=== PATIENT | female | born 1945 | race Caucasian/White ===

== ENCOUNTER 2023-02-08 13:07 | Inpatient (IN) | payer OTHER, SELFPAY ==
--- NOTE | ~2023-02-08 | CT_ITS ---
EXAMINATION: CT HEAD WITHOUT CONTRAST CLINICAL INFORMATION: Lethargy. COMPARISON: CT head 02/08/2023. TECHNIQUE: Contiguous axial imaging was performed from the skull base to vertex without intravenous administration of contrast. This CT examination was performed using dose optimization techniques as appropriate, variously including the following: *Automated exposure control *Adjustment of mA and/or kV according to patient size (this includes techniques or standardized protocols for targeted exams where dose is matched to indication/reason for exam; i.e. extremities or head) *Use of iterative reconstruction technique DLP: 683 mGy-cm FINDINGS: Indeterminate small hypodensity in the mid to right shreya (2:16) not significantly changed compared to 02/08/2023. There is no evidence of acute intracranial hemorrhage or edematous territorial infarction. Scattered hypoattenuation in the periventricular and deep white matter are consistent with moderate microangiopathy. Díaz-white matter differentiation is preserved. Proportional prominence of the ventricles and sulcal spaces. No evidence for obstructive hydrocephalus. No abnormal mass effect or midline shift. No extra-axial fluid collections. Mineralization of the basal ganglia. No acute soft tissue or osseous abnormalities. The mastoid air cells and paranasal sinuses are clear. Bilateral lens extraction. CT/CT head/brain wo IV con IMPRESSION: 1. Unchanged small hypodensity in the mid to right shreya. Recommend further characterization with an MRI of the brain. 2. Moderate chronic microangiopathy and generalized cerebral volume loss.
--- NOTE | ~2023-02-08 | XR_ITS ---
EXAMINATION: XR CHEST CLINICAL INFORMATION: FTT COMPARISON: None available. TECHNIQUE: Frontal view of the chest was obtained. FINDINGS: No significant abnormality is noted involving the heart, lungs, mediastinum, bony thorax or soft tissues. XR/XR chest 1V IMPRESSION: Unremarkable chest examination.
--- NOTE | ~2023-02-08 | CT_ITS ---
EXAMINATION: CT HEAD WITHOUT CONTRAST CLINICAL INFORMATION: Altered metal status. COMPARISON: No relevant prior imaging. TECHNIQUE: Contiguous axial imaging was performed from the skull base to vertex without intravenous administration of contrast. This CT examination was performed using dose optimization techniques as appropriate, variously including the following: *Automated exposure control *Adjustment of mA and/or kV according to patient size (this includes techniques or standardized protocols for targeted exams where dose is matched to indication/reason for exam; i.e. extremities or head) *Use of iterative reconstruction technique DLP: 684 mGy-cm FINDINGS: There is no acute intracranial hemorrhage or abnormal extra-axial collection. No intracranial mass effect or midline shift. Lateral and third ventricles are normal. No hydrocephalus. Díaz-white matter differentiation is preserved and there is no evidence of acute territorial infarct. The calvarium and skull base are intact. Mastoid air cells and middle ear cavities are well aerated. No active paranasal sinus disease. Globes and orbits are grossly symmetric. CT/CT head/brain wo IV con IMPRESSION: Normal CT scan of the head.
--- NOTE | ~2023-02-08 | FL_ITS ---
FLUOROSCOPIC LUMBAR PUNCTURE Indication: Encephalopathy Risks and benefits and possible complications were discussed with the patient's spouse the consent form was signed. Patient was placed prone on the fluoroscopy table. The back was prepped and draped in routine sterile fashion. Betadine was used as a skin antiseptic. Utilizing fluoroscopic guidance, the L3-4 level was accessed with a 22 gauge quinkie spinal needle. Pandora-tinged CSF was initially encountered, however, cleared throughout the procedure. Opening pressure was unable to be obtained. 8 cc of fluid was sent for analysis. The needle was removed without immediate complications. Total fluoroscopy time: 3 minutes 4 seconds FL/FL guided lumbar puncture LP IMPRESSION: Successful Fluoroscopic lumbar puncture This procedure was performed by Parish Quintero PA-C and supervised by Dr. Brian.
--- NOTE | ~2023-02-08 | MR_ITS ---
EXAMINATION: MRI OF THE BRAIN WITHOUT CONTRAST CLINICAL INFORMATION: Abnormal CT scan. COMPARISON: CT scan of the head 02/16/2023. TECHNIQUE: MRI of the brain was obtained using routine sequences without contrast. Some images are degraded by patient motion artifact. FINDINGS: No diffusion abnormalities are identified to suggest an acute or subacute infarct. No mass effect or midline shift is seen. There is mild commensurate prominence of the ventricles and sulci consistent with diffuse volume loss. There are moderate scattered areas of hyperintense T2 and FLAIR signal in the periventricular and subcortical white matter and in the shreya, most consistent with chronic microvascular ischemic changes. There appear to be sequelae of a lacunar infarct in the right ventral shreya, corresponding to the findings on the CT scan. No extra-axial fluid collections are seen. The cerebellar appears normal. No pathologic magnetic susceptibility artifact is identified on the gradient refocused acquisition. The craniovertebral junction, marrow signal, and midline structures are normal. The major intracranial flow-voids at the level of the [place] are preserved. The dural venous sinus flow-voids are maintained. There have been bilateral lens extractions. The mastoid air cells and paranasal sinuses are well-aerated. MR/MR head/brain wo con IMPRESSION: 1. There are no acute bleeds or territorial infarcts. No masses are demonstrated. 2. There are chronic microvascular ischemic changes and there is diffuse volume loss. There appear to be sequelae of a lacunar infarct in the right ventral shreya, corresponding to findings on the CT scan.
[2023-02-08 13:25] VITALS: BP 158/96; PULSE 101; O2SAT 95
[2023-02-08 13:33] VITALS: BP 169/91; PULSE 95; RESP 16; TEMP 36.9; O2SAT 95; BMI 30.3
--- NOTE | 2023-02-08 13:38 | ECG_ITS ---
Test Reason : medical clearance Blood Pressure : / mmHG Vent. Rate : 091 BPM Atrial Rate : 091 BPM P-R Int : 112 ms QRS Dur : 068 ms QT Int : 156 ms P-R-T Axes : 050 013 153 degrees QTc Int : 191 ms Normal sinus rhythm Nonspecific T wave abnormality Abnormal ECG No previous ECGs available Referred By: Astrid Castellanos Electronically Signed By:SARKIS HENDRICKSON
--- NOTE | 2023-02-08 13:43 | ED_ITS ---
HPI - General Adult General Chief complaint: Altered Mental Status Stated complaint: CRISIS,MOOD SWINGS, HALLUCINATIONS,ANX,DEP,DEMENTI Time Seen by Provider: 02/08/23 13:40 Source: patient, EMS, RN notes reviewed and old records reviewed Mode of arrival: EMS History of Present Illness HPI narrative: 77-year-old female with no known past medical history presenting to ED on Section 12 from home for failure to thrive/unable to care for self. Per patient she lives home with . Patient reports suprapubic discomfort/dysuria, CP and SOB. Patient is poor historian. Related Data Home Medications Medication Instructions Recorded Confirmed amlodipine 10 mg tablet 10 mg PO DAILY 02/09/23 02/09/23 ascorbic acid (vitamin C) 500 mg 500 mg PO Q48H 02/09/23 02/09/23 tablet (Vitamin C) aspirin 81 mg tablet,delayed 81 mg PO DAILY 02/09/23 02/09/23 release carvedilol 6.25 mg tablet 6.25 mg PO BID 02/09/23 02/09/23 cholecalciferol (vitamin D3) 25 25 mcg PO DAILY 02/09/23 02/09/23 mcg (1,000 unit) tablet escitalopram oxalate 20 mg tablet 20 mg PO DAILY 02/09/23 02/09/23 ferrous sulfate 325 mg (65 mg 325 mg PO DAILY 02/09/23 02/09/23 iron) tablet,delayed release gabapentin 100 mg capsule 100 mg PO DAILY 02/09/23 02/09/23 insulin glargine 100 unit/mL (3 36 unit subcut Q12H 02/09/23 02/09/23 mL) subcutaneous pen (Lantus Solostar U-100 Insulin) lidocaine 5 % topical patch 1 patch topical DAILY 02/09/23 02/09/23 lisinopril 40 mg tablet 40 mg PO DAILY 02/09/23 02/09/23 melatonin 3 mg tablet 3 mg PO BEDTIME 02/09/23 02/09/23 metformin 1,000 mg tablet 1,000 mg PO BID 02/09/23 02/09/23 nitrofurantoin 1 cap PO BID 02/09/23 02/09/23 monohydrate/macrocrystals 100 mg capsule polyethylene glycol 3350 17 17 g PO DAILY PRN constipation 12/05/23 12/05/23 gram/dose oral powder (Gavilax) rosuvastatin 20 mg tablet 20 mg PO BEDTIME 02/09/23 02/09/23 semaglutide 14 mg tablet (Rybelsus) 14 mg PO DAILY 02/09/23 02/09/23 Allergies Allergy/AdvReac Type Severity Reaction Status Date / Time No Known Allergies Allergy Verified 02/08/23 13:36 Review of Systems 2 Review of Systems: History limited due to patient's acute mental status Yes all other systems are reviewed and are negative Constitutional: Constitutional: Reports as per [facility] Past Medical History Attestation statement: The following information was validated with the patient. Source: old records reviewed Social History Social History Smoked in Last 30 Days: No Use of substances other than those prescribed or required for medical reasons: No Advance Directives: Yes Advance Directives on File: Yes Advance Directives Date on File: 02/10/23 Healthcare Proxy: No Guardian: No Physical Exam ED Vital Signs: Vital Signs - 24 hr 02/11/23 22:30 02/12/23 06:21 02/12/23 11:29 Temperature 98.1 F 97.3 F Pulse Rate 97 95 88 Respiratory Rate 17 19 18 Blood Pressure 185/85 H 180/95 H 161/86 H Pulse Oximetry 96 96 95 Oxygen Delivery Method Room Air Room Air Room Air 02/12/23 13:52 02/12/23 15:54 Temperature 97 F 98.4 F Pulse Rate 82 85 Respiratory Rate 20 16 Blood Pressure 139/68 139/70 Pulse Oximetry 93 97 Oxygen Delivery Method Room Air Room Air BMI result Body Mass Index 30.3 Const General: no acute distress Orientation/consciousness: patient oriented x3 HENMT Head: Yes normal to inspection and Yes atraumatic Ears: hearing grossly normal bilaterally General nose exam: Normal external nose present Face and sinus: Yes normal facial exam Throat: Yes posterior oropharynx normal Eyes General: appearance normal, both eyes and all related structures Pupils: Equal, round and reactive pupils present EOM: EOMs intact bilaterally Neck Neck: Yes normal visual inspection and Yes no meningeal signs Resp Effort & Inspection: normal respiratory effort and no respiratory distress Auscultation: clear to auscultation bilaterally Cardio Rate: regular rate Heart sounds: S1 normal heart sound present and S2 normal heart sound present GI Inspection: Yes normal to inspection Palpation (GI): Soft to palpation, nontender, no guarding and not rigid Skin Rashes: no rashes Wounds: no wounds Neuro General: patient oriented x3, tone normal, moves all extremities and no meningeal signs Cranial nerves: Yes CN's II-XII intact bilaterally and Yes Equal, round and reactive pupils present Extrem General: Yes normal to inspection and Yes no pedal edema Course Course Course Narrative: -1458--labs reassuring. UA contaminated however appears infected and very cloudy at bedside. Will treat empirically with PO Ceftin -tox screen and COVID negative XR chest 1V IMPRESSION: Unremarkable chest examination. CT head/brain wo IV con IMPRESSION: Normal CT scan of the head. -physician observation initiated at 1558 as patient needs more time to be evaluated by CARE team -1430--ED care transferred to [facility] pending CARE team consult 20:00 spoke with care team, patient was evaluated by [facility] the community, with recommendations for [facility], they expressed concerns about her ability to continue caring for herself at home, she at times has been found to be wandering in the street wearing her undergarments. 02/09/23--1600--physician observation continued. CARE team evaluated patient, patient was made [facility] bed search by [facility] prior to medical clearance, patient does have noted UTI. CARE team recommended psychiatry consult. Pending recommendations. - 02/10/23--0730--physician observation continued. Pending psychiatry evaluation. Will continue to monitor for discharge needs >0916--patient evaluated by CARE team and no inpatient level or care deemed appropriate at this time - 02/12/2023 0757: Patient's sugar was found to be below 60 and the patient was more somnolent. Nurse gave IV D50. Reviewed case with Dr. Hopkins. Recommended stopping her semaglutide and halving her insulin and metformin doses. Nurse informed of changes and need to feed the patient. Physician observation continues. Patient awaiting placement. - 02/12/2023 1756: Patient given sign-out to me from my colleague, Astrid Castellanos PA-C, pending repeat labs. Patient has increased leukocytosis at 11.6, BUN 24 which is increased from her 1st visit on 02/08. Given patient's failure to thrive, urinary tract infection and hypoglycemic episode, patient needs to be admitted to the hospital for further evaluation and workup. Case discussed with hospitalist, Dr. Desai, transfer of care initiated. Reevaluation(s) Reevaluation #1: Pain in observation to allow more time to be evaluated by the psychiatric team. At time observation started vital signs stable, will continue to monitor Time: 06:48 Medications Administered Generic Name Dose Route Start Last Admin Trade Name Freq PRN Reason Stop Dose Admin Amlodipine Besylate 10 mg 02/09/23 16:15 02/12/23 10:15 Amlodipine Besylate 10 Mg Tablet PO 10 mg DAILY CECILIA Administration Protocol Ascorbic Acid 500 mg 02/09/23 16:00 02/11/23 14:55 Ascorbic Acid 500 Mg Tablet PO 500 mg Q48H CECILIA Administration Aspirin 81 mg 02/09/23 16:15 02/12/23 10:15 Aspirin Enteric Coated 81 Mg Tablet. PO 81 mg DAILY CECILIA Administration Atorvastatin Calcium 80 mg 02/09/23 21:00 02/11/23 21:31 Atorvastatin Calcium 80 Mg Tablet PO 80 mg BEDTIME CECILIA Administration Carvedilol 6.25 mg 02/09/23 21:00 02/12/23 11:18 Carvedilol 6.25 Mg Tablet PO 6.25 mg BID CECILIA Administration Protocol Cefuroxime Axetil 250 mg 02/12/23 09:00 02/12/23 10:15 Cefuroxime Axetil 250 Mg Tablet PO 02/15/23 08:59 250 mg BID CECILIA Administration Escitalopram Oxalate 20 mg 02/09/23 16:15 02/12/23 10:15 Escitalopram Oxalate 20 Mg Tablet PO 20 mg DAILY CECILIA Administration Ferrous Sulfate 324 mg 02/10/23 09:00 02/12/23 10:15 Ferrous Sulfate 324 Mg Tablet. PO 324 mg DAILY CECILIA Administration Gabapentin 100 mg 02/09/23 16:15 02/12/23 10:15 Gabapentin 100 Mg Capsule PO 100 mg DAILY CECILIA Administration Dextrose 1,000 mls @ 50 mls/hr 02/12/23 12:45 02/12/23 14:38 D10 IVCONT 50 mls/hr .Q20H CECILIA Administration Insulin Glargine 18 unit 02/12/23 08:00 02/12/23 09:16 Insulin Glargine,Hum.Rec.Anlog 100 Unit/Ml 10 Ml Vial SUBCUT Not Given BID CECILIA Lidocaine 1 patch 02/10/23 09:00 02/12/23 10:16 Lidocaine 4 % Patch Adh..Patch TRANSDERMA 1 patch DAILY CECILIA Administration Lisinopril 40 mg 02/09/23 17:00 02/12/23 10:15 Lisinopril 40 Mg Tablet PO 40 mg DAILY CECILIA Administration Protocol Melatonin 3 mg 02/09/23 21:00 02/11/23 21:32 Melatonin 3 Mg Tablet PO 3 mg BEDTIME CECILIA Administration Metformin HCl 500 mg 02/12/23 09:00 02/12/23 11:17 Metformin Hcl 500 Mg Tablet PO Not Given BID CECILIA Nitrofurantoin Macrocrystals 100 mg 02/09/23 21:00 02/12/23 10:15 Nitrofurantoin Monohyd/M-Cryst 100 Mg Capsule PO 100 mg BID CECILIA Administration Polyethylene Glycol 17 gm 02/09/23 16:00 02/11/23 21:35 Polyethylene Glycol 3350 17 Gm Powd.Pack PO 17 gm DAILY PRN Administration constipation Vitamin D 25 mcg 02/09/23 16:15 02/12/23 10:15 Cholecalciferol (Vitamin D3) 25 Mcg Tablet PO 25 mcg DAILY CECILIA Administration Discontinued Medications Generic Name Dose Route Start Last Admin Trade Name Freq PRN Reason Stop Dose Admin Cefuroxime Axetil 250 mg 02/08/23 15:00 02/12/23 04:37 Cefuroxime Axetil 250 Mg Tablet PO 02/15/23 14:59 Not Given Q12H CECILIA Dextrose 25 gm 02/12/23 07:53 02/12/23 07:45 Dextrose 50 % 25 Gm/50 Ml Syringe IVPUSH 02/12/23 07:54 25 gm ONCE ONE Administration Ceftriaxone Sodium 1 gm/ 50 mls @ 100 mls/hr 02/12/23 12:44 02/12/23 14:40 Sodium Chloride IV 02/12/23 13:13 Infused ONCE ONE Infusion Insulin Glargine 36 unit 02/09/23 21:00 02/11/23 21:34 Insulin Glargine,Hum.Rec.Anlog 100 Unit/Ml 10 Ml Vial SUBCUT 36 unit BID CECILIA Administration Metformin HCl 1,000 mg 02/09/23 21:00 02/11/23 21:30 Metformin Hcl 1,000 Mg Tablet PO 1,000 mg BID CECILIA Administration Ondansetron HCl 4 mg 02/11/23 11:16 02/11/23 11:21 Ondansetron Odt 4 Mg Tab.Rapdis TRANSLINGU 02/11/23 11:17 4 mg ONCE ONE Administration Medical Decision Making Medical Decision Making MDM Narrative: 77-year-old female with no known past medical history presenting to ED on Section 12 from home for failure to thrive/unable to care for self. On exam vital signs stable, NAD, A&O x3 however poor historian. Patient's baseline unknown. No contact information in chart, patient unable to tell us family members phone numbers. Rule out metabolic/infectious etiology vs ?Dementia Plan: EKG, labs, tox screen, viral testing, UA, Head CT, CARE team consult Please refer to course for remaining clinical decision making, interpretation of labs/imaging results, and discussions with consultants and/or family members. Differential Diagnosis Differential Diagnoses: The differential diagnosis associated with the presentation includes As above Admission/Observation Consideration of admission/observation: Escalation of care including admission/observation considered Consult Healthcare Provider Management of the patient was discussed with: Behavioral Health Provider Lab Data MDM Lab Attestation statement: I reviewed the patient's lab results. 02/12/23 16:03 02/12/23 16:03 Labs: Lab Results 02/08/23 02/08/23 02/09/23 Range/Units 14:22 14:23 08:45 WBC 9.6 (4.8-10.8) X10*3/uL RBC 4.66 (4.20-5.50) X10*6/uL Hgb 12.4 (12.0-16.0) g/dl Hct 37.5 (37.0-47.0) % MCV 80.5 (80.0-98.0) fL MCH 26.6 L (27.0-33.0) pg MCHC 33.1 (31.0-35.0) g/dl RDW 15.6 (11.0-16.0) % Plt Count 319 (160-400) X10*3/uL MPV 10.5 (9.4-12.3) fL Immature Gran % (Auto) 0.2 (0.0-0.4) % Neut % (Auto) 65.5 (45-73) % Lymph % (Auto) 26.3 (20-40) % [place] % (Auto) 7.1 (2-11) % Eos % (Auto) 0.6 (0-4) % Baso % (Auto) 0.3 (0-2) % Lymph # (Auto) 2.5 (1.2-4.9) X10*3/uL [place] # (Auto) 0.7 (0.1-1.2) X10*3/uL Eos # (Auto) 0.1 (0.0-0.4) X10*3/uL Baso # (Auto) 0.0 (0.0-0.2) X10*3/uL Abs Immat Gran (auto) 0.02 (0.00-0.03) X10*3/uL Absolute Neuts (auto) 6.3 (2.0-8.3) x10*3/uL Absolute Nucleated RBC 0.000 (0.0-0.012) X10*3/uL Nucleated RBC % (auto) 0.0 (0.0-0.2) /100WBC Sodium 138 (135-145) mmol/L Potassium 4.0 (3.3-5.1) mmol/L Chloride 106 (96-108) mmol/L Carbon Dioxide 25 (22-29) mmol/L Anion Gap 11 L (12-20) BUN 9 (9-16) mg/dL Creatinine 0.80 (0.5-1.4) mg/dL Estim Creat Clear Calc 53.1 Estimated GFR > 60 POC Glucose 287 H (60-115) mg/dL Random Glucose 206 H (60-115) mg/dL Calcium 9.9 (8.4-10.2) mg/dL Magnesium 2.1 (1.6-2.6) mg/dL Total Bilirubin 0.5 (0.0-1.0) mg/dL AST 21 (5-31) U/L ALT 19 (0-31) U/L Alkaline Phosphatase 92 (39-117) U/L Troponin I High Sens 3.3 (<3.5-17.0) ng/L Total Protein 7.6 (6.5-8.0) g/dL Albumin 4.2 (3.5-5.0) g/dL Urine Color Straw Urine Appearance Hazy Urine pH 6.0 (5.0-9.0) Ur Specific [place] 1.010 (1.005-1.025) Urine Protein Trace (Neg-Trace) mg/dL Urine Glucose (UA) >=1000 H (Negative) mg/dL Urine Ketones Negative (Negative) mg/dL Urine Blood Trace (Negative) Urine Nitrite Positive H (Negative) Ur Leukocyte Esterase Negative (Negative) Urine RBC 11-20 H (0-2) /HPF Urine WBC 6-10 H (0-5) /HPF Ur Squamous Epith Cells 11-20 (0-2) /HPF Urine Bacteria 4+ (None Seen) Hyaline Casts 0-2 (0-2) /LPF Salicylates < 5.0 L (15-30) mg/dL Urine Opiates Screen Not Detected (Not Detect) Urine Fentanyl Screen Not Detected (Not Detect) Acetaminophen < 3 (<30) mcg/mL Ur Barbiturates Screen Not Detected (Not Detect) Ur Phencyclidine Scrn Not Detected (Not Detect) Ur Amphetamines Screen Not Detected (Not Detect) U Benzodiazepines Scrn Not Detected (Not Detect) Urine Cocaine Screen Not Detected (Not Detect) U Marijuana (THC) Screen Not Detected (Not Detect) Ethyl Alcohol < 10 mg/dL COVID-19 (SIVAN) Negative (Negative) COVID-19 Clin Com See Note 02/09/23 02/09/23 02/09/23 Range/Units 13:12 17:06 20:37 WBC (4.8-10.8) X10*3/uL RBC (4.20-5.50) X10*6/uL Hgb (12.0-16.0) g/dl Hct (37.0-47.0) % MCV (80.0-98.0) fL MCH (27.0-33.0) pg MCHC (31.0-35.0) g/dl RDW (11.0-16.0) % Plt Count (160-400) X10*3/uL MPV (9.4-12.3) fL Immature Gran % (Auto) (0.0-0.4) % Neut % (Auto) (45-73) % Lymph % (Auto) (20-40) % [place] % (Auto) (2-11) % Eos % (Auto) (0-4) % Baso % (Auto) (0-2) % Lymph # (Auto) (1.2-4.9) X10*3/uL [place] # (Auto) (0.1-1.2) X10*3/uL Eos # (Auto) (0.0-0.4) X10*3/uL Baso # (Auto) (0.0-0.2) X10*3/uL Abs Immat Gran (auto) (0.00-0.03) X10*3/uL Absolute Neuts (auto) (2.0-8.3) x10*3/uL Absolute Nucleated RBC (0.0-0.012) X10*3/uL Nucleated RBC % (auto) (0.0-0.2) /100WBC Sodium (135-145) mmol/L Potassium (3.3-5.1) mmol/L Chloride (96-108) mmol/L Carbon Dioxide (22-29) mmol/L Anion Gap (12-20) BUN (9-16) mg/dL Creatinine (0.5-1.4) mg/dL Estim Creat Clear Calc Estimated GFR POC Glucose 201 H 230 H 241 H (60-115) mg/dL Random Glucose (60-115) mg/dL Calcium (8.4-10.2) mg/dL Magnesium (1.6-2.6) mg/dL Total Bilirubin (0.0-1.0) mg/dL AST (5-31) U/L ALT (0-31) U/L Alkaline Phosphatase (39-117) U/L Troponin I High Sens (<3.5-17.0) ng/L Total Protein (6.5-8.0) g/dL Albumin (3.5-5.0) g/dL Urine Color Urine Appearance Urine pH (5.0-9.0) Ur Specific [place] (1.005-1.025) Urine Protein (Neg-Trace) mg/dL Urine Glucose (UA) (Negative) mg/dL Urine Ketones (Negative) mg/dL Urine Blood (Negative) Urine Nitrite (Negative) Ur Leukocyte Esterase (Negative) Urine RBC (0-2) /HPF Urine WBC (0-5) /HPF Ur Squamous Epith Cells (0-2) /HPF Urine Bacteria (None Seen) Hyaline Casts (0-2) /LPF Salicylates (15-30) mg/dL Urine Opiates Screen (Not Detect) Urine Fentanyl Screen (Not Detect) Acetaminophen (<30) mcg/mL Ur Barbiturates Screen (Not Detect) Ur Phencyclidine Scrn (Not Detect) Ur Amphetamines Screen (Not Detect) U Benzodiazepines Scrn (Not Detect) Urine Cocaine Screen (Not Detect) U Marijuana (THC) Screen (Not Detect) Ethyl Alcohol mg/dL COVID-19 (SIVAN) (Negative) COVID-19 Clin Com 02/10/23 02/10/23 02/10/23 Range/Units 05:17 07:11 11:37 WBC (4.8-10.8) X10*3/uL RBC (4.20-5.50) X10*6/uL Hgb (12.0-16.0) g/dl Hct (37.0-47.0) % MCV (80.0-98.0) fL MCH (27.0-33.0) pg MCHC (31.0-35.0) g/dl RDW (11.0-16.0) % Plt Count (160-400) X10*3/uL MPV (9.4-12.3) fL Immature Gran % (Auto) (0.0-0.4) % Neut % (Auto) (45-73) % Lymph % (Auto) (20-40) % [place] % (Auto) (2-11) % Eos % (Auto) (0-4) % Baso % (Auto) (0-2) % Lymph # (Auto) (1.2-4.9) X10*3/uL [place] # (Auto) (0.1-1.2) X10*3/uL Eos # (Auto) (0.0-0.4) X10*3/uL Baso # (Auto) (0.0-0.2) X10*3/uL Abs Immat Gran (auto) (0.00-0.03) X10*3/uL Absolute Neuts (auto) (2.0-8.3) x10*3/uL Absolute Nucleated RBC (0.0-0.012) X10*3/uL Nucleated RBC % (auto) (0.0-0.2) /100WBC Sodium (135-145) mmol/L Potassium (3.3-5.1) mmol/L Chloride (96-108) mmol/L Carbon Dioxide (22-29) mmol/L Anion Gap (12-20) BUN (9-16) mg/dL Creatinine (0.5-1.4) mg/dL Estim Creat Clear Calc Estimated GFR POC Glucose 189 H 201 H 187 H (60-115) mg/dL Random Glucose (60-115) mg/dL Calcium (8.4-10.2) mg/dL Magnesium (1.6-2.6) mg/dL Total Bilirubin (0.0-1.0) mg/dL AST (5-31) U/L ALT (0-31) U/L Alkaline Phosphatase (39-117) U/L Troponin I High Sens (<3.5-17.0) ng/L Total Protein (6.5-8.0) g/dL Albumin (3.5-5.0) g/dL Urine Color Urine Appearance Urine pH (5.0-9.0) Ur Specific [place] (1.005-1.025) Urine Protein (Neg-Trace) mg/dL Urine Glucose (UA) (Negative) mg/dL Urine Ketones (Negative) mg/dL Urine Blood (Negative) Urine Nitrite (Negative) Ur Leukocyte Esterase (Negative) Urine RBC (0-2) /HPF Urine WBC (0-5) /HPF Ur Squamous Epith Cells (0-2) /HPF Urine Bacteria (None Seen) Hyaline Casts (0-2) /LPF Salicylates (15-30) mg/dL Urine Opiates Screen (Not Detect) Urine Fentanyl Screen (Not Detect) Acetaminophen (<30) mcg/mL Ur Barbiturates Screen (Not Detect) Ur Phencyclidine Scrn (Not Detect) Ur Amphetamines Screen (Not Detect) U Benzodiazepines Scrn (Not Detect) Urine Cocaine Screen (Not Detect) U Marijuana (THC) Screen (Not Detect) Ethyl Alcohol mg/dL COVID-19 (SIVAN) (Negative) COVID-19 Clin Com 02/10/23 02/10/23 02/11/23 Range/Units 13:29 21:07 07:27 WBC (4.8-10.8) X10*3/uL RBC (4.20-5.50) X10*6/uL Hgb (12.0-16.0) g/dl Hct (37.0-47.0) % MCV (80.0-98.0) fL MCH (27.0-33.0) pg MCHC (31.0-35.0) g/dl RDW (11.0-16.0) % Plt Count (160-400) X10*3/uL MPV (9.4-12.3) fL Immature Gran % (Auto) (0.0-0.4) % Neut % (Auto) (45-73) % Lymph % (Auto) (20-40) % [place] % (Auto) (2-11) % Eos % (Auto) (0-4) % Baso % (Auto) (0-2) % Lymph # (Auto) (1.2-4.9) X10*3/uL [place] # (Auto) (0.1-1.2) X10*3/uL Eos # (Auto) (0.0-0.4) X10*3/uL Baso # (Auto) (0.0-0.2) X10*3/uL Abs Immat Gran (auto) (0.00-0.03) X10*3/uL Absolute Neuts (auto) (2.0-8.3) x10*3/uL Absolute Nucleated RBC (0.0-0.012) X10*3/uL Nucleated RBC % (auto) (0.0-0.2) /100WBC Sodium (135-145) mmol/L Potassium (3.3-5.1) mmol/L Chloride (96-108) mmol/L Carbon Dioxide (22-29) mmol/L Anion Gap (12-20) BUN (9-16) mg/dL Creatinine (0.5-1.4) mg/dL Estim Creat Clear Calc Estimated GFR POC Glucose 208 H 241 H 136 H (60-115) mg/dL Random Glucose (60-115) mg/dL Calcium (8.4-10.2) mg/dL Magnesium (1.6-2.6) mg/dL Total Bilirubin (0.0-1.0) mg/dL AST (5-31) U/L ALT (0-31) U/L Alkaline Phosphatase (39-117) U/L Troponin I High Sens (<3.5-17.0) ng/L Total Protein (6.5-8.0) g/dL Albumin (3.5-5.0) g/dL Urine Color Urine Appearance Urine pH (5.0-9.0) Ur Specific [place] (1.005-1.025) Urine Protein (Neg-Trace) mg/dL Urine Glucose (UA) (Negative) mg/dL Urine Ketones (Negative) mg/dL Urine Blood (Negative) Urine Nitrite (Negative) Ur Leukocyte Esterase (Negative) Urine RBC (0-2) /HPF Urine WBC (0-5) /HPF Ur Squamous Epith Cells (0-2) /HPF Urine Bacteria (None Seen) Hyaline Casts (0-2) /LPF Salicylates (15-30) mg/dL Urine Opiates Screen (Not Detect) Urine Fentanyl Screen (Not Detect) Acetaminophen (<30) mcg/mL Ur Barbiturates Screen (Not Detect) Ur Phencyclidine Scrn (Not Detect) Ur Amphetamines Screen (Not Detect) U Benzodiazepines Scrn (Not Detect) Urine Cocaine Screen (Not Detect) U Marijuana (THC) Screen (Not Detect) Ethyl Alcohol mg/dL COVID-19 (SIVAN) (Negative) COVID-19 Clin Com 02/11/23 02/12/23 02/12/23 Range/Units 11:18 07:20 08:09 WBC (4.8-10.8) X10*3/uL RBC (4.20-5.50) X10*6/uL Hgb (12.0-16.0) g/dl Hct (37.0-47.0) % MCV (80.0-98.0) fL MCH (27.0-33.0) pg MCHC (31.0-35.0) g/dl RDW (11.0-16.0) % Plt Count (160-400) X10*3/uL MPV (9.4-12.3) fL Immature Gran % (Auto) (0.0-0.4) % Neut % (Auto) (45-73) % Lymph % (Auto) (20-40) % [place] % (Auto) (2-11) % Eos % (Auto) (0-4) % Baso % (Auto) (0-2) % Lymph # (Auto) (1.2-4.9) X10*3/uL [place] # (Auto) (0.1-1.2) X10*3/uL Eos # (Auto) (0.0-0.4) X10*3/uL Baso # (Auto) (0.0-0.2) X10*3/uL Abs Immat Gran (auto) (0.00-0.03) X10*3/uL Absolute Neuts (auto) (2.0-8.3) x10*3/uL Absolute Nucleated RBC (0.0-0.012) X10*3/uL Nucleated RBC % (auto) (0.0-0.2) /100WBC Sodium (135-145) mmol/L Potassium (3.3-5.1) mmol/L Chloride (96-108) mmol/L Carbon Dioxide (22-29) mmol/L Anion Gap (12-20) BUN (9-16) mg/dL Creatinine (0.5-1.4) mg/dL Estim Creat Clear Calc Estimated GFR POC Glucose 115 53 L* 201 H (60-115) mg/dL Random Glucose (60-115) mg/dL Calcium (8.4-10.2) mg/dL Magnesium (1.6-2.6) mg/dL Total Bilirubin (0.0-1.0) mg/dL AST (5-31) U/L ALT (0-31) U/L Alkaline Phosphatase (39-117) U/L Troponin I High Sens (<3.5-17.0) ng/L Total Protein (6.5-8.0) g/dL Albumin (3.5-5.0) g/dL Urine Color Urine Appearance Urine pH (5.0-9.0) Ur Specific [place] (1.005-1.025) Urine Protein (Neg-Trace) mg/dL Urine Glucose (UA) (Negative) mg/dL Urine Ketones (Negative) mg/dL Urine Blood (Negative) Urine Nitrite (Negative) Ur Leukocyte Esterase (Negative) Urine RBC (0-2) /HPF Urine WBC (0-5) /HPF Ur Squamous Epith Cells (0-2) /HPF Urine Bacteria (None Seen) Hyaline Casts (0-2) /LPF Salicylates (15-30) mg/dL Urine Opiates Screen (Not Detect) Urine Fentanyl Screen (Not Detect) Acetaminophen (<30) mcg/mL Ur Barbiturates Screen (Not Detect) Ur Phencyclidine Scrn (Not Detect) Ur Amphetamines Screen (Not Detect) U Benzodiazepines Scrn (Not Detect) Urine Cocaine Screen (Not Detect) U Marijuana (THC) Screen (Not Detect) Ethyl Alcohol mg/dL COVID-19 (SIVAN) (Negative) COVID-19 Clin Com 02/12/23 02/12/23 02/12/23 Range/Units 11:32 15:57 16:03 WBC 11.6 H (4.8-10.8) X10*3/uL RBC 5.00 (4.20-5.50) X10*6/uL Hgb 13.2 (12.0-16.0) g/dl Hct 40.5 (37.0-47.0) % MCV 81.0 (80.0-98.0) fL MCH 26.4 L (27.0-33.0) pg MCHC 32.6 (31.0-35.0) g/dl RDW 15.8 (11.0-16.0) % Plt Count 311 (160-400) X10*3/uL MPV 10.8 (9.4-12.3) fL Immature Gran % (Auto) 0.3 (0.0-0.4) % Neut % (Auto) 72.1 (45-73) % Lymph % (Auto) 21.4 (20-40) % [place] % (Auto) 5.9 (2-11) % Eos % (Auto) 0.2 (0-4) % Baso % (Auto) 0.1 (0-2) % Lymph # (Auto) 2.5 (1.2-4.9) X10*3/uL [place] # (Auto) 0.7 (0.1-1.2) X10*3/uL Eos # (Auto) 0.0 (0.0-0.4) X10*3/uL Baso # (Auto) 0.0 (0.0-0.2) X10*3/uL Abs Immat Gran (auto) 0.03 (0.00-0.03) X10*3/uL Absolute Neuts (auto) 8.4 H (2.0-8.3) x10*3/uL Absolute Nucleated RBC 0.000 (0.0-0.012) X10*3/uL Nucleated RBC % (auto) 0.0 (0.0-0.2) /100WBC Sodium 137 (135-145) mmol/L Potassium 5.1 D (3.3-5.1) mmol/L Chloride 105 (96-108) mmol/L Carbon Dioxide 22 (22-29) mmol/L Anion Gap 15 (12-20) BUN 24 H (9-16) mg/dL Creatinine 0.80 (0.5-1.4) mg/dL Estim Creat Clear Calc 53.1 Estimated GFR > 60 POC Glucose 82 100 (60-115) mg/dL Random Glucose 105 (60-115) mg/dL Calcium 9.3 D (8.4-10.2) mg/dL Magnesium (1.6-2.6) mg/dL Total Bilirubin 0.4 (0.0-1.0) mg/dL AST 31 (5-31) U/L ALT 22 (0-31) U/L Alkaline Phosphatase 85 (39-117) U/L Troponin I High Sens (<3.5-17.0) ng/L Total Protein 7.4 (6.5-8.0) g/dL Albumin 3.8 (3.5-5.0) g/dL Urine Color Urine Appearance Urine pH (5.0-9.0) Ur Specific [place] (1.005-1.025) Urine Protein (Neg-Trace) mg/dL Urine Glucose (UA) (Negative) mg/dL Urine Ketones (Negative) mg/dL Urine Blood (Negative) Urine Nitrite (Negative) Ur Leukocyte Esterase (Negative) Urine RBC (0-2) /HPF Urine WBC (0-5) /HPF Ur Squamous Epith Cells (0-2) /HPF Urine Bacteria (None Seen) Hyaline Casts (0-2) /LPF Salicylates (15-30) mg/dL Urine Opiates Screen (Not Detect) Urine Fentanyl Screen (Not Detect) Acetaminophen (<30) mcg/mL Ur Barbiturates Screen (Not Detect) Ur Phencyclidine Scrn (Not Detect) Ur Amphetamines Screen (Not Detect) U Benzodiazepines Scrn (Not Detect) Urine Cocaine Screen (Not Detect) U Marijuana (THC) Screen (Not Detect) Ethyl Alcohol mg/dL COVID-19 ([facility]) (Negative) COVID-19 Clin Com 02/12/23 Range/Units 17:32 WBC (4.8-10.8) X10*3/uL RBC (4.20-5.50) X10*6/uL Hgb (12.0-16.0) g/dl Hct (37.0-47.0) % MCV (80.0-98.0) fL MCH (27.0-33.0) pg MCHC (31.0-35.0) g/dl RDW (11.0-16.0) % Plt Count (160-400) X10*3/uL MPV (9.4-12.3) fL Immature Gran % (Auto) (0.0-0.4) % Neut % (Auto) (45-73) % Lymph % (Auto) (20-40) % [place] % (Auto) (2-11) % Eos % (Auto) (0-4) % Baso % (Auto) (0-2) % Lymph # (Auto) (1.2-4.9) X10*3/uL [place] # (Auto) (0.1-1.2) X10*3/uL Eos # (Auto) (0.0-0.4) X10*3/uL Baso # (Auto) (0.0-0.2) X10*3/uL Abs Immat Gran (auto) (0.00-0.03) X10*3/uL Absolute Neuts (auto) (2.0-8.3) x10*3/uL Absolute Nucleated RBC (0.0-0.012) X10*3/uL Nucleated RBC % (auto) (0.0-0.2) /100WBC Sodium (135-145) mmol/L Potassium (3.3-5.1) mmol/L Chloride (96-108) mmol/L Carbon Dioxide (22-29) mmol/L Anion Gap (12-20) BUN (9-16) mg/dL Creatinine (0.5-1.4) mg/dL Estim Creat Clear Calc Estimated GFR POC Glucose 157 H (60-115) mg/dL Random Glucose (60-115) mg/dL Calcium (8.4-10.2) mg/dL Magnesium (1.6-2.6) mg/dL Total Bilirubin (0.0-1.0) mg/dL AST (5-31) U/L ALT (0-31) U/L Alkaline Phosphatase (39-117) U/L Troponin I High Sens (<3.5-17.0) ng/L Total Protein (6.5-8.0) g/dL Albumin (3.5-5.0) g/dL Urine Color Urine Appearance Urine pH (5.0-9.0) Ur Specific [place] (1.005-1.025) Urine Protein (Neg-Trace) mg/dL Urine Glucose (UA) (Negative) mg/dL Urine Ketones (Negative) mg/dL Urine Blood (Negative) Urine Nitrite (Negative) Ur Leukocyte Esterase (Negative) Urine RBC (0-2) /HPF Urine WBC (0-5) /HPF Ur Squamous Epith Cells (0-2) /HPF Urine Bacteria (None Seen) Hyaline Casts (0-2) /LPF Salicylates (15-30) mg/dL Urine Opiates Screen (Not Detect) Urine Fentanyl Screen (Not Detect) Acetaminophen (<30) mcg/mL Ur Barbiturates Screen (Not Detect) Ur Phencyclidine Scrn (Not Detect) Ur Amphetamines Screen (Not Detect) U Benzodiazepines Scrn (Not Detect) Urine Cocaine Screen (Not Detect) U Marijuana (THC) Screen (Not Detect) Ethyl Alcohol mg/dL COVID-19 (SIVAN) (Negative) COVID-19 Clin Com Independent Interpretation I performed an independent interpretation of an: EKG and Plain X-Ray Radiology Impression Discussion of test interpretation with radiology: I have reviewed the radiologist's reading. Independent Historian Clinical information obtained from an independent historian. History obtained from or confirmed by: EMS External Record Review External record reviewed: Inpatient record, Office record, Outpatient record, Prior outpatient labs, Prior outpatient radiology, Primary care record and Outside ED record Tests considered The following testing was considered but not selected: As above Social Determinants Patient?s care significantly limited by Social Determinants of Health including: Problems related to primary support group Discharge Plan Discharge Clinical Impression: Acute UTI, Adult failure to thrive, Hypoglycemia Patient Disposition: Admitted As Inpatient Prescriptions: No Action carvedilol 6.25 mg tablet 6.25 mg PO BID aspirin 81 mg tablet,delayed release (DR/EC) 81 mg PO DAILY ascorbic acid (vitamin C) [Vitamin C] 500 mg tablet 500 mg PO Q48H amlodipine 10 mg tablet 10 mg PO DAILY metformin 1,000 mg tablet 1,000 mg PO BID gabapentin 100 mg capsule 100 mg PO DAILY ferrous sulfate 325 mg (65 mg iron) tablet,delayed release (DR/EC) 325 mg PO DAILY lisinopril 40 mg tablet 40 mg PO DAILY escitalopram oxalate 20 mg tablet 20 mg PO DAILY rosuvastatin 20 mg tablet 20 mg PO BEDTIME melatonin 3 mg tablet 3 mg PO BEDTIME lidocaine 5 % adhesive patch,medicated 1 patch topical DAILY Rx Instructions: REMOVE AFTER 12 HOURS polyethylene glycol 3350 [Gavilax] 17 gram/dose powder 17 g PO DAILY PRN (Reason: constipation) Rx Instructions: HOLD FOR LOOSE STOOLS nitrofurantoin monohyd/m-cryst 100 mg capsule 1 cap PO BID Rx Instructions: MAINTENANCE MEDICATION cholecalciferol (vitamin D3) 25 mcg (1,000 unit) tablet 25 mcg PO DAILY insulin glargine [Lantus Solostar U-100 Insulin] 100 unit/mL (3 mL) insulin pen 36 unit subcut Q12H Rybelsus 14 mg tablet 14 mg PO DAILY
[2023-02-08 14:00] VITALS: BP 168/70; PULSE 89; RESP 16; TEMP 36.6; O2SAT 98
[2023-02-08 14:27] LABS: MANUAL DIFF FLAG NO
[2023-02-08 14:30] LABS: Appearance Urine Hazy; Color Urine Straw; Glucose Urine UA >=1000 mg/dL (Negative); Leukocyte Esterase Urine Negative (Negative); Nitrite Urine Positive (Negative); UMIC TRIGGER UACC YES; Urine Blood Trace (Negative); Urine Ketones Negative (Negative); Urine Protein Trace mg/dL (Neg-Trace)
[2023-02-08 14:33] LABS: Basophils Percent Auto 0.3 % (0-2); Eosinophils Absolute Auto 0.1 X10*3/uL (0.0-0.4); Eosinophils Percent Auto 0.6 % (0-4); Hematocrit 37.5 % (37.0-47.0); Hemoglobin 12.4 g/dl (12.0-16.0); Imm Gran Abs Auto 0.02 X10*3/uL (0.00-0.03); Imm Gran Pct Auto 0.2 % (0.0-0.4); Lymphocytes Absolute Auto 2.5 X10*3/uL (1.2-4.9); Lymphocytes Percent Auto 26.3 % (20-40); Mean Corpuscular HGB Conc 33.1 g/dl (31.0-35.0); Mean Corpuscular Hemoglobin 26.6 pg (27.0-33.0); Mean Corpuscular Volume 80.5 fL (80.0-98.0); Mean Platelet Volume 10.5 fL (9.4-12.3); Monocytes Absolute Auto 0.7 X10*3/uL (0.1-1.2); Monocytes Percent Auto 7.1 % (2-11); Neutrophils Absolute Auto 6.3 x10*3/uL (2.0-8.3); Neutrophils Percent Auto 65.5 % (45-73); Platelet Count 319 X10*3/uL (160-400); Red Blood Count 4.66 X10*6/uL (4.20-5.50); Red Cell Distribution Width 15.6 % (11.0-16.0); White Blood Count 9.6 X10*3/uL (4.8-10.8)
[2023-02-08 14:35] LABS: Bacteria Urine 4+ (None Seen); Hyaline Casts Urine 0-2 /LPF (0-2); UACC Culture Trigger YES
[2023-02-08 14:37] LABS: Amphetamine Screen Urine Not Detected (Not Detect); Barbiturates, Urine Not Detected (Not Detect); Benzodiazepines Screen Urine Not Detected (Not Detect); Cannabinoid Screen Urine Not Detected (Not Detect); Cocaine Screen Urine Not Detected (Not Detect); Fentanyl, urine Not Detected (Not Detect); Opiate Screen Urine Not Detected (Not Detect); Phencyclidine Screen Urine Not Detected (Not Detect)
[2023-02-08 14:43] LABS: COVID-19 Test Negative (Negative); IDNOW Serial# 08D9AD1C
[2023-02-08 14:45] LABS: Acetaminophen LAB < 3 mcg/mL (<30); Salicylate < 5.0 mg/dL (15-30)
[2023-02-08 14:46] LABS: Alanine Aminotransferase 19 U/L (0-31); Albumin Level 4.2 g/dL (3.5-5.0); Alkaline Phosphatase 92 U/L (39-117); Anion Gap 11 (12-20); Aspartate Amino Transferase 21 U/L (5-31); Bilirubin Total 0.5 mg/dL (0.0-1.0); Blood Urea Nitrogen 9 mg/dL (9-16); Calcium 9.9 mg/dL (8.4-10.2); Carbon Dioxide 25 mmol/L (22-29); Chloride 106 mmol/L (96-108); Creatinine Clr Calc Pharmacy 53.1; Estimated Glomerular Filt Rate > 60; Ethanol < 10 mg/dL; Glucose Random 206 mg/dL (60-115); Magnesium 2.1 mg/dL (1.6-2.6); Sodium 138 mmol/L (135-145); Total Protein 7.6 g/dL (6.5-8.0)
[2023-02-08 14:49] LABS: Troponin-I High Sensitivity 3.3 ng/L (<3.5-17.0)
[2023-02-08] MEDS: cefuroxime axetiL 250 MG TABLET PO (15:42)
--- NOTE | 2023-02-08 16:54 | MHC.EDTECH ---
late entry------ pt was cleaned after being incontinent of urine at 1500. warm blankets given, clean linen given, rn aware
--- NOTE | 2023-02-08 18:56 | MHC.CARE ---
Pt was seen in the community by [facility]. Copy of crisis assessment is available in the chart. Pt was made an [facility] bed[facility] by [facility] prior to medical clearance. Pt has a UTI. Given that significant change from baseline has occurred in the past week, it is possible that symptoms correlate with the UTI. Pt is able to return home, however, this is a question of how safe this would be for her, given that she is wondering and unable to care for herself. Consult to psychiatry recommended in order to weigh in on dispo given the UTI. If pt is not going to [facility], she should be seen by CM to ensure safe discharge plan.
[2023-02-08 19:48] VITALS: BP 173/84; PULSE 101; RESP 18; TEMP 36.9; O2SAT 98
--- NOTE | 2023-02-08 20:31 | MHC.EDTECH ---
Pt incontinent of urine. Bedding changed and ana care done. Pt moved back up in bed. RN aware
--- NOTE | 2023-02-08 22:11 | PC.NURSE ---
Pts , Ean, and friend, Hollie, called for an update. Update provided.
[2023-02-09] VITALS (8 sets, daily range): BP systolic 147–193; BP diastolic 67–94; PULSE 91–112; RESP 16–19; TEMP 36.3–37.4; O2SAT 93–97
--- NOTE | 2023-02-09 01:17 | MHC.EDTECH ---
Pt incontinent of large amount of urine. Bedding changed and pt cleaned. RN aware
[2023-02-09] MEDS: cefuroxime axetiL 250 MG TABLET PO ×2 (03:36→15:24)
--- NOTE | 2023-02-09 08:50 | PC.NURSE ---
pt ate approx 50% of breakfast, 1 assist necessary to assist with feeding.
[2023-02-09 08:51] LABS: Glucose, Whole Blood 287 mg/dL (60-115)
--- NOTE | 2023-02-09 09:12 | PHA.MEDREC ---
Pharmacy Consult ? Medication Reconciliation Pharmacy has completed the medication reconciliation.DUE TO PT MENTAL STATUS, MED REC COMPLETE USING CLAIM HISTORY. CONTACTED [facility] @[phone] TO CONFIRM INSULIN DOSING. LANTUS IS DOSED AT 36 UNITS Q12H.
[2023-02-09 13:24] LABS: Glucose, Whole Blood 201 mg/dL (60-115)
--- NOTE | 2023-02-09 14:03 | MHC.EDTECH ---
Late entry--- 1315: Pt found to be incontinent of urine. T/w and hydro technician Reina cleaned Pt and did complete bedding change. Pt repositioned and sat up to eat lunch. electrical helper fed Pt, ate about 50% of lunch.
[2023-02-09 17:09] LABS: Glucose, Whole Blood 230 mg/dL (60-115)
--- NOTE | 2023-02-09 17:50 | MHC.EDTECH ---
pt was incontinent of urine. ana care was done, clean linen and warm blanket given. pt now comfortable.
--- NOTE | 2023-02-09 18:47 | MHC.EDTECH ---
pt was assisted with feeding. pt consumed 25% of dinner. rn aware
[2023-02-09] MEDS: Cholecalciferol (Vitamin D3) 25 MCG TABLET PO (19:18)
[2023-02-09] MEDS: lisinopriL 40 MG TABLET PO (19:18)
[2023-02-09] MEDS: Aspirin Enteric Coated 81 MG TABLET.DR PO (19:18)
[2023-02-09] MEDS: Ascorbic Acid 500 MG TABLET PO (19:18)
[2023-02-09] MEDS: Gabapentin 100 MG CAPSULE PO (19:18)
[2023-02-09] MEDS: Escitalopram Oxalate 20 MG TABLET PO (19:19)
[2023-02-09] MEDS: amLODIPine Besylate 10 MG TABLET PO (19:19)
[2023-02-09] MEDS: Insulin Glargine,Hum.rec.anlog 100 UNIT/ML 10 ML VIAL 36 UNIT SUBCUT (20:38)
[2023-02-09] MEDS: Melatonin 3 MG TABLET PO (20:38)
[2023-02-09] MEDS: Nitrofurantoin Monohyd/M-Cryst 100 MG CAPSULE PO (20:38)
[2023-02-09] MEDS: metFORMIN HCl 1,000 MG TABLET 1000 MG PO (20:38)
[2023-02-09] MEDS: carvediloL 6.25 MG TABLET PO (20:38)
[2023-02-09] MEDS: Atorvastatin Calcium 80 MG TABLET PO (20:38)
[2023-02-09 20:56] LABS: Glucose, Whole Blood 241 mg/dL (60-115)
[2023-02-10 05:23] VITALS: BP 172/67; PULSE 104; RESP 20; O2SAT 97
--- NOTE | 2023-02-10 05:23 | PC.NURSE ---
Pt yelling out agua!, agua! when attempting to give antibiotic with water pt will not drink or take pill.
[2023-02-10 06:00] VITALS: BP 159/76; PULSE 100; RESP 12; TEMP 36.9; O2SAT 96
[2023-02-10 07:05] VITALS: BP 157/80; PULSE 101; RESP 16; TEMP 37; O2SAT 95
[2023-02-10 07:23] LABS: Glucose, Whole Blood 201 mg/dL (60-115)
[2023-02-10 07:23] LABS: Glucose, Whole Blood 189 mg/dL (60-115)
[2023-02-10 10:21] VITALS: BP 157/80; PULSE 101; O2SAT 95
--- NOTE | 2023-02-10 11:30 | PC.NURSE ---
pt daughter, Hollie, called and asked for update on pt. pt to be discharged soon. daughter would like to be called when pt discharged. [phone]
[2023-02-10] MEDS: Nitrofurantoin Monohyd/M-Cryst 100 MG CAPSULE PO ×2 (11:39→21:17)
[2023-02-10] MEDS: carvediloL 6.25 MG TABLET PO ×2 (11:39→21:20)
[2023-02-10] MEDS: Cholecalciferol (Vitamin D3) 25 MCG TABLET PO (11:39)
[2023-02-10] MEDS: Gabapentin 100 MG CAPSULE PO (11:39)
[2023-02-10] MEDS: metFORMIN HCl 1,000 MG TABLET 1000 MG PO ×2 (11:39→21:17)
[2023-02-10] MEDS: amLODIPine Besylate 10 MG TABLET PO (11:39)
[2023-02-10] MEDS: Insulin Glargine,Hum.rec.anlog 100 UNIT/ML 10 ML VIAL 36 UNIT SUBCUT ×2 (11:39→21:17)
[2023-02-10 11:40] LABS: Glucose, Whole Blood 187 mg/dL (60-115)
[2023-02-10] MEDS: Lidocaine 4 % Patch ADH..PATCH 1 PATCH TRANSDERMA (11:40)
[2023-02-10] MEDS: Ferrous Sulfate 324 MG TABLET.DR PO (11:40)
[2023-02-10] MEDS: lisinopriL 40 MG TABLET PO (11:40)
[2023-02-10] MEDS: Aspirin Enteric Coated 81 MG TABLET.DR PO (11:40)
[2023-02-10] MEDS: Escitalopram Oxalate 20 MG TABLET PO (11:40)
[2023-02-10 13:34] LABS: Glucose, Whole Blood 208 mg/dL (60-115)
--- NOTE | 2023-02-10 13:47 | PC.NURSE ---
this RN medicated patients. Medications had to be crushed in applesauce for patient tolerate with sips of juice in between. Overall, patient tolerated well with no issues.
--- NOTE | 2023-02-10 13:56 | MHC.EDTECH ---
Pt ate about 25% of lunch. at bedside.
[2023-02-10] MEDS: cefuroxime axetiL 250 MG TABLET PO (15:31)
[2023-02-10 15:37] VITALS: PULSE 87; RESP 16; O2SAT 97
--- NOTE | 2023-02-10 15:37 | PC.NURSE ---
patient continues to rest on stretcher in hallway, respirations even and unlabored, skin pwd, alert and oriented x1, no apparent distress. patient states she is in pain but is unable to localize the pain.
--- NOTE | 2023-02-10 16:33 | MHC.CM.ED ---
Received case management consult from Jenna FRENCH. Patient came to the ER due to crisis. Cleared by Care Team. Physical therapy tried to see patient. Patient would not participate in evaluation. Met with patient, sig other Ean and vacuum tank tender. Patient lives with Ean, ambulates with a walker and is active with a [facility] for custodial and physical therapy. Ean does not remember VNA agency name. PCP verified as Radha Matias. Copy of HCP obtained from [facility]. Patient and Ean do not feel patient is strong enough to return home at this time and are interested in STR. Both aware referral will be broadcasted in [facility]. Referral broadcasted. Continue to monitor for d/c needs.
--- NOTE | 2023-02-10 19:14 | PC.NURSE ---
Attempted to ambulate pt, pt only walked a few steps then stated she felt unstable. Pt was brought back to bed and positioned for comfort.
--- NOTE | 2023-02-10 19:20 | PC.NURSE ---
Report given to CHRISTOPHER CROWLEY in overflow. Pt will be moved when a space opens
--- NOTE | 2023-02-10 19:30 | MHC.EDTECH ---
PATIENT CAME TO OVERFLOW FROM THE MAIN EMERGENCY ROOM ,PT WAS FED ATE 100 % ,DRANK 240 ML FLUIDS .
--- NOTE | 2023-02-10 20:14 | PC.NURSE ---
This communications writer assumed care of this Pt at 1930. Pt bought over by stretcher from main ED. Pt calm and cooperative. 2 assist to stand and pivot to hospital bed. Pt A&Ox2, primarily [place] spanking, reports bilateral leg pain. Skin is dry, warm and intact. Purewick placed.
[2023-02-10 21:11] VITALS: BP 174/81; PULSE 96; RESP 16; TEMP 36.4; O2SAT 97
[2023-02-10 21:11] LABS: Glucose, Whole Blood 241 mg/dL (60-115)
[2023-02-10] MEDS: Atorvastatin Calcium 80 MG TABLET PO (21:17)
[2023-02-10] MEDS: Melatonin 3 MG TABLET PO (21:17)
--- NOTE | 2023-02-11 03:10 | PC.NURSE ---
Pt appears to be sleeping, equal, non labored respirations, no apparent distress.
[2023-02-11] MEDS: cefuroxime axetiL 250 MG TABLET PO ×2 (05:26→14:55)
[2023-02-11 05:30] VITALS: BP 172/82; PULSE 98; RESP 18; O2SAT 97
--- NOTE | 2023-02-11 06:19 | MHC.EDTECH ---
PATIENT WAS REPOSITION AND BOOSTED UP IN BED ,PT DRY ,PUREWICK IS WORKING FINE ,BED ALARM ON BED AND TELLE SITTER ON .
[2023-02-11 07:29] LABS: Glucose, Whole Blood 136 mg/dL (60-115)
[2023-02-11 08:28] VITALS: BP 153/71; PULSE 90; RESP 16; O2SAT 96
[2023-02-11] MEDS: Lidocaine 4 % Patch ADH..PATCH 1 PATCH TRANSDERMA (08:33)
--- NOTE | 2023-02-11 08:35 | PC.NURSE ---
this rn at bedside to administer patient morning meds. patient put juice in her mouth then spit out all over her self. patient conversing with vascular ultrasound technologist but not with rn, not taking her PO meds.
[2023-02-11] MEDS: Insulin Glargine,Hum.rec.anlog 100 UNIT/ML 10 ML VIAL 36 UNIT SUBCUT ×2 (08:38→21:34)
--- NOTE | 2023-02-11 10:29 | MHC.CM.ED ---
Addendum entered by Beti Jolly 02/11/23 11:26: Physical therapy eval was completed 02/10. LTC is recommended. Original Note: Patient remains in ER overflow. Per meeting with patient and sig other, Ean, patient is too weak to go home. Both are interested in short term rehab so that patient can get stronger and safely return home. Physical therapy eval is pending but anticiapte short term rehab will be needed. Will need [facility] PASRR Level 2 due to long standing history of mental health issues. Referral broadcasted in [facility] for local bed availability. Continue to monitor for d/c needs.
[2023-02-11] MEDS: Ondansetron ODT 4 MG TAB.RAPDIS TRANSLINGU (11:21)
[2023-02-11 11:26] LABS: Glucose, Whole Blood 115 mg/dL (60-115)
--- NOTE | 2023-02-11 13:18 | MHC.EDTECH ---
patient was washed up with a complete bed change.
[2023-02-11 14:00] VITALS: BP 172/82; PULSE 86; RESP 20; TEMP 36.1; O2SAT 97
[2023-02-11] MEDS: Ascorbic Acid 500 MG TABLET PO (14:55)
[2023-02-11 16:14] VITALS: BP 156/78; PULSE 93; RESP 16; TEMP 36.2; O2SAT 97
--- NOTE | 2023-02-11 16:15 | MHC.EDTECH ---
This pct assumed care of pt at 1500 ,vitals taken ,pt was reposition and boosted up in bed .
--- NOTE | 2023-02-11 17:58 | MHC.EDTECH ---
Patient very upset ,refused to eat ,Crying out ,provider came over to see pt ,We reposition Patient and she is now resting . ..
--- NOTE | 2023-02-11 18:27 | PC.NURSE ---
patient daughter called RN. concerned because her father things patient is declining. notified provider Nancy COLLADO who came to assess patient. patient did not wake up and interact much today when was visiting. when left he tried to crawl out of bed and was yelling. repositioned by staff and then started resting comfortably. no further orders at this time for patient.
--- NOTE | 2023-02-11 19:27 | PC.NURSE ---
Assumed care of pt at 1900. PT appears to be sleeping at this time. Respirations even and unlabored. Bed locked in lowest positions, bed alarm on. video monitoring on, call copeland within reach. plan of care ongoing.
[2023-02-11] MEDS: carvediloL 6.25 MG TABLET PO (21:28)
[2023-02-11] MEDS: metFORMIN HCl 1,000 MG TABLET 1000 MG PO (21:30)
[2023-02-11] MEDS: Atorvastatin Calcium 80 MG TABLET PO (21:31)
[2023-02-11] MEDS: Nitrofurantoin Monohyd/M-Cryst 100 MG CAPSULE PO (21:31)
[2023-02-11] MEDS: Melatonin 3 MG TABLET PO (21:32)
[2023-02-11] MEDS: polyethylene glycoL 3350 17 GM POWD.PACK PO (21:35)
[2023-02-11 22:30] VITALS: BP 185/85; PULSE 97; RESP 17; TEMP 36.7; O2SAT 96
--- NOTE | 2023-02-11 22:39 | PC.NURSE ---
PT medicated as per MAY. allowable medications crushed and put in pudding. PT took medications without issue. PT reporting Left abdominal pain Miralax prn given.
--- NOTE | 2023-02-12 03:28 | PC.NURSE ---
Spoke with pharmacy on the above date and time to discuss timing of medication administration for ceftin. PT currently sleeping and been reportedly refusing medications during the day. This RN did not want pt to miss abx dose due to refusal so requested time adjustment
[2023-02-12 06:21] VITALS: BP 180/95; PULSE 95; RESP 19; TEMP 36.3; O2SAT 96
--- NOTE | 2023-02-12 06:23 | PC.NURSE ---
Pericare provided. Purewick and brief changed. pt repositioned for comfort. bed locked in lowest position, call copeland within reach, video monitoring on. Plan of care ongoing
[2023-02-12 07:27] LABS: Glucose, Whole Blood 53 mg/dL (60-115)
[2023-02-12] MEDS: Dextrose 50 % 25 GM/50 ML SYRINGE IVPUSH (07:45)
[2023-02-12 08:12] LABS: Glucose, Whole Blood 201 mg/dL (60-115)
[2023-02-12] MEDS: Escitalopram Oxalate 20 MG TABLET PO (10:15)
[2023-02-12] MEDS: amLODIPine Besylate 10 MG TABLET PO (10:15)
[2023-02-12] MEDS: Ferrous Sulfate 324 MG TABLET.DR PO (10:15)
[2023-02-12] MEDS: cefuroxime axetiL 250 MG TABLET PO ×2 (10:15→20:11)
[2023-02-12] MEDS: Nitrofurantoin Monohyd/M-Cryst 100 MG CAPSULE PO ×2 (10:15→20:12)
[2023-02-12] MEDS: Aspirin Enteric Coated 81 MG TABLET.DR PO (10:15)
[2023-02-12] MEDS: lisinopriL 40 MG TABLET PO (10:15)
[2023-02-12] MEDS: Gabapentin 100 MG CAPSULE PO (10:15)
[2023-02-12] MEDS: Cholecalciferol (Vitamin D3) 25 MCG TABLET PO (10:15)
[2023-02-12] MEDS: Lidocaine 4 % Patch ADH..PATCH 1 PATCH TRANSDERMA (10:16)
[2023-02-12] MEDS: carvediloL 6.25 MG TABLET PO ×2 (11:18→20:11)
[2023-02-12 11:29] VITALS: BP 161/86; PULSE 88; RESP 18; O2SAT 95
[2023-02-12 11:38] LABS: Glucose, Whole Blood 82 mg/dL (60-115)
--- NOTE | 2023-02-12 12:20 | PC.NURSE ---
AM blood glucose 53. Pt unable to take po or glucose gel. 22g IV access inserted to right hand. Amp D50 given per protocol. Blood glucose improved to 201. Provider notified. at bedside, spoke to provider. BP 180/95 this AM. Provider notified. All AM meds given crushed in appliesauce. Patient with poor PO intake for both breakfast and lunch. 11:30pm poc 82. Provider notified. BP now 161/86. Incontinent to purevaldezck lg amt urine. Repositioned q2h.
--- NOTE | 2023-02-12 13:24 | MHC.EDTECH ---
patient was washed up with a complete bed change
[2023-02-12] MEDS: cefTRIAXone sodium 1 GM in 0.9 % Sodium Chloride 50 ML IV (13:25)
[2023-02-12 13:52] VITALS: BP 139/68; PULSE 82; RESP 20; TEMP 36.1; O2SAT 93
[2023-02-12] MEDS: Dextrose 10 % 1,000 ML 50 ML IVCONT ×2 (14:38→21:34)
[2023-02-12 15:54] VITALS: BP 139/70; PULSE 85; RESP 16; TEMP 36.9; O2SAT 97
--- NOTE | 2023-02-12 16:07 | PC.NURSE ---
Patient sleeping comfortably,family at bedside report patient is complaining of leg cramping,MANOLO Broderick notified.Labs drawn by SHANNAN Nunez,plan is to admit this patient ,family notified and satisfied with this plan.Patient is resting not answering any questions,BS 100 checked by SHANNAN Nunez .
[2023-02-12 16:09] LABS: MANUAL DIFF FLAG NO
[2023-02-12 16:14] LABS: Basophils Percent Auto 0.1 % (0-2); Eosinophils Percent Auto 0.2 % (0-4); Hematocrit 40.5 % (37.0-47.0); Hemoglobin 13.2 g/dl (12.0-16.0); Imm Gran Abs Auto 0.03 X10*3/uL (0.00-0.03); Imm Gran Pct Auto 0.3 % (0.0-0.4); Lymphocytes Absolute Auto 2.5 X10*3/uL (1.2-4.9); Lymphocytes Percent Auto 21.4 % (20-40); Mean Corpuscular HGB Conc 32.6 g/dl (31.0-35.0); Mean Corpuscular Hemoglobin 26.4 pg (27.0-33.0); Mean Platelet Volume 10.8 fL (9.4-12.3); Monocytes Absolute Auto 0.7 X10*3/uL (0.1-1.2); Monocytes Percent Auto 5.9 % (2-11); Neutrophils Absolute Auto 8.4 x10*3/uL (2.0-8.3); Neutrophils Percent Auto 72.1 % (45-73); Platelet Count 311 X10*3/uL (160-400); Red Cell Distribution Width 15.8 % (11.0-16.0); White Blood Count 11.6 X10*3/uL (4.8-10.8)
--- NOTE | 2023-02-12 16:16 | MHC.EDTECH ---
This pct assumed care of pt at 1500 ,blood sugar check ,vitals taken and blood drawn and sent to lab .
[2023-02-12 16:29] LABS: Alanine Aminotransferase 22 U/L (0-31); Albumin Level 3.8 g/dL (3.5-5.0); Alkaline Phosphatase 85 U/L (39-117); Anion Gap 15 (12-20); Aspartate Amino Transferase 31 U/L (5-31); Bilirubin Total 0.4 mg/dL (0.0-1.0); Blood Urea Nitrogen 24 mg/dL (9-16); Calcium 9.3 mg/dL (8.4-10.2); Carbon Dioxide 22 mmol/L (22-29); Chloride 105 mmol/L (96-108); Creatinine Clr Calc Pharmacy 53.1; Estimated Glomerular Filt Rate > 60; Glucose Random 105 mg/dL (60-115); Potassium 5.1 mmol/L (3.3-5.1); Sodium 137 mmol/L (135-145); Total Protein 7.4 g/dL (6.5-8.0)
[2023-02-12 17:35] LABS: Glucose, Whole Blood 157 mg/dL (60-115)
[2023-02-12 17:35] LABS: Glucose, Whole Blood 100 mg/dL (60-115)
--- NOTE | 2023-02-12 17:38 | MHC.EDTECH ---
fed was awake ate a fed bites of food ,drank 120 ml fluids .
--- NOTE | 2023-02-12 18:14 | PM.IMHP ---
History of Present Illness Date of Service: 02/12/23 Attending physician on admission: Pascual Desai Chief Complaint: Hypoglycemia, UTI, FTT Pt is a 77-year-old female with a PMH significant for?HTN, HLD, and insulin-dependent type 2 diabetes who originally presented to the ED 4 days prior on 02/08/2023 after being found wandering the streets in her undergarments. She was brought in on a Section 12 for failure to thrive/unable to care for herself. Pt apparently lives with her at home. Workup in the ED found pt to have a UTI for which she was started on ceftin. Care team was consulted, who noted patient was evaluated by [facility] in the community with recommendations for [facility] bed search d/t concerns about her ability to continue caring for herself at home. She was placed in physician observation until earlier today when her blood sugar was found to be below 60 and the pt was more somnolent. Was given IV D50, insulin was halved, and her semaglutide was held. Due to increasing requirements of care for UTI, hypoglycemia, and failure to thrive pt will be admitted to the hospital. Labs today notable for mild leukocytosis of 11.6, POC 53 at 07:20, and BUN 24, otherwise unremarkable. Review of Systems Review of Systems: Unable to obtain due to pt's mentation [facility] Social History Smoked in Last 30 Days: No Use of substances other than those prescribed or required for medical reasons: No Advance Directives: Yes Advance Directives on File: Yes Advance Directives Date on File: 02/10/23 Healthcare Proxy: No Guardian: No Meds Allergies Allergy/AdvReac Type Severity Reaction Status Date / Time No Known Allergies Allergy Verified 02/08/23 13:36 Active Medications: Current Medications Amlodipine Besylate (Amlodipine Besylate 10 Mg Tablet) 10 mg PO DAILY [facility]; Protocol Last Admin: 02/12/23 10:15 Dose: 10 mg Ascorbic Acid (Ascorbic Acid 500 Mg Tablet) 500 mg PO Q48H [facility] Last Admin: 02/11/23 14:55 Dose: 500 mg Aspirin (Aspirin Enteric Coated 81 Mg Tablet.Dr) 81 mg PO DAILY [facility] Last Admin: 02/12/23 10:15 Dose: 81 mg Atorvastatin Calcium (Atorvastatin Calcium 80 Mg Tablet) 80 mg PO BEDTIME [facility] Last Admin: 02/11/23 21:31 Dose: 80 mg Carvedilol (Carvedilol 6.25 Mg Tablet) 6.25 mg PO BID [facility]; Protocol Last Admin: 02/12/23 11:18 Dose: 6.25 mg Cefuroxime Axetil (Cefuroxime Axetil 250 Mg Tablet) 250 mg PO BID [facility] Stop: 02/15/23 08:59 Last Admin: 02/12/23 10:15 Dose: 250 mg Escitalopram Oxalate (Escitalopram Oxalate 20 Mg Tablet) 20 mg PO DAILY [facility] Last Admin: 02/12/23 10:15 Dose: 20 mg Ferrous Sulfate (Ferrous Sulfate 324 Mg Tablet.Dr) 324 mg PO DAILY [facility] Last Admin: 02/12/23 10:15 Dose: 324 mg Gabapentin (Gabapentin 100 Mg Capsule) 100 mg PO DAILY [facility] Last Admin: 02/12/23 10:15 Dose: 100 mg Dextrose (D10) 1,000 mls @ 50 mls/hr IVCONT .Q20H [facility] Last Admin: 02/12/23 14:38 Dose: 50 mls/hr Insulin Glargine (Insulin Glargine,Hum.Rec.Anlog 100 Unit/Ml 10 Ml Vial) 18 unit SUBCUT BID [facility] Last Admin: 02/12/23 09:16 Dose: Not Given Lidocaine (Lidocaine 4 % Patch Adh..Patch) 1 patch TRANSDERMA DAILY [facility] Last Admin: 02/12/23 10:16 Dose: 1 patch Lisinopril (Lisinopril 40 Mg Tablet) 40 mg PO DAILY [facility]; Protocol Last Admin: 02/12/23 10:15 Dose: 40 mg Melatonin (Melatonin 3 Mg Tablet) 3 mg PO BEDTIME [facility] Last Admin: 02/11/23 21:32 Dose: 3 mg Metformin HCl (Metformin Hcl 500 Mg Tablet) 500 mg PO BID [facility] Last Admin: 02/12/23 11:17 Dose: Not Given Nitrofurantoin Macrocrystals (Nitrofurantoin Monohyd/M-Cryst 100 Mg Capsule) 100 mg PO BID [facility] Last Admin: 02/12/23 10:15 Dose: 100 mg Polyethylene Glycol (Polyethylene Glycol 3350 17 Gm Powd.Pack) 17 gm PO DAILY PRN PRN Reason: constipation Last Admin: 02/11/23 21:35 Dose: 17 gm Vitamin D (Cholecalciferol (Vitamin D3) 25 Mcg Tablet) 25 mcg PO DAILY [facility] Last Admin: 02/12/23 10:15 Dose: 25 mcg Home Medications Medication Instructions Recorded Confirmed Last Taken Type amlodipine 10 mg tablet 10 mg PO DAILY 02/09/23 02/09/23 Unknown History ascorbic acid (vitamin C) 500 mg 500 mg PO Q48H 02/09/23 02/09/23 Unknown History tablet (Vitamin C) aspirin 81 mg tablet,delayed 81 mg PO DAILY 02/09/23 02/09/23 Unknown History release carvedilol 6.25 mg tablet 6.25 mg PO BID 02/09/23 02/09/23 Unknown History cholecalciferol (vitamin D3) 25 25 mcg PO DAILY 02/09/23 02/09/23 Unknown History mcg (1,000 unit) tablet escitalopram oxalate 20 mg tablet 20 mg PO DAILY 02/09/23 02/09/23 Unknown History ferrous sulfate 325 mg (65 mg 325 mg PO DAILY 02/09/23 02/09/23 Unknown History iron) tablet,delayed release gabapentin 100 mg capsule 100 mg PO DAILY 02/09/23 02/09/23 Unknown History insulin glargine 100 unit/mL (3 36 unit subcut Q12H 02/09/23 02/09/23 Unknown History mL) subcutaneous pen (Lantus Solostar U-100 Insulin) lidocaine 5 % topical patch 1 patch topical DAILY 02/09/23 02/09/23 Unknown History lisinopril 40 mg tablet 40 mg PO DAILY 02/09/23 02/09/23 Unknown History melatonin 3 mg tablet 3 mg PO BEDTIME 02/09/23 02/09/23 Unknown History metformin 1,000 mg tablet 1,000 mg PO BID 02/09/23 02/09/23 Unknown History nitrofurantoin 1 cap PO BID 02/09/23 02/09/23 Unknown History monohydrate/macrocrystals 100 mg capsule polyethylene glycol 3350 17 17 g PO DAILY PRN constipation 02/09/23 02/09/23 Unknown History gram/dose oral powder (Gavilax) rosuvastatin 20 mg tablet 20 mg PO BEDTIME 02/09/23 02/09/23 Unknown History semaglutide 14 mg tablet (Rybelsus) 14 mg PO DAILY 02/09/23 02/09/23 Unknown History Physical Exam Vital Signs and Narrative: Vital Signs: Last Vital Signs Temp 98.4 F 02/12/23 15:54 Pulse 85 02/12/23 15:54 Resp 16 02/12/23 15:54 BP 139/70 02/12/23 15:54 Pulse Ox 97 02/12/23 15:54 O2 Del Method Room Air 02/12/23 15:54 BMI result Body Mass Index 30.3 General: AOx1, somnolent but arousable, not following commands, minimally verbal, not participating in evaluation, no acute distress Resp: CTA bilaterally CVS: S1, S2, RRR GI: +BS, NT, no distention Skin: Warm, dry Neuro: Cranial nerves II-XII grossly intact bilaterally. Motor grossly intact bilaterally. Global weakness noted Extremities: No pitting edema Results Labs 02/12/23 16:03 02/12/23 16:03 Labs: Laboratory Results - last 24 hr 02/12/23 02/12/23 02/12/23 07:20 08:09 11:32 MCV MCH MCHC RDW Plt Count MPV Immature Gran % (Auto) Neut % (Auto) Lymph % (Auto) [place] % (Auto) Eos % (Auto) Baso % (Auto) Lymph # (Auto) [place] # (Auto) Eos # (Auto) Baso # (Auto) Abs Immat Gran (auto) Absolute Neuts (auto) Absolute Nucleated RBC Nucleated RBC % (auto) Anion Gap Estim Creat Clear Calc Estimated GFR POC Glucose 53 L* 201 H 82 Random Glucose Calcium Total Bilirubin AST ALT Alkaline Phosphatase Total Protein Albumin 02/12/23 02/12/23 02/12/23 15:57 16:03 17:32 MCV 81.0 MCH 26.4 L MCHC 32.6 RDW 15.8 Plt Count 311 MPV 10.8 Immature Gran % (Auto) 0.3 Neut % (Auto) 72.1 Lymph % (Auto) 21.4 [place] % (Auto) 5.9 Eos % (Auto) 0.2 Baso % (Auto) 0.1 Lymph # (Auto) 2.5 [place] # (Auto) 0.7 Eos # (Auto) 0.0 Baso # (Auto) 0.0 Abs Immat Gran (auto) 0.03 Absolute Neuts (auto) 8.4 H Absolute Nucleated RBC 0.000 Nucleated RBC % (auto) 0.0 Anion Gap 15 Estim Creat Clear Calc 53.1 Estimated GFR > 60 POC Glucose 100 157 H Random Glucose 105 Calcium 9.3 D Total Bilirubin 0.4 AST 31 ALT 22 Alkaline Phosphatase 85 Total Protein 7.4 Albumin 3.8 Assessment and Plan (1) Hypoglycemia: Status: Acute (2) Adult failure to thrive: Status: Acute (3) Acute UTI: Status: Acute Plan Pt is a 77-year-old female with a PMH significant for?HTN, HLD, and insulin-dependent type 2 diabetes who presents to the ED after being found wandering the streets in her undergarments. She was brought in on a Section 12 for failure to thrive/unable to care for herself. Patient was originally placed under physician observation in overflow and a search was underway for a [facility] placement. However, patient was noted to be hypoglycemic today with increased once. Due to increasing requirements of care for UTI, hypoglycemia, and failure to thrive pt will be admitted to the hospital. 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 intake since being here Will hold metformin, semaglutide Will place on sliding scale insulin Will halve Lantus Diabetic diet Diet Pureed diet for now Speech bedside swallow evaluation pending HTN Continue home meds HLD Continue statin Insomnia Continue melatonin Full Code, though could not verify with family and pt is unable to make an informed decision Attending:?Dr. Clay DVT Prophylaxis: Lovenox Pt will require a hospitalization of at least two nights for treatment of?UTI, hypoglycemia, and failuer to thrive. Quality Stroke Does the patient have a stroke diagnosis?: No VTE Prior VTE?: No VTE Risk Level:: Medical - moderate - high VTE Device Contraindication: Treatment Not Indicated VTE Drug Contraindication: N/A - Med Ordered
[2023-02-12 19:57] VITALS: BP 149/73; PULSE 89; RESP 15; TEMP 37.3; O2SAT 96
[2023-02-12 19:58] LABS: Glucose, Whole Blood 136 mg/dL (60-115)
--- NOTE | 2023-02-12 19:58 | MHC.EDTECH ---
PATIENT WAS CLEAN UP AND REPOSITION ,VITALS TAKEN .
[2023-02-12] MEDS: Enoxaparin Sodium 40 MG/0.4 ML SYRINGE SUBCUT (20:08)
[2023-02-12] MEDS: Atorvastatin Calcium 80 MG TABLET PO (20:11)
[2023-02-12] MEDS: Melatonin 3 MG TABLET PO (20:11)
--- NOTE | 2023-02-12 20:50 | PC.NURSE ---
Will hold Fredis box per Dr. Foss
[2023-02-12 21:14] LABS: Glucose, Whole Blood 164 mg/dL (60-115)
--- NOTE | 2023-02-12 21:30 | PC.NURSE ---
attempted to call report to med-surg but RN unable to take report at this time
[2023-02-12 22:55] VITALS: BMI 29.9
[2023-02-13 00:16] LABS: Glucose, Whole Blood 153 mg/dL (60-115)
[2023-02-13 03:12] VITALS: BP 147/77; PULSE 91; RESP 16; TEMP 36.1; O2SAT 98
[2023-02-13 06:04] LABS: Hematocrit 39.6 % (37.0-47.0); Hemoglobin 12.8 g/dl (12.0-16.0); Mean Corpuscular HGB Conc 32.3 g/dl (31.0-35.0); Mean Corpuscular Hemoglobin 26.4 pg (27.0-33.0); Mean Corpuscular Volume 81.8 fL (80.0-98.0); Mean Platelet Volume 10.7 fL (9.4-12.3); Platelet Count 295 X10*3/uL (160-400); Red Blood Count 4.84 X10*6/uL (4.20-5.50); Red Cell Distribution Width 15.5 % (11.0-16.0); White Blood Count 9.8 X10*3/uL (4.8-10.8)
[2023-02-13 06:21] LABS: Anion Gap 12 (12-20); Blood Urea Nitrogen 28 mg/dL (9-16); Calcium 9.1 mg/dL (8.4-10.2); Carbon Dioxide 24 mmol/L (22-29); Chloride 102 mmol/L (96-108); Creatinine Clr Calc Pharmacy 49.6; Estimated Glomerular Filt Rate > 60; Glucose Random 173 mg/dL (60-115); Sodium 134 mmol/L (135-145)
[2023-02-13 07:16] VITALS: BP 130/60; PULSE 87; RESP 18; TEMP 36.1; O2SAT 95
[2023-02-13 07:20] LABS: Glucose, Whole Blood 158 mg/dL (60-115)
[2023-02-13] MEDS: cefuroxime axetiL 250 MG TABLET PO (07:32)
[2023-02-13] MEDS: Nitrofurantoin Monohyd/M-Cryst 100 MG CAPSULE PO (07:32)
[2023-02-13] MEDS: amLODIPine Besylate 10 MG TABLET PO (07:37)
[2023-02-13] MEDS: carvediloL 6.25 MG TABLET PO ×2 (07:37→20:32)
[2023-02-13] MEDS: Gabapentin 100 MG CAPSULE PO (07:37)
[2023-02-13] MEDS: Cholecalciferol (Vitamin D3) 25 MCG TABLET PO (07:37)
[2023-02-13] MEDS: Escitalopram Oxalate 20 MG TABLET PO (07:37)
[2023-02-13] MEDS: lisinopriL 40 MG TABLET PO (07:37)
[2023-02-13] MEDS: Insulin Lispro 100 UNIT/ML 3 ML VIAL SUBCUT (07:38)
[2023-02-13] MEDS: Insulin Glargine,Hum.rec.anlog 100 UNIT/ML 10 ML VIAL 18 UNIT SUBCUT ×2 (07:39→20:42)
[2023-02-13] MEDS: cefTRIAXone sodium 1 GM in 0.9 % Sodium Chloride 50 ML IV (08:02)
--- NOTE | 2023-02-13 10:04 | HO.PM.IMPN ---
Subjective Subjective Date of Service: 02/13/23 Review of Systems Follow up encephaopathy still confused with not much talking Physical Exam Vital Signs: Vital Signs: Last Vital Signs Temp 96.9 F 02/13/23 07:16 Pulse 87 02/13/23 07:16 Resp 18 02/13/23 07:16 BP 130/60 02/13/23 07:16 Pulse Ox 95 02/13/23 07:16 O2 Del Method Room Air 02/13/23 07:16 BMI result Body Mass Index 29.9 Appearing in no acute distress lung sounds are clear to auscultation heart regular rate rhythm, clear S1, S2 positive bowel sounds, abdomen is soft, nontender neuro patient is alert x3, no focal deficits Objective Data Active Medications Acetaminophen (Acetaminophen 325 Mg Tablet) 650 mg PO Q6H PRN PRN Reason: Pain, Mild (Pain Scale 1-3) Amlodipine Besylate (Amlodipine Besylate 10 Mg Tablet) 10 mg PO DAILY [facility]; Protocol Last Admin: 02/13/23 07:37 Dose: 10 mg Documented By: SEMAJ Ascorbic Acid (Ascorbic Acid 500 Mg Tablet) 500 mg PO Q48H [facility] Last Admin: 02/11/23 14:55 Dose: 500 mg Documented By: COOPEB Aspirin (Aspirin Enteric Coated 81 Mg Tablet.Dr) 81 mg PO DAILY [facility] Last Admin: 02/13/23 07:45 Dose: Not Given Documented By: SEMAJ Non-Admin Reason: unable to crush Atorvastatin Calcium (Atorvastatin Calcium 80 Mg Tablet) 80 mg PO BEDTIME [facility] Last Admin: 02/12/23 20:11 Dose: 80 mg Documented By: CEDRIC Benzonatate (Benzonatate 100 Mg Capsule) 100 mg PO TID PRN PRN Reason: Cough Carvedilol (Carvedilol 6.25 Mg Tablet) 6.25 mg PO BID [facility]; Protocol Last Admin: 02/13/23 07:37 Dose: 6.25 mg Documented By: SEMAJ Dextrose (Dextrose 50 % 25 Gm/50 Ml Syringe) 25 gm IVPUSH Q15M PRN; Protocol PRN Reason: per Hypoglycemia Standing Ord. Docusate Sodium (Docusate Sodium 100 Mg Capsule) 100 mg PO DAILY PRN PRN Reason: Constipation Enoxaparin Sodium (Enoxaparin Sodium 40 Mg/0.4 Ml Syringe) 40 mg SUBCUT Q24H [facility] Last Admin: 02/12/23 20:08 Dose: 40 mg Documented By: CEDRIC Escitalopram Oxalate (Escitalopram Oxalate 20 Mg Tablet) 20 mg PO DAILY [facility] Last Admin: 02/13/23 07:37 Dose: 20 mg Documented By: SEMAJ Ferrous Sulfate (Ferrous Sulfate 324 Mg Tablet.) 324 mg PO DAILY [facility] Last Admin: 02/13/23 07:38 Dose: Not Given Documented By: SEMAJ Non-Admin Reason: can not crush Gabapentin (Gabapentin 100 Mg Capsule) 100 mg PO DAILY [facility] Last Admin: 02/13/23 07:37 Dose: 100 mg Documented By: SEMAJ Glucose (Glucose Gel 15 Gm Gel..Gram.) 15 gm PO Q15M PRN; Protocol PRN Reason: per Hypoglycemia Standing Ord. Ceftriaxone Sodium 1 gm/ (Sodium Chloride) 50 mls @ 100 mls/hr IV Q24H [facility] Last Infusion: 02/13/23 08:42 Dose: Infused Documented By: SEMAJ Insulin Glargine (Insulin Glargine,Hum.Rec.Anlog 100 Unit/Ml 10 Ml Vial) 18 unit SUBCUT BID [facility] Last Admin: 02/13/23 07:39 Dose: 18 unit Documented By: SEMAJ Insulin Human Lispro (Insulin Lispro 100 Unit/Ml 3 Ml Vial) 0 unit SUBCUT QIDACHS [facility]; Protocol Last Admin: 02/13/23 07:38 Dose: 2 unit Documented By: SEMAJ Lidocaine (Lidocaine 4 % Patch Adh..Patch) 1 patch TRANSDERMA DAILY [facility] Last Admin: 02/13/23 07:42 Dose: Not Given Documented By: SEMAJ Non-Admin Reason: unable to communicate pain, will hold patch. Lisinopril (Lisinopril 40 Mg Tablet) 40 mg PO DAILY [facility]; Protocol Last Admin: 02/13/23 07:37 Dose: 40 mg Documented By: SEMAJ Melatonin (Melatonin 3 Mg Tablet) 3 mg PO BEDTIME [facility] Last Admin: 02/12/23 20:11 Dose: 3 mg Documented By: CEDRIC Metformin HCl (Metformin Hcl 500 Mg Tablet) 500 mg PO BID [facility] Last Admin: 02/12/23 11:17 Dose: Not Given Documented By: DARA Non-Admin Reason: hypoglycemic. provider instructed to hold. Polyethylene Glycol (Polyethylene Glycol 3350 17 Gm Powd.Pack) 17 gm PO DAILY PRN PRN Reason: constipation Last Admin: 02/11/23 21:35 Dose: 17 gm Documented By: ROJELIO Sodium Chloride (0.9 % Sodium Chloride Flush 3 Ml Syringe) 3 ml IVFLUSH QSHIFT [facility] Last Admin: 02/13/23 07:27 Dose: Not Given Documented By: SEMAJ Non-Admin Reason: IV Running Vitamin D (Cholecalciferol (Vitamin D3) 25 Mcg Tablet) 25 mcg PO DAILY [facility] Last Admin: 02/13/23 07:37 Dose: 25 mcg Documented By: SEMAJ Labs 02/13/23 05:42 02/13/23 05:42 Labs: Laboratory Results - last 24 hr 02/12/23 02/12/23 02/12/23 11:32 15:57 16:03 MCV 81.0 MCH 26.4 L MCHC 32.6 RDW 15.8 Plt Count 311 MPV 10.8 Immature Gran % (Auto) 0.3 Neut % (Auto) 72.1 Lymph % (Auto) 21.4 [place] % (Auto) 5.9 Eos % (Auto) 0.2 Baso % (Auto) 0.1 Lymph # (Auto) 2.5 [place] # (Auto) 0.7 Eos # (Auto) 0.0 Baso # (Auto) 0.0 Abs Immat Gran (auto) 0.03 Absolute Neuts (auto) 8.4 H Absolute Nucleated RBC 0.000 Nucleated RBC % (auto) 0.0 Anion Gap 15 Estim Creat Clear Calc 53.1 Estimated GFR > 60 POC Glucose 82 100 Random Glucose 105 Calcium 9.3 D Total Bilirubin 0.4 AST 31 ALT 22 Alkaline Phosphatase 85 Total Protein 7.4 Albumin 3.8 02/12/23 02/12/23 02/12/23 17:32 19:54 21:08 MCV MCH MCHC RDW Plt Count MPV Immature Gran % (Auto) Neut % (Auto) Lymph % (Auto) [place] % (Auto) Eos % (Auto) Baso % (Auto) Lymph # (Auto) [place] # (Auto) Eos # (Auto) Baso # (Auto) Abs Immat Gran (auto) Absolute Neuts (auto) Absolute Nucleated RBC Nucleated RBC % (auto) Anion Gap Estim Creat Clear Calc Estimated GFR POC Glucose 157 H 136 H 164 H Random Glucose Calcium Total Bilirubin AST ALT Alkaline Phosphatase Total Protein Albumin 02/13/23 02/13/23 02/13/23 00:11 05:42 07:16 MCV 81.8 MCH 26.4 L MCHC 32.3 RDW 15.5 Plt Count 295 MPV 10.7 Immature Gran % (Auto) Neut % (Auto) Lymph % (Auto) [place] % (Auto) Eos % (Auto) Baso % (Auto) Lymph # (Auto) [place] # (Auto) Eos # (Auto) Baso # (Auto) Abs Immat Gran (auto) Absolute Neuts (auto) Absolute Nucleated RBC 0.000 Nucleated RBC % (auto) 0.0 Anion Gap 12 Estim Creat Clear Calc 49.6 Estimated GFR > 60 POC Glucose 153 H 158 H Random Glucose 173 H Calcium 9.1 Total Bilirubin AST ALT Alkaline Phosphatase Total Protein Albumin Assessment and Plan (1) Hypoglycemia: Status: Acute Plan Pt is a 77-year-old female with a PMH significant for?HTN, HLD, and insulin-dependent type 2 diabetes who presents to the ED after being found wandering the streets in her undergarments. She was brought in on a Section 12 for failure to thrive/unable to care for herself. [facility] and a [facility] was underway for [facility]. However, patient was noted to be hypoglycemic today with increased once. Due to increasing requirements of care for UTI, hypoglycemia, and failure to thrive pt will be admitted to the hospital. Adult failure to thrive Question of patient's inability to care for herself, not currently reservationist team has been consulted, search underway for [facility] placement Patient requires assistance with ADLs and eating Ecoli and strep viridans UTI Continue Rocephin Hypoglycemia/Insulin-dependent diabetes type 2. Resolved patient with reduced p.o. intake since being here Will hold metformin, semaglutide sliding scale insulin Will halve Lantus Diabetic diet stop D10 Diet Pureed diet for now Speech bedside swallow evaluation pending HTN Continue home meds HLD Continue statin Insomnia Continue melatonin Full Code, though could not verify with family and pt is unable to make an informed decision Attending:?Dr. Rosenberg DVT Prophylaxis: Lovenox Pt will require continued hospitalization of at least two nights for treatment of?UTI, hypoglycemia, and failure to thrive. In summary, the hospital provides a controlled environment with access to a wide range of specialized services and expertise necessary to manage the patient's complex medical, functional, and mental health needs effectively. The combination of physical, mental, and medical challenges necessitates a multidisciplinary approach involving psychiatric, medical, and therapeutic teams to ensure the patient's well-being and appropriate management of their various health concerns. It's a complex situation that requires careful attention and collaboration among the care team members. Quality Stroke Does the patient have a stroke diagnosis?: No VTE Prior VTE?: No VTE Risk Level:: Medical - moderate - high VTE Device Contraindication: Treatment Not Indicated VTE Drug Contraindication: N/A - Med Ordered
[2023-02-13 11:13] LABS: Glucose, Whole Blood 112 mg/dL (60-115)
--- NOTE | 2023-02-13 12:00 | PC.NURSE ---
Pt spitting out meds, Provider notified, will continue to monitor, seen by ST this late AM.
--- NOTE | 2023-02-13 12:32 | MHC.SL.SWA ---
Speech Pathologist Impression: Risk of Aspiration Due to: Neurological Condition Poor PO Intake Reduced Cognition Dysphasia Diet Status: Liquid Consistency and Strategies for Safe Swallow: Liquid Intake Recommendation: Interior Thick Liquid Intake Strategies: Liquids by Teaspoon Only Solid Food Consistency: Dietary Recommendations: Pureed (NDD1) Additional Modifications to Solid Foods: Patient will need careful, 1-1 feeding. Do not attempt if patient is lethargic, not engaged in meal, or exhibits excessive pocketing. Discontinue with signs of aspiration, e.g. coughing, change in vocal quality, upper airway noise. Liquids by tsp only. Check for swallow before presenting more food or liquid. Oral Medication Intake: Crushed with Puree Please contact the pharmacy regarding appropriate crushable or liquid drug formulations that are available whenever modified delivery is recommended. Compensatory Strategies and Precautions to be Taken for Safe Swallow: Sitting Upright (90 deg) Liquids from Spoon Small Bites and Sips Alternate Liquids/Solids Rate of Ingestion Change Oral Check Supervision While Eating and Drinking for Safe Swallow: Total Assistance (1:1) Foods to Avoid: Sticky or congealed purees. Add gravy and blend well. Swallowing Recommended Treatments: Compens. Strategy Educat. Recommendation for Speech: Inpatient Speech Therapy Comment: On limited assessment today, patient presents with moderate oral pharyngeal dysphagia, with holding/pocketing behaviors noted and reported. Patient currently very lethargic, with limited engagement during this assessment, although reports ample difficulty feeding patient recently. Recommend DOWNGRADE liquids to Interior thick, continue with Pureed (NDD2), pills crushed in puree. Patient will require careful one to one feeding: do note attempt if patient is lethargic, disengaged, or pocketing food excessively. Aspiration precautions apply. MD RN notified of recommendations by secure chandler RN in person. [employer] ASSOCIATE will continue to follow Frequency/Duration: Date Range for Service Req: Timeline to reassess: Care Information Associate Clinican/Clinical Fellow: No Supervisory Statement: I have reviewed and agree with the student/clinical fellow's documentation: N/A Speech Language Pathologist: Nicole Grajeda M.A., [facility]-[employer]OKER ASSOCIATE
[2023-02-13 15:50] VITALS: BP 131/60; PULSE 86; RESP 18; TEMP 36.3; O2SAT 94
[2023-02-13 16:09] LABS: Glucose, Whole Blood 123 mg/dL (60-115)
--- NOTE | 2023-02-13 16:14 | MHC.CM.PN ---
PT NOW ADMITTED AFTER WAITING IN THE ED FOR SNF PLACEMENT PT NOT RESPONDING TO CM QUESTIONS AND CONTACT UNREACHABLE AT THIS TIME PER EMR: PT LIVES WITH HER S/O AND AT BASELINE IS MOSTLY INDEPENDENT WITH CARE SHE HAS A [facility] UTILITY, THEY DID NOT HAVE THE NAME SHE USUALLY USES A WALKER PCP: SHIRA QUIÑONES HCP O FILE IMM LEFT BEDSIDE FOR REVIEW ALONG WITH CM CONTACT CARD DCP TBD: PTS S/O HAS STATED HIS PREFERENCE SNF PLACEMENT REFERRALS ARE OUT PT NOT PARTICIPATING WITH PT, SHE WOULD HAVE TO BE PLACED ON HER GROUP HOME BENEFIT
[2023-02-13 19:14] VITALS: BP 112/54; PULSE 82; RESP 16; TEMP 37; O2SAT 94
[2023-02-13] MEDS: Melatonin 3 MG TABLET PO (20:32)
[2023-02-13] MEDS: Atorvastatin Calcium 80 MG TABLET PO (20:32)
[2023-02-13] MEDS: Enoxaparin Sodium 40 MG/0.4 ML SYRINGE SUBCUT (20:33)
[2023-02-13] MEDS: 0.9 % Sodium Chloride Flush 3 ML SYRINGE IVFLUSH (20:39)
[2023-02-13 20:47] LABS: Glucose, Whole Blood 128 mg/dL (60-115)
[2023-02-14 00:44] VITALS: BP 158/70; PULSE 88; RESP 16; TEMP 36.6; O2SAT 96
[2023-02-14] MEDS: cefTRIAXone sodium 1 GM in 0.9 % Sodium Chloride 50 ML IV (07:04)
[2023-02-14] MEDS: 0.9 % Sodium Chloride Flush 3 ML SYRINGE IVFLUSH ×3 (07:05→20:07)
[2023-02-14 07:30] VITALS: BP 130/78; PULSE 92; RESP 18; TEMP 36.3; O2SAT 96
[2023-02-14 07:57] LABS: Glucose, Whole Blood 96 mg/dL (60-115)
[2023-02-14] MEDS: Escitalopram Oxalate 20 MG TABLET PO (08:31)
[2023-02-14] MEDS: carvediloL 6.25 MG TABLET PO ×2 (08:31→20:06)
[2023-02-14] MEDS: Gabapentin 100 MG CAPSULE PO (08:31)
[2023-02-14] MEDS: Insulin Glargine,Hum.rec.anlog 100 UNIT/ML 10 ML VIAL 18 UNIT SUBCUT ×2 (08:31→20:04)
[2023-02-14] MEDS: amLODIPine Besylate 10 MG TABLET PO (08:31)
[2023-02-14] MEDS: Aspirin Enteric Coated 81 MG TABLET.DR PO (08:32)
[2023-02-14] MEDS: Cholecalciferol (Vitamin D3) 25 MCG TABLET PO (08:32)
[2023-02-14] MEDS: lisinopriL 40 MG TABLET PO (08:32)
[2023-02-14] MEDS: Ferrous Sulfate 324 MG TABLET.DR PO (08:32)
[2023-02-14 11:16] LABS: Glucose, Whole Blood 102 mg/dL (60-115)
--- NOTE | 2023-02-14 13:56 | HO.PM.IMPN ---
Subjective Subjective Date of Service: 02/14/23 Review of Systems Follow up encephaopathy still confused with not much talking Physical Exam Vital Signs: Vital Signs: Last Vital Signs Temp 97.4 F 02/14/23 07:30 Pulse 92 02/14/23 07:30 Resp 18 02/14/23 07:30 BP 130/78 02/14/23 07:30 Pulse Ox 96 02/14/23 07:30 O2 Del Method Room Air 02/14/23 07:30 BMI result Body Mass Index 29.9 Appearing in no acute distress lung sounds are clear to auscultation heart regular rate rhythm, clear S1, S2 positive bowel sounds, abdomen is soft, nontender neuro patient is alert, confused Objective Data Active Medications Acetaminophen (Acetaminophen 325 Mg Tablet) 650 mg PO Q6H PRN PRN Reason: Pain, Mild (Pain Scale 1-3) Amlodipine Besylate (Amlodipine Besylate 10 Mg Tablet) 10 mg PO DAILY [facility]; Protocol Last Admin: 02/14/23 08:31 Dose: 10 mg Documented By: SEMAJ Ascorbic Acid (Ascorbic Acid 500 Mg Tablet) 500 mg PO Q48H [facility] Last Admin: 02/13/23 12:00 Dose: Not Given Documented By: SEMAJ Non-Admin Reason: pt spitting out meds Aspirin (Aspirin Enteric Coated 81 Mg Tablet.) 81 mg PO DAILY [facility] Last Admin: 02/14/23 08:32 Dose: 81 mg Documented By: SEMAJ Atorvastatin Calcium (Atorvastatin Calcium 80 Mg Tablet) 80 mg PO BEDTIME [facility] Last Admin: 02/13/23 20:32 Dose: 80 mg Documented By: ODRISM Benzonatate (Benzonatate 100 Mg Capsule) 100 mg PO TID PRN PRN Reason: Cough Carvedilol (Carvedilol 6.25 Mg Tablet) 6.25 mg PO BID [facility]; Protocol Last Admin: 02/14/23 08:31 Dose: 6.25 mg Documented By: SEMAJ Dextrose (Dextrose 50 % 25 Gm/50 Ml Syringe) 25 gm IVPUSH Q15M PRN; Protocol PRN Reason: per Hypoglycemia Standing Ord. Docusate Sodium (Docusate Sodium 100 Mg Capsule) 100 mg PO DAILY PRN PRN Reason: Constipation Enoxaparin Sodium (Enoxaparin Sodium 40 Mg/0.4 Ml Syringe) 40 mg SUBCUT Q24H [facility] Last Admin: 02/13/23 20:33 Dose: 40 mg Documented By: JIM Escitalopram Oxalate (Escitalopram Oxalate 20 Mg Tablet) 20 mg PO DAILY [facility] Last Admin: 02/14/23 08:31 Dose: 20 mg Documented By: SEMAJ Ferrous Sulfate (Ferrous Sulfate 324 Mg Tablet.) 324 mg PO DAILY [facility] Last Admin: 02/14/23 08:32 Dose: 324 mg Documented By: SEMAJ Gabapentin (Gabapentin 100 Mg Capsule) 100 mg PO DAILY [facility] Last Admin: 02/14/23 08:31 Dose: 100 mg Documented By: SEMAJ Glucose (Glucose Gel 15 Gm Gel..Gram.) 15 gm PO Q15M PRN; Protocol PRN Reason: per Hypoglycemia Standing Ord. Ceftriaxone Sodium 1 gm/ (Sodium Chloride) 50 mls @ 100 mls/hr IV Q24H [facility] Last Infusion: 02/14/23 07:36 Dose: Infused Documented By: SEMAJ Insulin Glargine (Insulin Glargine,Hum.Rec.Anlog 100 Unit/Ml 10 Ml Vial) 18 unit SUBCUT BID [facility] Last Admin: 02/14/23 08:31 Dose: 18 unit Documented By: SEMAJ Insulin Human Lispro (Insulin Lispro 100 Unit/Ml 3 Ml Vial) 0 unit SUBCUT QIDACHS [facility]; Protocol Last Admin: 02/14/23 11:26 Dose: Not Given Documented By: SEMAJ Non-Admin Reason: No Insulin Coverage Lidocaine (Lidocaine 4 % Patch Adh..Patch) 1 patch TRANSDERMA DAILY [facility] Last Admin: 02/14/23 08:32 Dose: Not Given Documented By: SEMAJ Non-Admin Reason: no pain Lisinopril (Lisinopril 40 Mg Tablet) 40 mg PO DAILY [facility]; Protocol Last Admin: 02/14/23 08:32 Dose: 40 mg Documented By: SEMAJ Melatonin (Melatonin 3 Mg Tablet) 3 mg PO BEDTIME [facility] Last Admin: 02/13/23 20:32 Dose: 3 mg Documented By: JIM Metformin HCl (Metformin Hcl 500 Mg Tablet) 500 mg PO BID [facility] Last Admin: 02/12/23 11:17 Dose: Not Given Documented By: DARA Non-Admin Reason: hypoglycemic. provider instructed to hold. Polyethylene Glycol (Polyethylene Glycol 3350 17 Gm Powd.Pack) 17 gm PO DAILY PRN PRN Reason: constipation Last Admin: 02/11/23 21:35 Dose: 17 gm Documented By: ROJELIO Sodium Chloride (0.9 % Sodium Chloride Flush 3 Ml Syringe) 3 ml IVFLUSH QSHIFT [facility] Last Admin: 02/14/23 07:05 Dose: 3 ml Documented By: SEMAJ Vitamin D (Cholecalciferol (Vitamin D3) 25 Mcg Tablet) 25 mcg PO DAILY [facility] Last Admin: 02/14/23 08:32 Dose: 25 mcg Documented By: SEMAJ Labs 02/13/23 05:42 02/13/23 05:42 Labs: Laboratory Results - last 24 hr 02/13/23 02/13/23 02/14/23 16:03 20:12 07:52 POC Glucose 123 H 128 H 96 02/14/23 11:07 POC Glucose 102 Assessment and Plan (1) Hypoglycemia: Status: Acute Plan Pt is a 77-year-old female with a PMH significant for?HTN, HLD, and insulin-dependent type 2 diabetes who presents to the ED after being found wandering the streets in her undergarments. She was brought in on a Section 12 for failure to thrive/unable to care for herself. Patient was originally placed under physician observation in overflow and a search was underway for a [facility] psych placement. However, patient was noted to be hypoglycemic today with increased once. Due to increasing requirements of care for UTI, hypoglycemia, and failure to thrive pt will be admitted to the hospital. Adult failure to thrive possible encephalopathy secondary to UTI Question of patient's inability to care for herself, not currently ambulatory Patient requires assistance with ADLs and eating mental status improving Ecoli and strep viridans UTI Continue Rocephin Hypoglycemia/Insulin-dependent diabetes type 2. Resolved patient with reduced p.o. intake since being here Will hold metformin, semaglutide sliding scale insulin Will halve Lantus Diabetic diet stop D10 Diet Pureed diet for now Speech bedside swallow evaluation pending HTN Continue home meds HLD Continue statin Insomnia Continue melatonin Full Code, though could not verify with family and pt is unable to make an informed decision Attending:?Dr. Rosenberg DVT Prophylaxis: Lovenox Pt will require continued hospitalization of at least two nights for treatment of?UTI, hypoglycemia, and failure to thrive. In summary, the hospital provides a controlled environment with access to a wide range of specialized services and expertise necessary to manage the patient's complex medical, functional, and mental health needs effectively. The combination of physical, mental, and medical challenges necessitates a multidisciplinary approach involving psychiatric, medical, and therapeutic teams to ensure the patient's well-being and appropriate management of their various health concerns. It's a complex situation that requires careful attention and collaboration among the care team members. Quality Stroke Does the patient have a stroke diagnosis?: No VTE Prior VTE?: No VTE Risk Level:: Medical - moderate - high VTE Device Contraindication: Treatment Not Indicated VTE Drug Contraindication: N/A - Med Ordered
[2023-02-14 15:22] VITALS: BP 160/64; PULSE 98; RESP 24; TEMP 36.6; O2SAT 97
[2023-02-14 16:33] LABS: Glucose, Whole Blood 113 mg/dL (60-115)
[2023-02-14 18:17] VITALS: BP 144/76
[2023-02-14 19:24] VITALS: BP 158/82; PULSE 97; RESP 18; TEMP 36.3; O2SAT 98
[2023-02-14] MEDS: Enoxaparin Sodium 40 MG/0.4 ML SYRINGE SUBCUT (20:05)
[2023-02-14] MEDS: Atorvastatin Calcium 80 MG TABLET PO (20:06)
[2023-02-14] MEDS: Melatonin 3 MG TABLET PO (20:06)
[2023-02-14 20:57] LABS: Glucose, Whole Blood 116 mg/dL (60-115)
--- NOTE | 2023-02-14 22:55 | PC.RT ---
Unable to place pt on CPAP NOC due to pt lack of response or ability to remove CPAP mask. Pt able to oxygenate appropriately on RA, in no notable distress. RN aware
[2023-02-15 03:31] VITALS: BP 147/58; PULSE 71; RESP 18; TEMP 36.8; O2SAT 94
--- NOTE | 2023-02-15 03:51 | PC.NURSE ---
Patient mostly drowsy, nonverbal with short periods of open eyes and increase activity. Was able to take small sips of fluid, meds crushed with apple sauce, patient was spitting some.
[2023-02-15 07:42] VITALS: BP 149/97; PULSE 86; RESP 20; TEMP 36; O2SAT 96
[2023-02-15 07:55] LABS: Glucose, Whole Blood 84 mg/dL (60-115)
--- NOTE | 2023-02-15 08:58 | HO.PM.IMPN ---
Subjective Subjective Date of Service: 02/15/23 Review of Systems Follow up encephaopathy still confused with not much talking Physical Exam Vital Signs: Vital Signs: Last Vital Signs Temp 96.8 F 02/15/23 07:42 Pulse 86 02/15/23 07:42 Resp 20 02/15/23 07:42 BP 149/97 H 02/15/23 07:42 Pulse Ox 96 02/15/23 07:42 O2 Del Method Room Air 02/15/23 07:42 BMI result Body Mass Index 29.9 Appearing in no acute distress lung sounds are clear to auscultation heart regular rate rhythm, clear S1, S2 positive bowel sounds, abdomen is soft, nontender neuro patient is alert, more conversive today Objective Data Active Medications Acetaminophen (Acetaminophen 325 Mg Tablet) 650 mg PO Q6H PRN PRN Reason: Pain, Mild (Pain Scale 1-3) Amlodipine Besylate (Amlodipine Besylate 10 Mg Tablet) 10 mg PO DAILY [facility]; Protocol Last Admin: 02/14/23 08:31 Dose: 10 mg Documented By: SEMAJ Ascorbic Acid (Ascorbic Acid 500 Mg Tablet) 500 mg PO Q48H [facility] Last Admin: 02/13/23 12:00 Dose: Not Given Documented By: SEMAJ Non-Admin Reason: pt spitting out meds Aspirin (Aspirin Enteric Coated 81 Mg Tablet.Dr) 81 mg PO DAILY [facility] Last Admin: 02/14/23 08:32 Dose: 81 mg Documented By: SEMAJ Atorvastatin Calcium (Atorvastatin Calcium 80 Mg Tablet) 80 mg PO BEDTIME [facility] Last Admin: 02/14/23 20:06 Dose: 80 mg Documented By: BON Benzonatate (Benzonatate 100 Mg Capsule) 100 mg PO TID PRN PRN Reason: Cough Carvedilol (Carvedilol 6.25 Mg Tablet) 6.25 mg PO BID [facility]; Protocol Last Admin: 02/14/23 20:06 Dose: 6.25 mg Documented By: BON Dextrose (Dextrose 50 % 25 Gm/50 Ml Syringe) 25 gm IVPUSH Q15M PRN; Protocol PRN Reason: per Hypoglycemia Standing Ord. Docusate Sodium (Docusate Sodium 100 Mg Capsule) 100 mg PO DAILY PRN PRN Reason: Constipation Enoxaparin Sodium (Enoxaparin Sodium 40 Mg/0.4 Ml Syringe) 40 mg SUBCUT Q24H [facility] Last Admin: 02/14/23 20:05 Dose: 40 mg Documented By: BON Escitalopram Oxalate (Escitalopram Oxalate 20 Mg Tablet) 20 mg PO DAILY [facility] Last Admin: 02/14/23 08:31 Dose: 20 mg Documented By: SEMAJ Ferrous Sulfate (Ferrous Sulfate 324 Mg Tablet.Dr) 324 mg PO DAILY [facility] Last Admin: 02/14/23 08:32 Dose: 324 mg Documented By: SEMAJ Gabapentin (Gabapentin 100 Mg Capsule) 100 mg PO DAILY [facility] Last Admin: 02/14/23 08:31 Dose: 100 mg Documented By: SEMAJ Glucose (Glucose Gel 15 Gm Gel..Gram.) 15 gm PO Q15M PRN; Protocol PRN Reason: per Hypoglycemia Standing Ord. Ceftriaxone Sodium 1 gm/ (Sodium Chloride) 50 mls @ 100 mls/hr IV Q24H [facility] Last Infusion: 02/14/23 07:36 Dose: Infused Documented By: SEMAJ Insulin Glargine (Insulin Glargine,Hum.Rec.Anlog 100 Unit/Ml 10 Ml Vial) 18 unit SUBCUT BID [facility] Last Admin: 02/14/23 20:04 Dose: 18 unit Documented By: BON Insulin Human Lispro (Insulin Lispro 100 Unit/Ml 3 Ml Vial) 0 unit SUBCUT QIDACHS [facility]; Protocol Last Admin: 02/15/23 08:04 Dose: Not Given Documented By: МАРИЯ Non-Admin Reason: No Insulin Coverage Lidocaine (Lidocaine 4 % Patch Adh..Patch) 1 patch TRANSDERMA DAILY [facility] Last Admin: 02/14/23 08:32 Dose: Not Given Documented By: SEMAJ Non-Admin Reason: no pain Lisinopril (Lisinopril 40 Mg Tablet) 40 mg PO DAILY [facility]; Protocol Last Admin: 02/14/23 08:32 Dose: 40 mg Documented By: SEMAJ Melatonin (Melatonin 3 Mg Tablet) 3 mg PO BEDTIME [facility] Last Admin: 02/14/23 20:06 Dose: 3 mg Documented By: BON Metformin HCl (Metformin Hcl 500 Mg Tablet) 500 mg PO BID [facility] Last Admin: 02/12/23 11:17 Dose: Not Given Documented By: DARA Non-Admin Reason: hypoglycemic. provider instructed to hold. Polyethylene Glycol (Polyethylene Glycol 3350 17 Gm Powd.Pack) 17 gm PO DAILY PRN PRN Reason: constipation Last Admin: 02/11/23 21:35 Dose: 17 gm Documented By: MONTEELIJAH Sodium Chloride (0.9 % Sodium Chloride Flush 3 Ml Syringe) 3 ml IVFLUSH QSHIFT [facility] Last Admin: 02/14/23 20:07 Dose: 3 ml Documented By: BON Vitamin D (Cholecalciferol (Vitamin D3) 25 Mcg Tablet) 25 mcg PO DAILY [facility] Last Admin: 02/14/23 08:32 Dose: 25 mcg Documented By: SEMAJ Labs 02/13/23 05:42 02/13/23 05:42 Labs: Laboratory Results - last 24 hr 02/14/23 02/14/23 02/14/23 11:07 16:23 19:47 POC Glucose 102 113 116 H 02/15/23 07:31 POC Glucose 84 Assessment and Plan (1) Hypoglycemia: Status: Acute Plan Pt is a 77-year-old female with a PMH significant for?HTN, HLD, and insulin-dependent type 2 diabetes who presents to the ED after being found wandering the streets in her undergarments. She was brought in on a Section 12 for failure to thrive/unable to care for herself. Patient was originally placed under physician observation in overflow and a search was underway for a [facility] psych placement. However, patient was noted to be hypoglycemic today with increased once. Due to increasing requirements of care for UTI, hypoglycemia, and failure to thrive pt will be admitted to the hospital. Adult failure to thrive possible encephalopathy secondary to UTI Question of patient's inability to care for herself, not currently ambulatory Patient requires assistance with ADLs and eating Pureed diet as per speech therapy mental status improving psych consult for possible [facility] psych admission Ecoli and strep viridans UTI Continue Rocephin Hypoglycemia/Insulin-dependent diabetes type 2. Resolved patient with reduced p.o. intake since being here Will hold metformin, semaglutide sliding scale insulin Lantus at half her home dose Diabetic diet s/p D10 HTN Continue home meds HLD Continue statin Insomnia Continue melatonin Full Code Attending:?Dr. Crenshaw DVT Prophylaxis: Lovenox Pt will require continued hospitalization of at least two nights for treatment of?UTI, hypoglycemia, and failure to thrive. In summary, the hospital provides a controlled environment with access to a wide range of specialized services and expertise necessary to manage the patient's complex medical, functional, and mental health needs effectively. The combination of physical, mental, and medical challenges necessitates a multidisciplinary approach involving psychiatric, medical, and therapeutic teams to ensure the patient's well-being and appropriate management of their various health concerns. It's a complex situation that requires careful attention and collaboration among the care team members. Quality Stroke Does the patient have a stroke diagnosis?: No VTE Prior VTE?: No VTE Risk Level:: Medical - moderate - high VTE Device Contraindication: Treatment Not Indicated VTE Drug Contraindication: N/A - Med Ordered
[2023-02-15] MEDS: Lidocaine 4 % Patch ADH..PATCH 1 PATCH TRANSDERMA (09:00)
[2023-02-15] MEDS: amLODIPine Besylate 10 MG TABLET PO (09:01)
[2023-02-15] MEDS: Aspirin Enteric Coated 81 MG TABLET.DR PO (09:01)
[2023-02-15] MEDS: carvediloL 6.25 MG TABLET PO ×2 (09:02→21:18)
[2023-02-15] MEDS: Gabapentin 100 MG CAPSULE PO (09:02)
[2023-02-15] MEDS: Cholecalciferol (Vitamin D3) 25 MCG TABLET PO (09:02)
[2023-02-15] MEDS: lisinopriL 40 MG TABLET PO (09:02)
[2023-02-15] MEDS: Escitalopram Oxalate 20 MG TABLET PO (09:02)
[2023-02-15] MEDS: Ferrous Sulfate 324 MG TABLET.DR PO (09:02)
[2023-02-15] MEDS: cefTRIAXone sodium 1 GM in 0.9 % Sodium Chloride 50 ML IV (09:20)
[2023-02-15] MEDS: 0.9 % Sodium Chloride Flush 3 ML SYRINGE IVFLUSH ×2 (09:21→15:47)
[2023-02-15] MEDS: Insulin Glargine,Hum.rec.anlog 100 UNIT/ML 10 ML VIAL 18 UNIT SUBCUT ×2 (09:32→21:19)
[2023-02-15 11:07] LABS: Glucose, Whole Blood 166 mg/dL (60-115)
[2023-02-15] MEDS: Insulin Lispro 100 UNIT/ML 3 ML VIAL SUBCUT ×2 (12:06→17:10)
--- NOTE | 2023-02-15 14:01 | PM.PSYCN ---
History of Present Illness Date of Service: 02/15/2023 Chief Complaint: Hypoglecemia, UTI, FTT Reason for Consult: delirium Requesting physician: Kamla Guardado Discussed with referring provider: Yes Sources of Information: patient interviewed, chart reviewed and crisis/core team assessment reviewed HPI Narrative: Mrs. Sawant is a 77 year-old woman w/ hx of dementia brought to ED due to increase confusion, erratic behaviors. Pt found to have UTI. treated with ceftin. Pt presents as confused. Pt seen with by her side. Pt is lying in bed in no acute distress. She does not know they year, month (says it is December), not oriented to situation (not sure why she is here, does know this is a hospital but does not know the city). reports pt less agitated and confused. However, pt although not delirious at this time, she appears to have severe cognitive impairments. reports that after she had stoke back in March of this year, her cognitive and memory have significantly worsened. Diagnostics Vital Signs (24Hr): Vital Signs - 24 hr 02/14/23 15:22 02/14/23 18:17 02/14/23 19:24 Temperature 97.8 F 97.4 F Pulse Rate 98 97 Respiratory Rate 24 H 18 Blood Pressure 160/64 H 144/76 H 158/82 H Pulse Oximetry 97 98 Oxygen Delivery Method Room Air Room Air 02/15/23 03:31 02/15/23 07:42 Temperature 98.2 F 96.8 F Pulse Rate 71 86 Respiratory Rate 18 20 Blood Pressure 147/58 H 149/97 H Pulse Oximetry 94 96 Oxygen Delivery Method Room Air Room Air BMI result Body Mass Index 29.9 Labs 02/13/23 05:42 02/13/23 05:42 Labs: Laboratory Results - last 48 hr 02/13/23 02/13/23 02/14/23 16:03 20:12 07:52 POC Glucose 123 H 128 H 96 02/14/23 02/14/23 02/14/23 11:07 16:23 19:47 POC Glucose 102 113 116 H 02/15/23 02/15/23 07:31 11:03 POC Glucose 84 166 H Imaging Radiology Impressions: ITS Impressions Head CT 02/08/23 14:33 IMPRESSION: Normal CT scan of the head. Chest X-Ray 02/08/23 14:35 IMPRESSION: Unremarkable chest examination. Mental Status Exam Mental Status Exam Narrative: Appearance: wearing hospital gown, in NAD Behavior: cooperative Psychomotor: no agitation or retardation noted Speech: clear, normal rate/rhythm/volume, spontaneous TP: tangential at times, no overt loose associations TC: feeling better, not sure if she wants to go home or not Mood: good Affect: congruent SI: none HI: none Delusions: none VH/AH: none Insight/judgment: impaired x2. memory/cog: alert, not oriented to situation, month or year. Medications Medications Current Medications Acetaminophen (Acetaminophen 325 Mg Tablet) 650 mg PO Q6H PRN PRN Reason: Pain, Mild (Pain Scale 1-3) Amlodipine Besylate (Amlodipine Besylate 10 Mg Tablet) 10 mg PO DAILY [facility]; Protocol Last Admin: 02/15/23 09:01 Dose: 10 mg Ascorbic Acid (Ascorbic Acid 500 Mg Tablet) 500 mg PO Q48H [facility] Last Admin: 02/13/23 12:00 Dose: Not Given Aspirin (Aspirin Enteric Coated 81 Mg Tablet.) 81 mg PO DAILY [facility] Last Admin: 02/15/23 09:01 Dose: 81 mg Atorvastatin Calcium (Atorvastatin Calcium 80 Mg Tablet) 80 mg PO BEDTIME [facility] Last Admin: 02/14/23 20:06 Dose: 80 mg Benzonatate (Benzonatate 100 Mg Capsule) 100 mg PO TID PRN PRN Reason: Cough Carvedilol (Carvedilol 6.25 Mg Tablet) 6.25 mg PO BID [facility]; Protocol Last Admin: 02/15/23 09:02 Dose: 6.25 mg Dextrose (Dextrose 50 % 25 Gm/50 Ml Syringe) 25 gm IVPUSH Q15M PRN; Protocol PRN Reason: per Hypoglycemia Standing Ord. Docusate Sodium (Docusate Sodium 100 Mg Capsule) 100 mg PO DAILY PRN PRN Reason: Constipation Enoxaparin Sodium (Enoxaparin Sodium 40 Mg/0.4 Ml Syringe) 40 mg SUBCUT Q24H [facility] Last Admin: 02/14/23 20:05 Dose: 40 mg Escitalopram Oxalate (Escitalopram Oxalate 20 Mg Tablet) 20 mg PO DAILY [facility] Last Admin: 02/15/23 09:02 Dose: 20 mg Ferrous Sulfate (Ferrous Sulfate 324 Mg Tablet.) 324 mg PO DAILY [facility] Last Admin: 02/15/23 09:02 Dose: 324 mg Gabapentin (Gabapentin 100 Mg Capsule) 100 mg PO DAILY [facility] Last Admin: 02/15/23 09:02 Dose: 100 mg Glucose (Glucose Gel 15 Gm Gel..Gram.) 15 gm PO Q15M PRN; Protocol PRN Reason: per Hypoglycemia Standing Ord. Ceftriaxone Sodium 1 gm/ (Sodium Chloride) 50 mls @ 100 mls/hr IV Q24H [facility] Last Infusion: 02/15/23 10:24 Dose: Infused Insulin Glargine (Insulin Glargine,Hum.Rec.Anlog 100 Unit/Ml 10 Ml Vial) 18 unit SUBCUT BID [facility] Last Admin: 02/15/23 09:32 Dose: 18 unit Insulin Human Lispro (Insulin Lispro 100 Unit/Ml 3 Ml Vial) 0 unit SUBCUT QIDACHS [facility]; Protocol Last Admin: 02/15/23 12:06 Dose: 2 unit Lidocaine (Lidocaine 4 % Patch Adh..Patch) 1 patch TRANSDERMA DAILY [facility] Last Admin: 02/15/23 09:00 Dose: 1 patch Lisinopril (Lisinopril 40 Mg Tablet) 40 mg PO DAILY [facility]; Protocol Last Admin: 02/15/23 09:02 Dose: 40 mg Melatonin (Melatonin 3 Mg Tablet) 3 mg PO BEDTIME [facility] Last Admin: 02/14/23 20:06 Dose: 3 mg Metformin HCl (Metformin Hcl 500 Mg Tablet) 500 mg PO BID [facility] Last Admin: 02/12/23 11:17 Dose: Not Given Polyethylene Glycol (Polyethylene Glycol 3350 17 Gm Powd.Pack) 17 gm PO DAILY PRN PRN Reason: constipation Last Admin: 02/11/23 21:35 Dose: 17 gm Sodium Chloride (0.9 % Sodium Chloride Flush 3 Ml Syringe) 3 ml IVFLUSH QSHIFT [facility] Last Admin: 02/15/23 09:21 Dose: 3 ml Vitamin D (Cholecalciferol (Vitamin D3) 25 Mcg Tablet) 25 mcg PO DAILY [facility] Last Admin: 02/15/23 09:02 Dose: 25 mcg Allergies Allergies Allergy/AdvReac Type Severity Reaction Status Date / Time No Known Allergies Allergy Verified 02/08/23 13:36 Assessment & Plan Assessment & Plan (1) Major neurocognitive disorder due to another medical condition: Status: Acute Code(s): F02.80 - Dementia in other diseases classified elsewhere, unspecified severity, without behavioral disturbance, psychotic disturbance, mood disturbance, and anxiety Plan Mrs. Sawant is a 77 year-old woman with hx of dementia, brought in due to acute change in mentation. She was found to have UTI, treated, delirium seems to have cleared but she has severe cognitive impairments at baseline. PLAN 1. Pt does not have capacity to make medical decisions- even after delirium has resolved, pt is very impaired. Recommend HCP to be invoke by MD. 2. At this point, family report- , that plan is for pt to return home with him unless PT recommeds short term rehab. 3. Offer additional supports in the home such as VNA Total time managing care of this patient today ____ minutes.
[2023-02-15 15:16] VITALS: BP 146/75; PULSE 81; RESP 18; TEMP 36.1; O2SAT 95
--- NOTE | 2023-02-15 15:21 | MHC.CM.PN ---
Patient received a psych consult today. She has a PMH of Dementia. She is now being treated for a UTI. Additional referrals have been sent. A clinical update has been sent to all referrals. Patient will transport via BLS once a bed is located.
[2023-02-15] MEDS: Ascorbic Acid 500 MG TABLET PO (15:47)
--- NOTE | 2023-02-15 16:02 | MHC.SL.SWA ---
Speech Pathologist Impression:Risk of aspiration, oropharyngeal dysphagia Risk of Aspiration Due to: Neurological Condition Poor PO Intake Reduced Cognition Dysphasia Diet Status: No changes at this time Liquid Consistency and Strategies for Safe Swallow: Liquid Intake Recommendation: Novelty Thick Liquid Intake Strategies: Small Sips No Straws Solid Food Consistency: Dietary Recommendations: Pureed (NDD1) Oral Medication Intake: Crushed with Puree Please contact the pharmacy regarding appropriate crushable or liquid drug formulations that are available whenever modified delivery is recommended. Compensatory Strategies and Precautions to be Taken for Safe Swallow: Sitting Upright (90 deg) No Straw Small Bites and Sips Rate of Ingestion Change Supervision While Eating and Drinking for Safe Swallow: Total Supervision (1:1) Foods to Avoid: Sticky or congealed purees. Add gravy and blend well. Swallowing Recommended Treatments: Compens. Strategy Educat. Recommendation for Speech: Inpatient Speech Therapy Comment: DOCUMENTATION CLERK to re-evaluate for potential upgrade if appropriate. Client Portfolio Manager Clinican/Clinical Fellow: No Supervisory Statement: I have reviewed and agree with the student/clinical fellow's documentation: N/A Speech Language Pathologist: Hillary Alvarez M.A., CCC-DOCUMENTATION CLERK
[2023-02-15 16:24] LABS: Glucose, Whole Blood 214 mg/dL (60-115)
[2023-02-15] MEDS: polyethylene glycoL 3350 17 GM POWD.PACK PO (17:10)
[2023-02-15] MEDS: Acetaminophen 325 MG TABLET 650 MG PO (17:10)
[2023-02-15 20:00] VITALS: BP 143/75; PULSE 84; RESP 18; TEMP 36.7; O2SAT 97
[2023-02-15 20:52] LABS: Glucose, Whole Blood 92 mg/dL (60-115)
[2023-02-15] MEDS: Atorvastatin Calcium 80 MG TABLET PO (21:18)
[2023-02-15] MEDS: Melatonin 3 MG TABLET PO (21:18)
[2023-02-15] MEDS: Enoxaparin Sodium 40 MG/0.4 ML SYRINGE SUBCUT (21:21)
[2023-02-16] MEDS: 0.9 % Sodium Chloride Flush 3 ML SYRINGE IVFLUSH ×3 (00:34→23:56)
[2023-02-16 04:00] VITALS: BP 142/88; PULSE 95; RESP 18; TEMP 36.2; O2SAT 98
[2023-02-16 05:19] LABS: Glucose, Whole Blood 123 mg/dL (60-115)
--- NOTE | 2023-02-16 07:11 | PC.NURSE ---
blood sugar check as pt not eating well and hs value was 92, recheck at [id number] [id number]. pt repositioned, offered sips of nectar thick juice which she took approx., 20ml. no s/sx resp distress or pain. will continue to monitor.
[2023-02-16 07:13] VITALS: BP 168/81; PULSE 93; RESP 17; TEMP 37.3; O2SAT 96
[2023-02-16 07:42] LABS: Glucose, Whole Blood 144 mg/dL (60-115)
[2023-02-16] MEDS: cefTRIAXone sodium 1 GM in 0.9 % Sodium Chloride 50 ML IV (09:32)
[2023-02-16 11:31] LABS: Glucose, Whole Blood 148 mg/dL (60-115)
--- NOTE | 2023-02-16 12:30 | MHC.SPEECHCO ---
Per BARK SPUDDER, Pt resting all morning, unable to feed breakfast. No appropriate for upgrade at this time, HOSPICE EDUCATOR will continue to follow daily.
[2023-02-16 13:00] VITALS: BP 185/85; PULSE 87; RESP 16; TEMP 37.4; O2SAT 96
--- NOTE | 2023-02-16 13:06 | P.CNNE_ITS ---
History of Present Illness Data of Consult Service Date: 02/16/23 Primary Care Provider: Radha Matias MD [facility] Reason for consult: altered mental status This is a 77-year-old female with a h/o ?HTN, HLD, and insulin-dependent type 2 diabetes who originally presented to the ED on 02/08/2023 after being found wandering the streets in her undergarments. She was brought in on a Section 12 for failure to thrive/unable to care for herself. Pt apparently lives with her at home. Workup in the ED found pt to have a UTI for which she was started on ceftin. Care team was consulted, who noted patient was evaluated by [facility] in the community with recommendations for [facility] bed search d/t concerns about her ability to continue caring for herself at home. I am asked to see her for periods of unresponsiveness where she hunt snot talk or open her eyes. CT head normal. Labs are unremarkable. She fluctuates and at times she is normal at a few hours later she just hunt snot respond. Review of Systems 2 Review of Systems: Follow up encephaopathy still confused with not much talking Yes all other systems are reviewed and are negative Constitutional: Constitutional: Reports as per [facility] Social History Social History Household Members: Unknown / Unable to assess Housing: Unknown / Unable to assess Do you presently have visiting nurse or other home services: No Unable to assess alcohol history related to: Unable to respond Patient Tobacco Use Status: Tobacco use Unknown Smoked in Last 30 Days: No Use of substances other than those prescribed or required for medical reasons: Unknown Currently Displaying Signs/Symptoms of Drug Intoxication Withdrawal: No Have you been hit, kicked, punched, or otherwise hurt by someone within the past year? If so, by whom?: No Advance Directives: Yes Advance Directives on File: Yes Advance Directives Date on File: 02/10/23 Healthcare Proxy: No Guardian: No Patient : No Poor oral hygiene: No service: No Meds Allergies Allergy/AdvReac Type Severity Reaction Status Date / Time No Known Allergies Allergy Verified 02/08/23 13:36 Active Medications: Current Medications Acetaminophen (Acetaminophen 325 Mg Tablet) 650 mg PO Q6H PRN PRN Reason: Pain, Mild (Pain Scale 1-3) Last Admin: 02/15/23 17:10 Dose: 650 mg Amlodipine Besylate (Amlodipine Besylate 10 Mg Tablet) 10 mg PO DAILY [facility]; Protocol Last Admin: 02/15/23 09:01 Dose: 10 mg Ascorbic Acid (Ascorbic Acid 500 Mg Tablet) 500 mg PO Q48H [facility] Last Admin: 02/15/23 15:47 Dose: 500 mg Aspirin (Aspirin Enteric Coated 81 Mg Tablet.) 81 mg PO DAILY [facility] Last Admin: 02/15/23 09:01 Dose: 81 mg Atorvastatin Calcium (Atorvastatin Calcium 80 Mg Tablet) 80 mg PO BEDTIME [facility] Last Admin: 02/15/23 21:18 Dose: 80 mg Benzonatate (Benzonatate 100 Mg Capsule) 100 mg PO TID PRN PRN Reason: Cough Carvedilol (Carvedilol 6.25 Mg Tablet) 6.25 mg PO BID [facility]; Protocol Last Admin: 02/15/23 21:18 Dose: 6.25 mg Dextrose (Dextrose 50 % 25 Gm/50 Ml Syringe) 25 gm IVPUSH Q15M PRN; Protocol PRN Reason: per Hypoglycemia Standing Ord. Docusate Sodium (Docusate Sodium 100 Mg Capsule) 100 mg PO DAILY PRN PRN Reason: Constipation Enoxaparin Sodium (Enoxaparin Sodium 40 Mg/0.4 Ml Syringe) 40 mg SUBCUT Q24H [facility] Last Admin: 02/15/23 21:21 Dose: 40 mg Escitalopram Oxalate (Escitalopram Oxalate 20 Mg Tablet) 20 mg PO DAILY [facility] Last Admin: 02/15/23 09:02 Dose: 20 mg Ferrous Sulfate (Ferrous Sulfate 324 Mg Tablet.) 324 mg PO DAILY [facility] Last Admin: 02/15/23 09:02 Dose: 324 mg Gabapentin (Gabapentin 100 Mg Capsule) 100 mg PO DAILY [facility] Last Admin: 02/15/23 09:02 Dose: 100 mg Glucose (Glucose Gel 15 Gm Gel..Gram.) 15 gm PO Q15M PRN; Protocol PRN Reason: per Hypoglycemia Standing Ord. Ceftriaxone Sodium 1 gm/ (Sodium Chloride) 50 mls @ 100 mls/hr IV Q24H [facility] Last Infusion: 02/16/23 12:13 Dose: Infused Insulin Glargine (Insulin Glargine,Hum.Rec.Anlog 100 Unit/Ml 10 Ml Vial) 18 unit SUBCUT BID [facility] Last Admin: 02/16/23 12:12 Dose: Not Given Insulin Human Lispro (Insulin Lispro 100 Unit/Ml 3 Ml Vial) 0 unit SUBCUT QIDACHS [facility]; Protocol Last Admin: 02/16/23 08:40 Dose: Not Given Lidocaine (Lidocaine 4 % Patch Adh..Patch) 1 patch TRANSDERMA DAILY [facility] Last Admin: 02/16/23 12:13 Dose: Not Given Lisinopril (Lisinopril 40 Mg Tablet) 40 mg PO DAILY [facility]; Protocol Last Admin: 02/15/23 09:02 Dose: 40 mg Melatonin (Melatonin 3 Mg Tablet) 3 mg PO BEDTIME [facility] Last Admin: 02/15/23 21:18 Dose: 3 mg Metformin HCl (Metformin Hcl 500 Mg Tablet) 500 mg PO BID [facility] Last Admin: 02/12/23 11:17 Dose: Not Given Polyethylene Glycol (Polyethylene Glycol 3350 17 Gm Powd.Pack) 17 gm PO DAILY PRN PRN Reason: constipation Last Admin: 02/15/23 17:10 Dose: 17 gm Sodium Chloride (0.9 % Sodium Chloride Flush 3 Ml Syringe) 3 ml IVFLUSH QSHIFT [facility] Last Admin: 02/16/23 10:01 Dose: Not Given Vitamin D (Cholecalciferol (Vitamin D3) 25 Mcg Tablet) 25 mcg PO DAILY [facility] Last Admin: 02/15/23 09:02 Dose: 25 mcg Home Medications Medication Instructions Recorded Confirmed Last Taken Type amlodipine 10 mg tablet 10 mg PO DAILY 02/09/23 02/09/23 Unknown History ascorbic acid (vitamin C) 500 mg 500 mg PO Q48H 02/09/23 02/09/23 Unknown History tablet (Vitamin C) aspirin 81 mg tablet,delayed 81 mg PO DAILY 02/09/23 02/09/23 Unknown History release carvedilol 6.25 mg tablet 6.25 mg PO BID 02/09/23 02/09/23 Unknown History cholecalciferol (vitamin D3) 25 25 mcg PO DAILY 02/09/23 02/09/23 Unknown History mcg (1,000 unit) tablet escitalopram oxalate 20 mg tablet 20 mg PO DAILY 02/09/23 02/09/23 Unknown History ferrous sulfate 325 mg (65 mg 325 mg PO DAILY 02/09/23 02/09/23 Unknown History iron) tablet,delayed release gabapentin 100 mg capsule 100 mg PO DAILY 02/09/23 02/09/23 Unknown History insulin glargine 100 unit/mL (3 36 unit subcut Q12H 02/09/23 02/09/23 Unknown History mL) subcutaneous pen (Lantus Solostar U-100 Insulin) lidocaine 5 % topical patch 1 patch topical DAILY 02/09/23 02/09/23 Unknown History lisinopril 40 mg tablet 40 mg PO DAILY 02/09/23 02/09/23 Unknown History melatonin 3 mg tablet 3 mg PO BEDTIME 02/09/23 02/09/23 Unknown History metformin 1,000 mg tablet 1,000 mg PO BID 02/09/23 02/09/23 Unknown History nitrofurantoin 1 cap PO BID 02/09/23 02/09/23 Unknown History monohydrate/macrocrystals 100 mg capsule polyethylene glycol 3350 17 17 g PO DAILY PRN constipation 02/09/23 02/09/23 Unknown History gram/dose oral powder (Gavilax) rosuvastatin 20 mg tablet 20 mg PO BEDTIME 02/09/23 02/09/23 Unknown History semaglutide 14 mg tablet (Rybelsus) 14 mg PO DAILY 02/09/23 02/09/23 Unknown History Physical Exam 2 Vital Signs: Vital Signs: Last Vital Signs Temp 99.2 F 02/16/23 07:13 Pulse 93 02/16/23 07:13 Resp 17 02/16/23 07:13 BP 168/81 H 02/16/23 07:13 Pulse Ox 96 02/16/23 07:13 O2 Del Method Room Air 02/16/23 07:13 BMI result Body Mass Index 29.9 Const: General: cooperative, healthy appearing and no acute distress L imitations: no limitations HEENT: Head: Yes normal to inspection and Yes atraumatic Ears: hearing grossly normal bilaterally General nose exam: Normal external nose present Face and sinus: Yes normal facial exam Throat: Yes posterior oropharynx normal Eyes: General: appearance normal, both eyes and all related structures P upils: Equal, round and reactive pupils present EOM: EOMs intact bilaterally Neck: Neck: Yes normal visual inspection and Yes no meningeal signs Resp: Effort & Inspection: normal respiratory effort and no respiratory distress Auscultation: clear to auscultation bilaterally Cardio: Rate: regular rate Heart sounds: S1 normal heart sound present and S2 normal heart sound present GI: Inspection: Yes normal to inspection Palpation (GI): Soft to palpation, nontender, no guarding and not rigid Skin: Rashes: no rashes Wounds: no wounds Neuro: Other: She does not open her eyes or mouth, will not talk. Resists eye opening and mouth opening. Will follow with eyes . Can move all 4 extremiites. At times the tone is normal and at other time sshe will rigidly resist passive limb movements. DTRs are 2 plus and plantars are flexor. Neck is supple. General: moves all extremities and no meningeal signs Cranial nerves: Y es CN's II-XII intact bilaterally and Yes Equal, round and reactive pupils present Gait exam (Neuro): Normal gait present Extrem: General: Yes normal to inspection and Yes no pedal edema Results Labs 02/13/23 05:42 02/13/23 05:42 Microbiology Microbiology Results: Microbiology 02/08/23 Unknown Urine clean catch - Urine burk top Urine Culture - Final Escherichia coli Streptococcus viridans group Assessment and Plan (1) Major neurocognitive disorder due to another medical condition: Status: Acute There appears to be a major psychiatric component to her condition. She has inconsistent exam findings and fluctuating status. Non focal. Ct negative. The altered mental status is about 2 wks only and not that of a progressive dementia. No evidence to suggest acute encephalopathy or encephalitis. Recom. EEG. Recheck for metabolic and infectious etiologies. EEG. Psych reevaluation. Plan Mrs. Sawant is a 77 year-old woman with hx of dementia, brought in due to acute change in mentation. She was found to have UTI, treated, delirium seems to have cleared but she has severe cognitive impairments at baseline. PLAN 1. Pt does not have capacity to make medical decisions- even after delirium has resolved, pt is very impaired. Recommend HCP to be invoke by MD. 2. At this point, family report- , that plan is for pt to return home with him unless PT recommeds short term rehab. 3. Offer additional supports in the home such as VNA Procedures Date of Service Date of Service: 02/16/23
--- NOTE | 2023-02-16 13:49 | MHC.CM.PN ---
Met with patients spouse and waredresser in the patients room. The spouse wants to take his home with services. [facility] has approved PT with [facility]. The transitions coordinator was contacted. He states that PT is new. SN will resume services at discharge. A referral and clinical information has been sent.
--- NOTE | 2023-02-16 13:55 | P.PNIM_ITS ---
Subjective Subjective Date of Service: 02/16/23 Review of Systems Follow up encephalopathy still confused more lethargic today Physical Exam 2 Vital Signs: Vital Signs: Last Vital Signs Temp 99.2 F 02/16/23 07:13 Pulse 93 02/16/23 07:13 Resp 17 02/16/23 07:13 BP 168/81 H 02/16/23 07:13 Pulse Ox 96 02/16/23 07:13 O2 Del Method Room Air 02/16/23 07:13 BMI result Body Mass Index 29.9 Appearing in no acute distress lung sounds are clear to auscultation heart regular rate rhythm, clear S1, S2 positive bowel sounds, abdomen is soft, nontender neuro patient is lethargic, not wanting to open eyes Objective Data Active Medications Acetaminophen (Acetaminophen 325 Mg Tablet) 650 mg PO Q6H PRN PRN Reason: Pain, Mild (Pain Scale 1-3) Last Admin: 02/15/23 17:10 Dose: 650 mg Documented By: МАРИЯ Amlodipine Besylate (Amlodipine Besylate 10 Mg Tablet) 10 mg PO DAILY [facility]; Protocol Last Admin: 02/15/23 09:01 Dose: 10 mg Documented By: МАРИЯ Ascorbic Acid (Ascorbic Acid 500 Mg Tablet) 500 mg PO Q48H [facility] Last Admin: 02/15/23 15:47 Dose: 500 mg Documented By: МАРИЯ Aspirin (Aspirin Enteric Coated 81 Mg Tablet.) 81 mg PO DAILY [facility] Last Admin: 02/15/23 09:01 Dose: 81 mg Documented By: МАРИЯ Atorvastatin Calcium (Atorvastatin Calcium 80 Mg Tablet) 80 mg PO BEDTIME [facility] Last Admin: 02/15/23 21:18 Dose: 80 mg Documented By: CEDRIC Benzonatate (Benzonatate 100 Mg Capsule) 100 mg PO TID PRN PRN Reason: Cough Carvedilol (Carvedilol 6.25 Mg Tablet) 6.25 mg PO BID [facility]; Protocol Last Admin: 02/15/23 21:18 Dose: 6.25 mg Documented By: CEDRIC Dextrose (Dextrose 50 % 25 Gm/50 Ml Syringe) 25 gm IVPUSH Q15M PRN; Protocol PRN Reason: per Hypoglycemia Standing Ord. Docusate Sodium (Docusate Sodium 100 Mg Capsule) 100 mg PO DAILY PRN PRN Reason: Constipation Enoxaparin Sodium (Enoxaparin Sodium 40 Mg/0.4 Ml Syringe) 40 mg SUBCUT Q24H [facility] Last Admin: 02/15/23 21:21 Dose: 40 mg Documented By: CEDRIC Escitalopram Oxalate (Escitalopram Oxalate 20 Mg Tablet) 20 mg PO DAILY [facility] Last Admin: 02/15/23 09:02 Dose: 20 mg Documented By: МАРИЯ Ferrous Sulfate (Ferrous Sulfate 324 Mg Tablet.) 324 mg PO DAILY [facility] Last Admin: 02/15/23 09:02 Dose: 324 mg Documented By: МАРИЯ Gabapentin (Gabapentin 100 Mg Capsule) 100 mg PO DAILY [facility] Last Admin: 02/15/23 09:02 Dose: 100 mg Documented By: МАРИЯ Glucose (Glucose Gel 15 Gm Gel..Gram.) 15 gm PO Q15M PRN; Protocol PRN Reason: per Hypoglycemia Standing Ord. Ceftriaxone Sodium 1 gm/ (Sodium Chloride) 50 mls @ 100 mls/hr IV Q24H [facility] Last Infusion: 02/16/23 12:13 Dose: Infused Documented By: DARA Insulin Glargine (Insulin Glargine,Hum.Rec.Anlog 100 Unit/Ml 10 Ml Vial) 18 unit SUBCUT BID [facility] Last Admin: 02/16/23 12:12 Dose: Not Given Documented By: DARA Non-Admin Reason: too lethargic Insulin Human Lispro (Insulin Lispro 100 Unit/Ml 3 Ml Vial) 0 unit SUBCUT QIDACHS [facility]; Protocol Last Admin: 02/16/23 08:40 Dose: Not Given Documented By: DARA Non-Admin Reason: No Insulin Coverage Lidocaine (Lidocaine 4 % Patch Adh..Patch) 1 patch TRANSDERMA DAILY [facility] Last Admin: 02/16/23 12:13 Dose: Not Given Documented By: DARA Non-Admin Reason: Patient Refused Lisinopril (Lisinopril 40 Mg Tablet) 40 mg PO DAILY [facility]; Protocol Last Admin: 02/15/23 09:02 Dose: 40 mg Documented By: МАРИЯ Melatonin (Melatonin 3 Mg Tablet) 3 mg PO BEDTIME [facility] Last Admin: 02/15/23 21:18 Dose: 3 mg Documented By: CEDRIC Metformin HCl (Metformin Hcl 500 Mg Tablet) 500 mg PO BID [facility] Last Admin: 02/12/23 11:17 Dose: Not Given Documented By: DARA Non-Admin Reason: hypoglycemic. provider instructed to hold. Polyethylene Glycol (Polyethylene Glycol 3350 17 Gm Powd.Pack) 17 gm PO DAILY PRN PRN Reason: constipation Last Admin: 02/15/23 17:10 Dose: 17 gm Documented By: МАРИЯ Sodium Chloride (0.9 % Sodium Chloride Flush 3 Ml Syringe) 3 ml IVFLUSH QSHIFT [facility] Last Admin: 02/16/23 10:01 Dose: Not Given Documented By: DARA Non-Admin Reason: iv leaking Vitamin D (Cholecalciferol (Vitamin D3) 25 Mcg Tablet) 25 mcg PO DAILY [facility] Last Admin: 02/15/23 09:02 Dose: 25 mcg Documented By: МАРИЯ Labs 02/13/23 05:42 02/13/23 05:42 Labs: Laboratory Results - last 24 hr 02/15/23 02/15/23 02/16/23 16:16 20:43 03:06 POC Glucose 214 H 92 123 H 02/16/23 02/16/23 07:16 11:23 POC Glucose 144 H 148 H Assessment and Plan (1) Hypoglycemia: Status: Acute Plan Pt is a 77-year-old female with a PMH significant for?HTN, HLD, and insulin- dependent type 2 diabetes who presents to the ED after being found wandering the streets in her undergarments. She was brought in on a Section 12 for failure to thrive/unable to care for herself. [facility] was underway for [facility]. However, patient was noted to be hypoglycemic today with increased once. Due to increasing requirements of care for UTI, hypoglycemia, and failure to thrive pt will be admitted to the hospital. Adult failure to thrive possible encephalopathy secondary to UTI Question of patient's inability to care for herself, not currently ambulatory Patient requires assistance with ADLs and eating Pureed diet as per speech therapy mental status worse today, more lethargic Seen by neurology> inconsistent exam findings trauma seems like psychiatric component, not suggestive of progressive dementia, can check EEG and psychiatric re-evaluation psych reconsult recheck labs including ammonia and LFT pending Ecoli and strep viridans UTI Continue Rocephin started 12/9/23 Hypoglycemia/Insulin-dependent diabetes type 2. Resolved patient with reduced p.o. intake since being here continue to hold metformin, semaglutide sliding scale insulin Lantus at half her home dose Diabetic diet s/p D10 HTN Continue home meds HLD Continue statin Insomnia Continue melatonin Full Code Attending:?Dr. Crenshaw DVT Prophylaxis: Lovenox Pt will require continued hospitalization of at least two nights for treatment of?UTI, hypoglycemia, and failure to thrive. In summary, the hospital provides a controlled environment with access to a wide range of specialized services and expertise necessary to manage the patient's complex medical, functional, and mental health needs effectively. The combination of physical, mental, and medical challenges necessitates a multidisciplinary approach involving psychiatric, medical, and therapeutic teams to ensure the patient's well-being and appropriate management of their various health concerns. It's a complex situation that requires careful attention and collaboration among the care team members. Quality Stroke Does the patient have a stroke diagnosis?: No VTE Prior VTE?: No VTE Risk Level:: Medical - moderate - high VTE Device Contraindication: Treatment Not Indicated VTE Drug Contraindication: N/A - Med Ordered
[2023-02-16 14:29] LABS: Hematocrit 39.1 % (37.0-47.0); Hemoglobin 12.8 g/dl (12.0-16.0); Mean Corpuscular HGB Conc 32.7 g/dl (31.0-35.0); Mean Corpuscular Hemoglobin 26.6 pg (27.0-33.0); Mean Corpuscular Volume 81.1 fL (80.0-98.0); Platelet Count 336 X10*3/uL (160-400); Red Blood Count 4.82 X10*6/uL (4.20-5.50); Red Cell Distribution Width 15.4 % (11.0-16.0)
[2023-02-16 14:39] LABS: Ammonia 36 umol/L (13-55)
[2023-02-16 14:43] LABS: Alanine Aminotransferase 52 U/L (0-31); Albumin Level 3.8 g/dL (3.5-5.0); Alkaline Phosphatase 117 U/L (39-117); Anion Gap 16 (12-20); Aspartate Amino Transferase 66 U/L (5-31); Bilirubin Direct 0.2 mg/dL (0.0-0.5); Bilirubin Total 0.3 mg/dL (0.0-1.0); Blood Urea Nitrogen 21 mg/dL (9-16); Calcium 9.6 mg/dL (8.4-10.2); Carbon Dioxide 23 mmol/L (22-29); Chloride 106 mmol/L (96-108); Estimated Glomerular Filt Rate > 60; Glucose Random 141 mg/dL (60-115); Potassium 4.6 mmol/L (3.3-5.1); Sodium 140 mmol/L (135-145); Total Protein 7.3 g/dL (6.5-8.0)
--- NOTE | 2023-02-16 15:24 | PC.NURSE ---
Patient sleeping,lethargic,unable to wake patient up,family at bedside saying patient is sleeping like this all day,MANOLO Guardado notified
--- NOTE | 2023-02-16 15:32 | PC.NURSE ---
Patient lethargic. Not safe to take anything PO. All PO meds held this AM. Provider notified. Labs ordered and waiting on results. Incontinent urine x 1. BP 168/81 and 185/85. Provider aware.
[2023-02-16 15:38] VITALS: BP 161/87; PULSE 89; RESP 18; TEMP 36.3; O2SAT 97
--- NOTE | 2023-02-16 15:56 | PM.PSYCN ---
History of Present Illness Date of Service: 02/16/2023 Chief Complaint: Hypoglecemia, UTI, FTT Requesting physician: Kamla Guardado Discussed with referring provider: Yes Sources of Information: patient interviewed, chart reviewed and crisis/core team assessment reviewed HPI Narrative: Interim Hx: Pt seen in room today. She is lying in no acute distress. However, she has not opened her eyes, nor she has been verbal. MInimal eye movement when I call her name, or to touch of mcbride. When trying to move right arm, there is active resistant to let extend it. On the left side (which is consistent with sequelae of previous stroke), movement by this keno writer/runner is without resistance. Her VS are stable. This is a marked change in presentation from yesterday. And to clarify she has not had this presentation during this admission prior to this morning. Diagnostics Vital Signs (24Hr): Vital Signs - 24 hr 02/15/23 20:00 02/16/23 04:00 02/16/23 07:13 Temperature 98.1 F 97.2 F 99.2 F Pulse Rate 84 95 93 Respiratory Rate 18 18 17 Blood Pressure 143/75 H 142/88 H 168/81 H Pulse Oximetry 97 98 96 Oxygen Delivery Method Room Air Room Air Room Air 02/16/23 13:00 02/16/23 15:38 Temperature 99.4 F 97.4 F Pulse Rate 87 89 Respiratory Rate 16 18 Blood Pressure 185/85 H 161/87 H Pulse Oximetry 96 97 Oxygen Delivery Method Room Air Room Air BMI result Body Mass Index 29.9 Labs 02/16/23 14:20 02/18/23 08:02 Labs: Laboratory Results - last 48 hr 02/14/23 02/14/23 02/15/23 16:23 19:47 07:31 WBC RBC Hgb Hct MCV MCH MCHC RDW Plt Count MPV Absolute Nucleated RBC Nucleated RBC % (auto) Sodium Potassium Chloride Carbon Dioxide Anion Gap BUN Creatinine Estim Creat Clear Calc Estimated GFR POC Glucose 113 116 H 84 Random Glucose Calcium Total Bilirubin Direct Bilirubin AST ALT Alkaline Phosphatase Ammonia Total Protein Albumin 02/15/23 02/15/23 02/15/23 11:03 16:16 20:43 WBC RBC Hgb Hct MCV MCH MCHC RDW Plt Count MPV Absolute Nucleated RBC Nucleated RBC % (auto) Sodium Potassium Chloride Carbon Dioxide Anion Gap BUN Creatinine Estim Creat Clear Calc Estimated GFR POC Glucose 166 H 214 H 92 Random Glucose Calcium Total Bilirubin Direct Bilirubin AST ALT Alkaline Phosphatase Ammonia Total Protein Albumin 02/16/23 02/16/23 02/16/23 03:06 07:16 11:23 WBC RBC Hgb Hct MCV MCH MCHC RDW Plt Count MPV Absolute Nucleated RBC Nucleated RBC % (auto) Sodium Potassium Chloride Carbon Dioxide Anion Gap BUN Creatinine Estim Creat Clear Calc Estimated GFR POC Glucose 123 H 144 H 148 H Random Glucose Calcium Total Bilirubin Direct Bilirubin AST ALT Alkaline Phosphatase Ammonia Total Protein Albumin 02/16/23 02/16/23 14:19 14:20 WBC 10.0 RBC 4.82 Hgb 12.8 Hct 39.1 MCV 81.1 MCH 26.6 L MCHC 32.7 RDW 15.4 Plt Count 336 MPV 11.0 Absolute Nucleated RBC 0.000 Nucleated RBC % (auto) 0.0 Sodium 140 Potassium 4.6 Chloride 106 Carbon Dioxide 23 Anion Gap 16 BUN 21 H Creatinine 0.74 Estim Creat Clear Calc 57.0 Estimated GFR > 60 POC Glucose Random Glucose 141 H Calcium 9.6 Total Bilirubin 0.3 Direct Bilirubin 0.2 AST 66 H ALT 52 H Alkaline Phosphatase 117 Ammonia 36 Total Protein 7.3 Albumin 3.8 Imaging Radiology Impressions: ITS Impressions Head CT 02/08/23 14:33 IMPRESSION: Normal CT scan of the head. Chest X-Ray 02/08/23 14:35 IMPRESSION: Unremarkable chest examination. Mental Status Exam Mental Status Exam Narrative: Pt lying in bed, in no acute distress, eyes are open will not open when asked to do so but some slight movement of eye lids in response to verbal command. She is not verbal. unable to asses other aspect of mentation. Medications Medications Current Medications Acetaminophen (Acetaminophen 325 Mg Tablet) 650 mg PO Q6H PRN PRN Reason: Pain, Mild (Pain Scale 1-3) Last Admin: 02/15/23 17:10 Dose: 650 mg Amlodipine Besylate (Amlodipine Besylate 10 Mg Tablet) 10 mg PO DAILY [facility]; Protocol Last Admin: 02/16/23 14:35 Dose: Not Given Ascorbic Acid (Ascorbic Acid 500 Mg Tablet) 500 mg PO Q48H [facility] Last Admin: 02/15/23 15:47 Dose: 500 mg Aspirin (Aspirin Enteric Coated 81 Mg Tablet.) 81 mg PO DAILY [facility] Last Admin: 02/16/23 14:35 Dose: Not Given Atorvastatin Calcium (Atorvastatin Calcium 80 Mg Tablet) 80 mg PO BEDTIME [facility] Last Admin: 02/15/23 21:18 Dose: 80 mg Benzonatate (Benzonatate 100 Mg Capsule) 100 mg PO TID PRN PRN Reason: Cough Carvedilol (Carvedilol 6.25 Mg Tablet) 6.25 mg PO BID [facility]; Protocol Last Admin: 02/16/23 14:35 Dose: Not Given Dextrose (Dextrose 50 % 25 Gm/50 Ml Syringe) 25 gm IVPUSH Q15M PRN; Protocol PRN Reason: per Hypoglycemia Standing Ord. Docusate Sodium (Docusate Sodium 100 Mg Capsule) 100 mg PO DAILY PRN PRN Reason: Constipation Enoxaparin Sodium (Enoxaparin Sodium 40 Mg/0.4 Ml Syringe) 40 mg SUBCUT Q24H [facility] Last Admin: 02/15/23 21:21 Dose: 40 mg Escitalopram Oxalate (Escitalopram Oxalate 20 Mg Tablet) 20 mg PO DAILY [facility] Last Admin: 02/16/23 14:35 Dose: Not Given Ferrous Sulfate (Ferrous Sulfate 324 Mg Tablet.Dr) 324 mg PO DAILY [facility] Last Admin: 02/16/23 14:35 Dose: Not Given Gabapentin (Gabapentin 100 Mg Capsule) 100 mg PO DAILY [facility] Last Admin: 02/16/23 14:36 Dose: Not Given Glucose (Glucose Gel 15 Gm Gel..Gram.) 15 gm PO Q15M PRN; Protocol PRN Reason: per Hypoglycemia Standing Ord. Ceftriaxone Sodium 1 gm/ (Sodium Chloride) 50 mls @ 100 mls/hr IV Q24H [facility] Last Infusion: 02/16/23 12:13 Dose: Infused Insulin Glargine (Insulin Glargine,Hum.Rec.Anlog 100 Unit/Ml 10 Ml Vial) 18 unit SUBCUT BID [facility] Last Admin: 02/16/23 12:12 Dose: Not Given Insulin Human Lispro (Insulin Lispro 100 Unit/Ml 3 Ml Vial) 0 unit SUBCUT QIDACHS [facility]; Protocol Last Admin: 02/16/23 14:36 Dose: Not Given Lidocaine (Lidocaine 4 % Patch Adh..Patch) 1 patch TRANSDERMA DAILY [facility] Last Admin: 02/16/23 12:13 Dose: Not Given Lisinopril (Lisinopril 40 Mg Tablet) 40 mg PO DAILY [facility]; Protocol Last Admin: 02/16/23 14:36 Dose: Not Given Melatonin (Melatonin 3 Mg Tablet) 3 mg PO BEDTIME [facility] Last Admin: 02/15/23 21:18 Dose: 3 mg Metformin HCl (Metformin Hcl 500 Mg Tablet) 500 mg PO BID [facility] Last Admin: 02/12/23 11:17 Dose: Not Given Polyethylene Glycol (Polyethylene Glycol 3350 17 Gm Powd.Pack) 17 gm PO DAILY PRN PRN Reason: constipation Last Admin: 02/15/23 17:10 Dose: 17 gm Sodium Chloride (0.9 % Sodium Chloride Flush 3 Ml Syringe) 3 ml IVFLUSH QSHIFT [facility] Last Admin: 02/16/23 15:17 Dose: 3 ml Vitamin D (Cholecalciferol (Vitamin D3) 25 Mcg Tablet) 25 mcg PO DAILY [facility] Last Admin: 02/16/23 14:35 Dose: Not Given Allergies Allergies Allergy/AdvReac Type Severity Reaction Status Date / Time No Known Allergies Allergy Verified 02/08/23 13:36 Assessment & Plan Assessment & Plan (1) Delirium due to another medical condition: Status: Acute Code(s): F05 - Delirium due to known physiological condition Plan This is a marked difference from yesterday's presentation. She is non verbal, eyes open but interestingly there is significant resistance when tried to move right arm. Her left arm (side) has been weaker since she had stroke in March of this year so same resistance is not encountered. I do not suspect this is a functional, purposeful behavior, but also not due to sedation or somnolence given active resistance on right side. I reviewed medications she has been administered in past few days, no sedative nor high potency antipsychotics to suspect NMS or catatonia related to antipsychotic. I agree with neurology in that this is not typical symptom or presentation of progressing dementia. However, do question if new CVA. This is certainly also not typical presentation of a primarily psychiatric disorder. plan- will hold on until imaging and other medical work up completed. Total time managing care of this patient today ____ minutes.
[2023-02-16 16:28] LABS: Glucose, Whole Blood 127 mg/dL (60-115)
[2023-02-16] MEDS: 0.9 % Sodium Chloride 1,000 ML 75 ML IVCONT (17:30)
[2023-02-16 17:31] LABS: Venous Blood Gas Refer to POC result
[2023-02-16 17:32] LABS: VBG Base Excess 4.3 mmol/L; VBG HCO3 26 mmol/L (22-26); VBG pCO2 33 mmHg; VBG pH 7.51 (7.32-7.43); VBG pO2 79 mmHg
[2023-02-16 19:50] VITALS: BP 164/69; PULSE 90; RESP 18; TEMP 36.5; O2SAT 97
[2023-02-16 20:29] LABS: Glucose, Whole Blood 133 mg/dL (60-115)
[2023-02-16] MEDS: Enoxaparin Sodium 40 MG/0.4 ML SYRINGE SUBCUT (21:32)
--- NOTE | 2023-02-16 22:20 | PC.RT ---
Unable to place pt on CPAP NOC due to pt lack of response and the ability to remove the CPAP mask. Pt able to oxygenate appropriately on RA, in no notable distress. RN aware
--- NOTE | 2023-02-17 | EEG_ITS ---
This is a 16-channel EEG with an EKG lead. The patient is reported confused and sleeping during the tracing. Background EEG rhythm during later part of the tracing is about 10 hertz 5 to 20 microvolt posteriorly and lower amplitude fast anteriorly. During initial part of the tracing, most rhythm is slower in theta range with no obvious asymmetry or paroxysmal tendency. Photic stimulation and hyperventilation were not performed. Cardiac lead did not reveal any significant abnormality. IMPRESSION: No significant abnormality noted on this EEG or any tendency for seizures. MD PIETRO Krause/[place] / [phone]
[2023-02-17 04:00] VITALS: BP 164/81; PULSE 108; RESP 18; TEMP 36.8; O2SAT 95
[2023-02-17] MEDS: 0.9 % Sodium Chloride 1,000 ML 75 ML IVCONT ×2 (05:49→23:12)
[2023-02-17 07:25] VITALS: BP 179/81; PULSE 99; RESP 18; TEMP 36.9; O2SAT 100
[2023-02-17 07:34] LABS: Glucose, Whole Blood 107 mg/dL (60-115)
[2023-02-17] MEDS: cefTRIAXone sodium 1 GM in 0.9 % Sodium Chloride 50 ML IV (09:04)
[2023-02-17] MEDS: 0.9 % Sodium Chloride Flush 3 ML SYRINGE IVFLUSH (09:05)
--- NOTE | 2023-02-17 11:39 | MHC.SLORD ---
Speech Language Pathology Order Status: Pt was off floor, unavailable when PRESALES ENGINEER visited this morning. Per RN, pt has been lethargic, likely is not appropriate for dysphagia tx today. Pt is currently on a pureed diet with nectar thickened liquids. PRESALES ENGINEER will continue to follow.
--- NOTE | 2023-02-17 11:47 | P.PNIM_ITS ---
Subjective Subjective Date of Service: 02/17/23 Interval History: Nonverbal. Resting quietly in bed Review of Systems Unable to obtain Physical Exam 2 Vital Signs: Vital Signs: Last Vital Signs Temp 98.5 F 02/17/23 07:25 Pulse 99 02/17/23 07:25 Resp 18 02/17/23 07:25 BP 179/81 H 02/17/23 07:25 Pulse Ox 100 02/17/23 07:25 O2 Del Method Room Air 02/17/23 07:25 BMI result Body Mass Index 29.9 Const: Other: Somnolent. Will not respond to verbal stimuli Resp: Other: Clear to auscultation bilaterally no rales rhonchi or wheezes Cardio: Other: No S4; positive S1-S2; S3 murmurs rubs or gallops GI: Other: Soft nontender nondistended normoactive bowel sounds Extrem: Other: No edema bilat Objective Data Active Medications Acetaminophen (Acetaminophen 325 Mg Tablet) 650 mg PO Q6H PRN PRN Reason: Pain, Mild (Pain Scale 1-3) Last Admin: 02/15/23 17:10 Dose: 650 mg Documented By: МАРИЯ Amlodipine Besylate (Amlodipine Besylate 10 Mg Tablet) 10 mg PO DAILY [facility]; Protocol Last Admin: 02/16/23 14:35 Dose: Not Given Documented By: DARA Non-Admin Reason: lethargic Ascorbic Acid (Ascorbic Acid 500 Mg Tablet) 500 mg PO Q48H [facility] Last Admin: 02/15/23 15:47 Dose: 500 mg Documented By: МАРИЯ Aspirin (Aspirin Enteric Coated 81 Mg Tablet.) 81 mg PO DAILY [facility] Last Admin: 02/16/23 14:35 Dose: Not Given Documented By: DARA Non-Admin Reason: lethargic Atorvastatin Calcium (Atorvastatin Calcium 80 Mg Tablet) 80 mg PO BEDTIME [facility] Last Admin: 02/16/23 21:28 Dose: Not Given Documented By: CEDRIC Non-Admin Reason: unable to take Benzonatate (Benzonatate 100 Mg Capsule) 100 mg PO TID PRN PRN Reason: Cough Carvedilol (Carvedilol 6.25 Mg Tablet) 6.25 mg PO BID [facility]; Protocol Last Admin: 02/16/23 21:28 Dose: Not Given Documented By: CEDRIC Non-Admin Reason: unable to take,lethargic Dextrose (Dextrose 50 % 25 Gm/50 Ml Syringe) 25 gm IVPUSH Q15M PRN; Protocol PRN Reason: per Hypoglycemia Standing Ord. Docusate Sodium (Docusate Sodium 100 Mg Capsule) 100 mg PO DAILY PRN PRN Reason: Constipation Enoxaparin Sodium (Enoxaparin Sodium 40 Mg/0.4 Ml Syringe) 40 mg SUBCUT Q24H [facility] Last Admin: 02/16/23 21:32 Dose: 40 mg Documented By: CEDRIC Escitalopram Oxalate (Escitalopram Oxalate 20 Mg Tablet) 20 mg PO DAILY [facility] Last Admin: 02/16/23 14:35 Dose: Not Given Documented By: DARA Non-Admin Reason: lethargic Ferrous Sulfate (Ferrous Sulfate 324 Mg Tablet.Dr) 324 mg PO DAILY [facility] Last Admin: 02/16/23 14:35 Dose: Not Given Documented By: DARA Non-Johan Reason: lethatgic Gabapentin (Gabapentin 100 Mg Capsule) 100 mg PO DAILY [facility] Last Admin: 02/16/23 14:36 Dose: Not Given Documented By: DARA Non-Johan Reason: lethargic Glucose (Glucose Gel 15 Gm Gel..Gram.) 15 gm PO Q15M PRN; Protocol PRN Reason: per Hypoglycemia Standing Ord. Ceftriaxone Sodium 1 gm/ (Sodium Chloride) 50 mls @ 100 mls/hr IV Q24H [facility] Stop: 02/19/23 23:59 Last Infusion: 02/17/23 11:29 Dose: Infused Documented By: DARA Sodium Chloride (Ns) 1,000 mls @ 75 mls/hr IVCONT .[id number] [facility] Last Admin: 02/17/23 05:49 Dose: 75 mls/hr Documented By: GABBIE Insulin Glargine (Insulin Glargine,Hum.Rec.Anlog 100 Unit/Ml 10 Ml Vial) 18 unit SUBCUT BID [facility] Last Admin: 02/16/23 21:29 Dose: Not Given Documented By: CEDRIC Non-Admin Reason: patient not eating or drinking Insulin Human Lispro (Insulin Lispro 100 Unit/Ml 3 Ml Vial) 0 unit SUBCUT QIDACHS [facility]; Protocol Last Admin: 02/17/23 09:05 Dose: Not Given Documented By: ANNELISE Non-Admin Reason: No Insulin Coverage Lidocaine (Lidocaine 4 % Patch Adh..Patch) 1 patch TRANSDERMA DAILY [facility] Last Admin: 02/16/23 12:13 Dose: Not Given Documented By: DARA Non-Admin Reason: Patient Refused Lisinopril (Lisinopril 40 Mg Tablet) 40 mg PO DAILY [facility]; Protocol Last Admin: 02/16/23 14:36 Dose: Not Given Documented By: DARA Non-Admin Reason: lethatgic Melatonin (Melatonin 3 Mg Tablet) 3 mg PO BEDTIME [facility] Last Admin: 02/15/23 21:18 Dose: 3 mg Documented By: CEDRIC Metformin HCl (Metformin Hcl 500 Mg Tablet) 500 mg PO BID [facility] Last Admin: 02/12/23 11:17 Dose: Not Given Documented By: DARA Non-Johan Reason: hypoglycemic. provider instructed to hold. Polyethylene Glycol (Polyethylene Glycol 3350 17 Gm Powd.Pack) 17 gm PO DAILY PRN PRN Reason: constipation Last Admin: 02/15/23 17:10 Dose: 17 gm Documented By: МАРИЯ Sodium Chloride (0.9 % Sodium Chloride Flush 3 Ml Syringe) 3 ml IVFLUSH QSHIFT [facility] Last Admin: 02/17/23 09:05 Dose: 3 ml Documented By: ANNELISE Vitamin D (Cholecalciferol (Vitamin D3) 25 Mcg Tablet) 25 mcg PO DAILY [facility] Last Admin: 02/16/23 14:35 Dose: Not Given Documented By: DARA Non-Admin Reason: lethargic Labs 02/16/23 14:20 02/16/23 14:20 Labs: Laboratory Results - last 24 hr 02/16/23 02/16/23 02/16/23 14:19 14:20 16:21 MCV 81.1 MCH 26.6 L MCHC 32.7 RDW 15.4 Plt Count 336 MPV 11.0 Absolute Nucleated RBC 0.000 Nucleated RBC % (auto) 0.0 VBG pH VBG pCO2 VBG pO2 VBG HCO3 VBG O2 Saturation VBG Base Excess Anion Gap 16 Estim Creat Clear Calc 57.0 Estimated GFR > 60 POC Glucose 127 H Random Glucose 141 H Calcium 9.6 Total Bilirubin 0.3 Direct Bilirubin 0.2 AST 66 H ALT 52 H Alkaline Phosphatase 117 Ammonia 36 Total Creatine Kinase 247 H Total Protein 7.3 Albumin 3.8 02/16/23 02/16/23 02/17/23 17:25 20:24 07:30 MCV MCH MCHC RDW Plt Count MPV Absolute Nucleated RBC Nucleated RBC % (auto) VBG pH 7.51 H VBG pCO2 33 VBG pO2 79 VBG HCO3 26 VBG O2 Saturation 98.0 VBG Base Excess 4.3 Anion Gap Estim Creat Clear Calc Estimated GFR POC Glucose 133 H 107 Random Glucose Calcium Total Bilirubin Direct Bilirubin AST ALT Alkaline Phosphatase Ammonia Total Creatine Kinase Total Protein Albumin Assessment and Plan (1) Major neurocognitive disorder due to another medical condition: Status: Acute (2) Acute UTI: Status: Acute Plan Pt is a 77-year-old female with a PMH significant for?HTN, HLD, and insulin- dependent type 2 diabetes who presents to the ED after being found wandering the streets in her undergarments. She was brought in on a Section 12 for failure to thrive/unable to care for herself. [facility] and a search was underway for a [facility] placement. However, patient was noted to be hypoglycemic today with increased once. Due to increasing requirements of care for UTI, hypoglycemia, and failure to thrive pt will be admitted to the hospital. 1.Adult failure to thrive; neurocognitive disorder -appreciate Neuro input -CT scan reviewed; recommend MRI brain . . . Ordered -further plans based on forthcoming data 2.Ecoli/viridans UTI -Rocephin (5) -follow renals/divalents 3.Insulin-dependent diabetes type 2 -acceptable control on current therapies -continue to hold p.o. therapies until patient more alert and interactive -lispro correctional scale 4.HTN -acceptable control on current therapies -adjust as indicated Full Code Lovenox Pt will require continued hospitalization of at least two nights for treatment of?UTI, hypoglycemia, and failure to thrive. In summary, the hospital provides a controlled environment with access to a wide range of specialized services and expertise necessary to manage the patient's complex medical, functional, and mental health needs effectively. The combination of physical, mental, and medical challenges necessitates a multidisciplinary approach involving psychiatric, medical, and therapeutic teams to ensure the patient's well-being and appropriate management of their various health concerns. It's a complex situation that requires careful attention and collaboration among the care team members. Quality Stroke Does the patient have a stroke diagnosis?: No VTE Prior VTE?: No VTE Risk Level:: Medical - moderate - high VTE Device Contraindication: Treatment Not Indicated VTE Drug Contraindication: N/A - Med Ordered
[2023-02-17 13:20] LABS: Glucose, Whole Blood 123 mg/dL (60-115)
--- NOTE | 2023-02-17 14:41 | MHC.CM.PN ---
Patient is not medically cleared for discharge. DP home with [facility]. Referrals are out for SNF [facility] care. The spouse wants to take her home when she is discharged. He will transport home.
[2023-02-17 15:57] VITALS: BP 150/78; PULSE 95; RESP 18; TEMP 36.6; O2SAT 94
[2023-02-17 16:18] LABS: Glucose, Whole Blood 116 mg/dL (60-115)
[2023-02-17 19:39] VITALS: BP 150/70; PULSE 100; RESP 17; TEMP 36.1; O2SAT 96
[2023-02-17 20:35] LABS: Glucose, Whole Blood 125 mg/dL (60-115)
[2023-02-17] MEDS: Enoxaparin Sodium 40 MG/0.4 ML SYRINGE SUBCUT (20:47)
--- NOTE | 2023-02-17 23:34 | PC.NURSE ---
Addendum entered by Nicole Kelley 02/18/23 06:07: Approximately around 05:00, pt had no episode of urinary incontinence since the last straight cath at beginning of shift. Pt was bladder scan again for 310ml at 05:20. MD Foss was notified of the situation. No new orders were given. Will continue to monitor pt's urine output. Original Note: During shift change, this RN received report from AM RN that the pt had little to void and was bladder scan at 18:30 for 424ml. This RN notified hospitalist MD Foss of the situation. Straight catheter was ordered and got 400ml straw color urine. Bladder scan afterwards for 0ml. No other orders were given. Will continue to monitor pt's urine output.
--- NOTE | 2023-02-18 | ECG_ITS ---
Test Reason : stat Blood Pressure : / mmHG Vent. Rate : 100 BPM Atrial Rate : 100 BPM P-R Int : 118 ms QRS Dur : 070 ms QT Int : 314 ms P-R-T Axes : 064 001 150 degrees QTc Int : 405 ms Normal sinus rhythm Nonspecific T wave abnormality Abnormal ECG When compared with ECG of 08-FEB-2023 15:36, Nonspecific T wave abnormality, improved in Inferior leads Nonspecific T wave abnormality no longer evident in Anterior leads QT has lengthened Referred By: Telly Foss Electronically Signed By:Rajinder Hernandez
[2023-02-18] MEDS: Morphine Sulfate 2 MG/ML CARTRIDGE IVPUSH (01:24)
[2023-02-18 02:21] LABS: Glucose, Whole Blood 119 mg/dL (60-115)
[2023-02-18] MEDS: Metoprolol Tartrate 5 MG/5 ML VIAL IVPUSH (02:30)
[2023-02-18 03:20] VITALS: BP 177/81; PULSE 86; RESP 17; TEMP 36.2; O2SAT 95
--- NOTE | 2023-02-18 04:17 | PC.NURSE ---
Approximately after 01:00, pt's HR on front desk monitor jumped to the 140s. MD Foss was notified of the situation. Pt lethargic, moaning, unable to follow commands, arousable to name with minimal eye opening. EKG, one time dose of morphine 2mg IV push and metoprolol 5mg IV push was ordered per MAY. HR went down to mid 80s after the one time dose of metoprolol was given per MAY. No other orders were given. Will continue to monitor pts' HR on the front desk monitor.
[2023-02-18 07:21] VITALS: BP 143/63; PULSE 89; RESP 18; TEMP 36.8; O2SAT 96
[2023-02-18 07:44] LABS: Glucose, Whole Blood 115 mg/dL (60-115)
[2023-02-18 08:42] LABS: Anion Gap 17 (12-20); Blood Urea Nitrogen 21 mg/dL (9-16); Calcium 9.2 mg/dL (8.4-10.2); Carbon Dioxide 19 mmol/L (22-29); Chloride 109 mmol/L (96-108); Creatinine Clr Calc Pharmacy 64.9; Estimated Glomerular Filt Rate > 60; Glucose Random 126 mg/dL (60-115); Sodium 141 mmol/L (135-145)
[2023-02-18] MEDS: cefTRIAXone sodium 1 GM in 0.9 % Sodium Chloride 50 ML IV (08:45)
[2023-02-18 11:29] LABS: Glucose, Whole Blood 265 mg/dL (60-115)
[2023-02-18] MEDS: Insulin Lispro 100 UNIT/ML 3 ML VIAL SUBCUT ×2 (12:58→20:10)
--- NOTE | 2023-02-18 14:26 | PM.PSYCN ---
History of Present Illness Date of Service: 02/18/2023 Chief Complaint: Hypoglecemia, UTI, FTT Reason for Consult: f/u Discussed with referring provider: Yes Sources of Information: patient interviewed, chart reviewed and crisis/core team assessment reviewed HPI Narrative: Interim Hx: pt today with eyes open, slightly more verbal, somewhat somnolent. She reports severe headache. She able to tell this is the hospital, but does not know month or year but this is her baseline. Still with difficulty moving and talking. Diagnostics Vital Signs (24Hr): Vital Signs - 24 hr 02/17/23 15:57 02/17/23 19:39 02/18/23 03:20 Temperature 98 F 97.0 F 97.1 F Pulse Rate 95 100 86 Respiratory Rate 18 17 17 Blood Pressure 150/78 H 150/70 H 177/81 H Pulse Oximetry 94 96 95 Oxygen Delivery Method Room Air Room Air Room Air 02/18/23 07:21 Temperature 98.3 F Pulse Rate 89 Respiratory Rate 18 Blood Pressure 143/63 H Pulse Oximetry 96 Oxygen Delivery Method Room Air BMI result Body Mass Index 29.9 Labs 02/24/23 08:15 02/25/23 13:33 Labs: Laboratory Results - last 48 hr 02/16/23 02/16/23 02/16/23 14:19 14:20 16:21 WBC 10.0 RBC 4.82 Hgb 12.8 Hct 39.1 MCV 81.1 MCH 26.6 L MCHC 32.7 RDW 15.4 Plt Count 336 MPV 11.0 Absolute Nucleated RBC 0.000 Nucleated RBC % (auto) 0.0 VBG pH VBG pCO2 VBG pO2 VBG HCO3 VBG O2 Saturation VBG Base Excess Sodium 140 Potassium 4.6 Chloride 106 Carbon Dioxide 23 Anion Gap 16 BUN 21 H Creatinine 0.74 Estim Creat Clear Calc 57.0 Estimated GFR > 60 POC Glucose 127 H Random Glucose 141 H Calcium 9.6 Total Bilirubin 0.3 Direct Bilirubin 0.2 AST 66 H ALT 52 H Alkaline Phosphatase 117 Ammonia 36 Total Creatine Kinase 247 H Total Protein 7.3 Albumin 3.8 02/16/23 02/16/23 02/17/23 17:25 20:24 07:30 WBC RBC Hgb Hct MCV MCH MCHC RDW Plt Count MPV Absolute Nucleated RBC Nucleated RBC % (auto) VBG pH 7.51 H VBG pCO2 33 VBG pO2 79 VBG HCO3 26 VBG O2 Saturation 98.0 VBG Base Excess 4.3 Sodium Potassium Chloride Carbon Dioxide Anion Gap BUN Creatinine Estim Creat Clear Calc Estimated GFR POC Glucose 133 H 107 Random Glucose Calcium Total Bilirubin Direct Bilirubin AST ALT Alkaline Phosphatase Ammonia Total Creatine Kinase Total Protein Albumin 02/17/23 02/17/23 02/17/23 12:20 16:10 20:30 WBC RBC Hgb Hct MCV MCH MCHC RDW Plt Count MPV Absolute Nucleated RBC Nucleated RBC % (auto) VBG pH VBG pCO2 VBG pO2 VBG HCO3 VBG O2 Saturation VBG Base Excess Sodium Potassium Chloride Carbon Dioxide Anion Gap BUN Creatinine Estim Creat Clear Calc Estimated GFR POC Glucose 123 H 116 H 125 H Random Glucose Calcium Total Bilirubin Direct Bilirubin AST ALT Alkaline Phosphatase Ammonia Total Creatine Kinase Total Protein Albumin 02/18/23 02/18/23 02/18/23 02:16 07:28 08:02 WBC RBC Hgb Hct MCV MCH MCHC RDW Plt Count MPV Absolute Nucleated RBC Nucleated RBC % (auto) VBG pH VBG pCO2 VBG pO2 VBG HCO3 VBG O2 Saturation VBG Base Excess Sodium 141 Potassium 4.0 Chloride 109 H Carbon Dioxide 19 L Anion Gap 17 BUN 21 H Creatinine 0.65 Estim Creat Clear Calc 64.9 Estimated GFR > 60 POC Glucose 119 H 115 Random Glucose 126 H Calcium 9.2 Total Bilirubin Direct Bilirubin AST ALT Alkaline Phosphatase Ammonia Total Creatine Kinase Total Protein Albumin 02/18/23 11:20 WBC RBC Hgb Hct MCV MCH MCHC RDW Plt Count MPV Absolute Nucleated RBC Nucleated RBC % (auto) VBG pH VBG pCO2 VBG pO2 VBG HCO3 VBG O2 Saturation VBG Base Excess Sodium Potassium Chloride Carbon Dioxide Anion Gap BUN Creatinine Estim Creat Clear Calc Estimated GFR POC Glucose 265 H Random Glucose Calcium Total Bilirubin Direct Bilirubin AST ALT Alkaline Phosphatase Ammonia Total Creatine Kinase Total Protein Albumin Imaging Radiology Impressions: ITS Impressions Head CT 02/08/23 14:33 IMPRESSION: Normal CT scan of the head. Chest X-Ray 02/08/23 14:35 IMPRESSION: Unremarkable chest examination. Head CT 02/16/23 16:57 IMPRESSION: 1. Unchanged small hypodensity in the mid to right shreya. Recommend further characterization with an MRI of the brain. 2. Moderate chronic microangiopathy and generalized cerebral volume loss. Brain MRI 02/17/23 15:17 IMPRESSION: 1. There are no acute bleeds or territorial infarcts. No masses are demonstrated. 2. There are chronic microvascular ischemic changes and there is diffuse volume loss. There appear to be sequelae of a lacunar infarct in the right ventral shreya, corresponding to findings on the CT scan. Mental Status Exam Mental Status Exam Narrative: Appearance: wearing hospital gown, in NAD Behavior: trying to engage with this selling underwriter Psychomotor: some retardation noted Speech: single words, some mumbling, minimally spontaneous but verbal TP: single words TC: reports headache Mood: headache Affect: grimacing pain SI: none HI: none Delusions: none VH/AH: none Insight/judgment: impaired x2. memory/cog: alert, not oriented to situation, month or year. Medications Medications Current Medications Acetaminophen (Acetaminophen 325 Mg Tablet) 650 mg PO Q6H PRN PRN Reason: Pain, Mild (Pain Scale 1-3) Last Admin: 02/15/23 17:10 Dose: 650 mg Amlodipine Besylate (Amlodipine Besylate 10 Mg Tablet) 10 mg PO DAILY [facility]; Protocol Last Admin: 02/18/23 11:44 Dose: Not Given Ascorbic Acid (Ascorbic Acid 500 Mg Tablet) 500 mg PO Q48H [facility] Last Admin: 02/17/23 16:16 Dose: Not Given Aspirin (Aspirin Enteric Coated 81 Mg Tablet.Dr) 81 mg PO DAILY [facility] Last Admin: 02/18/23 11:44 Dose: Not Given Atorvastatin Calcium (Atorvastatin Calcium 80 Mg Tablet) 80 mg PO BEDTIME [facility] Last Admin: 02/17/23 20:51 Dose: Not Given Benzonatate (Benzonatate 100 Mg Capsule) 100 mg PO TID PRN PRN Reason: Cough Carvedilol (Carvedilol 6.25 Mg Tablet) 6.25 mg PO BID [facility]; Protocol Last Admin: 02/18/23 11:44 Dose: Not Given Dextrose (Dextrose 50 % 25 Gm/50 Ml Syringe) 25 gm IVPUSH Q15M PRN; Protocol PRN Reason: per Hypoglycemia Standing Ord. Docusate Sodium (Docusate Sodium 100 Mg Capsule) 100 mg PO DAILY PRN PRN Reason: Constipation Enoxaparin Sodium (Enoxaparin Sodium 40 Mg/0.4 Ml Syringe) 40 mg SUBCUT Q24H [facility] Last Admin: 02/17/23 20:47 Dose: 40 mg Escitalopram Oxalate (Escitalopram Oxalate 20 Mg Tablet) 20 mg PO DAILY [facility] Last Admin: 02/18/23 11:45 Dose: Not Given Ferrous Sulfate (Ferrous Sulfate 324 Mg Tablet.Dr) 324 mg PO DAILY [facility] Last Admin: 02/18/23 11:45 Dose: Not Given Gabapentin (Gabapentin 100 Mg Capsule) 100 mg PO DAILY [facility] Last Admin: 02/18/23 11:45 Dose: Not Given Glucose (Glucose Gel 15 Gm Gel..Gram.) 15 gm PO Q15M PRN; Protocol PRN Reason: per Hypoglycemia Standing Ord. Ceftriaxone Sodium 1 gm/ (Sodium Chloride) 50 mls @ 100 mls/hr IV Q24H [facility] Stop: 02/19/23 23:59 Last Infusion: 02/18/23 09:40 Dose: Infused Sodium Chloride (Ns) 1,000 mls @ 75 mls/hr IVCONT .[id number] [facility] Last Admin: 02/17/23 23:12 Dose: 75 mls/hr Insulin Glargine (Insulin Glargine,Hum.Rec.Anlog 100 Unit/Ml 10 Ml Vial) 18 unit SUBCUT BID [facility] Last Admin: 02/18/23 11:45 Dose: Not Given Insulin Human Lispro (Insulin Lispro 100 Unit/Ml 3 Ml Vial) 0 unit SUBCUT QIDACHS [facility]; Protocol Last Admin: 02/18/23 12:58 Dose: 6 unit Lidocaine (Lidocaine 4 % Patch Adh..Patch) 1 patch TRANSDERMA DAILY [facility] Last Admin: 02/18/23 11:45 Dose: Not Given Lisinopril (Lisinopril 40 Mg Tablet) 40 mg PO DAILY [facility]; Protocol Last Admin: 02/18/23 11:46 Dose: Not Given Melatonin (Melatonin 3 Mg Tablet) 3 mg PO BEDTIME [facility] Last Admin: 02/15/23 21:18 Dose: 3 mg Metformin HCl (Metformin Hcl 500 Mg Tablet) 500 mg PO BID [facility] Last Admin: 02/12/23 11:17 Dose: Not Given Polyethylene Glycol (Polyethylene Glycol 3350 17 Gm Powd.Pack) 17 gm PO DAILY PRN PRN Reason: constipation Last Admin: 02/15/23 17:10 Dose: 17 gm Sodium Chloride (0.9 % Sodium Chloride Flush 3 Ml Syringe) 3 ml IVFLUSH QSHIFT [facility] Last Admin: 02/18/23 08:47 Dose: Not Given Vitamin D (Cholecalciferol (Vitamin D3) 25 Mcg Tablet) 25 mcg PO DAILY [facility] Last Admin: 02/18/23 11:44 Dose: Not Given Allergies Allergies Allergy/AdvReac Type Severity Reaction Status Date / Time No Known Allergies Allergy Verified 02/08/23 13:36 Assessment & Plan Assessment & Plan (1) Major neurocognitive disorder due to another medical condition: Status: Acute Code(s): F02.80 - Dementia in other diseases classified elsewhere, unspecified severity, without behavioral disturbance, psychotic disturbance, mood disturbance, and anxiety (2) Delirium due to another medical condition: Status: Acute Code(s): F05 - Delirium due to known physiological condition Plan 77yo F with HTN, HLD, DM2 who was found wandering the streets in her undergarments, brought in on Section 12 for failure to thrive/inability fo care for self. Pt initially presented with classic symptoms of delirium including poor attention, increase confusion and psychosis. These symptoms resolved after tx for UTI. Pt was initially seen on 02/15 when she appeared to present at baseline- which does show cognitive impairments. On 02/16 pt presented with eyes close, mute, slowly opening her eyes and finally today more spotaneous speech. MRI showed old infart of right side of the shreya. Initial concern for new CVA in shreya--> pontine warning syndrome when individuals may present with stereotypical episodes of dysarthria, opthalmoplegia, motor or sensory disturbances Total time managing care of this patient today ____ minutes.
[2023-02-18 15:22] VITALS: BP 168/52; PULSE 88; RESP 18; TEMP 37.2; O2SAT 98
--- NOTE | 2023-02-18 15:22 | MHC.SL.SWA ---
Speech Pathologist Impression: Risk of Aspiration Due to: Neurological Condition Poor PO Intake Reduced Cognition Dysphasia Diet Status: Recommend UPGRADE diet to Ground/Mechanical Altered (NDD2) with THIN liquids by cup sip or tsp (NO STRAWS), continue pills crushed in puree. Patient continues to require full 1-1 assistance with meals. Liquid Consistency and Strategies for Safe Swallow: Liquid Intake Recommendation: Thin Liquid Intake Strategies: Small Sips No Straws Solid Food Consistency: Dietary Recommendations: Grnd/Mech Altered (NDD2) Additional Modifications to Solid Foods: Avoid mixed consistencies. Alternate liquids and solids. Liquids by controlled cup sip or tsp. Patient requires one to one feeding. Do not attempt if patient is excessively lethargic or not engaged in meal. Patient may benefit from smaller more frequent meals to encourage intake. Discontinue if patient evidences signs of aspiration. Oral Medication Intake: Crushed with Puree Please contact the pharmacy regarding appropriate crushable or liquid drug formulations that are available whenever modified delivery is recommended. Compensatory Strategies and Precautions to be Taken for Safe Swallow: Sitting Upright (90 deg) No Straw Small Bites and Sips Alternate Liquids/Solids Rate of Ingestion Change Supervision While Eating and Drinking for Safe Swallow: Total Supervision (1:1) Foods to Avoid: Mixed consistencies and tough, hard, difficult to chew solids. Add gravy and blend well. Swallowing Recommended Treatments: Compens. Strategy Educat. Recommendation for Speech: Inpatient Speech Therapy Comment: Patient was awake and alert this p.m. at time of visit, with several family members and friends present in room. Patient struggled to identify some of the people present, but when prompted with some context cues demonstrated recognition. Patient still highly confused, making some out of context/unexpected comments. Family reported that diet at home can vary, but usually she is on regular foods and liquids. Patient has been on Puree diet with [place] thick liquids since 02/14 initial assessment, and has continued highly lethargic over the past days, not warranting a diet advancement. CAGE SUPERVISOR gave trial of water by spoon, increasing to full tsp, with patient producing both a timely oral phase, timely swallow, with no clinical signs of aspiration. CAGE SUPERVISOR then trialed controlled cup sip, with patient taking small sip, producing timely oral phase and swallow with no clinical signs of aspiration. Patient was given a softened cracker in puree, with patient demonstrating reduced mouth opening on presentation of spoon, but adequately closing on spoon and stripping bite of cracker and puree, then producing a mildly prolonged, slow rotary chew of cracker and puree, followed by timely swallow, with mild oral residual noted after swallow, cleared by additional sip of puree. Patient took several bites of cracker in puree with similar response. Pt's reported that he had fed her some bites of a soft fruit (Cornfields with no skin), with patient tolerating well. Recommend UPGRADE diet to Ground/Mechanical Altered (NDD2) with THIN liquids by cup sip or tsp (NO STRAWS), continue pills crushed in puree. Patient continues to require full 1-1 assistance with meals. CAGE SUPERVISOR will continue to follow for toleration of diet and possible advancement on re-assessment. Frequency/Duration: Date Range for Service Req: Timeline to reassess: Accounting Practice Manager Clinican/Clinical Fellow: No Supervisory Statement: I have reviewed and agree with the student/clinical fellow's documentation: N/A Speech Language Pathologist: Nicole Grajeda M.A., CCC-CAGE SUPERVISOR
[2023-02-18] MEDS: 0.9 % Sodium Chloride 1,000 ML 75 ML IVCONT (15:37)
[2023-02-18 16:18] LABS: Glucose, Whole Blood 126 mg/dL (60-115)
--- NOTE | 2023-02-18 17:03 | HO.PM.IMPN ---
Subjective Subjective Date of Service: 02/18/23 Interval History: seen and examined this morning follow up for ?encephalopathy patient opened eyes and answered basic questions with encouragement. difficult to obtain full ROS appears to be improved from yesterday no overnight events Constitutional Constitutional: Reports chills and Reports fever(s) Physical Exam Vital Signs: Vital Signs: Last Vital Signs Temp 99.0 F 02/18/23 15:22 Pulse 88 02/18/23 15:22 Resp 18 02/18/23 15:22 BP 168/52 H 02/18/23 15:22 Pulse Ox 98 02/18/23 15:22 O2 Del Method Room Air 02/18/23 15:22 BMI result Body Mass Index 29.9 Const: Other: resting in bed comfortably; eventually did open eyes and answered some basic questions Resp: Effort & Inspection: normal respiratory effort, no respiratory distress and no use of accessory muscles GI: Inspection: No distended Palpation (GI): Soft to palpation and nontender Neuro: Other: difficult to assess, does open eyes, resists movement with both upper extremities; does not follow all commands Extrem: General: Yes no pedal edema Objective Data Active Medications Acetaminophen (Acetaminophen 325 Mg Tablet) 650 mg PO Q6H PRN PRN Reason: Pain, Mild (Pain Scale 1-3) Last Admin: 02/15/23 17:10 Dose: 650 mg Documented By: МАРИЯ Amlodipine Besylate (Amlodipine Besylate 10 Mg Tablet) 10 mg PO DAILY [facility]; Protocol Last Admin: 02/18/23 11:44 Dose: Not Given Documented By: EVELIO Non-Admin Reason: Patient Condition Contraindication Ascorbic Acid (Ascorbic Acid 500 Mg Tablet) 500 mg PO Q48H [facility] Last Admin: 02/17/23 16:16 Dose: Not Given Documented By: TYLER Non-Admin Reason: Patient Condition Contraindication Aspirin (Aspirin Enteric Coated 81 Mg Tablet.Dr) 81 mg PO DAILY [facility] Last Admin: 02/18/23 11:44 Dose: Not Given Documented By: EVELIO Non-Admin Reason: Patient Condition Contraindication Atorvastatin Calcium (Atorvastatin Calcium 80 Mg Tablet) 80 mg PO BEDTIME [facility] Last Admin: 02/17/23 20:51 Dose: Not Given Documented By: SOLITARIO Non-Admin Reason: Patient Condition Contraindication Benzonatate (Benzonatate 100 Mg Capsule) 100 mg PO TID PRN PRN Reason: Cough Carvedilol (Carvedilol 6.25 Mg Tablet) 6.25 mg PO BID [facility]; Protocol Last Admin: 02/18/23 11:44 Dose: Not Given Documented By: EVELIO Non-Admin Reason: Patient Condition Contraindication Dextrose (Dextrose 50 % 25 Gm/50 Ml Syringe) 25 gm IVPUSH Q15M PRN; Protocol PRN Reason: per Hypoglycemia Standing Ord. Docusate Sodium (Docusate Sodium 100 Mg Capsule) 100 mg PO DAILY PRN PRN Reason: Constipation Enoxaparin Sodium (Enoxaparin Sodium 40 Mg/0.4 Ml Syringe) 40 mg SUBCUT Q24H [facility] Last Admin: 02/17/23 20:47 Dose: 40 mg Documented By: SOLITARIO Escitalopram Oxalate (Escitalopram Oxalate 20 Mg Tablet) 20 mg PO DAILY [facility] Last Admin: 02/18/23 11:45 Dose: Not Given Documented By: EVELIO Non-Admin Reason: Patient Condition Contraindication Ferrous Sulfate (Ferrous Sulfate 324 Mg Tablet.Dr) 324 mg PO DAILY [facility] Last Admin: 02/18/23 11:45 Dose: Not Given Documented By: EVELIO Non-Admin Reason: Patient Condition Contraindication Gabapentin (Gabapentin 100 Mg Capsule) 100 mg PO DAILY [facility] Last Admin: 02/18/23 11:45 Dose: Not Given Documented By: EVELIO Non-Admin Reason: Patient Condition Contraindication Glucose (Glucose Gel 15 Gm Gel..Gram.) 15 gm PO Q15M PRN; Protocol PRN Reason: per Hypoglycemia Standing Ord. Ceftriaxone Sodium 1 gm/ (Sodium Chloride) 50 mls @ 100 mls/hr IV Q24H [facility] Stop: 02/19/23 23:59 Last Infusion: 02/18/23 09:40 Dose: Infused Documented By: EVELIO Insulin Glargine (Insulin Glargine,Hum.Rec.Anlog 100 Unit/Ml 10 Ml Vial) 18 unit SUBCUT BID [facility] Last Admin: 02/18/23 11:45 Dose: Not Given Documented By: EVELIO Non-Admin Reason: Patient Condition Contraindication Insulin Human Lispro (Insulin Lispro 100 Unit/Ml 3 Ml Vial) 0 unit SUBCUT QIDACHS [facility]; Protocol Last Admin: 02/18/23 16:31 Dose: Not Given Documented By: EVELIO Non-Admin Reason: No Insulin Coverage Lidocaine (Lidocaine 4 % Patch Adh..Patch) 1 patch TRANSDERMA DAILY [facility] Last Admin: 02/18/23 11:45 Dose: Not Given Documented By: EVELIO Non-Admin Reason: Patient Condition Contraindication Lisinopril (Lisinopril 40 Mg Tablet) 40 mg PO DAILY [facility]; Protocol Last Admin: 02/18/23 11:46 Dose: Not Given Documented By: EVELIO Non-Admin Reason: Patient Condition Contraindication Melatonin (Melatonin 3 Mg Tablet) 3 mg PO BEDTIME [facility] Last Admin: 02/15/23 21:18 Dose: 3 mg Documented By: CEDRIC Metformin HCl (Metformin Hcl 500 Mg Tablet) 500 mg PO BID [facility] Last Admin: 02/12/23 11:17 Dose: Not Given Documented By: DARA Non-Admin Reason: hypoglycemic. provider instructed to hold. Polyethylene Glycol (Polyethylene Glycol 3350 17 Gm Powd.Pack) 17 gm PO DAILY PRN PRN Reason: constipation Last Admin: 02/15/23 17:10 Dose: 17 gm Documented By: МАРИЯ Sodium Chloride (0.9 % Sodium Chloride Flush 3 Ml Syringe) 3 ml IVFLUSH QSHIFT [facility] Last Admin: 02/18/23 08:47 Dose: Not Given Documented By: EVELIO Non-Admin Reason: IV Running Vitamin D (Cholecalciferol (Vitamin D3) 25 Mcg Tablet) 25 mcg PO DAILY [facility] Last Admin: 02/18/23 11:44 Dose: Not Given Documented By: EVELIO Non-Admin Reason: Patient Condition Contraindication Labs 02/16/23 14:20 02/18/23 08:02 Labs: Laboratory Results - last 24 hr 02/17/23 02/18/23 02/18/23 20:30 02:16 07:28 Anion Gap Estim Creat Clear Calc Estimated GFR POC Glucose 125 H 119 H 115 Random Glucose Calcium 02/18/23 02/18/23 02/18/23 08:02 11:20 16:14 Anion Gap 17 Estim Creat Clear Calc 64.9 Estimated GFR > 60 POC Glucose 265 H 126 H Random Glucose 126 H Calcium 9.2 Assessment and Plan (1) Major neurocognitive disorder due to another medical condition: Status: Acute Plan Pt is a 77-year-old female with a PMH significant for?HTN, HLD, and insulin-dependent type 2 diabetes who presents to the ED after being found wandering the streets in her undergarments. She was brought in on a Section 12 for failure to thrive/unable to care for herself. Patient was originally placed under physician observation in overflow and a search was underway for a [facility] psych placement. However, patient was noted to be hypoglycemic today with increased once. Due to increasing requirements of care for UTI, hypoglycemia, and failure to thrive pt will be admitted to the hospital. Adult failure to thrive possible encephalopathy secondary to UTI with underlying multifactorial dementia - seems to be improving, more awake and interactive today Patient requires assistance with ADLs and eating at baseline diet upgraded per speech EEG negative seen by neuro and psych - no primary psych component, no need for inpatient psych brain MRI with generalized atrophy and chronic sequelae of lacunar infarct in right shreya no renal failure, ammonia normal Ecoli and strep viridans UTI Continue Rocephin started 02/13/23 Hypoglycemia/Insulin-dependent diabetes type 2. Resolved patient with reduced p.o. intake since being here continue to hold metformin, semaglutide sliding scale insulin Lantus on hold Diabetic diet s/p D10 HTN Continue home meds HLD Continue statin Insomnia Continue melatonin Full Code Attending:?Dr. Crenshaw DVT Prophylaxis: Lovenox dispo - PT re-eval now that patient more awake Pt will require continued hospitalization of at least two nights for treatment of?UTI, hypoglycemia, and failure to thrive. In summary, the hospital provides a controlled environment with access to a wide range of specialized services and expertise necessary to manage the patient's complex medical, functional, and mental health needs effectively. The combination of physical, mental, and medical challenges necessitates a multidisciplinary approach involving psychiatric, medical, and therapeutic teams to ensure the patient's well-being and appropriate management of their various health concerns. It's a complex situation that requires careful attention and collaboration among the care team members. Quality Stroke Does the patient have a stroke diagnosis?: No VTE Prior VTE?: No VTE Risk Level:: Medical - moderate - high VTE Device Contraindication: Treatment Not Indicated VTE Drug Contraindication: N/A - Med Ordered
[2023-02-18 19:41] VITALS: BP 156/67; PULSE 86; RESP 18; TEMP 36.8; O2SAT 95
[2023-02-18 19:59] LABS: Glucose, Whole Blood 181 mg/dL (60-115)
[2023-02-18] MEDS: Enoxaparin Sodium 40 MG/0.4 ML SYRINGE SUBCUT (20:10)
[2023-02-18] MEDS: Atorvastatin Calcium 80 MG TABLET PO (20:10)
[2023-02-18] MEDS: carvediloL 6.25 MG TABLET PO (20:10)
[2023-02-19 04:00] VITALS: PULSE 75; RESP 16; TEMP 36.8; O2SAT 98
[2023-02-19 05:24] VITALS: BP 168/70
[2023-02-19 07:18] VITALS: BP 144/68; PULSE 83; RESP 17; TEMP 36.6; O2SAT 97
[2023-02-19 07:28] LABS: Glucose, Whole Blood 178 mg/dL (60-115)
[2023-02-19] MEDS: cefTRIAXone sodium 1 GM in 0.9 % Sodium Chloride 50 ML IV (08:16)
[2023-02-19] MEDS: Insulin Lispro 100 UNIT/ML 3 ML VIAL SUBCUT ×3 (08:18→21:45)
[2023-02-19] MEDS: 0.9 % Sodium Chloride Flush 3 ML SYRINGE IVFLUSH ×3 (08:22→21:45)
[2023-02-19 08:59] LABS: Anion Gap 14 (12-20); Blood Urea Nitrogen 16 mg/dL (9-16); Calcium 8.9 mg/dL (8.4-10.2); Carbon Dioxide 23 mmol/L (22-29); Chloride 109 mmol/L (96-108); Creatinine Clr Calc Pharmacy 72.8; Estimated Glomerular Filt Rate > 60; Glucose Random 170 mg/dL (60-115); Potassium 3.6 mmol/L (3.3-5.1); Sodium 142 mmol/L (135-145)
--- NOTE | 2023-02-19 10:05 | MHC.SL.SWA ---
Speech Pathologist Impression: Risk of aspiration, oropharyngeal dysphagia Risk of Aspiration Due to: Neurological Condition Poor PO Intake Reduced Cognition Dysphasia Diet Status: Continue diet of Ground/Mechanical Altered (NDD2) with THIN liquids by cup sip or tsp (NO STRAWS), continue pills crushed in puree. Patient continues to require full 1-1 assistance with meals. Liquid Consistency and Strategies for Safe Swallow: Liquid Intake Recommendation: Thin Liquid Intake Strategies: Small Sips No Straws Solid Food Consistency: Dietary Recommendations: Grnd/Mech Altered (NDD2) Additional Modifications to Solid Foods: Avoid mixed consistencies. Alternate liquids and solids. Liquids by controlled cup sip or tsp. Patient requires one to one feeding. Do not attempt if patient is excessively lethargic or not engaged in meal. Patient may benefit from smaller more frequent meals to encourage intake. Discontinue if patient evidences signs of aspiration. Oral Medication Intake: Crushed with Puree Please contact the pharmacy regarding appropriate crushable or liquid drug formulations that are available whenever modified delivery is recommended. Compensatory Strategies and Precautions to be Taken for Safe Swallow: Sitting Upright (90 deg) No Straw Small Bites and Sips Alternate Liquids/Solids Rate of Ingestion Change Supervision While Eating and Drinking for Safe Swallow: Total Supervision (1:1) Foods to Avoid: Mixed consistencies and tough, hard, difficult to chew solids. Add gravy and blend well. Swallowing Recommended Treatments: Compens. Strategy Educat. Recommendation for Speech: Inpatient Speech Therapy Barometers Calibrator Clinican/Clinical Fellow: No Supervisory Statement: I have reviewed and agree with the student/clinical fellow's documentation: N/A Speech Language Pathologist: Hillary Alvarez M.A., CCC-LOCKSTITCH SLEEVE SETTER
[2023-02-19 11:22] LABS: Glucose, Whole Blood 173 mg/dL (60-115)
[2023-02-19 12:55] VITALS: BP 144/68; PULSE 83; O2SAT 97
--- NOTE | 2023-02-19 14:42 | HO.PM.IMPN ---
Subjective Subjective Date of Service: 02/19/23 Interval History: seen and examined this morning follow up for encephalopathy history obtained with assistance of staff interpreter patient awake, alert and sitting up in bed a bit more conversive today, no specific complaints but still low to respond and not talking much; eating more gets better throughout the day Physical Exam Vital Signs: Vital Signs: Last Vital Signs Temp 97.9 F 02/19/23 07:18 Pulse 83 02/19/23 12:55 Resp 17 02/19/23 07:18 BP 144/68 H 02/19/23 12:55 Pulse Ox 97 02/19/23 12:55 O2 Del Method Room Air 02/19/23 07:18 BMI result Body Mass Index 29.9 Const: Other: resting in bed comfortably; eyes open, does answer some basic questions Resp: Effort & Inspection: normal respiratory effort, no respiratory distress and no use of accessory muscles GI: Inspection: No distended Palpation (GI): Soft to palpation and nontender Neuro: Other: difficult to assess, eyes open, resists movement with both upper extremities, follows basic commands Extrem: General: Yes no pedal edema Objective Data Active Medications Acetaminophen (Acetaminophen 325 Mg Tablet) 650 mg PO Q6H PRN PRN Reason: Pain, Mild (Pain Scale 1-3) Last Admin: 02/15/23 17:10 Dose: 650 mg Documented By: МАРИЯ Amlodipine Besylate (Amlodipine Besylate 10 Mg Tablet) 10 mg PO DAILY [facility]; Protocol Last Admin: 02/19/23 13:12 Dose: Not Given Documented By: EVELIO Non-Admin Reason: Patient Refused Ascorbic Acid (Ascorbic Acid 500 Mg Tablet) 500 mg PO Q48H [facility] Last Admin: 02/17/23 16:16 Dose: Not Given Documented By: TYLER Non-Admin Reason: Patient Condition Contraindication Aspirin (Aspirin Enteric Coated 81 Mg Tablet.) 81 mg PO DAILY [facility] Last Admin: 02/19/23 13:12 Dose: Not Given Documented By: EVELIO Non-Admin Reason: Patient Refused Atorvastatin Calcium (Atorvastatin Calcium 80 Mg Tablet) 80 mg PO BEDTIME [facility] Last Admin: 02/18/23 20:10 Dose: 80 mg Documented By: KADEN Benzonatate (Benzonatate 100 Mg Capsule) 100 mg PO TID PRN PRN Reason: Cough Carvedilol (Carvedilol 6.25 Mg Tablet) 6.25 mg PO BID [facility]; Protocol Last Admin: 02/19/23 13:13 Dose: Not Given Documented By: EVELIO Non-Admin Reason: Patient Refused Dextrose (Dextrose 50 % 25 Gm/50 Ml Syringe) 25 gm IVPUSH Q15M PRN; Protocol PRN Reason: per Hypoglycemia Standing Ord. Docusate Sodium (Docusate Sodium 100 Mg Capsule) 100 mg PO DAILY PRN PRN Reason: Constipation Enoxaparin Sodium (Enoxaparin Sodium 40 Mg/0.4 Ml Syringe) 40 mg SUBCUT Q24H [facility] Last Admin: 02/18/23 20:10 Dose: 40 mg Documented By: KADEN Escitalopram Oxalate (Escitalopram Oxalate 20 Mg Tablet) 20 mg PO DAILY [facility] Last Admin: 02/19/23 13:13 Dose: Not Given Documented By: EVELIO Non-Admin Reason: Patient Refused Ferrous Sulfate (Ferrous Sulfate 324 Mg Tablet.Dr) 324 mg PO DAILY [facility] Last Admin: 02/19/23 13:13 Dose: Not Given Documented By: EVELIO Non-Admin Reason: Patient Refused Gabapentin (Gabapentin 100 Mg Capsule) 100 mg PO DAILY [facility] Last Admin: 02/19/23 13:13 Dose: Not Given Documented By: EVELIO Non-Admin Reason: Patient Refused Glucose (Glucose Gel 15 Gm Gel..Gram.) 15 gm PO Q15M PRN; Protocol PRN Reason: per Hypoglycemia Standing Ord. Ceftriaxone Sodium 1 gm/ (Sodium Chloride) 50 mls @ 100 mls/hr IV Q24H [facility] Stop: 02/19/23 23:59 Last Infusion: 02/19/23 10:23 Dose: Infused Documented By: EVELIO Insulin Glargine (Insulin Glargine,Hum.Rec.Anlog 100 Unit/Ml 10 Ml Vial) 18 unit SUBCUT BID [facility] Last Admin: 02/18/23 11:45 Dose: Not Given Documented By: EVELIO Non-Admin Reason: Patient Condition Contraindication Insulin Human Lispro (Insulin Lispro 100 Unit/Ml 3 Ml Vial) 0 unit SUBCUT QIDACHS [facility]; Protocol Last Admin: 02/19/23 12:20 Dose: 2 unit Documented By: SEMAJ Lidocaine (Lidocaine 4 % Patch Adh..Patch) 1 patch TRANSDERMA DAILY [facility] Last Admin: 02/19/23 13:13 Dose: Not Given Documented By: EVELIO Non-Admin Reason: Patient Refused Lisinopril (Lisinopril 40 Mg Tablet) 40 mg PO DAILY [facility]; Protocol Last Admin: 02/19/23 13:13 Dose: Not Given Documented By: EVELIO Non-Admin Reason: Patient Refused Polyethylene Glycol (Polyethylene Glycol 3350 17 Gm Powd.Pack) 17 gm PO DAILY PRN PRN Reason: constipation Last Admin: 02/15/23 17:10 Dose: 17 gm Documented By: МАРИЯ Sodium Chloride (0.9 % Sodium Chloride Flush 3 Ml Syringe) 3 ml IVFLUSH QSHIFT [facility] Last Admin: 02/19/23 08:22 Dose: 3 ml Documented By: EVELIO Vitamin D (Cholecalciferol (Vitamin D3) 25 Mcg Tablet) 25 mcg PO DAILY [facility] Last Admin: 02/19/23 13:13 Dose: Not Given Documented By: EVELIO Non-Admin Reason: Patient Refused Labs 02/16/23 14:20 02/19/23 07:16 Labs: Laboratory Results - last 24 hr 02/18/23 02/18/23 02/19/23 16:14 19:45 07:16 Hold Purple Top SEE NOTE Anion Gap 14 Estim Creat Clear Calc 72.8 Estimated GFR > 60 POC Glucose 126 H 181 H Random Glucose 170 H Calcium 8.9 02/19/23 02/19/23 07:24 11:17 Hold Purple Top Anion Gap Estim Creat Clear Calc Estimated GFR POC Glucose 178 H 173 H Random Glucose Calcium Assessment and Plan (1) Delirium due to another medical condition: Status: Acute (2) Major neurocognitive disorder due to another medical condition: Status: Acute Plan Pt is a 77-year-old female with a PMH significant for?HTN, HLD, and insulin-dependent type 2 diabetes who presents to the ED after being found wandering the streets in her undergarments. She was brought in on a Section 12 for failure to thrive/unable to care for herself. Patient was originally placed under physician observation in overflow and a search was underway for a [facility] psych placement. However, patient was noted to be hypoglycemic today with increased once. Due to increasing requirements of care for UTI, hypoglycemia, and failure to thrive pt will be admitted to the hospital. 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 Resolved patient with reduced p.o. intake since being here, but starting to improve continue to hold metformin, semaglutide Lantus on hold due to decreased po intake Diabetic diet, SSI, follow POCs s/p D10 HTN Continue home meds HLD Continue statin Insomnia Continue melatonin Full Code Attending:?Dr. Crenshaw DVT Prophylaxis: Lovenox dispo - PT rec STR Pt will require continued hospitalization of at least two nights for treatment of?UTI, hypoglycemia, and failure to thrive. In summary, the hospital provides a controlled environment with access to a wide range of specialized services and expertise necessary to manage the patient's complex medical, functional, and mental health needs effectively. The combination of physical, mental, and medical challenges necessitates a multidisciplinary approach involving psychiatric, medical, and therapeutic teams to ensure the patient's well-being and appropriate management of their various health concerns. It's a complex situation that requires careful attention and collaboration among the care team members. Quality Stroke Does the patient have a stroke diagnosis?: No VTE Prior VTE?: No VTE Risk Level:: Medical - moderate - high VTE Device Contraindication: Treatment Not Indicated VTE Drug Contraindication: N/A - Med Ordered
[2023-02-19 15:40] VITALS: BP 138/70; PULSE 72; RESP 18; TEMP 36.4; O2SAT 97
[2023-02-19 16:28] LABS: Glucose, Whole Blood 147 mg/dL (60-115)
[2023-02-19] MEDS: Ascorbic Acid 500 MG TABLET PO (17:27)
[2023-02-19 19:41] VITALS: BP 139/54; PULSE 84; RESP 17; TEMP 36.4; O2SAT 97
[2023-02-19 20:10] LABS: Glucose, Whole Blood 199 mg/dL (60-115)
[2023-02-19] MEDS: Enoxaparin Sodium 40 MG/0.4 ML SYRINGE SUBCUT (21:45)
--- NOTE | 2023-02-19 22:15 | PC.RT ---
pt currently not on cpap due to inability to remove mask and pt condition
[2023-02-20] VITALS (11 sets, daily range): BP systolic 154–232; BP diastolic 70–117; PULSE 79–113; RESP 14–18; TEMP 35.5–36.8; O2SAT 95–99
[2023-02-20 07:23] LABS: Glucose, Whole Blood 144 mg/dL (60-115)
[2023-02-20] MEDS: carvediloL 6.25 MG TABLET PO ×2 (08:08→19:43)
[2023-02-20] MEDS: Ferrous Sulfate 324 MG TABLET.DR PO (08:08)
[2023-02-20] MEDS: Cholecalciferol (Vitamin D3) 25 MCG TABLET PO (08:08)
[2023-02-20] MEDS: lisinopriL 40 MG TABLET PO (08:08)
[2023-02-20] MEDS: Escitalopram Oxalate 20 MG TABLET PO (08:08)
[2023-02-20] MEDS: amLODIPine Besylate 10 MG TABLET PO (08:08)
[2023-02-20] MEDS: Aspirin Enteric Coated 81 MG TABLET.DR PO (08:08)
[2023-02-20] MEDS: Gabapentin 100 MG CAPSULE PO (08:08)
[2023-02-20] MEDS: Lidocaine 4 % Patch ADH..PATCH 1 PATCH TRANSDERMA (08:09)
[2023-02-20] MEDS: 0.9 % Sodium Chloride Flush 3 ML SYRINGE IVFLUSH ×3 (08:09→23:49)
[2023-02-20 09:30] LABS: TSH reflex Free T4 1.26 uIU/mL (0.32-4.0)
[2023-02-20 09:45] LABS: Folate 9.1 ng/mL (> or = 4.0); Vitamin B12 1056 pg/mL (200-900)
--- NOTE | 2023-02-20 10:32 | HO.PM.IMPN ---
Subjective Subjective Date of Service: 02/20/23 Interval History: seen and examined this morning history obtained with assistance of expressive music therapist awake alert and answering questions appropriately this morning moving all extremities and following commands Review of Systems Review of Systems: Yes all other systems are reviewed and are negative Constitutional Constitutional: Denies chills and Denies fever(s) Cardiovascular Cardiovascular: Denies chest pain, Denies palpitations and Denies dyspnea Respiratory Respiratory: Denies cough and Denies dyspnea Endocrine Endocrine: Denies palpitations Physical Exam Vital Signs: Vital Signs: Last Vital Signs Temp 96 F L 02/20/23 07:10 Pulse 79 02/20/23 07:10 Resp 17 02/20/23 07:10 BP 154/78 H 02/20/23 07:16 Pulse Ox 96 02/20/23 07:10 O2 Del Method Room Air 02/20/23 07:10 BMI result Body Mass Index 29.9 Const: General: cooperative, comfortable, no acute distress, alert and awake Nutritional Appearance: overweight Orientation/consciousness: patient oriented x3 Resp: Effort & Inspection: normal respiratory effort, able to speak in complete sentences, no respiratory distress and no use of accessory muscles Cardio: Rate: regular rate GI: Inspection: No distended Palpation (GI): Soft to palpation and nontender Neuro: Other: much improved, talking, reaching for her drink, moving legs, following commands General: patient oriented x3 Extrem: General: Yes no pedal edema Objective Data Active Medications Acetaminophen (Acetaminophen 325 Mg Tablet) 650 mg PO Q6H PRN PRN Reason: Pain, Mild (Pain Scale 1-3) Last Admin: 02/15/23 17:10 Dose: 650 mg Documented By: МАРИЯ Amlodipine Besylate (Amlodipine Besylate 10 Mg Tablet) 10 mg PO DAILY [facility]; Protocol Last Admin: 02/20/23 08:08 Dose: 10 mg Documented By: DARA Ascorbic Acid (Ascorbic Acid 500 Mg Tablet) 500 mg PO Q48H [facility] Last Admin: 02/19/23 17:27 Dose: 500 mg Documented By: KINGS Aspirin (Aspirin Enteric Coated 81 Mg Tablet.) 81 mg PO DAILY [facility] Last Admin: 02/20/23 08:08 Dose: 81 mg Documented By: DARA Atorvastatin Calcium (Atorvastatin Calcium 80 Mg Tablet) 80 mg PO BEDTIME [facility] Last Admin: 02/19/23 21:50 Dose: Not Given Documented By: KADEN Non-Admin Reason: Patient Refused Benzonatate (Benzonatate 100 Mg Capsule) 100 mg PO TID PRN PRN Reason: Cough Carvedilol (Carvedilol 6.25 Mg Tablet) 6.25 mg PO BID [facility]; Protocol Last Admin: 02/20/23 08:08 Dose: 6.25 mg Documented By: DARA Dextrose (Dextrose 50 % 25 Gm/50 Ml Syringe) 25 gm IVPUSH Q15M PRN; Protocol PRN Reason: per Hypoglycemia Standing Ord. Docusate Sodium (Docusate Sodium 100 Mg Capsule) 100 mg PO DAILY PRN PRN Reason: Constipation Enoxaparin Sodium (Enoxaparin Sodium 40 Mg/0.4 Ml Syringe) 40 mg SUBCUT Q24H [facility] Last Admin: 02/19/23 21:45 Dose: 40 mg Documented By: KADEN Escitalopram Oxalate (Escitalopram Oxalate 20 Mg Tablet) 20 mg PO DAILY [facility] Last Admin: 02/20/23 08:08 Dose: 20 mg Documented By: DARA Ferrous Sulfate (Ferrous Sulfate 324 Mg Tablet.Dr) 324 mg PO DAILY [facility] Last Admin: 02/20/23 08:08 Dose: 324 mg Documented By: DARA Gabapentin (Gabapentin 100 Mg Capsule) 100 mg PO DAILY [facility] Last Admin: 02/20/23 08:08 Dose: 100 mg Documented By: DARA Glucose (Glucose Gel 15 Gm Gel..Gram.) 15 gm PO Q15M PRN; Protocol PRN Reason: per Hypoglycemia Standing Ord. Insulin Glargine (Insulin Glargine,Hum.Rec.Anlog 100 Unit/Ml 10 Ml Vial) 18 unit SUBCUT BID [facility] Last Admin: 02/18/23 11:45 Dose: Not Given Documented By: EVELIO Non-Admin Reason: Patient Condition Contraindication Insulin Human Lispro (Insulin Lispro 100 Unit/Ml 3 Ml Vial) 0 unit SUBCUT QIDACHS [facility]; Protocol Last Admin: 02/20/23 07:53 Dose: Not Given Documented By: DARA Non-Admin Reason: No Insulin Coverage Lidocaine (Lidocaine 4 % Patch Adh..Patch) 1 patch TRANSDERMA DAILY [facility] Last Admin: 02/20/23 08:09 Dose: 1 patch Documented By: DARA Lisinopril (Lisinopril 40 Mg Tablet) 40 mg PO DAILY [facility]; Protocol Last Admin: 02/20/23 08:08 Dose: 40 mg Documented By: DARA Polyethylene Glycol (Polyethylene Glycol 3350 17 Gm Powd.Pack) 17 gm PO DAILY PRN PRN Reason: constipation Last Admin: 02/15/23 17:10 Dose: 17 gm Documented By: МАРИЯ Sodium Chloride (0.9 % Sodium Chloride Flush 3 Ml Syringe) 3 ml IVFLUSH QSHIFT [facility] Last Admin: 02/20/23 08:09 Dose: 3 ml Documented By: DARA Vitamin D (Cholecalciferol (Vitamin D3) 25 Mcg Tablet) 25 mcg PO DAILY [facility] Last Admin: 02/20/23 08:08 Dose: 25 mcg Documented By: DARA Labs 02/16/23 14:20 02/19/23 07:16 Labs: Laboratory Results - last 24 hr 02/19/23 02/19/23 02/19/23 11:17 16:19 20:02 POC Glucose 173 H 147 H 199 H Vitamin B12 Folate TSH 02/20/23 02/20/23 07:09 08:09 POC Glucose 144 H Vitamin B12 1056 H Folate 9.1 TSH 1.26 Assessment and Plan (1) Major neurocognitive disorder due to another medical condition: Status: Acute (2) Acute UTI: Status: Acute Plan Pt is a 77-year-old female with a PMH significant for?HTN, HLD, and insulin-dependent type 2 diabetes who presents to the ED after being found wandering the streets in her undergarments. She was brought in on a Section 12 for failure to thrive/unable to care for herself. Patient was originally placed under physician observation in overflow and a search was underway for a [facility] psych placement. However, patient was noted to be hypoglycemic today with increased once. Due to increasing requirements of care for UTI, hypoglycemia, and failure to thrive pt will be admitted to the hospital. Adult failure to thrive likely metabolic encephalopathy secondary to UTI with underlying multifactorial dementia - significantly improved today. 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 Resolved patient with reduced p.o. intake since being here, but starting to improve hold metformin, semaglutide Lantus on hold due to decreased po intake - patient more awake today, may need to resume lower dose of Lantus as po intake improves Diabetic diet, SSI, follow POCs s/p D10 HTN some high readings as patient wasn't getting meds regularly due to mental status repeat improved Continue home meds HLD Continue statin Insomnia Continue melatonin Full Code Attending:?Dr. Urrutia DVT Prophylaxis: Lovenox dispo - PT rec STR requires ongoing inpatient stay for safe disposition Quality Stroke Does the patient have a stroke diagnosis?: No VTE Prior VTE?: No VTE Risk Level:: Medical - moderate - high VTE Device Contraindication: Treatment Not Indicated VTE Drug Contraindication: N/A - Med Ordered
--- NOTE | 2023-02-20 10:56 | MHC.CM.PN ---
PATIENT'S MENTATION HAS IMPROVED AND SHE IS MORE APPROPRIATE FOR PARTICIPATING IN REHAB. FAMILY FIRST CHOICE IS [facility], WHO IS NOW UPDATED.
[2023-02-20 11:07] LABS: Glucose, Whole Blood 216 mg/dL (60-115)
[2023-02-20] MEDS: Insulin Lispro 100 UNIT/ML 3 ML VIAL SUBCUT ×2 (11:54→20:25)
[2023-02-20 16:05] LABS: Glucose, Whole Blood 144 mg/dL (60-115)
[2023-02-20] MEDS: Enoxaparin Sodium 40 MG/0.4 ML SYRINGE SUBCUT (19:42)
[2023-02-20] MEDS: Atorvastatin Calcium 80 MG TABLET PO (19:43)
[2023-02-20] MEDS: Acetaminophen 325 MG TABLET 650 MG PO (19:43)
[2023-02-20 20:12] LABS: Glucose, Whole Blood 249 mg/dL (60-115)
--- NOTE | 2023-02-20 22:31 | PC.NURSE ---
BP elevated 190/93 pulse 97 ,patient resting,has no complaints,Dr. Foss notified
[2023-02-20] MEDS: hydrALAZINE HCl 20 MG/ML VIAL 10 MG IVPUSH (23:41)
[2023-02-21] VITALS (11 sets, daily range): BP systolic 126–190; BP diastolic 57–98; PULSE 77–100; RESP 16–18; TEMP 36.1–37.5; O2SAT 94–100
[2023-02-21 07:21] LABS: Glucose, Whole Blood 179 mg/dL (60-115)
[2023-02-21] MEDS: 0.9 % Sodium Chloride Flush 3 ML SYRINGE IVFLUSH ×2 (08:45→15:33)
--- NOTE | 2023-02-21 11:32 | P.PNIM_ITS ---
Subjective Subjective Date of Service: 02/21/23 Interval History: Family at bedside Pt sleepy but arousable, unable to get meaningful history or ROS from her. She was reportedly much more awake/talkative yesterday but also tends to wax/wane. BP high. Afebrile. Review of Systems Review of Systems: Yes Unobtainable due to mental status Physical Exam 2 Vital Signs: Vital Signs: Last Vital Signs Temp 99.5 F 02/21/23 07:02 Pulse 91 02/21/23 07:02 Resp 16 02/21/23 07:02 BP 180/98 H 02/21/23 07:02 Pulse Ox 99 02/21/23 07:02 O2 Del Method Room Air 02/21/23 07:02 BMI result Body Mass Index 29.9 Gen: in no acute distress HEENT: sclera anicteric, moist mucus membranes Neck: supple Lungs: clear to auscultation bilaterally Heart: regular rate and rhythm, no murmurs Abd: soft, non-tender, non-distended Ext: no edema Skin: warm/well-perfused Neuro: somnolent but arousable, unable to assess orientation Psych: impaired insight Objective Data Active Medications Acetaminophen (Acetaminophen 325 Mg Tablet) 650 mg PO Q6H PRN PRN Reason: Pain, Mild (Pain Scale 1-3) Last Admin: 02/20/23 19:43 Dose: 650 mg Documented By: CEDRIC Amlodipine Besylate (Amlodipine Besylate 10 Mg Tablet) 10 mg PO DAILY [facility]; Protocol Last Admin: 02/20/23 08:08 Dose: 10 mg Documented By: DARA Ascorbic Acid (Ascorbic Acid 500 Mg Tablet) 500 mg PO Q48H [facility] Last Admin: 02/19/23 17:27 Dose: 500 mg Documented By: KINGS Aspirin (Aspirin Enteric Coated 81 Mg Tablet.) 81 mg PO DAILY [facility] Last Admin: 02/20/23 08:08 Dose: 81 mg Documented By: DARA Atorvastatin Calcium (Atorvastatin Calcium 80 Mg Tablet) 80 mg PO BEDTIME [facility] Last Admin: 02/20/23 19:43 Dose: 80 mg Documented By: CEDRIC Benzonatate (Benzonatate 100 Mg Capsule) 100 mg PO TID PRN PRN Reason: Cough Carvedilol (Carvedilol 12.5 Mg Tablet) 12.5 mg PO BID [facility]; Protocol Dextrose (Dextrose 50 % 25 Gm/50 Ml Syringe) 25 gm IVPUSH Q15M PRN; Protocol PRN Reason: per Hypoglycemia Standing Ord. Docusate Sodium (Docusate Sodium 100 Mg Capsule) 100 mg PO DAILY PRN PRN Reason: Constipation Enoxaparin Sodium (Enoxaparin Sodium 40 Mg/0.4 Ml Syringe) 40 mg SUBCUT Q24H [facility] Last Admin: 02/20/23 19:42 Dose: 40 mg Documented By: CEDRIC Escitalopram Oxalate (Escitalopram Oxalate 20 Mg Tablet) 20 mg PO DAILY [facility] Last Admin: 02/20/23 08:08 Dose: 20 mg Documented By: DARA Ferrous Sulfate (Ferrous Sulfate 324 Mg Tablet.Dr) 324 mg PO DAILY [facility] Last Admin: 02/20/23 08:08 Dose: 324 mg Documented By: DARA Gabapentin (Gabapentin 100 Mg Capsule) 100 mg PO DAILY [facility] Last Admin: 02/20/23 08:08 Dose: 100 mg Documented By: DARA Glucose (Glucose Gel 15 Gm Gel..Gram.) 15 gm PO Q15M PRN; Protocol PRN Reason: per Hypoglycemia Standing Ord. Insulin Glargine (Insulin Glargine,Hum.Rec.Anlog 100 Unit/Ml 10 Ml Vial) 18 unit SUBCUT BID [facility] Last Admin: 02/18/23 11:45 Dose: Not Given Documented By: EVELIO Non-Admin Reason: Patient Condition Contraindication Insulin Human Lispro (Insulin Lispro 100 Unit/Ml 3 Ml Vial) 0 unit SUBCUT QIDACHS [facility]; Protocol Last Admin: 02/21/23 08:48 Dose: Not Given Documented By: DARA Non-Admin Reason: not eating breakfast Lidocaine (Lidocaine 4 % Patch Adh..Patch) 1 patch TRANSDERMA DAILY [facility] Last Admin: 02/20/23 08:09 Dose: 1 patch Documented By: DARA Lisinopril (Lisinopril 40 Mg Tablet) 40 mg PO DAILY [facility]; Protocol Last Admin: 02/20/23 08:08 Dose: 40 mg Documented By: DARA Polyethylene Glycol (Polyethylene Glycol 3350 17 Gm Powd.Pack) 17 gm PO DAILY PRN PRN Reason: constipation Last Admin: 02/15/23 17:10 Dose: 17 gm Documented By: МАРИЯ Sodium Chloride (0.9 % Sodium Chloride Flush 3 Ml Syringe) 3 ml IVFLUSH QSHIFT [facility] Last Admin: 02/21/23 08:45 Dose: 3 ml Documented By: DARA Vitamin D (Cholecalciferol (Vitamin D3) 25 Mcg Tablet) 25 mcg PO DAILY [facility] Last Admin: 02/21/23 08:46 Dose: 25 mcg Documented By: DARA Labs 02/16/23 14:20 02/19/23 07:16 Labs: Laboratory Results - last 24 hr 02/20/23 02/20/23 02/21/23 15:57 20:00 07:10 POC Glucose 144 H 249 H 179 H Assessment and Plan (1) Major neurocognitive disorder due to another medical condition: Status: Acute (2) Acute UTI: Status: Acute Plan d10 77yo F with HTN, HLD, DM2 who was found wandering the streets in her undergarments, brought in on [address] for failure to thrive/inability fo care for self. 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 Quality Stroke Does the patient have a stroke diagnosis?: No VTE Prior VTE?: No VTE Risk Level:: Medical - moderate - high VTE Device Contraindication: Treatment Not Indicated VTE Drug Contraindication: N/A - Med Ordered
[2023-02-21 11:38] LABS: Glucose, Whole Blood 175 mg/dL (60-115)
--- NOTE | 2023-02-21 15:40 | PC.NURSE ---
Patient sleeping all day,not eating or drinking,Dr. Ratliff notified,questioned need for IV fluids
[2023-02-21 16:08] LABS: Glucose, Whole Blood 169 mg/dL (60-115)
[2023-02-21 19:59] LABS: Glucose, Whole Blood 151 mg/dL (60-115)
[2023-02-21] MEDS: Enoxaparin Sodium 40 MG/0.4 ML SYRINGE SUBCUT (20:28)
[2023-02-22] VITALS: BP 164/88; PULSE 97; RESP 18; TEMP 36.6; O2SAT 98
[2023-02-22] MEDS: 0.9 % Sodium Chloride Flush 3 ML SYRINGE IVFLUSH ×3 (00:13→17:31)
--- NOTE | 2023-02-22 01:24 | PC.NURSE ---
late entry: on 02/21/23 at 0349, I notified of HTN 190/88 as well as her prior response to IV hydralazine administered at 2341 on 02/20/23. No new orders, replied BP has pretty much been uncontrolled. I will pass on to the day team.
[2023-02-22 03:47] VITALS: BP 172/98; PULSE 94; RESP 18; TEMP 36.5; O2SAT 97
[2023-02-22 07:08] LABS: Glucose, Whole Blood 182 mg/dL (60-115)
[2023-02-22 07:31] VITALS: BP 130/62; PULSE 100; RESP 16; TEMP 36; O2SAT 94
[2023-02-22] MEDS: Insulin Lispro 100 UNIT/ML 3 ML VIAL SUBCUT ×3 (08:09→20:52)
--- NOTE | 2023-02-22 08:24 | PC.NURSE ---
Upon assessment patient did not open her eyes or answer any questions, unable to administer morning medication, patient was able to squeeze hands - no other responses or complaints
--- NOTE | 2023-02-22 10:18 | MHC.SLORD ---
Speech Language Pathology Order Status: INTEGRITY ENGINEER attempted to see pt for PO trials. Pt sleepy and obtunded, not able to participate this morning. Pt is currently on a ground diet (NDD2) with thin liquids. Pt must be awake and alert for meal time, attending to meal. Otherwise, tray to be held. INTEGRITY ENGINEER will continue to follow.
[2023-02-22 11:55] LABS: Glucose, Whole Blood 182 mg/dL (60-115)
[2023-02-22 12:00] VITALS: BP 156/68; PULSE 96; RESP 12; TEMP 36.3; O2SAT 96
--- NOTE | 2023-02-22 14:29 | MHC.CM.PN ---
Addendum entered by Tiffany Hanks 02/22/23 15:52: [facility] HAS OFFERED A BED ON THE [facility] PENDING AUTH WITH [employer]. CM WILL AWAIT DETERMINATION BY INSURANCE. PA MADE AWARE. Original Note: EMR REVIEWED AND PER MD ROUNDS, PT IS NOT MEDICALLY CLEARED FOR DC (ELEVATED BP, PT DECLINING MEDS/PO INTAKE) CM SPOKE WITH LIAISON ELAINE SHABAZZ FOR [facility]. SHE WILL INQUIRE REGARDING AVAILABILITY POSSIBLY ON SECURE UNIT. CM WILL CONTINUE TO FOLLOW FOR DC PLAN. PLAN DISCUSSED WITH HCP/FAMILY AT BEDSIDE. THEY ARE IN AGREEMENT THAT PT WILL REQUIRE PLACEMENT.
[2023-02-22 14:40] VITALS: BMI 29.9
--- NOTE | 2023-02-22 14:48 | MHC.CLN ---
NUTRITION INTAKE VARIABLE BUT USUALLY POOR GREATER THAN 5 DAYS. DIET=DIABETIC, GROUND CONSISTENCY. ADDING ENSURE BID TO INCREASE CALORIC INTAKE. PROVIDES 700 KCALS, 40 G PROTEIN. LIBERALIZE DIET TO REGULAR GROUND TO PROMOTE INTAKE. ENCOURAGE INTAKE ABLE. SEE CLINICAL NUTRITION ASSESSMENT 02/22/23.
--- NOTE | 2023-02-22 15:03 | P.PNIM_ITS ---
Subjective Subjective Date of Service: 02/22/23 Interval History: Pt sleepy but arousable, unable to get meaningful history or ROS from her. She was reportedly much more awake/talkative yesterday but also tends to wax/wane. Review of Systems Review of Systems: Yes Unobtainable due to mental status Physical Exam 2 Vital Signs: Vital Signs: Last Vital Signs Temp 97.4 F 02/22/23 12:00 Pulse 96 02/22/23 12:00 Resp 12 02/22/23 12:00 BP 156/68 H 02/22/23 12:00 Pulse Ox 96 02/22/23 12:00 O2 Del Method Room Air 02/22/23 12:00 BMI result Body Mass Index 29.9 Appearing in no acute distress lung sounds are clear to auscultation heart regular rate rhythm, clear S1, S2 positive bowel sounds, abdomen is soft, nontender neuro patient is alert, confused Objective Data Active Medications Acetaminophen (Acetaminophen 325 Mg Tablet) 650 mg PO Q6H PRN PRN Reason: Pain, Mild (Pain Scale 1-3) Last Admin: 02/20/23 19:43 Dose: 650 mg Documented By: CEDRIC Amlodipine Besylate (Amlodipine Besylate 10 Mg Tablet) 10 mg PO DAILY [facility]; Protocol Last Admin: 02/22/23 08:23 Dose: Not Given Documented By: TYLER Non-Admin Reason: Patient Condition Contraindication Ascorbic Acid (Ascorbic Acid 500 Mg Tablet) 500 mg PO Q48H [facility] Last Admin: 02/21/23 17:12 Dose: Not Given Documented By: CEDRIC Non-Admin Reason: pt lethargic ,unable Aspirin (Aspirin Enteric Coated 81 Mg Tablet.) 81 mg PO DAILY [facility] Last Admin: 02/22/23 08:23 Dose: Not Given Documented By: TYLER Non-Admin Reason: Patient Condition Contraindication Atorvastatin Calcium (Atorvastatin Calcium 80 Mg Tablet) 80 mg PO BEDTIME [facility] Last Admin: 02/21/23 20:29 Dose: Not Given Documented By: CEDRIC Non-Admin Reason: lethargic unable to adm Benzonatate (Benzonatate 100 Mg Capsule) 100 mg PO TID PRN PRN Reason: Cough Carvedilol (Carvedilol 12.5 Mg Tablet) 12.5 mg PO BID [facility]; Protocol Last Admin: 02/22/23 08:23 Dose: Not Given Documented By: TYLER Non-Admin Reason: Patient Condition Contraindication Dextrose (Dextrose 50 % 25 Gm/50 Ml Syringe) 25 gm IVPUSH Q15M PRN; Protocol PRN Reason: per Hypoglycemia Standing Ord. Docusate Sodium (Docusate Sodium 100 Mg Capsule) 100 mg PO DAILY PRN PRN Reason: Constipation Enoxaparin Sodium (Enoxaparin Sodium 40 Mg/0.4 Ml Syringe) 40 mg SUBCUT Q24H [facility] Last Admin: 02/21/23 20:28 Dose: 40 mg Documented By: CEDRIC Escitalopram Oxalate (Escitalopram Oxalate 20 Mg Tablet) 20 mg PO DAILY [facility] Last Admin: 02/22/23 08:24 Dose: Not Given Documented By: TYLER Non-Admin Reason: Patient Condition Contraindication Ferrous Sulfate (Ferrous Sulfate 324 Mg Tablet.Dr) 324 mg PO DAILY [facility] Last Admin: 02/22/23 08:24 Dose: Not Given Documented By: TYLER Non-Admin Reason: Patient Condition Contraindication Glucose (Glucose Gel 15 Gm Gel..Gram.) 15 gm PO Q15M PRN; Protocol PRN Reason: per Hypoglycemia Standing Ord. Insulin Glargine (Insulin Glargine,Hum.Rec.Anlog 100 Unit/Ml 10 Ml Vial) 18 unit SUBCUT BID [facility] Last Admin: 02/18/23 11:45 Dose: Not Given Documented By: EVELIO Non-Admin Reason: Patient Condition Contraindication Insulin Human Lispro (Insulin Lispro 100 Unit/Ml 3 Ml Vial) 0 unit SUBCUT QIDACHS [facility]; Protocol Last Admin: 02/22/23 12:35 Dose: 2 unit Documented By: TYLER Lidocaine (Lidocaine 4 % Patch Adh..Patch) 1 patch TRANSDERMA DAILY [facility] Last Admin: 02/22/23 08:24 Dose: Not Given Documented By: TYLER Non-Admin Reason: Patient Condition Contraindication Lisinopril (Lisinopril 40 Mg Tablet) 40 mg PO DAILY [facility]; Protocol Last Admin: 02/22/23 08:24 Dose: Not Given Documented By: TYLER Non-Admin Reason: Patient Condition Contraindication Polyethylene Glycol (Polyethylene Glycol 3350 17 Gm Powd.Pack) 17 gm PO DAILY PRN PRN Reason: constipation Last Admin: 12/11/23 17:10 Dose: 17 gm Documented By: МАРИЯ Sodium Chloride (0.9 % Sodium Chloride Flush 3 Ml Syringe) 3 ml IVFLUSH QSHIFT [facility] Last Admin: 02/22/23 08:09 Dose: 3 ml Documented By: BROAvelina Vitamin D (Cholecalciferol (Vitamin D3) 25 Mcg Tablet) 25 mcg PO DAILY [facility] Last Admin: 02/22/23 08:24 Dose: Not Given Documented By: TYLER Non-Admin Reason: Patient Condition Contraindication Labs 02/16/23 14:20 02/19/23 07:16 Labs: Laboratory Results - last 24 hr 02/21/23 02/21/23 02/22/23 16:01 19:51 06:58 POC Glucose 169 H 151 H 182 H 02/22/23 11:46 POC Glucose 182 H Assessment and Plan (1) Major neurocognitive disorder due to another medical condition: Status: Acute (2) Acute UTI: Status: Acute Plan 77yo F with HTN, HLD, DM2 who was found wandering the streets in her undergarments, brought in on [address] for failure to thrive/inability fo care for self. 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 Crenshaw dispo STR when bed available In my clinical judgment, the patient requires continued inpatient hospitalization for the following reasons: BP control, placement Total time managing care of this patient today: 35 minutes. Quality Stroke Does the patient have a stroke diagnosis?: No VTE Prior VTE?: No VTE Risk Level:: Medical - moderate - high VTE Device Contraindication: Treatment Not Indicated VTE Drug Contraindication: N/A - Med Ordered
[2023-02-22 15:39] VITALS: BP 177/77; PULSE 105; RESP 18; TEMP 36.1; O2SAT 95
[2023-02-22 16:40] LABS: Glucose, Whole Blood 158 mg/dL (60-115)
[2023-02-22 19:10] VITALS: BP 178/88; PULSE 107; RESP 17; TEMP 36.2; O2SAT 96
[2023-02-22 20:25] LABS: Glucose, Whole Blood 182 mg/dL (60-115)
[2023-02-22] MEDS: carvediloL 12.5 MG TABLET PO (20:40)
[2023-02-22] MEDS: hydrALAZINE HCl 10 MG TABLET PO (20:44)
[2023-02-22] MEDS: Enoxaparin Sodium 40 MG/0.4 ML SYRINGE SUBCUT (20:51)
[2023-02-22] MEDS: Atorvastatin Calcium 80 MG TABLET PO (20:51)
[2023-02-23] VITALS (10 sets, daily range): BP systolic 137–195; BP diastolic 64–88; PULSE 80–96; RESP 12–19; TEMP 36.1–36.7; O2SAT 93–96
[2023-02-23] MEDS: 0.9 % Sodium Chloride Flush 3 ML SYRINGE IVFLUSH ×4 (00:17→21:28)
[2023-02-23 07:24] LABS: Glucose, Whole Blood 177 mg/dL (60-115)
[2023-02-23] MEDS: Insulin Lispro 100 UNIT/ML 3 ML VIAL SUBCUT ×3 (07:57→16:35)
[2023-02-23] MEDS: Lidocaine 4 % Patch ADH..PATCH 1 PATCH TRANSDERMA (07:58)
[2023-02-23] MEDS: Cholecalciferol (Vitamin D3) 25 MCG TABLET PO (07:59)
[2023-02-23] MEDS: Ferrous Sulfate 324 MG TABLET.DR PO (07:59)
[2023-02-23] MEDS: carvediloL 12.5 MG TABLET PO ×2 (07:59→21:28)
[2023-02-23] MEDS: Aspirin Enteric Coated 81 MG TABLET.DR PO (07:59)
[2023-02-23] MEDS: Escitalopram Oxalate 20 MG TABLET PO (07:59)
[2023-02-23] MEDS: lisinopriL 40 MG TABLET PO (08:00)
[2023-02-23] MEDS: amLODIPine Besylate 10 MG TABLET PO (08:00)
[2023-02-23] MEDS: hydrALAZINE HCl 10 MG TABLET PO ×3 (08:00→21:28)
[2023-02-23 10:06] LABS: Creatinine Clr Calc Pharmacy 57.8; Estimated Glomerular Filt Rate > 60
[2023-02-23 11:24] LABS: Glucose, Whole Blood 182 mg/dL (60-115)
--- NOTE | 2023-02-23 11:24 | MHC.CM.PN ---
Addendum entered by Tiffany Hanks 02/23/23 12:22: PT'S DC HAS BEEN CANCELLED FOR TODAY. [facility] NOTIFIED, TRANSPORT CANCELLED. HCP AT BEDSIDE AND AWARE. RN NOTIFIED Original Note: DP: PT HAS BEEN MEDICALLY CLEARED FOR DC TO STR AT [facility]. CENTER HAS OBTAINED INSURANCE AUTH VIA [facility]. RN AWARE HCP/SPOUSE AT BEDSIDE AND AWARE OF TRANSFER/AGREEABLE TO THE PLAN. IMM ADDRESSED WITH SPOUSE. BLS TRANSPORT BOOKED VIA [facility] FOR 1 PM.
--- NOTE | 2023-02-23 11:45 | MHC.SL.DTX ---
Dysphagia Diet modifications: Last documented Solid diet consistencies: Grnd/Mech Altered (NDD2) Last documented Liquid consistency: Thin Last documented Medication Administration: Changes made to current diet?: No: No changes at this time Liquid Consistency and Strategies: Liquid Intake Recommendation: Thin Compensatory Strategies for Safe Swallow: Small Sips No Straws Compensatory Strategies for Safe Swallow(b): Sitting Upright (90 deg) No Straw Small Bites and Sips Alternate Liquids/Solids Rate of Ingestion Change Solid Food Consistency: Dietary Recommendations: Grnd/Mech Altered (NDD2) Additional Modifications to Solids: Avoid mixed consistencies. Alternate liquids and solids. Liquids by controlled cup sip or tsp. Patient requires one to one feeding. Do not attempt if patient is excessively lethargic or not engaged in meal. Patient may benefit from smaller more frequent meals to encourage intake. Discontinue if patient evidences signs of aspiration. Oral Medication Intake: Crushed with Puree Strategies and Precautions to be Taken for Safe Swallow: Sitting Upright (90 deg) No Straw Small Bites and Sips Alternate Liquids/Solids Rate of Ingestion Change Supervision While Eating and/Drinking: Total Supervision (1:1) Foods to Avoid: Mixed consistencies and tough, hard, difficult to chew solids. Add gravy and blend well. Swallowing Recommended Treatments: Compens. Strategy Educat. Level of Impact on: Daily activities: Interpersonal interactions: Education: Employment: Community: Prognosis for Improvement: Recommendation for Speech: Inpatient Speech Therapy Additional Comments: Treatment: Pt seen with medical transcriptionist for [place]. Per Pt he is concerned that she is being discharged to SNF without a clear nutrition plan in place. Pt is lethargic, not responding to questions. She is unable to use a straw when presented to her. She accepts an Ice Chip which she keeps in her mouth but eventually spills out of her mouth. Laryngeal palpation is unreliable given head position and undiscernible laryngeal cartilage on palpation. She does not open her mouth to accept Puree Solid. Per , this is not uncommon, and she has had minimal intake for multiple days. When asked, he shares that he feels her condition is worsening. RN notified. Assessment: Steak Sauce Maker Clinican/Clinical Fellow: No Supervisory Statement: I have reviewed and agree with the student/clinical fellow's documentation: N/A Speech Language Pathologist: Mario Sparks M.A., CCC-FAST FOOD RESTAURANT MANAGER
--- NOTE | 2023-02-23 12:28 | P.PNIM_ITS ---
Subjective Subjective Date of Service: 02/23/23 Interval History: Pt sleepy but arousable, unable to get meaningful history or ROS from her. She was reportedly much more awake/talkative yesterday but also tends to wax/wane. Review of Systems Review of Systems: Yes Unobtainable due to mental status Physical Exam 2 Vital Signs: Vital Signs: Last Vital Signs Temp 97.4 F 02/23/23 12:00 Pulse 81 02/23/23 12:00 Resp 18 02/23/23 12:00 BP 149/66 H 02/23/23 12:00 Pulse Ox 95 02/23/23 12:00 O2 Del Method Room Air 02/23/23 12:00 BMI result Body Mass Index 29.9 Appearing in no acute distress lung sounds are clear to auscultation heart regular rate rhythm, clear S1, S2 positive bowel sounds, abdomen is soft, nontender neuro patient is alert x3, no focal deficits Objective Data Active Medications Acetaminophen (Acetaminophen 325 Mg Tablet) 650 mg PO Q6H PRN PRN Reason: Pain, Mild (Pain Scale 1-3) Last Admin: 02/20/23 19:43 Dose: 650 mg Documented By: CEDRIC Amlodipine Besylate (Amlodipine Besylate 10 Mg Tablet) 10 mg PO DAILY [facility]; Protocol Last Admin: 02/23/23 08:00 Dose: 10 mg Documented By: SHAYLEE Ascorbic Acid (Ascorbic Acid 500 Mg Tablet) 500 mg PO Q48H [facility] Last Admin: 02/21/23 17:12 Dose: Not Given Documented By: CEDRIC Non-Admin Reason: pt lethargic ,unable Aspirin (Aspirin Enteric Coated 81 Mg Tablet.) 81 mg PO DAILY [facility] Last Admin: 02/23/23 07:59 Dose: 81 mg Documented By: SHAYLEE Atorvastatin Calcium (Atorvastatin Calcium 80 Mg Tablet) 80 mg PO BEDTIME [facility] Last Admin: 02/22/23 20:51 Dose: 80 mg Documented By: LYSZ Benzonatate (Benzonatate 100 Mg Capsule) 100 mg PO TID PRN PRN Reason: Cough Carvedilol (Carvedilol 12.5 Mg Tablet) 12.5 mg PO BID [facility]; Protocol Last Admin: 02/23/23 07:59 Dose: 12.5 mg Documented By: SHAYLEE Dextrose (Dextrose 50 % 25 Gm/50 Ml Syringe) 25 gm IVPUSH Q15M PRN; Protocol PRN Reason: per Hypoglycemia Standing Ord. Docusate Sodium (Docusate Sodium 100 Mg Capsule) 100 mg PO DAILY PRN PRN Reason: Constipation Enoxaparin Sodium (Enoxaparin Sodium 40 Mg/0.4 Ml Syringe) 40 mg SUBCUT Q24H [facility] Last Admin: 02/22/23 20:51 Dose: 40 mg Documented By: BON Escitalopram Oxalate (Escitalopram Oxalate 20 Mg Tablet) 20 mg PO DAILY [facility] Last Admin: 02/23/23 07:59 Dose: 20 mg Documented By: SHAYLEE Ferrous Sulfate (Ferrous Sulfate 324 Mg Tablet.Dr) 324 mg PO DAILY [facility] Last Admin: 02/23/23 07:59 Dose: 324 mg Documented By: SHAYLEE Glucose (Glucose Gel 15 Gm Gel..Gram.) 15 gm PO Q15M PRN; Protocol PRN Reason: per Hypoglycemia Standing Ord. Hydralazine HCl (Hydralazine Hcl 10 Mg Tablet) 10 mg PO TID [facility]; Protocol Last Admin: 02/23/23 08:00 Dose: 10 mg Documented By: SHAYLEE Insulin Glargine (Insulin Glargine,Hum.Rec.Anlog 100 Unit/Ml 10 Ml Vial) 18 unit SUBCUT BID [facility] Last Admin: 02/18/23 11:45 Dose: Not Given Documented By: EVELIO Non-Admin Reason: Patient Condition Contraindication Insulin Human Lispro (Insulin Lispro 100 Unit/Ml 3 Ml Vial) 0 unit SUBCUT QIDACHS [facility]; Protocol Last Admin: 02/23/23 11:40 Dose: 2 unit Documented By: SHAYLEE Lidocaine (Lidocaine 4 % Patch Adh..Patch) 1 patch TRANSDERMA DAILY [facility] Last Admin: 02/23/23 07:58 Dose: 1 patch Documented By: SHAYLEE Lisinopril (Lisinopril 40 Mg Tablet) 40 mg PO DAILY [facility]; Protocol Last Admin: 02/23/23 08:00 Dose: 40 mg Documented By: SHAYLEE Polyethylene Glycol (Polyethylene Glycol 3350 17 Gm Powd.Pack) 17 gm PO DAILY PRN PRN Reason: constipation Last Admin: 02/15/23 17:10 Dose: 17 gm Documented By: МАРИЯ Sodium Chloride (0.9 % Sodium Chloride Flush 3 Ml Syringe) 3 ml IVFLUSH QSHIFT [facility] Last Admin: 02/23/23 08:00 Dose: 3 ml Documented By: SHAYLEE Vitamin D (Cholecalciferol (Vitamin D3) 25 Mcg Tablet) 25 mcg PO DAILY [facility] Last Admin: 02/23/23 07:59 Dose: 25 mcg Documented By: SHAYLEE Labs 02/16/23 14:20 02/23/23 09:32 Labs: Laboratory Results - last 24 hr 02/22/23 02/22/23 02/23/23 16:13 19:57 07:00 Hold Purple Top Estim Creat Clear Calc Estimated GFR POC Glucose 158 H 182 H 177 H 02/23/23 02/23/23 09:32 11:10 Hold Purple Top SEE NOTE Estim Creat Clear Calc 57.8 Estimated GFR > 60 POC Glucose 182 H Assessment and Plan (1) Major neurocognitive disorder due to another medical condition: Status: Acute (2) Acute UTI: Status: Acute Plan 77yo F with HTN, HLD, DM2 who was found wandering the streets in her undergarments, brought in on [address] for failure to thrive/inability fo care for self. 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 Crenshaw dispo STR when bed available In my clinical judgment, the patient requires continued inpatient hospitalization for the following reasons: BP control, placement Total time managing care of this patient today: 35 minutes. Quality Stroke Does the patient have a stroke diagnosis?: No VTE Prior VTE?: No VTE Risk Level:: Medical - moderate - high VTE Device Contraindication: Treatment Not Indicated VTE Drug Contraindication: N/A - Med Ordered
[2023-02-23 14:32] LABS: Hematocrit 40.3 % (37.0-47.0); Hemoglobin 12.9 g/dl (12.0-16.0); Mean Corpuscular Hemoglobin 26.5 pg (27.0-33.0); Mean Corpuscular Volume 82.8 fL (80.0-98.0); Mean Platelet Volume 11.1 fL (9.4-12.3); Platelet Count 352 X10*3/uL (160-400); Red Blood Count 4.87 X10*6/uL (4.20-5.50); Red Cell Distribution Width 15.8 % (11.0-16.0); White Blood Count 9.9 X10*3/uL (4.8-10.8)
[2023-02-23 15:01] LABS: Anion Gap 14 (12-20); Blood Urea Nitrogen 28 mg/dL (9-16); Calcium 9.5 mg/dL (8.4-10.2); Carbon Dioxide 25 mmol/L (22-29); Chloride 109 mmol/L (96-108); Creatinine Clr Calc Pharmacy 50.8; Estimated Glomerular Filt Rate > 60; Glucose Random 236 mg/dL (60-115); Potassium 4.4 mmol/L (3.3-5.1); Sodium 144 mmol/L (135-145)
[2023-02-23] MEDS: Ascorbic Acid 500 MG TABLET PO (15:26)
[2023-02-23 16:20] LABS: Glucose, Whole Blood 221 mg/dL (60-115)
--- NOTE | 2023-02-23 17:42 | P.PNNE_ITS ---
Subjective Subjective Date of Service: 02/23/23 Interval History: Pt awake but does not talk. Occasionally follows one step commands. Critical Care Time (minutes): 0 Physical Exam 2 Vital Signs: Vital Signs: Last Vital Signs Temp 97.5 F 02/23/23 15:20 Pulse 82 02/23/23 15:20 Resp 19 02/23/23 15:20 BP 139/67 02/23/23 15:20 Pulse Ox 96 02/23/23 15:20 O2 Del Method Room Air 02/23/23 15:20 BMI result Body Mass Index 29.9 Const: Other: resting in bed comfortably; eyes open, does answer some basic questions General: cooperative, healthy appearing, comfortable, no acute distress, alert and awake Nutritional Appearance: overweight Limitations: no limitations HEENT: Head: Yes normal to inspection and Yes atraumatic Ears: hearing grossly normal bilaterally General nose exam: Normal external nose present Face and sinus: Yes normal facial exam Throat: Yes posterior oropharynx normal Eyes: General: appearance normal, both eyes and all related structures P upils: Equal, round and reactive pupils present EOM: EOMs intact bilaterally Neck: Neck: Yes normal visual inspection and Yes no meningeal signs Resp: Other: Clear to auscultation bilaterally no rales rhonchi or wheezes Effort & Inspection: normal respiratory effort, able to speak in complete sentences, no respiratory distress and no use of accessory muscles A uscultation: clear to auscultation bilaterally Cardio: Other: No S4; positive S1-S2; S3 murmurs rubs or gallops Rate: regular rate Heart sounds: S1 normal heart sound present and S2 normal heart sound present GI: Other: Soft nontender nondistended normoactive bowel sounds Inspection: Yes normal to inspection and No distended Palpation (GI): S oft to palpation, nontender, no guarding and not rigid Skin: Rashes: no rashes Wounds: no wounds Neuro: Other: Awake and occasionally making eye contact. Does not verbalize a single word. Will follow with eyes. Generally hunt snot follow commands. Plantars flexor. Neck supple. General: tone normal, moves all extremities and no meningeal signs C ranial nerves: Yes CN's II-XII intact bilaterally and Yes Equal, round and reactive pupils present Extrem: Other: No edema bilat General: Yes normal to inspection and Yes no pedal edema Objective Data Labs 02/23/23 14:03 02/23/23 14:03 Labs: Laboratory Results - last 24 hr 02/22/23 02/23/23 02/23/23 19:57 07:00 09:32 WBC RBC Hgb Hct MCV MCH MCHC RDW Plt Count MPV Absolute Nucleated RBC Nucleated RBC % (auto) Hold Purple Top SEE NOTE Sodium Potassium Chloride Carbon Dioxide Anion Gap BUN Creatinine 0.73 Estim Creat Clear Calc 57.8 Estimated GFR > 60 POC Glucose 182 H 177 H Random Glucose Calcium 02/23/23 02/23/23 02/23/23 11:10 14:03 16:12 WBC 9.9 RBC 4.87 Hgb 12.9 Hct 40.3 MCV 82.8 MCH 26.5 L MCHC 32.0 RDW 15.8 Plt Count 352 MPV 11.1 Absolute Nucleated RBC 0.000 Nucleated RBC % (auto) 0.0 Hold Purple Top Sodium 144 Potassium 4.4 D Chloride 109 H Carbon Dioxide 25 Anion Gap 14 BUN 28 H Creatinine 0.83 Estim Creat Clear Calc 50.8 Estimated GFR > 60 POC Glucose 182 H 221 H Random Glucose 236 H Calcium 9.5 D Microbiology Microbiology Results: Microbiology 02/08/23 Unknown Urine clean catch - Urine burk top Urine Culture - Final Escherichia coli Streptococcus viridans group Progress Note: A&P Assessment and plan (1) Major neurocognitive disorder due to another medical condition: Status: Acute (2) Acute UTI: Status: Acute Plan EEG negative, MRI and CT brain with generalized atrophy and chronic microvacsular changes and sequelae of lacunar infarct in right shreya Impression. We do not find an organic basis for her current status. Recom. Sertraline 50mg qd and gradually increasing to 100mg qd. Lumbar puncture to r/o the minute possibility of any occult infectious process. Check TSH. B12, Folate, Homocysteine levels. Time Spent With Patient Time: Total time managing care of this patient today ____ minutes. Procedures Date of Service Date of Service: 02/23/23 Quality Stroke Does the patient have a stroke diagnosis?: No VTE Prior VTE?: No VTE Risk Level:: Medical - moderate - high VTE Device Contraindication: Treatment Not Indicated VTE Drug Contraindication: N/A - Med Ordered
[2023-02-23 20:12] LABS: Glucose, Whole Blood 135 mg/dL (60-115)
[2023-02-23] MEDS: Atorvastatin Calcium 80 MG TABLET PO (21:28)
[2023-02-23] MEDS: Enoxaparin Sodium 40 MG/0.4 ML SYRINGE SUBCUT (21:28)
[2023-02-24 03:09] VITALS: BP 161/77; PULSE 96; RESP 14; TEMP 36.3; O2SAT 95
[2023-02-24 07:07] VITALS: BP 170/78; PULSE 86; RESP 18; TEMP 36.2; O2SAT 95
--- NOTE | 2023-02-24 07:27 | P.PNIM_ITS ---
Subjective Subjective Date of Service: 02/24/23 Interval History: Pt sleepy but arousable, unable to get meaningful history or ROS from her. Review of Systems Review of Systems: Yes Unobtainable due to mental status Physical Exam 2 Vital Signs: Vital Signs: Last Vital Signs Temp 97.1 F 02/24/23 07:07 Pulse 86 02/24/23 07:07 Resp 18 02/24/23 07:07 BP 170/78 H 02/24/23 07:07 Pulse Ox 95 02/24/23 07:07 O2 Del Method Room Air 02/24/23 07:07 BMI result Body Mass Index 29.9 Appearing in no acute distress LSCTA heart regular rate rhythm, clear S1, S2 positive bowel sounds, abdomen is soft, nontender neuro patient opens eyes but not much verbalization Objective Data Active Medications Acetaminophen (Acetaminophen 325 Mg Tablet) 650 mg PO Q6H PRN PRN Reason: Pain, Mild (Pain Scale 1-3) Last Admin: 02/20/23 19:43 Dose: 650 mg Documented By: CEDRIC Amlodipine Besylate (Amlodipine Besylate 10 Mg Tablet) 10 mg PO DAILY [facility]; Protocol Last Admin: 02/23/23 08:00 Dose: 10 mg Documented By: SHAYLEE Ascorbic Acid (Ascorbic Acid 500 Mg Tablet) 500 mg PO Q48H [facility] Last Admin: 02/23/23 15:26 Dose: 500 mg Documented By: SHAYLEE Aspirin (Aspirin Enteric Coated 81 Mg Tablet.) 81 mg PO DAILY [facility] Last Admin: 02/23/23 07:59 Dose: 81 mg Documented By: SHAYLEE Atorvastatin Calcium (Atorvastatin Calcium 80 Mg Tablet) 80 mg PO BEDTIME [facility] Last Admin: 02/23/23 21:28 Dose: 80 mg Documented By: JUAN Benzonatate (Benzonatate 100 Mg Capsule) 100 mg PO TID PRN PRN Reason: Cough Carvedilol (Carvedilol 12.5 Mg Tablet) 12.5 mg PO BID [facility]; Protocol Last Admin: 02/23/23 21:28 Dose: 12.5 mg Documented By: JUAN Dextrose (Dextrose 50 % 25 Gm/50 Ml Syringe) 25 gm IVPUSH Q15M PRN; Protocol PRN Reason: per Hypoglycemia Standing Ord. Docusate Sodium (Docusate Sodium 100 Mg Capsule) 100 mg PO DAILY PRN PRN Reason: Constipation Enoxaparin Sodium (Enoxaparin Sodium 40 Mg/0.4 Ml Syringe) 40 mg SUBCUT Q24H [facility] Last Admin: 02/23/23 21:28 Dose: 40 mg Documented By: JUAN Escitalopram Oxalate (Escitalopram Oxalate 20 Mg Tablet) 20 mg PO DAILY [facility] Last Admin: 02/23/23 07:59 Dose: 20 mg Documented By: SHAYLEE Ferrous Sulfate (Ferrous Sulfate 324 Mg Tablet.Dr) 324 mg PO DAILY [facility] Last Admin: 02/23/23 07:59 Dose: 324 mg Documented By: SHAYLEE Glucose (Glucose Gel 15 Gm Gel..Gram.) 15 gm PO Q15M PRN; Protocol PRN Reason: per Hypoglycemia Standing Ord. Hydralazine HCl (Hydralazine Hcl 10 Mg Tablet) 10 mg PO TID [facility]; Protocol Last Admin: 02/23/23 21:28 Dose: 10 mg Documented By: JUAN Insulin Glargine (Insulin Glargine,Hum.Rec.Anlog 100 Unit/Ml 10 Ml Vial) 18 unit SUBCUT BID [facility] Last Admin: 02/18/23 11:45 Dose: Not Given Documented By: EVELIO Non-Admin Reason: Patient Condition Contraindication Insulin Human Lispro (Insulin Lispro 100 Unit/Ml 3 Ml Vial) 0 unit SUBCUT QIDACHS [facility]; Protocol Last Admin: 02/23/23 21:24 Dose: Not Given Documented By: JUAN Non-Admin Reason: No Insulin Coverage Lidocaine (Lidocaine 4 % Patch Adh..Patch) 1 patch TRANSDERMA DAILY [facility] Last Admin: 02/23/23 07:58 Dose: 1 patch Documented By: SHAYLEE Lisinopril (Lisinopril 40 Mg Tablet) 40 mg PO DAILY [facility]; Protocol Last Admin: 02/23/23 08:00 Dose: 40 mg Documented By: SHAYLEE Polyethylene Glycol (Polyethylene Glycol 3350 17 Gm Powd.Pack) 17 gm PO DAILY PRN PRN Reason: constipation Last Admin: 02/15/23 17:10 Dose: 17 gm Documented By: МАРИЯ Sertraline HCl (Sertraline Hcl 50 Mg Tablet) 50 mg PO DAILY [facility] Sodium Chloride (0.9 % Sodium Chloride Flush 3 Ml Syringe) 3 ml IVFLUSH QSHIFT [facility] Last Admin: 02/23/23 21:28 Dose: 3 ml Documented By: JUAN Vitamin D (Cholecalciferol (Vitamin D3) 25 Mcg Tablet) 25 mcg PO DAILY [facility] Last Admin: 02/23/23 07:59 Dose: 25 mcg Documented By: SHAYLEE Labs 02/24/23 08:15 02/24/23 08:15 Labs: Laboratory Results - last 24 hr 02/23/23 02/23/23 02/23/23 09:32 11:10 14:03 MCV 82.8 MCH 26.5 L MCHC 32.0 RDW 15.8 Plt Count 352 MPV 11.1 Absolute Nucleated RBC 0.000 Nucleated RBC % (auto) 0.0 Hold Purple Top SEE NOTE Anion Gap 14 Estim Creat Clear Calc 57.8 50.8 Estimated GFR > 60 > 60 POC Glucose 182 H Random Glucose 236 H Calcium 9.5 D 02/23/23 02/23/23 16:12 19:19 MCV MCH MCHC RDW Plt Count MPV Absolute Nucleated RBC Nucleated RBC % (auto) Hold Purple Top Anion Gap Estim Creat Clear Calc Estimated GFR POC Glucose 221 H 135 H Random Glucose Calcium Assessment and Plan (1) Major neurocognitive disorder due to another medical condition: Status: Acute (2) Acute UTI: Status: Acute Plan 77yo F with HTN, HLD, DM2 who was found wandering the streets in her undergarments, brought in on [address] for failure to thrive/inability fo care for self. 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 Start Seroquel 50 mg daily then gradually increase to 100mg daily UTI [E coli/Strep veridians] completed 7d of ceftriaxone DM2 with hypoglycemia sliding scale HTN, uncontrolled increase carvedilol, continue lisinopril + amlodipine hydralazine added HLD statin mood disorder escitalopram insomnia melatonin VTE ppx LMWH Attending Dr. Den azul STR when medically clear In my clinical judgment, the patient requires continued inpatient hospitalization for the following reasons: BP control, placement Total time managing care of this patient today: 35 minutes. Quality Stroke Does the patient have a stroke diagnosis?: No VTE Prior VTE?: No VTE Risk Level:: Medical - moderate - high VTE Device Contraindication: Treatment Not Indicated VTE Drug Contraindication: N/A - Med Ordered
[2023-02-24] MEDS: 0.9 % Sodium Chloride Flush 3 ML SYRINGE IVFLUSH ×2 (07:38→16:51)
[2023-02-24 07:46] LABS: Glucose, Whole Blood 166 mg/dL (60-115)
[2023-02-24 08:23] LABS: Hemoglobin 12.5 g/dl (12.0-16.0); Mean Corpuscular HGB Conc 32.1 g/dl (31.0-35.0); Mean Corpuscular Hemoglobin 26.5 pg (27.0-33.0); Mean Corpuscular Volume 82.8 fL (80.0-98.0); Mean Platelet Volume 10.9 fL (9.4-12.3); Platelet Count 338 X10*3/uL (160-400); Red Blood Count 4.71 X10*6/uL (4.20-5.50); Red Cell Distribution Width 15.9 % (11.0-16.0); White Blood Count 11.2 X10*3/uL (4.8-10.8)
[2023-02-24 08:34] LABS: Prothrombin Time 11.7 SEC (11.1-13.3)
[2023-02-24 08:46] LABS: Anion Gap 12 (12-20); Blood Urea Nitrogen 29 mg/dL (9-16); Carbon Dioxide 25 mmol/L (22-29); Chloride 112 mmol/L (96-108); Creatinine Clr Calc Pharmacy 54.8; Estimated Glomerular Filt Rate > 60; Glucose Random 174 mg/dL (60-115); Potassium 4.1 mmol/L (3.3-5.1); Sodium 145 mmol/L (135-145)
[2023-02-24 09:02] LABS: Thyroid Stimulating Hormone 0.93 uIU/mL (0.32-4.0)
[2023-02-24 09:15] LABS: Folate 10.4 ng/mL (> or = 4.0); Vitamin B12 1036 pg/mL (200-900)
[2023-02-24] MEDS: Escitalopram Oxalate 20 MG TABLET PO (09:19)
[2023-02-24] MEDS: Sertraline HCL 50 MG TABLET PO (09:19)
[2023-02-24] MEDS: Lidocaine 4 % Patch ADH..PATCH 1 PATCH TRANSDERMA (09:19)
[2023-02-24] MEDS: lisinopriL 40 MG TABLET PO (09:19)
--- NOTE | 2023-02-24 10:59 | MHC.CM.PN ---
IMM 02/23/23 Per MD rounds no discharge today. Patient is scheduled for a Lumbar Puncture 02/25/23. [facility] has been notified of the delay in dc date. A clinical update has been sent. DP DBV via BLS.
[2023-02-24 11:18] LABS: Glucose, Whole Blood 215 mg/dL (60-115)
--- NOTE | 2023-02-24 11:40 | MHC.CLN ---
F/U CONTINUES WITH POOR INTAKE. DIET=REGULAR, GROUND CONSISTENCY. SUPPLEMENT ENSURE BID PROVIDES ADDITIONAL 700 KCALS, 40 G PROTEIN. ENCOURAGE INTAKE ABLE. FOLLOW FOR PLAN OF CARE.
[2023-02-24] MEDS: Insulin Lispro 100 UNIT/ML 3 ML VIAL SUBCUT (11:42)
[2023-02-24 12:00] VITALS: BP 161/74; PULSE 83; RESP 16; TEMP 36.2; O2SAT 95
[2023-02-24 12:22] LABS: Appearance Urine Clear; Color Urine Yellow; Glucose Urine UA Negative (Negative); Leukocyte Esterase Urine Trace (Negative); Nitrite Urine Negative (Negative); PH 5.5 (5.0-9.0); Specific Gravity - Urine 1.025 (1.005-1.025); UMIC TRIGGER UACC YES; Urine Blood Negative (Negative); Urine Ketones Trace mg/dL (Negative); Urine Protein Trace mg/dL (Neg-Trace)
[2023-02-24 12:34] LABS: Bacteria Urine None Seen (None Seen); Hyaline Casts Urine 0-2 /LPF (0-2); RBC Urine 0-2 /HPF (0-2); Squamous Epithelial Cell Urine 0-2 /HPF (0-2); WBC Urine 0-5 /HPF (0-5)
--- NOTE | 2023-02-24 15:12 | MHC.SLORD ---
Speech Language Pathology Order Status: CREDIT REPRESENTATIVE attempted to give patient PO trials, patient lethargic not awaking. Per RN, patient has been refusing food on this date. CREDIT REPRESENTATIVE to continue to follow.
[2023-02-24 15:28] VITALS: BP 135/65; PULSE 82; RESP 18; TEMP 36.3; O2SAT 95
[2023-02-24 16:20] LABS: Glucose, Whole Blood 147 mg/dL (60-115)
[2023-02-24] MEDS: 0.9 % Sodium Chloride 1,000 ML 75 ML IVCONT (18:38)
[2023-02-24] MEDS: Enoxaparin Sodium 40 MG/0.4 ML SYRINGE SUBCUT (18:39)
[2023-02-24 19:16] VITALS: BP 151/67; PULSE 78; RESP 18; TEMP 36; O2SAT 95
[2023-02-24 20:00] LABS: Glucose, Whole Blood 163 mg/dL (60-115)
[2023-02-24 23:20] VITALS: BP 153/70; PULSE 88; RESP 18; TEMP 35.8; O2SAT 96
[2023-02-24] MEDS: Acetaminophen 325 MG TABLET 650 MG PO (23:36)
[2023-02-25 04:00] VITALS: BP 146/72; PULSE 74; RESP 18; TEMP 35.9; O2SAT 95
[2023-02-25] MEDS: 0.9 % Sodium Chloride 1,000 ML 75 ML IVCONT (06:26)
[2023-02-25 07:35] LABS: Glucose, Whole Blood 172 mg/dL (60-115)
[2023-02-25 07:41] VITALS: BP 172/77; PULSE 93; RESP 18; TEMP 36.1; O2SAT 92
[2023-02-25] MEDS: Insulin Lispro 100 UNIT/ML 3 ML VIAL SUBCUT ×2 (08:28→16:55)
--- NOTE | 2023-02-25 08:45 | PC.NURSE ---
Addendum entered by Ramone Nickerson RN 02/25/23 16:24: pt hasnt voided throughout the shift. informed of bladder scan being 229 Original Note: Pt is drowsy and not following commands or communicating. Attempted to feed pt crushed PO meds in apple sauce but pt would open mouth and not close or follow commands or swallow food. pt would pocket food in mouth. foreign language interpreter was at bedside and stated pt dropped out ice chips from mouth while speech eval was assessing pt. informed.
--- NOTE | 2023-02-25 09:19 | PC.RT ---
Due to patients mental status and lethargy, Cpap will be discontinued to to safety concerns over the unability to pull off.
[2023-02-25 11:26] LABS: Glucose, Whole Blood 154 mg/dL (60-115)
[2023-02-25 12:06] VITALS: BMI 29.9
--- NOTE | 2023-02-25 12:10 | MHC.CLN ---
PT WITH POOR PO X7 DAYS, REFUSING MEALS, LETHARGIC DIET RX: GROUND WITH ENSURE SUPPLEMENT IN PLACE-PT NOT ACCEPTING DISCUSSED WITH MD-TO START PPN DISCUSSED WITH PHARMACY RECOMMEND PPN AT 40ML/HR TO PROVIDE 490KCALS, 96G DEXTROSE, 41G PROTEIN REPLETE LYTES NEEDED SEE ALSO FULL CINICAL NUTRITION ASSESSMENT
--- NOTE | 2023-02-25 12:35 | P.PNIM_ITS ---
Subjective Subjective Date of Service: 02/25/23 Interval History: seen and examined this morning follow up for failure to thrive waxing/waning mental status plan for LP today eyes open when walking in room, answers some simple questions but does not follow commands unable to obtain ROS Physical Exam 2 Vital Signs: Vital Signs: Last Vital Signs Temp 96.9 F 02/25/23 07:41 Pulse 93 02/25/23 07:41 Resp 18 02/25/23 07:41 BP 172/77 H 02/25/23 07:41 Pulse Ox 92 02/25/23 07:41 O2 Del Method Room Air 02/25/23 07:41 BMI result Body Mass Index 29.9 Const: Other: awake, alert, eyes open, resting in bed comfortably unable to assess orientation Resp: Effort & Inspection: normal respiratory effort, able to speak in complete sentences, no respiratory distress and no use of accessory muscles Cardio: Rate: regular rate GI: Other: appears non-tender Inspection: No distended Palpation (GI): Soft to palpation Neuro: Other: awake, but unable to assess orientation and mostly not following commands Extrem: General: Yes no pedal edema Objective Data Active Medications Acetaminophen (Acetaminophen 325 Mg Tablet) 650 mg PO Q6H PRN PRN Reason: Pain, Mild (Pain Scale 1-3) Last Admin: 02/24/23 23:36 Dose: 650 mg Documented By: BEATRIZ Amlodipine Besylate (Amlodipine Besylate 10 Mg Tablet) 10 mg PO DAILY [facility]; Protocol Last Admin: 02/25/23 08:44 Dose: Not Given Documented By: RACHANA Non-Admin Reason: See Note Ascorbic Acid (Ascorbic Acid 500 Mg Tablet) 500 mg PO Q48H [facility] Last Admin: 02/23/23 15:26 Dose: 500 mg Documented By: SHAYLEE Aspirin (Aspirin Enteric Coated 81 Mg Tablet.) 81 mg PO DAILY [facility] Last Admin: 02/25/23 08:44 Dose: Not Given Documented By: RACHANA Non-Admin Reason: See Note Atorvastatin Calcium (Atorvastatin Calcium 80 Mg Tablet) 80 mg PO BEDTIME [facility] Last Admin: 02/24/23 18:40 Dose: Not Given Documented By: BEE Non-Admin Reason: unable to take po Benzonatate (Benzonatate 100 Mg Capsule) 100 mg PO TID PRN PRN Reason: Cough Carvedilol (Carvedilol 12.5 Mg Tablet) 12.5 mg PO BID [facility]; Protocol Last Admin: 02/25/23 08:44 Dose: Not Given Documented By: RACHANA Non-Admin Reason: See Note Dextrose (Dextrose 50 % 25 Gm/50 Ml Syringe) 25 gm IVPUSH Q15M PRN; Protocol PRN Reason: per Hypoglycemia Standing Ord. Docusate Sodium (Docusate Sodium 100 Mg Capsule) 100 mg PO DAILY PRN PRN Reason: Constipation Enoxaparin Sodium (Enoxaparin Sodium 40 Mg/0.4 Ml Syringe) 40 mg SUBCUT Q24H [facility] Last Admin: 02/24/23 18:39 Dose: 40 mg Documented By: BEE Escitalopram Oxalate (Escitalopram Oxalate 20 Mg Tablet) 20 mg PO DAILY [facility] Last Admin: 02/25/23 08:45 Dose: Not Given Documented By: RACHANA Non-Admin Reason: See Note Ferrous Sulfate (Ferrous Sulfate 324 Mg Tablet.) 324 mg PO DAILY [facility] Last Admin: 02/25/23 08:45 Dose: Not Given Documented By: RACHANA Non-Admin Reason: See Note Glucose (Glucose Gel 15 Gm Gel..Gram.) 15 gm PO Q15M PRN; Protocol PRN Reason: per Hypoglycemia Standing Ord. Hydralazine HCl (Hydralazine Hcl 10 Mg Tablet) 10 mg PO TID [facility]; Protocol Last Admin: 02/25/23 08:45 Dose: Not Given Documented By: RACHANA Non-Admin Reason: See Note Sodium Chloride (Ns) 1,000 mls @ 75 mls/hr IVCONT .[id number] [facility] Last Admin: 02/25/23 06:26 Dose: 75 mls/hr Documented By: BEATRIZ Insulin Glargine (Insulin Glargine,Hum.Rec.Anlog 100 Unit/Ml 10 Ml Vial) 18 unit SUBCUT BID [facility] Last Admin: 02/18/23 11:45 Dose: Not Given Documented By: EVELIO Non-Admin Reason: Patient Condition Contraindication Insulin Human Lispro (Insulin Lispro 100 Unit/Ml 3 Ml Vial) 0 unit SUBCUT QIDACHS [facility]; Protocol Last Admin: 02/25/23 11:33 Dose: Not Given Documented By: RACHANA Non-Admin Reason: See Note Comments: pt not on unit - getting LP done at this time. Pt also not eating or drinking at this time - MD informed Lidocaine (Lidocaine 4 % Patch Adh..Patch) 1 patch TRANSDERMA DAILY [facility] Last Admin: 02/25/23 08:45 Dose: Not Given Documented By: RACHANA Non-Admin Reason: See Note Lisinopril (Lisinopril 40 Mg Tablet) 40 mg PO DAILY [facility]; Protocol Last Admin: 02/25/23 08:45 Dose: Not Given Documented By: RACHANA Non-Admin Reason: See Note Pharmacy Consult (Consult Rx Parenteral Nutrition Ordering) 1 each MISCELLANE DAILY PRN PRN Reason: Consult order Polyethylene Glycol (Polyethylene Glycol 3350 17 Gm Powd.Pack) 17 gm PO DAILY PRN PRN Reason: constipation Last Admin: 02/15/23 17:10 Dose: 17 gm Documented By: МАРИЯ Sertraline HCl (Sertraline Hcl 50 Mg Tablet) 50 mg PO DAILY [facility] Last Admin: 02/25/23 08:45 Dose: Not Given Documented By: RACHANA Non-Admin Reason: See Note Sodium Chloride (0.9 % Sodium Chloride Flush 3 Ml Syringe) 3 ml IVFLUSH QSHIFT [facility] Last Admin: 02/25/23 07:42 Dose: Not Given Documented By: RACHANA Non-Admin Reason: See Note Vitamin D (Cholecalciferol (Vitamin D3) 25 Mcg Tablet) 25 mcg PO DAILY [facility] Last Admin: 02/25/23 08:45 Dose: Not Given Documented By: RACHANA Non-Admin Reason: See Note Labs 02/24/23 08:15 02/24/23 08:15 Labs: Laboratory Results - last 24 hr 02/24/23 02/24/23 02/24/23 11:50 16:05 19:46 POC Glucose 147 H 163 H Urine RBC 0-2 Urine WBC 0-5 Ur Squamous Epith Cells 0-2 Urine Bacteria None Seen Hyaline Casts 0-2 Urine Yeast Present 02/25/23 02/25/23 07:15 11:08 POC Glucose 172 H 154 H Urine RBC Urine WBC Ur Squamous Epith Cells Urine Bacteria Hyaline Casts Urine Yeast Assessment and Plan (1) Major neurocognitive disorder due to another medical condition: Status: Acute Plan 77yo F with HTN, HLD, DM2 who was found wandering the streets in her undergarments, brought in on [address] for failure to thrive/inability fo care for self. 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, check LP to r/o occult infectious process, although deemed to be less likely Start Seroquel 50 mg daily then gradually increase to 100mg daily TSH, B12, folate wnl, homocysteine level pending plan for LP today plan to start PPN as not eating regularly UTI [E coli/Strep veridians] completed 7d of ceftriaxone DM2 with hypoglycemia sliding scale Long acting insulin stopped as patient not eating regularly plan for PPN HTN, uncontrolled intermittently awake enough to take meds increase carvedilol, continue lisinopril + amlodipine hydralazine added HLD statin mood disorder escitalopram insomnia melatonin VTE ppx LMWH Attending Dr. Den azul STR when medically clear, bed at [facility] unit pending In my clinical judgment, the patient requires continued inpatient hospitalization for the following reasons: BP control, placement, lumbar puncture Quality Stroke Does the patient have a stroke diagnosis?: No VTE Prior VTE?: No VTE Risk Level:: Medical - moderate - high VTE Device Contraindication: Treatment Not Indicated VTE Drug Contraindication: N/A - Med Ordered
--- NOTE | 2023-02-25 13:08 | MHC.SLORD ---
Speech Language Pathology Order Status: Attempted to see patient at midday, patient away from room for LP procedure. Noted medical plan to provide TPN due to poor PO intake. CHIP CRUSHER OPERATOR will continue to follow.
[2023-02-25 13:54] LABS: Alanine Aminotransferase 52 U/L (0-31); Albumin Level 3.4 g/dL (3.5-5.0); Alkaline Phosphatase 125 U/L (39-117); Anion Gap 11 (12-20); Aspartate Amino Transferase 37 U/L (5-31); Bilirubin Total 0.4 mg/dL (0.0-1.0); Blood Urea Nitrogen 25 mg/dL (9-16); Calcium 9.3 mg/dL (8.4-10.2); Carbon Dioxide 27 mmol/L (22-29); Chloride 112 mmol/L (96-108); Creatinine Clr Calc Pharmacy 61.2; Estimated Glomerular Filt Rate > 60; Glucose Random 158 mg/dL (60-115); Magnesium 2.2 mg/dL (1.6-2.6); Phosphorus 2.9 mg/dL (2.7-4.5); Sodium 146 mmol/L (135-145); Total Protein 6.5 g/dL (6.5-8.0)
[2023-02-25 14:21] LABS: CSF Appearance Bloody; CSF Tube # 2
[2023-02-25 14:31] LABS: Glucose CSF 112 mg/dL; Total Protein CSF 78.1 mg/dL (15-45)
[2023-02-25 14:57] VITALS: BP 141/80; PULSE 78; RESP 18; TEMP 36.1; O2SAT 96
--- NOTE | 2023-02-25 14:57 | HO.RADPN ---
RADIOLOGY Narrative Narrative: Procedure Note Lumbar puncture Indications: AMS L3-4, 8 cc csf removed and sent for analysis. Parish FRENCH Interventional Radiology
--- NOTE | 2023-02-25 15:57 | PM.PSYCN ---
History of Present Illness Date of Service: 02/25/2023 Chief Complaint: Hypoglecemia, UTI, FTT Reason for Consult: f/u Requesting physician: Malaika Shaikh Discussed with referring provider: Yes Sources of Information: patient interviewed, chart reviewed and crisis/core team assessment reviewed HPI Narrative: Interim Hx: Pt continues to present with episodes of mutism, at times with eyes open but not communicating. Pt's oral intake has significantly decrease and now has parenteral nutrition. Pt has been followed up by neurology, pt had LP today awaiting results. On exam, pt does open eyes, minimally verbal, some resistance when trying to move right arm, some waxy flexibility noted on exam. We could do ativan challenge to r/o CATATONIA. Review of Systems Review of Systems Unable to obtain Yes all other systems are reviewed and are negative and Unobtainable due to mental status Constitutional: Reports as per HPI, Denies chills and Denies fever(s) Cardiovascular: Denies chest pain, Denies palpitations and Denies dyspnea Respiratory: Denies cough and Denies dyspnea Endocrine: Denies palpitations Diagnostics Vital Signs (24Hr): Vital Signs - 24 hr 02/24/23 19:16 02/24/23 23:20 02/25/23 04:00 Temperature 96.8 F 96.5 F L 96.6 F L Pulse Rate 78 88 74 Respiratory Rate 18 18 18 Blood Pressure 151/67 H 153/70 H 146/72 H Pulse Oximetry 95 96 95 Oxygen Delivery Method Room Air Room Air Room Air 02/25/23 07:41 02/25/23 14:57 Temperature 96.9 F 96.9 F Pulse Rate 93 78 Respiratory Rate 18 18 Blood Pressure 172/77 H 141/80 H Pulse Oximetry 92 96 Oxygen Delivery Method Room Air Room Air BMI result Body Mass Index 29.9 Labs 02/24/23 08:15 02/25/23 13:33 Labs: Laboratory Results - last 48 hr 02/23/23 02/23/23 02/24/23 16:12 19: 07:14 WBC RBC Hgb Hct MCV MCH MCHC RDW Plt Count MPV Absolute Nucleated RBC Nucleated RBC % (auto) PT INR Sodium Potassium Chloride Carbon Dioxide Anion Gap BUN Creatinine Estim Creat Clear Calc Estimated GFR POC Glucose 221 H 135 H 166 H Random Glucose Calcium Phosphorus Magnesium Total Bilirubin AST ALT Alkaline Phosphatase Total Protein Albumin Vitamin B12 Folate TSH Urine Color Urine Appearance Urine pH Ur Specific [place] Urine Protein Urine Glucose (UA) Urine Ketones Urine Blood Urine Nitrite Ur Leukocyte Esterase Urine RBC Urine WBC Ur Squamous Epith Cells Urine Bacteria Hyaline Casts Urine Yeast CSF Tube Number CSF Appearance (b) CSF Glucose CSF Total Protein 02/24/23 02/24/23 02/24/23 08:15 11:10 11:50 WBC 11.2 H RBC 4.71 Hgb 12.5 Hct 39.0 MCV 82.8 MCH 26.5 L MCHC 32.1 RDW 15.9 Plt Count 338 MPV 10.9 Absolute Nucleated RBC 0.000 Nucleated RBC % (auto) 0.0 PT 11.7 INR 1.0 Sodium 145 Potassium 4.1 Chloride 112 H Carbon Dioxide 25 Anion Gap 12 BUN 29 H Creatinine 0.77 Estim Creat Clear Calc 54.8 Estimated GFR > 60 POC Glucose 215 H Random Glucose 174 H Calcium 10.0 Phosphorus Magnesium Total Bilirubin AST ALT Alkaline Phosphatase Total Protein Albumin Vitamin B12 1036 H Folate 10.4 TSH 0.93 Urine Color Yellow Urine Appearance Clear Urine pH 5.5 Ur Specific [place] 1.025 Urine Protein Trace Urine Glucose (UA) Negative Urine Ketones Trace Urine Blood Negative Urine Nitrite Negative Ur Leukocyte Esterase Trace H Urine RBC 0-2 Urine WBC 0-5 Ur Squamous Epith Cells 0-2 Urine Bacteria None Seen Hyaline Casts 0-2 Urine Yeast Present CSF Tube Number CSF Appearance (b) CSF Glucose CSF Total Protein 02/24/23 02/24/23 02/25/23 16:05 19:46 07:15 WBC RBC Hgb Hct MCV MCH MCHC RDW Plt Count MPV Absolute Nucleated RBC Nucleated RBC % (auto) PT INR Sodium Potassium Chloride Carbon Dioxide Anion Gap BUN Creatinine Estim Creat Clear Calc Estimated GFR POC Glucose 147 H 163 H 172 H Random Glucose Calcium Phosphorus Magnesium Total Bilirubin AST ALT Alkaline Phosphatase Total Protein Albumin Vitamin B12 Folate TSH Urine Color Urine Appearance Urine pH Ur Specific [place] Urine Protein Urine Glucose (UA) Urine Ketones Urine Blood Urine Nitrite Ur Leukocyte Esterase Urine RBC Urine WBC Ur Squamous Epith Cells Urine Bacteria Hyaline Casts Urine Yeast CSF Tube Number CSF Appearance (b) CSF Glucose CSF Total Protein 02/25/23 02/25/23 02/25/23 11:08 13:10 13:33 WBC RBC Hgb Hct MCV MCH MCHC RDW Plt Count MPV Absolute Nucleated RBC Nucleated RBC % (auto) PT INR Sodium 146 H Potassium 4.0 Chloride 112 H Carbon Dioxide 27 Anion Gap 11 L BUN 25 H Creatinine 0.69 Estim Creat Clear Calc 61.2 Estimated GFR > 60 POC Glucose 154 H Random Glucose 158 H Calcium 9.3 D Phosphorus 2.9 Magnesium 2.2 Total Bilirubin 0.4 AST 37 H ALT 52 H Alkaline Phosphatase 125 H Total Protein 6.5 Albumin 3.4 L Vitamin B12 Folate TSH Urine Color Urine Appearance Urine pH Ur Specific [place] Urine Protein Urine Glucose (UA) Urine Ketones Urine Blood Urine Nitrite Ur Leukocyte Esterase Urine RBC Urine WBC Ur Squamous Epith Cells Urine Bacteria Hyaline Casts Urine Yeast CSF Tube Number 2 CSF Appearance (b) Bloody CSF Glucose 112 CSF Total Protein 78.1 H Imaging Radiology Impressions: ITS Impressions Head CT 02/08/23 14:33 IMPRESSION: Normal CT scan of the head. Chest X-Ray 02/08/23 14:35 IMPRESSION: Unremarkable chest examination. Head CT 02/16/23 16:57 IMPRESSION: 1. Unchanged small hypodensity in the mid to right shreya. Recommend further characterization with an MRI of the brain. 2. Moderate chronic microangiopathy and generalized cerebral volume loss. Brain MRI 02/17/23 15:17 IMPRESSION: 1. There are no acute bleeds or territorial infarcts. No masses are demonstrated. 2. There are chronic microvascular ischemic changes and there is diffuse volume loss. There appear to be sequelae of a lacunar infarct in the right ventral shreya, corresponding to findings on the CT scan. Mental Status Exam Mental Status Exam Narrative: In bed, opens eyes briefly when asked to do so. Mostly mute. Medications Medications Current Medications Acetaminophen (Acetaminophen 325 Mg Tablet) 650 mg PO Q6H PRN PRN Reason: Pain, Mild (Pain Scale 1-3) Last Admin: 02/24/23 23:36 Dose: 650 mg Amlodipine Besylate (Amlodipine Besylate 10 Mg Tablet) 10 mg PO DAILY [facility]; Protocol Last Admin: 02/25/23 08:44 Dose: Not Given Ascorbic Acid (Ascorbic Acid 500 Mg Tablet) 500 mg PO Q48H [facility] Last Admin: 02/25/23 14:52 Dose: Not Given Aspirin (Aspirin Enteric Coated 81 Mg Tablet.) 81 mg PO DAILY [facility] Last Admin: 02/25/23 08:44 Dose: Not Given Atorvastatin Calcium (Atorvastatin Calcium 80 Mg Tablet) 80 mg PO BEDTIME [facility] Last Admin: 02/24/23 18:40 Dose: Not Given Benzonatate (Benzonatate 100 Mg Capsule) 100 mg PO TID PRN PRN Reason: Cough Carvedilol (Carvedilol 12.5 Mg Tablet) 12.5 mg PO BID [facility]; Protocol Last Admin: 02/25/23 08:44 Dose: Not Given Dextrose (Dextrose 50 % 25 Gm/50 Ml Syringe) 25 gm IVPUSH Q15M PRN; Protocol PRN Reason: per Hypoglycemia Standing Ord. Docusate Sodium (Docusate Sodium 100 Mg Capsule) 100 mg PO DAILY PRN PRN Reason: Constipation Enoxaparin Sodium (Enoxaparin Sodium 40 Mg/0.4 Ml Syringe) 40 mg SUBCUT Q24H [facility] Last Admin: 02/24/23 18:39 Dose: 40 mg Escitalopram Oxalate (Escitalopram Oxalate 20 Mg Tablet) 20 mg PO DAILY [facility] Last Admin: 02/25/23 08:45 Dose: Not Given Ferrous Sulfate (Ferrous Sulfate 324 Mg Tablet.Dr) 324 mg PO DAILY [facility] Last Admin: 02/25/23 08:45 Dose: Not Given Glucose (Glucose Gel 15 Gm Gel..Gram.) 15 gm PO Q15M PRN; Protocol PRN Reason: per Hypoglycemia Standing Ord. Hydralazine HCl (Hydralazine Hcl 10 Mg Tablet) 10 mg PO TID [facility]; Protocol Last Admin: 02/25/23 14:52 Dose: Not Given Nutrition (Parenteral) (Parenteral Nutrition) 960 mls @ 40 mls/hr IV .Q24H [facility]; Protocol Stop: 02/26/23 20:59 Insulin Human Lispro (Insulin Lispro 100 Unit/Ml 3 Ml Vial) 0 unit SUBCUT QIDACHS [facility]; Protocol Last Admin: 02/25/23 11:33 Dose: Not Given Lidocaine (Lidocaine 4 % Patch Adh..Patch) 1 patch TRANSDERMA DAILY [facility] Last Admin: 02/25/23 08:45 Dose: Not Given Lisinopril (Lisinopril 40 Mg Tablet) 40 mg PO DAILY [facility]; Protocol Last Admin: 02/25/23 08:45 Dose: Not Given Pharmacy Consult (Consult Rx Parenteral Nutrition Ordering) 1 each MISCELLANE DAILY PRN PRN Reason: Consult order Polyethylene Glycol (Polyethylene Glycol 3350 17 Gm Powd.Pack) 17 gm PO DAILY PRN PRN Reason: constipation Last Admin: 02/15/23 17:10 Dose: 17 gm Sodium Chloride (0.9 % Sodium Chloride Flush 3 Ml Syringe) 3 ml IVFLUSH QSHIFT [facility] Last Admin: 02/25/23 13:03 Dose: Not Given Vitamin D (Cholecalciferol (Vitamin D3) 25 Mcg Tablet) 25 mcg PO DAILY [facility] Last Admin: 02/25/23 08:45 Dose: Not Given Allergies Allergies Allergy/AdvReac Type Severity Reaction Status Date / Time No Known Allergies Allergy Verified 02/08/23 13:36 Assessment & Plan Assessment & Plan (1) Delirium due to another medical condition: Status: Acute Code(s): F05 - Delirium due to known physiological condition (2) Major neurocognitive disorder due to another medical condition: Status: Acute Code(s): F02.80 - Dementia in other diseases classified elsewhere, unspecified severity, without behavioral disturbance, psychotic disturbance, mood disturbance, and anxiety Plan 77yo F with HTN, HLD, DM2 who was found wandering the streets in her undergarments, brought in on [address] for failure to thrive/inability fo care for self. Pt initially presented with classic symptoms of delirium including poor attention, increase confusion and psychosis. These symptoms resolved after tx for UTI. Pt was initially seen on 02/15 when she appeared to present at baseline- which does show cognitive impairments. On 02/16 pt presented with eyes close, mute, slowly opening her eyes and finally today more spotaneous speech. MRI showed old infart of right side of the shreya. 02/25--> pt continues to present with episodes of mutism, minimally verbal, significant decrease in oral intake. Waxy flexibility noted on exam, We can do ativan challenge r/o CATATONIA. she has been afebrile. Will given one time dose of ativan 1mg IV and reassess in about 30-40 minutes. Total time managing care of this patient today ____ minutes.
[2023-02-25 16:06] LABS: Cryptococcus neoformans/gattii Not Detected (Not Detect.); Enterovirus Not Detected (Not Detect.); Escherichia coli K1 Not Detected (Not Detect.); Haemophilus influenzae Not Detected (Not Detect.); Herpes simplex virus 1 Not Detected (Not Detect.); Herpes simplex virus 2 Not Detected (Not Detect.); Human herpesvirus 6 Not Detected (Not Detect.); Human parechovirus Not Detected (Not Detect.); Listeria monocytogenes Not Detected (Not Detect.); Neisseria meningitidis Not Detected (Not Detect.); Streptococcus agalactiae Not Detected (Not Detect.); Streptococcus pneumoniae Not Detected (Not Detect.); Varicella zoster virus Not Detected (Not Detect.)
[2023-02-25 16:08] LABS: Glucose, Whole Blood 159 mg/dL (60-115)
[2023-02-25] MEDS: LORazepam 2 MG/ML VIAL 1 MG IVPUSH (16:32)
[2023-02-25 16:37] LABS: Appearance CSF BLOODY; CSF Tube # 4; Color CSF PINK
[2023-02-25 16:38] LABS: Red Blood Cell CSF 7750 MM*3; White Blood Cell CSF 4 MM*3
[2023-02-25 16:39] LABS: CSF Monos 2 %; Lymphocytes CSF 28 %; Neutrophils CSF 70 %
[2023-02-25] MEDS: Lactated Ringers 1,000 ML 100 ML IVCONT (16:55)
[2023-02-25 19:32] VITALS: BP 164/90; PULSE 68; RESP 18; TEMP 36.4; O2SAT 97
[2023-02-25 20:48] LABS: Glucose, Whole Blood 130 mg/dL (60-115)
[2023-02-25] MEDS: Enoxaparin Sodium 40 MG/0.4 ML SYRINGE SUBCUT (22:29)
[2023-02-25] MEDS: Parenteral Nutrition 960 ML 40 ML IV (22:31)
[2023-02-26] VITALS (9 sets, daily range): BP systolic 132–192; BP diastolic 64–94; PULSE 73–101; RESP 16–19; TEMP 36–36.6; O2SAT 95–98
[2023-02-26] MEDS: Lactated Ringers 1,000 ML 100 ML IVCONT ×3 (03:05→23:51)
--- NOTE | 2023-02-26 06:26 | PC.NURSE ---
Patient drowsy and continues to sleep. Unable to take HS meds , BP elevated 178/88 . Hospitalist updated.
[2023-02-26 07:36] LABS: Alanine Aminotransferase 46 U/L (0-31); Albumin Level 3.2 g/dL (3.5-5.0); Alkaline Phosphatase 121 U/L (39-117); Anion Gap 11 (12-20); Aspartate Amino Transferase 30 U/L (5-31); Bilirubin Total 0.3 mg/dL (0.0-1.0); Blood Urea Nitrogen 23 mg/dL (9-16); Calcium 9.1 mg/dL (8.4-10.2); Carbon Dioxide 24 mmol/L (22-29); Chloride 110 mmol/L (96-108); Creatinine Clr Calc Pharmacy 68.1; Estimated Glomerular Filt Rate > 60; Glucose Random 203 mg/dL (60-115); Phosphorus 2.5 mg/dL (2.7-4.5); Potassium 3.6 mmol/L (3.3-5.1); Sodium 141 mmol/L (135-145); Total Protein 6.1 g/dL (6.5-8.0)
[2023-02-26 07:46] LABS: Glucose, Whole Blood 188 mg/dL (60-115)
[2023-02-26] MEDS: Insulin Lispro 100 UNIT/ML 3 ML VIAL SUBCUT ×4 (07:53→20:56)
[2023-02-26] MEDS: Ferrous Sulfate 324 MG TABLET.DR PO (07:54)
[2023-02-26] MEDS: Aspirin Enteric Coated 81 MG TABLET.DR PO (07:54)
[2023-02-26] MEDS: amLODIPine Besylate 10 MG TABLET PO (07:54)
[2023-02-26] MEDS: Cholecalciferol (Vitamin D3) 25 MCG TABLET PO (07:54)
[2023-02-26] MEDS: carvediloL 12.5 MG TABLET PO (07:54)
[2023-02-26] MEDS: lisinopriL 40 MG TABLET PO (07:54)
[2023-02-26] MEDS: Escitalopram Oxalate 20 MG TABLET PO (07:54)
[2023-02-26] MEDS: hydrALAZINE HCl 10 MG TABLET PO ×2 (07:55→15:20)
--- NOTE | 2023-02-26 11:03 | MHC.CLN ---
Addendum entered by Sarah Beyer RD 02/26/23 11:57: [id number]. OK TO ADVANCE PPN TODAY TO MAX GOAL RATE OF 60 ML PER HOUR PLUS 64 G LIPIDS. SEE ORIGINAL NOTE BELOW. Original Note: F/U PPN STARTED 02/25. CONTINUES WITH VERY POOR PO INTAKE. DIET=GROUND. DISCONTINUED ENSURE BID SINCE PATIENT NOT ACCEPTING. REVIEWED LABS. DISCUSSED WITH PHARMACY. RECOMMEND INCREASE PPN TODAY TO 60 ML/HOUR. PROVIDES 734 KCALS, 144 G DEXTROSE, 61 G PROTEIN (1.2 G/KG CMW. REPLETE LYTES NEEDED. CHECK TRIGLYCERIDES. IF TRIGLYCERIDES NORMAL, RECOMMEND INCREASE PPN TO MAX GOAL RATE TODAY (02/26). PPN AT MAX GOAL RATE 60 ML PER HOUR, ADD 64 G LIPIDS. PROVIDES: 144 G DEXTROSE, 61 G PROTEIN, 1374 TOTAL KCALS (27 KCALS/KG CMW). REPLETE LYTES NEEDED. RD TO FOLLOW FOR PPN NEEDS, DIET TOLERANCE AND INTAKE.
[2023-02-26 11:16] LABS: Glucose, Whole Blood 211 mg/dL (60-115)
[2023-02-26 11:29] LABS: Triglycerides 177 mg/dL (<150)
[2023-02-26 12:48] LABS: CMV DNA PCR Qn Source BLOOD; CMV DNA Qn PCR NOT DETECTED Log IU/mL (NOT DETECTED); CMV DNA Qn Real Time PCR NOT DETECTED (NOT DETECTED)
--- NOTE | 2023-02-26 13:02 | MHC.CM.PN ---
Addendum entered by Pau Foss 02/26/23 13:41: A message has been received from [facility]. Patients with G-tubes go to the LTC unit. Plan to touch base after the holiday weekend Original Note: A clinical update has been sent to [facility]. They have been notified that patient will not discharge today or tomorrow. [facility] can not accept dc over the weekend+ Holiday. DP [facility] via BLS when medically cleared.
--- NOTE | 2023-02-26 13:39 | MHC.SL.SWA ---
Speech Pathologist Impression: Risk of aspiration, oropharyngeal dysphagia Risk of Aspiration Due to: Neurological Condition Poor PO Intake Reduced Cognition Dysphasia Diet Status: No changes at this time Liquid Consistency and Strategies for Safe Swallow: Liquid Intake Recommendation: Thin Liquid Intake Strategies: Small Sips No Straws Solid Food Consistency: Dietary Recommendations: Grnd/Mech Altered (NDD2) Additional Modifications to Solid Foods: Avoid mixed consistencies. Alternate liquids and solids. Liquids by controlled cup sip or tsp. Patient requires one to one feeding. Do not attempt if patient is excessively lethargic or not engaged in meal. Patient may benefit from smaller more frequent meals to encourage intake. Discontinue if patient evidences signs of aspiration. Oral Medication Intake: Crushed with Puree Please contact the pharmacy regarding appropriate crushable or liquid drug formulations that are available whenever modified delivery is recommended. Compensatory Strategies and Precautions to be Taken for Safe Swallow: Sitting Upright (90 deg) No Straw Small Bites and Sips Alternate Liquids/Solids Rate of Ingestion Change Supervision While Eating and Drinking for Safe Swallow: Total Supervision (1:1) Foods to Avoid: Mixed consistencies and tough, hard, difficult to chew solids. Add gravy and blend well. Swallowing Recommended Treatments: Compens. Strategy Educat. Recommendation for Speech: Inpatient Speech Therapy Roofing Machine Operator Clinican/Clinical Fellow: No Supervisory Statement: I have reviewed and agree with the student/clinical fellow's documentation: N/A Speech Language Pathologist: Hillary Alvarez M.A., CCC-LABORATORY TECHNOLOGY TEACHER
--- NOTE | 2023-02-26 15:57 | P.PNIM_ITS ---
Subjective Subjective Date of Service: 02/26/23 Interval History: seen and examined this morning follow up for failure to thrive patient awake and able to take medications, still not answering questions, but is following some simple commands unable to obtain full ROS Physical Exam 2 Vital Signs: Vital Signs: Last Vital Signs Temp 96.8 F 02/26/23 14:53 Pulse 75 02/26/23 14:53 Resp 18 02/26/23 14:53 BP 173/71 H 02/26/23 14:53 Pulse Ox 96 02/26/23 14:53 O2 Del Method Room Air 02/26/23 14:53 BMI result Body Mass Index 29.9 Const: Other: awake, alert, eyes open, resting in bed comfortably unable to assess orientation General: cooperative, comfortable, no acute distress, alert and awake N utritional Appearance: overweight Resp: Effort & Inspection: normal respiratory effort, no respiratory distress and no use of accessory muscles Cardio: Rate: regular rate GI: Other: appears non-tender Inspection: No distended Palpation (GI): Soft to palpation and nontender Neuro: Other: awake, but unable to assess orientation, following some simple commands Extrem: General: Yes no pedal edema Objective Data Active Medications Acetaminophen (Acetaminophen 325 Mg Tablet) 650 mg PO Q6H PRN PRN Reason: Pain, Mild (Pain Scale 1-3) Last Admin: 02/24/23 23:36 Dose: 650 mg Documented By: BEATRIZ Amlodipine Besylate (Amlodipine Besylate 10 Mg Tablet) 10 mg PO DAILY [facility]; Protocol Last Admin: 02/26/23 07:54 Dose: 10 mg Documented By: EPIFANIO Ascorbic Acid (Ascorbic Acid 500 Mg Tablet) 500 mg PO Q48H [facility] Last Admin: 02/25/23 14:52 Dose: Not Given Documented By: RACHANA Non-Admin Reason: Patient Refused Aspirin (Aspirin Enteric Coated 81 Mg Tablet.) 81 mg PO DAILY [facility] Last Admin: 02/26/23 07:54 Dose: 81 mg Documented By: EPIFANIO Atorvastatin Calcium (Atorvastatin Calcium 80 Mg Tablet) 80 mg PO BEDTIME [facility] Last Admin: 02/25/23 20:20 Dose: Not Given Documented By: ANTOIC Non-Admin Reason: Patient Asleep Benzonatate (Benzonatate 100 Mg Capsule) 100 mg PO TID PRN PRN Reason: Cough Carvedilol (Carvedilol 12.5 Mg Tablet) 12.5 mg PO BID [facility]; Protocol Last Admin: 02/26/23 07:54 Dose: 12.5 mg Documented By: EPIFANIO Dextrose (Dextrose 50 % 25 Gm/50 Ml Syringe) 25 gm IVPUSH Q15M PRN; Protocol PRN Reason: per Hypoglycemia Standing Ord. Docusate Sodium (Docusate Sodium 100 Mg Capsule) 100 mg PO DAILY PRN PRN Reason: Constipation Enoxaparin Sodium (Enoxaparin Sodium 40 Mg/0.4 Ml Syringe) 40 mg SUBCUT Q24H [facility] Last Admin: 02/25/23 22:29 Dose: 40 mg Documented By: ADELE Escitalopram Oxalate (Escitalopram Oxalate 20 Mg Tablet) 20 mg PO DAILY [facility] Last Admin: 02/26/23 07:54 Dose: 20 mg Documented By: EPIFANIO Ferrous Sulfate (Ferrous Sulfate 324 Mg Tablet.Dr) 324 mg PO DAILY [facility] Last Admin: 02/26/23 07:54 Dose: 324 mg Documented By: EPIFANIO Glucose (Glucose Gel 15 Gm Gel..Gram.) 15 gm PO Q15M PRN; Protocol PRN Reason: per Hypoglycemia Standing Ord. Hydralazine HCl (Hydralazine Hcl 10 Mg Tablet) 10 mg PO TID [facility]; Protocol Last Admin: 02/26/23 15:20 Dose: 10 mg Documented By: EPIFANIO Nutrition (Parenteral) (Parenteral Nutrition) 960 mls @ 40 mls/hr IV .Q24H [facility]; Protocol Stop: 02/26/23 20:59 Last Admin: 02/25/23 22:31 Dose: 40 mls/hr Documented By: ADELE Lactated Ringer's (Lr) 1,000 mls @ 100 mls/hr IVCONT .Q10H [facility] Last Admin: 02/26/23 14:17 Dose: 100 mls/hr Documented By: EPIFANIO Nutrition (Parenteral) (Parenteral Nutrition) 1,440 mls @ 60 mls/hr IV .Q24H [facility]; Protocol Stop: 02/27/23 20:59 Insulin Human Lispro (Insulin Lispro 100 Unit/Ml 3 Ml Vial) 0 unit SUBCUT QIDACHS [facility]; Protocol Last Admin: 02/26/23 11:43 Dose: 4 unit Documented By: EPIFANIO Lidocaine (Lidocaine 4 % Patch Adh..Patch) 1 patch TRANSDERMA DAILY [facility] Last Admin: 02/26/23 08:01 Dose: Not Given Documented By: EPIFANIO Non-Admin Reason: Patient Refused Lisinopril (Lisinopril 40 Mg Tablet) 40 mg PO DAILY [facility]; Protocol Last Admin: 02/26/23 07:54 Dose: 40 mg Documented By: EPIFANIO Pharmacy Consult (Consult Rx Parenteral Nutrition Ordering) 1 each MISCELLANE DAILY PRN PRN Reason: Consult order Polyethylene Glycol (Polyethylene Glycol 3350 17 Gm Powd.Pack) 17 gm PO DAILY PRN PRN Reason: constipation Last Admin: 02/15/23 17:10 Dose: 17 gm Documented By: МАРИЯ Sodium Chloride (0.9 % Sodium Chloride Flush 3 Ml Syringe) 3 ml IVFLUSH QSHIFT [facility] Last Admin: 02/26/23 15:20 Dose: Not Given Documented By: EPIFANIO Non-Admin Reason: IV Running Vitamin D (Cholecalciferol (Vitamin D3) 25 Mcg Tablet) 25 mcg PO DAILY [facility] Last Admin: 02/26/23 07:54 Dose: 25 mcg Documented By: EPIFANIO Labs 02/24/23 08:15 02/26/23 06:25 Labs: Laboratory Results - last 24 hr 02/24/23 02/25/23 02/25/23 09:22 13:10 15:56 Hold Purple Top Anion Gap Estim Creat Clear Calc Estimated GFR POC Glucose 159 H Random Glucose Calcium Phosphorus Magnesium Total Bilirubin AST ALT Alkaline Phosphatase Total Protein Albumin Triglycerides CSF Tube Number 4 CSF Volume 1.0 CSF Appearance BLOODY CSF Color PINK CSF WBC 4 CSF RBC 7750 CSF Neutrophils 70 CSF Lymphocytes 28 CSF Monocytes % 2 CSF C.neoform/gat PCR Not Detected CSF CMV DNA (PCR) Not Detected CSF Enterovirus (PCR) Not Detected CSF E. coli K1 (PCR) Not Detected CSF H. influenzae (PCR) Not Detected CSF HSV I (PCR) Not Detected CSF HSV II (PCR) Not Detected CSF HHV 6 (PCR) Not Detected CSF L.monocytogenes PCR Not Detected CSF N. meningitidis PCR Not Detected CSF Parechovirus (PCR) Not Detected CSF S. agalactiae (PCR) Not Detected CSF S. pneumoniae (PCR) Not Detected CSF VZV (PCR) Not Detected CMV Specimen Source BLOOD CMV Qnt PCR IU/mL NOT DETECTED CMV Qnt PCR log IU/mL NOT DETECTED 02/25/23 02/26/23 02/26/23 20:37 06:25 07:15 Hold Purple Top SEE NOTE Anion Gap 11 L Estim Creat Clear Calc 68.1 Estimated GFR > 60 POC Glucose 130 H 188 H Random Glucose 203 H Calcium 9.1 Phosphorus 2.5 L Magnesium 2.0 Total Bilirubin 0.3 AST 30 ALT 46 H Alkaline Phosphatase 121 H Total Protein 6.1 L Albumin 3.2 L Triglycerides 177 H CSF Tube Number CSF Volume CSF Appearance CSF Color CSF WBC CSF RBC CSF Neutrophils CSF Lymphocytes CSF Monocytes % CSF C.neoform/gat PCR CSF CMV DNA (PCR) CSF Enterovirus (PCR) CSF E. coli K1 (PCR) CSF H. influenzae (PCR) CSF HSV I (PCR) CSF HSV II (PCR) CSF HHV 6 (PCR) CSF L.monocytogenes PCR CSF N. meningitidis PCR CSF Parechovirus (PCR) CSF S. agalactiae (PCR) CSF S. pneumoniae (PCR) CSF VZV (PCR) CMV Specimen Source CMV Qnt PCR IU/mL CMV Qnt PCR log IU/mL 02/26/23 11:01 Hold Purple Top Anion Gap Estim Creat Clear Calc Estimated GFR POC Glucose 211 H Random Glucose Calcium Phosphorus Magnesium Total Bilirubin AST ALT Alkaline Phosphatase Total Protein Albumin Triglycerides CSF Tube Number CSF Volume CSF Appearance CSF Color CSF WBC CSF RBC CSF Neutrophils CSF Lymphocytes CSF Monocytes % CSF C.neoform/gat PCR CSF CMV DNA (PCR) CSF Enterovirus (PCR) CSF E. coli K1 (PCR) CSF H. influenzae (PCR) CSF HSV I (PCR) CSF HSV II (PCR) CSF HHV 6 (PCR) CSF L.monocytogenes PCR CSF N. meningitidis PCR CSF Parechovirus (PCR) CSF S. agalactiae (PCR) CSF S. pneumoniae (PCR) CSF VZV (PCR) CMV Specimen Source CMV Qnt PCR IU/mL CMV Qnt PCR log IU/mL Microbiology Microbiology Results: Microbiology 02/25/23 13:10 Gram Stain - Final Cerebrospinal Fluid CSF Examination - Final Fluid Description - Final CSF Culture - Preliminary No growth after 1 day Assessment and Plan (1) Major neurocognitive disorder due to another medical condition: Status: Acute Plan 77yo F with HTN, HLD, DM2 who was found wandering the streets in her undergarments, brought in on [address] for failure to thrive/inability fo care for self. 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, check LP to r/o occult infectious process, although deemed to be less likely Start Seroquel 50 mg daily then gradually increase to 100mg daily but already on lexapro at baseline TSH, B12, folate wnl, homocysteine level pending LP negative for infection, elevated protein due to RBCs, discussed with neuro plan to start PPN as not eating regularly, began discussion re: feeding tube with , he wants all children to be involved with decision consider ativan challenge to rule out catatonia UTI [E coli/Strep veridians] completed 7d of ceftriaxone DM2 with hypoglycemia sliding scale Long acting insulin stopped as patient not eating regularly plan for PPN HTN, uncontrolled intermittently awake enough to take meds continue current meds carvedilol, continue lisinopril + amlodipine hydralazine HLD statin mood disorder escitalopram insomnia melatonin VTE ppx LMWH Attending Dr. Den azul STR when medically clear, bed at [facility] pending In my clinical judgment, the patient requires continued inpatient hospitalization for the following reasons: BP control, placement Quality Stroke Does the patient have a stroke diagnosis?: No VTE Prior VTE?: No VTE Risk Level:: Medical - moderate - high VTE Device Contraindication: Treatment Not Indicated VTE Drug Contraindication: N/A - Med Ordered
[2023-02-26 16:20] LABS: Glucose, Whole Blood 184 mg/dL (60-115)
[2023-02-26 18:33] LABS: Homocysteine 7.6 umol/L (<10.4)
[2023-02-26 20:03] LABS: Glucose, Whole Blood 196 mg/dL (60-115)
[2023-02-26] MEDS: Enoxaparin Sodium 40 MG/0.4 ML SYRINGE SUBCUT (20:56)
[2023-02-26] MEDS: Parenteral Nutrition 1,440 ML 60 ML IV (21:01)
--- NOTE | 2023-02-26 23:23 | HO.PSYCHPN ---
Subjective Subjective Date of Service: 02/26/23 Reason For Visit: Hypoglecemia, UTI, FTT Interim History: Interim Hx: Pt is awake, minimally verbal but more so than yesterday. She reports not feeling well, but unable to explain in what way. Delayed in response and minimally verbal. We can try tomorrow during the day another ativan challenge. If not can do trial of wellbutrin XL 150mg po daily. I would not add another SSRI due to risk of serotonin overload. Keep lexapro for now. Diagnostics Vital Signs (24Hr): Vital Signs - 24 hr 02/26/23 00:00 02/26/23 03:21 02/26/23 07:06 Temperature 97 F 97.9 F Pulse Rate 80 101 H 101 H Respiratory Rate 16 18 Blood Pressure 160/85 H 178/88 H 178/88 H Pulse Oximetry 95 98 98 Oxygen Delivery Method Room Air Room Air 02/26/23 07:10 02/26/23 07:58 02/26/23 14:53 Temperature 96.8 F 96.8 F Pulse Rate 83 75 Respiratory Rate 18 18 Blood Pressure 184/94 H 132/64 173/71 H Pulse Oximetry 96 96 Oxygen Delivery Method Room Air Room Air 02/26/23 17:50 02/26/23 19:24 Temperature 96.8 F Pulse Rate 73 76 Respiratory Rate 18 Blood Pressure 165/77 H 192/76 H Pulse Oximetry 97 Oxygen Delivery Method Room Air BMI result Body Mass Index 29.9 Labs 02/24/23 08:15 02/27/23 06:31 Labs: Laboratory Results - last 48 hr 02/24/23 02/24/23 02/25/23 08:15 09:22 07:15 Hold Purple Top Sodium Potassium Chloride Carbon Dioxide Anion Gap BUN Creatinine Estim Creat Clear Calc Estimated GFR POC Glucose 172 H Random Glucose Calcium Phosphorus Magnesium Total Bilirubin AST ALT Alkaline Phosphatase Total Protein Albumin Triglycerides Homocysteine 7.6 CSF Tube Number CSF Volume CSF Appearance CSF Color CSF WBC CSF RBC CSF Neutrophils CSF Lymphocytes CSF Monocytes % CSF Appearance (b) CSF Glucose CSF Total Protein CSF C.neoform/gat PCR CSF CMV DNA (PCR) CSF Enterovirus (PCR) CSF E. coli K1 (PCR) CSF H. influenzae (PCR) CSF HSV I (PCR) CSF HSV II (PCR) CSF HHV 6 (PCR) CSF L.monocytogenes PCR CSF N. meningitidis PCR CSF Parechovirus (PCR) CSF S. agalactiae (PCR) CSF S. pneumoniae (PCR) CSF VZV (PCR) CMV Specimen Source BLOOD CMV Qnt PCR IU/mL NOT DETECTED CMV Qnt PCR log IU/mL NOT DETECTED 02/25/23 02/25/23 02/25/23 11:08 13:10 13:10 Hold Purple Top Sodium Potassium Chloride Carbon Dioxide Anion Gap BUN Creatinine Estim Creat Clear Calc Estimated GFR POC Glucose 154 H Random Glucose Calcium Phosphorus Magnesium Total Bilirubin AST ALT Alkaline Phosphatase Total Protein Albumin Triglycerides Homocysteine CSF Tube Number 2 4 CSF Volume 1.0 CSF Appearance BLOODY CSF Color PINK CSF WBC 4 CSF RBC 7750 CSF Neutrophils 70 CSF Lymphocytes 28 CSF Monocytes % 2 CSF Appearance (b) Bloody CSF Glucose 112 CSF Total Protein 78.1 H CSF C.neoform/gat PCR Not Detected CSF CMV DNA (PCR) Not Detected CSF Enterovirus (PCR) Not Detected CSF E. coli K1 (PCR) Not Detected CSF H. influenzae (PCR) Not Detected CSF HSV I (PCR) Not Detected CSF HSV II (PCR) Not Detected CSF HHV 6 (PCR) Not Detected CSF L.monocytogenes PCR Not Detected CSF N. meningitidis PCR Not Detected CSF Parechovirus (PCR) Not Detected CSF S. agalactiae (PCR) Not Detected CSF S. pneumoniae (PCR) Not Detected CSF VZV (PCR) Not Detected CMV Specimen Source CMV Qnt PCR IU/mL CMV Qnt PCR log IU/mL 02/25/23 02/25/23 02/25/23 13:33 15:56 20:37 Hold Purple Top Sodium 146 H Potassium 4.0 Chloride 112 H Carbon Dioxide 27 Anion Gap 11 L BUN 25 H Creatinine 0.69 Estim Creat Clear Calc 61.2 Estimated GFR > 60 POC Glucose 159 H 130 H Random Glucose 158 H Calcium 9.3 D Phosphorus 2.9 Magnesium 2.2 Total Bilirubin 0.4 AST 37 H ALT 52 H Alkaline Phosphatase 125 H Total Protein 6.5 Albumin 3.4 L Triglycerides Homocysteine CSF Tube Number CSF Volume CSF Appearance CSF Color CSF WBC CSF RBC CSF Neutrophils CSF Lymphocytes CSF Monocytes % CSF Appearance (b) CSF Glucose CSF Total Protein CSF C.neoform/gat PCR CSF CMV DNA (PCR) CSF Enterovirus (PCR) CSF E. coli K1 (PCR) CSF H. influenzae (PCR) CSF HSV I (PCR) CSF HSV II (PCR) CSF HHV 6 (PCR) CSF L.monocytogenes PCR CSF N. meningitidis PCR CSF Parechovirus (PCR) CSF S. agalactiae (PCR) CSF S. pneumoniae (PCR) CSF VZV (PCR) CMV Specimen Source CMV Qnt PCR IU/mL CMV Qnt PCR log IU/mL 02/26/23 02/26/23 02/26/23 06:25 07:15 11:01 Hold Purple Top SEE NOTE Sodium 141 Potassium 3.6 Chloride 110 H Carbon Dioxide 24 Anion Gap 11 L BUN 23 H Creatinine 0.62 Estim Creat Clear Calc 68.1 Estimated GFR > 60 POC Glucose 188 H 211 H Random Glucose 203 H Calcium 9.1 Phosphorus 2.5 L Magnesium 2.0 Total Bilirubin 0.3 AST 30 ALT 46 H Alkaline Phosphatase 121 H Total Protein 6.1 L Albumin 3.2 L Triglycerides 177 H Homocysteine CSF Tube Number CSF Volume CSF Appearance CSF Color CSF WBC CSF RBC CSF Neutrophils CSF Lymphocytes CSF Monocytes % CSF Appearance (b) CSF Glucose CSF Total Protein CSF C.neoform/gat PCR CSF CMV DNA (PCR) CSF Enterovirus (PCR) CSF E. coli K1 (PCR) CSF H. influenzae (PCR) CSF HSV I (PCR) CSF HSV II (PCR) CSF HHV 6 (PCR) CSF L.monocytogenes PCR CSF N. meningitidis PCR CSF Parechovirus (PCR) CSF S. agalactiae (PCR) CSF S. pneumoniae (PCR) CSF VZV (PCR) CMV Specimen Source CMV Qnt PCR IU/mL CMV Qnt PCR log IU/mL 02/26/23 02/26/23 16:15 19:49 Hold Purple Top Sodium Potassium Chloride Carbon Dioxide Anion Gap BUN Creatinine Estim Creat Clear Calc Estimated GFR POC Glucose 184 H 196 H Random Glucose Calcium Phosphorus Magnesium Total Bilirubin AST ALT Alkaline Phosphatase Total Protein Albumin Triglycerides Homocysteine CSF Tube Number CSF Volume CSF Appearance CSF Color CSF WBC CSF RBC CSF Neutrophils CSF Lymphocytes CSF Monocytes % CSF Appearance (b) CSF Glucose CSF Total Protein CSF C.neoform/gat PCR CSF CMV DNA (PCR) CSF Enterovirus (PCR) CSF E. coli K1 (PCR) CSF H. influenzae (PCR) CSF HSV I (PCR) CSF HSV II (PCR) CSF HHV 6 (PCR) CSF L.monocytogenes PCR CSF N. meningitidis PCR CSF Parechovirus (PCR) CSF S. agalactiae (PCR) CSF S. pneumoniae (PCR) CSF VZV (PCR) CMV Specimen Source CMV Qnt PCR IU/mL CMV Qnt PCR log IU/mL Imaging Radiology Impressions: ITS Impressions Head CT 02/08/23 14:33 IMPRESSION: Normal CT scan of the head. Chest X-Ray 02/08/23 14:35 IMPRESSION: Unremarkable chest examination. Head CT 02/16/23 16:57 IMPRESSION: 1. Unchanged small hypodensity in the mid to right shreya. Recommend further characterization with an MRI of the brain. 2. Moderate chronic microangiopathy and generalized cerebral volume loss. Brain MRI 02/17/23 15:17 IMPRESSION: 1. There are no acute bleeds or territorial infarcts. No masses are demonstrated. 2. There are chronic microvascular ischemic changes and there is diffuse volume loss. There appear to be sequelae of a lacunar infarct in the right ventral shreya, corresponding to findings on the CT scan. Lumbar Puncture Fluoroscopy 02/25/23 13:30 IMPRESSION: Successful Fluoroscopic lumbar puncture This procedure was performed by Parish Quintero PA-C and supervised by Dr. Brian. Medications Medications Current Medications Acetaminophen (Acetaminophen 325 Mg Tablet) 650 mg PO Q6H PRN PRN Reason: Pain, Mild (Pain Scale 1-3) Last Admin: 02/24/23 23:36 Dose: 650 mg Amlodipine Besylate (Amlodipine Besylate 10 Mg Tablet) 10 mg PO DAILY [facility]; Protocol Last Admin: 02/26/23 07:54 Dose: 10 mg Ascorbic Acid (Ascorbic Acid 500 Mg Tablet) 500 mg PO Q48H [facility] Last Admin: 02/25/23 14:52 Dose: Not Given Aspirin (Aspirin Enteric Coated 81 Mg Tablet.) 81 mg PO DAILY [facility] Last Admin: 02/26/23 07:54 Dose: 81 mg Atorvastatin Calcium (Atorvastatin Calcium 80 Mg Tablet) 80 mg PO BEDTIME [facility] Last Admin: 02/26/23 21:01 Dose: Not Given Benzonatate (Benzonatate 100 Mg Capsule) 100 mg PO TID PRN PRN Reason: Cough Carvedilol (Carvedilol 12.5 Mg Tablet) 12.5 mg PO BID [facility]; Protocol Last Admin: 02/26/23 21:01 Dose: Not Given Dextrose (Dextrose 50 % 25 Gm/50 Ml Syringe) 25 gm IVPUSH Q15M PRN; Protocol PRN Reason: per Hypoglycemia Standing Ord. Docusate Sodium (Docusate Sodium 100 Mg Capsule) 100 mg PO DAILY PRN PRN Reason: Constipation Enoxaparin Sodium (Enoxaparin Sodium 40 Mg/0.4 Ml Syringe) 40 mg SUBCUT Q24H [facility] Last Admin: 02/26/23 20:56 Dose: 40 mg Escitalopram Oxalate (Escitalopram Oxalate 20 Mg Tablet) 20 mg PO DAILY [facility] Last Admin: 02/26/23 07:54 Dose: 20 mg Ferrous Sulfate (Ferrous Sulfate 324 Mg Tablet.Dr) 324 mg PO DAILY [facility] Last Admin: 02/26/23 07:54 Dose: 324 mg Glucose (Glucose Gel 15 Gm Gel..Gram.) 15 gm PO Q15M PRN; Protocol PRN Reason: per Hypoglycemia Standing Ord. Hydralazine HCl (Hydralazine Hcl 10 Mg Tablet) 10 mg PO TID [facility]; Protocol Last Admin: 02/26/23 21:01 Dose: Not Given Lactated Ringer's (Lr) 1,000 mls @ 100 mls/hr IVCONT .Q10H [facility] Last Admin: 02/26/23 14:17 Dose: 100 mls/hr Nutrition (Parenteral) (Parenteral Nutrition) 1,440 mls @ 60 mls/hr IV .Q24H [facility]; Protocol Stop: 02/27/23 20:59 Last Admin: 02/26/23 21:01 Dose: 60 mls/hr Insulin Human Lispro (Insulin Lispro 100 Unit/Ml 3 Ml Vial) 0 unit SUBCUT QIDACHS [facility]; Protocol Last Admin: 02/26/23 20:56 Dose: 2 unit Lidocaine (Lidocaine 4 % Patch Adh..Patch) 1 patch TRANSDERMA DAILY [facility] Last Admin: 02/26/23 08:01 Dose: Not Given Lisinopril (Lisinopril 40 Mg Tablet) 40 mg PO DAILY [facility]; Protocol Last Admin: 02/26/23 07:54 Dose: 40 mg Pharmacy Consult (Consult Rx Parenteral Nutrition Ordering) 1 each MISCELLANE DAILY PRN PRN Reason: Consult order Polyethylene Glycol (Polyethylene Glycol 3350 17 Gm Powd.Pack) 17 gm PO DAILY PRN PRN Reason: constipation Last Admin: 02/15/23 17:10 Dose: 17 gm Sodium Chloride (0.9 % Sodium Chloride Flush 3 Ml Syringe) 3 ml IVFLUSH QSHIFT [facility] Last Admin: 02/26/23 15:20 Dose: Not Given Vitamin D (Cholecalciferol (Vitamin D3) 25 Mcg Tablet) 25 mcg PO DAILY [facility] Last Admin: 02/26/23 07:54 Dose: 25 mcg Allergies Allergies Allergy/AdvReac Type Severity Reaction Status Date / Time No Known Allergies Allergy Verified 02/08/23 13:36 Assessment & Plan Assessment & Plan (1) Major neurocognitive disorder due to another medical condition: Status: Acute Code(s): F02.80 - Dementia in other diseases classified elsewhere, unspecified severity, without behavioral disturbance, psychotic disturbance, mood disturbance, and anxiety Plan 77yo F with HTN, HLD, DM2 who was found wandering the streets in her undergarments, brought in on [address] for failure to thrive/inability fo care for self. Pt has been presenting with periods of mutism, with eyes close, with then some periods of more alertness and slightly more verbal. Medical reasons for these episodes have been ruled out. Pt had been seen yesterday by this group underwriter ativan challenge done--> one time dose of ativan 1mg--> pt briefly talked first time for the day but then was deeply asleep. Reason for continued inpatient stay Substantial Risk for: inability to function Time Spent With Patient Time: Total time managing care of this patient today ____ minutes.
[2023-02-27 04:00] VITALS: BP 182/90; PULSE 97; TEMP 36.7; O2SAT 98
[2023-02-27 07:01] LABS: Alanine Aminotransferase 32 U/L (0-31); Alkaline Phosphatase 107 U/L (39-117); Anion Gap 9 (12-20); Aspartate Amino Transferase 19 U/L (5-31); Bilirubin Total 0.2 mg/dL (0.0-1.0); Blood Urea Nitrogen 13 mg/dL (9-16); Calcium 8.9 mg/dL (8.4-10.2); Carbon Dioxide 26 mmol/L (22-29); Chloride 105 mmol/L (96-108); Creatinine Clr Calc Pharmacy 72.8; Estimated Glomerular Filt Rate > 60; Glucose Random 273 mg/dL (60-115); Magnesium 1.9 mg/dL (1.6-2.6); Phosphorus 2.6 mg/dL (2.7-4.5); Potassium 3.4 mmol/L (3.3-5.1); Sodium 137 mmol/L (135-145)
[2023-02-27 07:19] VITALS: BP 163/75; PULSE 74; RESP 18; TEMP 36; O2SAT 95
[2023-02-27 07:51] LABS: Glucose, Whole Blood 251 mg/dL (60-115)
[2023-02-27] MEDS: Lactated Ringers 1,000 ML 100 ML IVCONT (09:28)
[2023-02-27] MEDS: Ferrous Sulfate 324 MG TABLET.DR PO (09:29)
[2023-02-27] MEDS: Aspirin Enteric Coated 81 MG TABLET.DR PO (09:29)
[2023-02-27] MEDS: amLODIPine Besylate 10 MG TABLET PO (09:29)
[2023-02-27] MEDS: Cholecalciferol (Vitamin D3) 25 MCG TABLET PO (09:29)
[2023-02-27] MEDS: lisinopriL 40 MG TABLET PO (09:29)
[2023-02-27] MEDS: Escitalopram Oxalate 20 MG TABLET PO (09:29)
[2023-02-27] MEDS: hydrALAZINE HCl 10 MG TABLET 20 MG PO ×3 (09:30→20:41)
[2023-02-27] MEDS: carvediloL 12.5 MG TABLET PO ×2 (09:30→20:42)
[2023-02-27] MEDS: Insulin Lispro 100 UNIT/ML 3 ML VIAL SUBCUT ×4 (09:31→20:50)
[2023-02-27] MEDS: Lidocaine 4 % Patch ADH..PATCH 1 PATCH TRANSDERMA (09:32)
[2023-02-27 11:34] LABS: Glucose, Whole Blood 251 mg/dL (60-115)
[2023-02-27 12:00] VITALS: BP 121/58; PULSE 76; RESP 18; TEMP 36.9; O2SAT 98
--- NOTE | 2023-02-27 14:26 | HO.PM.IMPN ---
Subjective Subjective Date of Service: 02/27/23 Interval History: seen and examined this morning follow up for failure to thrive patient awake and able to take medications, speaking in full sentences and eating on her own Physical Exam Vital Signs: Vital Signs: Last Vital Signs Temp 98.5 F 02/27/23 12:00 Pulse 76 02/27/23 12:00 Resp 18 02/27/23 12:00 BP 121/58 L 02/27/23 12:00 Pulse Ox 98 02/27/23 12:00 O2 Del Method Room Air 02/27/23 12:00 BMI result Body Mass Index 29.9 Appearing in no acute distress lung sounds are clear to auscultation heart regular rate rhythm, clear S1, S2 positive bowel sounds, abdomen is soft, nontender neuro patient is alert x3, no focal deficits Objective Data Active Medications Acetaminophen (Acetaminophen 325 Mg Tablet) 650 mg PO Q6H PRN PRN Reason: Pain, Mild (Pain Scale 1-3) Last Admin: 02/24/23 23:36 Dose: 650 mg Documented By: BEATRIZ Amlodipine Besylate (Amlodipine Besylate 10 Mg Tablet) 10 mg PO DAILY [facility]; Protocol Last Admin: 02/27/23 09:29 Dose: 10 mg Documented By: ANNELISE Ascorbic Acid (Ascorbic Acid 500 Mg Tablet) 500 mg PO Q48H [facility] Last Admin: 02/25/23 14:52 Dose: Not Given Documented By: RACHANA Non-Admin Reason: Patient Refused Aspirin (Aspirin Enteric Coated 81 Mg Tablet.) 81 mg PO DAILY [facility] Last Admin: 02/27/23 09:29 Dose: 81 mg Documented By: ANNELISE Atorvastatin Calcium (Atorvastatin Calcium 80 Mg Tablet) 80 mg PO BEDTIME [facility] Last Admin: 02/26/23 21:01 Dose: Not Given Documented By: CEDRICRISJoellen Non-Admin Reason: Patient Refused Benzonatate (Benzonatate 100 Mg Capsule) 100 mg PO TID PRN PRN Reason: Cough Carvedilol (Carvedilol 12.5 Mg Tablet) 12.5 mg PO BID [facility]; Protocol Last Admin: 02/27/23 09:30 Dose: 12.5 mg Documented By: ANNELISE Dextrose (Dextrose 50 % 25 Gm/50 Ml Syringe) 25 gm IVPUSH Q15M PRN; Protocol PRN Reason: per Hypoglycemia Standing Ord. Docusate Sodium (Docusate Sodium 100 Mg Capsule) 100 mg PO DAILY PRN PRN Reason: Constipation Enoxaparin Sodium (Enoxaparin Sodium 40 Mg/0.4 Ml Syringe) 40 mg SUBCUT Q24H [facility] Last Admin: 02/26/23 20:56 Dose: 40 mg Documented By: JIM Escitalopram Oxalate (Escitalopram Oxalate 20 Mg Tablet) 20 mg PO DAILY [facility] Last Admin: 02/27/23 09:29 Dose: 20 mg Documented By: ANNELISE Ferrous Sulfate (Ferrous Sulfate 324 Mg Tablet.Dr) 324 mg PO DAILY [facility] Last Admin: 02/27/23 09:29 Dose: 324 mg Documented By: ANNELISE Glucose (Glucose Gel 15 Gm Gel..Gram.) 15 gm PO Q15M PRN; Protocol PRN Reason: per Hypoglycemia Standing Ord. Hydralazine HCl (Hydralazine Hcl 10 Mg Tablet) 20 mg PO TID [facility]; Protocol Last Admin: 02/27/23 09:30 Dose: 20 mg Documented By: ANNELISE Lactated Ringer's (Lr) 1,000 mls @ 100 mls/hr IVCONT .Q10H [facility] Last Admin: 02/27/23 09:28 Dose: 100 mls/hr Documented By: ANNELISE Nutrition (Parenteral) (Parenteral Nutrition) 1,440 mls @ 60 mls/hr IV .Q24H [facility]; Protocol Stop: 02/27/23 20:59 Last Admin: 02/26/23 21:01 Dose: 60 mls/hr Documented By: JIM Nutrition (Parenteral) (Parenteral Nutrition) 1,440 mls @ 60 mls/hr IV .Q24H [facility]; Protocol Stop: 02/28/23 20:59 Insulin Human Lispro (Insulin Lispro 100 Unit/Ml 3 Ml Vial) 0 unit SUBCUT QIDACHS [facility]; Protocol Last Admin: 02/27/23 11:57 Dose: 6 unit Documented By: KINGS Lidocaine (Lidocaine 4 % Patch Adh..Patch) 1 patch TRANSDERMA DAILY [facility] Last Admin: 02/27/23 09:32 Dose: 1 patch Documented By: ANNELISE Lisinopril (Lisinopril 40 Mg Tablet) 40 mg PO DAILY [facility]; Protocol Last Admin: 02/27/23 09:29 Dose: 40 mg Documented By: ANNELISE Pharmacy Consult (Consult Rx Parenteral Nutrition Ordering) 1 each MISCELLANE DAILY PRN PRN Reason: Consult order Polyethylene Glycol (Polyethylene Glycol 3350 17 Gm Powd.Pack) 17 gm PO DAILY PRN PRN Reason: constipation Last Admin: 02/15/23 17:10 Dose: 17 gm Documented By: МАРИЯ Sodium Chloride (0.9 % Sodium Chloride Flush 3 Ml Syringe) 3 ml IVFLUSH QSHIFT [facility] Last Admin: 02/27/23 09:30 Dose: Not Given Documented By: ANNELISE Non-Admin Reason: IV Running Vitamin D (Cholecalciferol (Vitamin D3) 25 Mcg Tablet) 25 mcg PO DAILY [facility] Last Admin: 02/27/23 09:29 Dose: 25 mcg Documented By: ANNELISE Labs 02/24/23 08:15 02/27/23 06:31 Labs: Laboratory Results - last 24 hr 02/24/23 02/26/23 02/26/23 08:15 16:15 19:49 Hold Purple Top Anion Gap Estim Creat Clear Calc Estimated GFR POC Glucose 184 H 196 H Random Glucose Calcium Phosphorus Magnesium Total Bilirubin AST ALT Alkaline Phosphatase Total Protein Albumin Homocysteine 7.6 02/27/23 02/27/23 02/27/23 06:31 07:19 11:27 Hold Purple Top SEE NOTE Anion Gap 9 L Estim Creat Clear Calc 72.8 Estimated GFR > 60 POC Glucose 251 H 251 H Random Glucose 273 H Calcium 8.9 Phosphorus 2.6 L Magnesium 1.9 Total Bilirubin 0.2 AST 19 ALT 32 H Alkaline Phosphatase 107 Total Protein 6.0 L Albumin 3.0 L Homocysteine Microbiology Microbiology Results: Microbiology 02/25/23 13:10 Gram Stain - Final Cerebrospinal Fluid CSF Examination - Final Fluid Description - Final CSF Culture - Preliminary No growth after 2 days Assessment and Plan (1) Major neurocognitive disorder due to another medical condition: Status: Acute Plan 77yo F with HTN, HLD, DM2 who was found wandering the streets in her undergarments, brought in on [address] for failure to thrive/inability fo care for self. 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, LP with no infectious process TSH, B12, folate wnl, homocysteine level normal, repeat ua neg, no fever or leukocytosis On PPN as not eating regularly Received ativan 02/25/23 today awake, alert, coversive, recognized spouse, OOB to chair UTI [E coli/Strep veridians] completed 7d of ceftriaxone DM2 with hypoglycemia sliding scale Long acting insulin stopped as patient not eating regularly plan for PPN HTN, uncontrolled intermittently awake enough to take meds continue current meds carvedilol, continue lisinopril + amlodipine hydralazine HLD statin mood disorder escitalopram insomnia melatonin VTE ppx LMWH Attending Dr. Rosenberg dispo STR when medically clear, bed at [facility] pending vs home In my clinical judgment, the patient requires continued inpatient hospitalization for the following reasons: BP control, placement Quality Stroke Does the patient have a stroke diagnosis?: No VTE Prior VTE?: No VTE Risk Level:: Medical - moderate - high VTE Device Contraindication: Treatment Not Indicated VTE Drug Contraindication: N/A - Med Ordered
[2023-02-27] MEDS: Acetaminophen 325 MG TABLET 650 MG PO (14:38)
[2023-02-27 14:50] VITALS: BP 160/64
[2023-02-27 15:46] VITALS: BP 124/63; PULSE 70; RESP 18; TEMP 36.9; O2SAT 98
[2023-02-27 16:31] LABS: Glucose, Whole Blood 239 mg/dL (60-115)
[2023-02-27] MEDS: Ascorbic Acid 500 MG TABLET PO (17:27)
[2023-02-27 19:33] VITALS: BP 145/66; PULSE 84; RESP 18; TEMP 36.1; O2SAT 97
[2023-02-27] MEDS: Enoxaparin Sodium 40 MG/0.4 ML SYRINGE SUBCUT (20:42)
[2023-02-27] MEDS: Atorvastatin Calcium 80 MG TABLET PO (20:42)
[2023-02-27] MEDS: Parenteral Nutrition 1,440 ML 60 ML IV (20:51)
[2023-02-27 21:21] LABS: Glucose, Whole Blood 302 mg/dL (60-115)
[2023-02-28] VITALS (7 sets, daily range): BP systolic 132–164; BP diastolic 60–78; PULSE 73–98; RESP 16–18; TEMP 36.1–37.3; O2SAT 92–99
[2023-02-28 06:52] LABS: Alanine Aminotransferase 26 U/L (0-31); Alkaline Phosphatase 101 U/L (39-117); Anion Gap 12 (12-20); Aspartate Amino Transferase 15 U/L (5-31); Bilirubin Total 0.2 mg/dL (0.0-1.0); Blood Urea Nitrogen 11 mg/dL (9-16); Calcium 8.8 mg/dL (8.4-10.2); Carbon Dioxide 25 mmol/L (22-29); Chloride 107 mmol/L (96-108); Estimated Glomerular Filt Rate > 60; Glucose Random 315 mg/dL (60-115); Phosphorus 2.9 mg/dL (2.7-4.5); Potassium 3.7 mmol/L (3.3-5.1); Sodium 140 mmol/L (135-145); Total Protein 5.9 g/dL (6.5-8.0)
[2023-02-28 08:06] LABS: Glucose, Whole Blood 284 mg/dL (60-115)
[2023-02-28] MEDS: Insulin Lispro 100 UNIT/ML 3 ML VIAL SUBCUT ×4 (08:11→20:46)
[2023-02-28] MEDS: amLODIPine Besylate 10 MG TABLET PO (08:59)
[2023-02-28] MEDS: hydrALAZINE HCl 10 MG TABLET 20 MG PO ×2 (08:59→15:09)
[2023-02-28] MEDS: carvediloL 12.5 MG TABLET PO (08:59)
[2023-02-28] MEDS: Cholecalciferol (Vitamin D3) 25 MCG TABLET PO (09:00)
[2023-02-28] MEDS: lisinopriL 40 MG TABLET PO (09:00)
[2023-02-28] MEDS: Escitalopram Oxalate 20 MG TABLET PO (09:00)
[2023-02-28] MEDS: Ferrous Sulfate 324 MG TABLET.DR PO (09:00)
[2023-02-28] MEDS: Lidocaine 4 % Patch ADH..PATCH 1 PATCH TRANSDERMA (09:00)
[2023-02-28 09:05] LABS: Triglycerides 174 mg/dL (<150)
--- NOTE | 2023-02-28 10:15 | P.PNIM_ITS ---
Subjective Subjective Date of Service: 02/28/23 Interval History: seen and examined this morning follow up for failure to thrive patient awake and able to take medications, speaking in full sentences and eating on her own Physical Exam 2 Vital Signs: Vital Signs: Last Vital Signs Temp 99.2 F 02/28/23 07:49 Pulse 95 02/28/23 07:49 Resp 16 02/28/23 07:49 BP 164/60 H 02/28/23 07:49 Pulse Ox 92 02/28/23 07:49 O2 Del Method Room Air 02/28/23 07:49 BMI result Body Mass Index 29.9 Appearing in no acute distress lung sounds are clear to auscultation heart regular rate rhythm, clear S1, S2 positive bowel sounds, abdomen is soft, nontender neuro patient is alert x3, no focal deficits Objective Data Active Medications Acetaminophen (Acetaminophen 325 Mg Tablet) 650 mg PO Q6H PRN PRN Reason: Pain, Mild (Pain Scale 1-3) Last Admin: 02/27/23 14:38 Dose: 650 mg Documented By: EVELIO Amlodipine Besylate (Amlodipine Besylate 10 Mg Tablet) 10 mg PO DAILY [facility]; Protocol Last Admin: 02/28/23 08:59 Dose: 10 mg Documented By: KINGS Ascorbic Acid (Ascorbic Acid 500 Mg Tablet) 500 mg PO Q48H [facility] Last Admin: 02/27/23 17:27 Dose: 500 mg Documented By: KINGS Aspirin (Aspirin Enteric Coated 81 Mg Tablet.) 81 mg PO DAILY [facility] Last Admin: 02/28/23 09:01 Dose: Not Given Documented By: KINGS Non-Admin Reason: cannot crush Atorvastatin Calcium (Atorvastatin Calcium 80 Mg Tablet) 80 mg PO BEDTIME [facility] Last Admin: 02/27/23 20:42 Dose: 80 mg Documented By: ODRISM Benzonatate (Benzonatate 100 Mg Capsule) 100 mg PO TID PRN PRN Reason: Cough Carvedilol (Carvedilol 12.5 Mg Tablet) 12.5 mg PO BID [facility]; Protocol Last Admin: 02/28/23 08:59 Dose: 12.5 mg Documented By: KINGS Dextrose (Dextrose 50 % 25 Gm/50 Ml Syringe) 25 gm IVPUSH Q15M PRN; Protocol PRN Reason: per Hypoglycemia Standing Ord. Docusate Sodium (Docusate Sodium 100 Mg Capsule) 100 mg PO DAILY PRN PRN Reason: Constipation Enoxaparin Sodium (Enoxaparin Sodium 40 Mg/0.4 Ml Syringe) 40 mg SUBCUT Q24H [facility] Last Admin: 02/27/23 20:42 Dose: 40 mg Documented By: JIM Escitalopram Oxalate (Escitalopram Oxalate 20 Mg Tablet) 20 mg PO DAILY [facility] Last Admin: 02/28/23 09:00 Dose: 20 mg Documented By: KINGS Ferrous Sulfate (Ferrous Sulfate 324 Mg Tablet.Dr) 324 mg PO DAILY [facility] Last Admin: 02/28/23 09:00 Dose: 324 mg Documented By: KINGS Glucose (Glucose Gel 15 Gm Gel..Gram.) 15 gm PO Q15M PRN; Protocol PRN Reason: per Hypoglycemia Standing Ord. Hydralazine HCl (Hydralazine Hcl 10 Mg Tablet) 20 mg PO TID [facility]; Protocol Last Admin: 02/28/23 08:59 Dose: 20 mg Documented By: KINGS Nutrition (Parenteral) (Parenteral Nutrition) 1,440 mls @ 60 mls/hr IV .Q24H [facility]; Protocol Stop: 02/28/23 20:59 Last Admin: 02/27/23 20:51 Dose: 60 mls/hr Documented By: JIM Nutrition (Parenteral) (Parenteral Nutrition) 1,440 mls @ 60 mls/hr IV .Q24H [facility]; Protocol Stop: 03/01/23 20:59 Insulin Human Lispro (Insulin Lispro 100 Unit/Ml 3 Ml Vial) 0 unit SUBCUT QIDACHS [facility]; Protocol Last Admin: 02/28/23 08:11 Dose: 6 unit Documented By: KINGS Lidocaine (Lidocaine 4 % Patch Adh..Patch) 1 patch TRANSDERMA DAILY [facility] Last Admin: 02/28/23 09:00 Dose: 1 patch Documented By: KINGS Lisinopril (Lisinopril 40 Mg Tablet) 40 mg PO DAILY [facility]; Protocol Last Admin: 02/28/23 09:00 Dose: 40 mg Documented By: KINGS Pharmacy Consult (Consult Rx Parenteral Nutrition Ordering) 1 each MISCELLANE DAILY PRN PRN Reason: Consult order Polyethylene Glycol (Polyethylene Glycol 3350 17 Gm Powd.Pack) 17 gm PO DAILY PRN PRN Reason: constipation Last Admin: 02/15/23 17:10 Dose: 17 gm Documented By: МАРИЯ Sodium Chloride (0.9 % Sodium Chloride Flush 3 Ml Syringe) 3 ml IVFLUSH QSHIFT [facility] Last Admin: 02/28/23 08:12 Dose: Not Given Documented By: KINGS Non-Admin Reason: IV Running Vitamin D (Cholecalciferol (Vitamin D3) 25 Mcg Tablet) 25 mcg PO DAILY [facility] Last Admin: 02/28/23 09:00 Dose: 25 mcg Documented By: KINGS Labs 02/24/23 08:15 02/28/23 05:59 Labs: Laboratory Results - last 24 hr 02/27/23 02/27/23 02/27/23 11:27 16:25 20:21 Hold Purple Top Anion Gap Estim Creat Clear Calc Estimated GFR POC Glucose 251 H 239 H 302 H Random Glucose Calcium Phosphorus Magnesium Total Bilirubin AST ALT Alkaline Phosphatase Total Protein Albumin Triglycerides 02/28/23 02/28/23 05:59 08:01 Hold Purple Top SEE NOTE Anion Gap 12 Estim Creat Clear Calc 63.0 Estimated GFR > 60 POC Glucose 284 H Random Glucose 315 H Calcium 8.8 Phosphorus 2.9 Magnesium 2.0 Total Bilirubin 0.2 AST 15 ALT 26 Alkaline Phosphatase 101 Total Protein 5.9 L Albumin 3.0 L Triglycerides 174 H Microbiology Microbiology Results: Microbiology 02/25/23 13:10 Gram Stain - Final Cerebrospinal Fluid CSF Examination - Final Fluid Description - Final CSF Culture - Final No growth after 3 days. 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 Shakira azul STR when medically clear, bed at [facility] pending vs home In my clinical judgment, the patient requires continued inpatient hospitalization for the following reasons: BP control, placement Quality Stroke Does the patient have a stroke diagnosis?: No VTE Prior VTE?: No VTE Risk Level:: Medical - moderate - high VTE Device Contraindication: Treatment Not Indicated VTE Drug Contraindication: N/A - Med Ordered
[2023-02-28 11:34] LABS: Glucose, Whole Blood 343 mg/dL (60-115)
--- NOTE | 2023-02-28 14:16 | MHC.SL.SWA ---
Risk of Aspiration Due to: Neurological Condition Poor PO Intake Reduced Cognition Dysphasia Diet Status: Continue diet of Ground/Mechanical Altered (NDD2) with THIN liquids by cup sip or tsp (NO STRAWS), continue pills crushed in puree. Patient continues to require full 1-1 assistance with meals. Liquid Consistency and Strategies for Safe Swallow: Liquid Intake Recommendation: Thin Liquid Intake Strategies: Small Sips No Straws Solid Food Consistency: Dietary Recommendations: Grnd/Mech Altered (NDD2) Additional Modifications to Solid Foods: Avoid mixed consistencies. Alternate liquids and solids. Liquids by controlled cup sip or tsp. Do not attempt if patient is excessively lethargic or not engaged in meal. Patient may benefit from smaller more frequent meals to encourage intake. Discontinue if patient evidences signs of aspiration. Oral Medication Intake: Crushed with Puree Please contact the pharmacy regarding appropriate crushable or liquid drug formulations that are available whenever modified delivery is recommended. Compensatory Strategies and Precautions to be Taken for Safe Swallow: Sitting Upright (90 deg) No Straw Small Bites and Sips Alternate Liquids/Solids Rate of Ingestion Change Supervision While Eating and Drinking for Safe Swallow: Total Supervision (1:1) Foods to Avoid: Mixed consistencies and tough, hard, difficult to chew solids. Add gravy and blend well. Swallowing Recommended Treatments: Compens. Strategy Educat. Recommendation for Speech: Inpatient Speech Therapy Wine Merchant Clinican/Clinical Fellow: No Supervisory Statement: I have reviewed and agree with the student/clinical fellow's documentation: N/A Speech Language Pathologist: Jeanine Lopez M.A., [facility] [employer] MACHINE TENDER
--- NOTE | 2023-02-28 14:22 | MHC.CM.PN ---
PT MEDICALLY CLEAR TO DC [facility] AWARE THEY ARE UNABLE TO ADMIT TO THE [facility] UN[facility] ON THE WEEKEND/HOLIDAY PT WILL DC Wednesday
[2023-02-28] MEDS: 0.9 % Sodium Chloride Flush 3 ML SYRINGE IVFLUSH ×2 (15:12→20:38)
[2023-02-28 16:27] LABS: Glucose, Whole Blood 300 mg/dL (60-115)
[2023-02-28] MEDS: Enoxaparin Sodium 40 MG/0.4 ML SYRINGE SUBCUT (20:38)
[2023-02-28 20:42] LABS: Glucose, Whole Blood 237 mg/dL (60-115)
[2023-03-01 04:00] VITALS: BP 132/64; PULSE 87; RESP 18; TEMP 36.2; O2SAT 97
[2023-03-01 06:06] LABS: Alanine Aminotransferase 26 U/L (0-31); Albumin Level 3.2 g/dL (3.5-5.0); Alkaline Phosphatase 99 U/L (39-117); Anion Gap 14 (12-20); Aspartate Amino Transferase 19 U/L (5-31); Bilirubin Total 0.3 mg/dL (0.0-1.0); Blood Urea Nitrogen 12 mg/dL (9-16); Calcium 9.1 mg/dL (8.4-10.2); Carbon Dioxide 24 mmol/L (22-29); Chloride 106 mmol/L (96-108); Creatinine Clr Calc Pharmacy 68.1; Estimated Glomerular Filt Rate > 60; Glucose Random 170 mg/dL (60-115); Magnesium 1.9 mg/dL (1.6-2.6); Phosphorus 2.7 mg/dL (2.7-4.5); Sodium 140 mmol/L (135-145)
[2023-03-01 07:10] LABS: Glucose, Whole Blood 168 mg/dL (60-115)
[2023-03-01 07:26] VITALS: BP 142/68; PULSE 98; RESP 18; TEMP 36.7; O2SAT 95
[2023-03-01] MEDS: Insulin Lispro 100 UNIT/ML 3 ML VIAL SUBCUT ×4 (07:59→20:04)
[2023-03-01] MEDS: Lidocaine 4 % Patch ADH..PATCH 1 PATCH TRANSDERMA (07:59)
[2023-03-01] MEDS: carvediloL 12.5 MG TABLET PO ×2 (07:59→20:04)
[2023-03-01] MEDS: Escitalopram Oxalate 20 MG TABLET PO (07:59)
[2023-03-01] MEDS: Ferrous Sulfate 324 MG TABLET.DR PO (07:59)
[2023-03-01] MEDS: hydrALAZINE HCl 10 MG TABLET 20 MG PO ×3 (07:59→19:58)
[2023-03-01] MEDS: Cholecalciferol (Vitamin D3) 25 MCG TABLET PO (07:59)
[2023-03-01] MEDS: amLODIPine Besylate 10 MG TABLET PO (08:00)
[2023-03-01] MEDS: lisinopriL 40 MG TABLET PO (08:00)
[2023-03-01] MEDS: 0.9 % Sodium Chloride Flush 3 ML SYRINGE IVFLUSH ×3 (08:09→19:58)
--- NOTE | 2023-03-01 09:09 | P.PNIM_ITS ---
Subjective Subjective Date of Service: 03/01/23 Interval History: seen and examined this morning follow up for failure to thrive patient awake and able to take medications, speaking in full sentences and eating on her own Physical Exam 2 Vital Signs: Vital Signs: Last Vital Signs Temp 98.0 F 03/01/23 07:26 Pulse 98 03/01/23 07:26 Resp 18 03/01/23 07:26 BP 142/68 H 03/01/23 07:26 Pulse Ox 95 03/01/23 07:26 O2 Del Method Room Air 03/01/23 07:26 BMI result Body Mass Index 29.9 Appearing in no acute distress lung sounds are clear to auscultation heart regular rate rhythm, clear S1, S2 positive bowel sounds, abdomen is soft, nontender neuro patient is alert x3, no focal deficits Objective Data Active Medications Acetaminophen (Acetaminophen 325 Mg Tablet) 650 mg PO Q6H PRN PRN Reason: Pain, Mild (Pain Scale 1-3) Last Admin: 02/27/23 14:38 Dose: 650 mg Documented By: EVELIO Amlodipine Besylate (Amlodipine Besylate 10 Mg Tablet) 10 mg PO DAILY [facility]; Protocol Last Admin: 03/01/23 08:00 Dose: 10 mg Documented By: KAYE Ascorbic Acid (Ascorbic Acid 500 Mg Tablet) 500 mg PO Q48H [facility] Last Admin: 02/27/23 17:27 Dose: 500 mg Documented By: KINGS Aspirin (Aspirin Enteric Coated 81 Mg Tablet.) 81 mg PO DAILY [facility] Last Admin: 03/01/23 07:57 Dose: Not Given Documented By: KAYE Non-Admin Reason: cannot crush Atorvastatin Calcium (Atorvastatin Calcium 80 Mg Tablet) 80 mg PO BEDTIME [facility] Last Admin: 02/28/23 20:42 Dose: Not Given Documented By: ODRISM Non-Admin Reason: Patient Refused Benzonatate (Benzonatate 100 Mg Capsule) 100 mg PO TID PRN PRN Reason: Cough Carvedilol (Carvedilol 12.5 Mg Tablet) 12.5 mg PO BID [facility]; Protocol Last Admin: 03/01/23 07:59 Dose: 12.5 mg Documented By: KAYE Dextrose (Dextrose 50 % 25 Gm/50 Ml Syringe) 25 gm IVPUSH Q15M PRN; Protocol PRN Reason: per Hypoglycemia Standing Ord. Docusate Sodium (Docusate Sodium 100 Mg Capsule) 100 mg PO DAILY PRN PRN Reason: Constipation Enoxaparin Sodium (Enoxaparin Sodium 40 Mg/0.4 Ml Syringe) 40 mg SUBCUT Q24H [facility] Last Admin: 02/28/23 20:38 Dose: 40 mg Documented By: ODRISM Escitalopram Oxalate (Escitalopram Oxalate 20 Mg Tablet) 20 mg PO DAILY [facility] Last Admin: 03/01/23 07:59 Dose: 20 mg Documented By: COTEMA Ferrous Sulfate (Ferrous Sulfate 324 Mg Tablet.Dr) 324 mg PO DAILY [facility] Last Admin: 03/01/23 07:59 Dose: 324 mg Documented By: SHANNANEMA Glucose (Glucose Gel 15 Gm Gel..Gram.) 15 gm PO Q15M PRN; Protocol PRN Reason: per Hypoglycemia Standing Ord. Hydralazine HCl (Hydralazine Hcl 10 Mg Tablet) 20 mg PO TID [facility]; Protocol Last Admin: 03/01/23 07:59 Dose: 20 mg Documented By: SHANNANEMA Insulin Human Lispro (Insulin Lispro 100 Unit/Ml 3 Ml Vial) 0 unit SUBCUT QIDACHS [facility]; Protocol Last Admin: 03/01/23 07:59 Dose: 2 unit Documented By: KAYE Lidocaine (Lidocaine 4 % Patch Adh..Patch) 1 patch TRANSDERMA DAILY [facility] Last Admin: 03/01/23 07:59 Dose: 1 patch Documented By: SHANNANEMA Lisinopril (Lisinopril 40 Mg Tablet) 40 mg PO DAILY [facility]; Protocol Last Admin: 03/01/23 08:00 Dose: 40 mg Documented By: SHANNANEMA Polyethylene Glycol (Polyethylene Glycol 3350 17 Gm Powd.Pack) 17 gm PO DAILY PRN PRN Reason: constipation Last Admin: 02/15/23 17:10 Dose: 17 gm Documented By: MOHAMER Sodium Chloride (0.9 % Sodium Chloride Flush 3 Ml Syringe) 3 ml IVFLUSH QSHIFT [facility] Last Admin: 03/01/23 08:09 Dose: 3 ml Documented By: SHANNANEMA Vitamin D (Cholecalciferol (Vitamin D3) 25 Mcg Tablet) 25 mcg PO DAILY [facility] Last Admin: 03/01/23 07:59 Dose: 25 mcg Documented By: COTEMA Labs 02/24/23 08:15 03/01/23 05:24 Labs: Laboratory Results - last 24 hr 02/28/23 02/28/23 02/28/23 11:05 16:23 20:37 Hold Purple Top Anion Gap Estim Creat Clear Calc Estimated GFR POC Glucose 343 H 300 H 237 H Random Glucose Calcium Phosphorus Magnesium Total Bilirubin AST ALT Alkaline Phosphatase Total Protein Albumin 03/01/23 03/01/23 05:24 06:57 Hold Purple Top SEE NOTE Anion Gap 14 Estim Creat Clear Calc 68.1 Estimated GFR > 60 POC Glucose 168 H Random Glucose 170 H Calcium 9.1 Phosphorus 2.7 Magnesium 1.9 Total Bilirubin 0.3 AST 19 ALT 26 Alkaline Phosphatase 99 Total Protein 6.0 L Albumin 3.2 L Microbiology Microbiology Results: Microbiology 02/25/23 13:10 Gram Stain - Final Cerebrospinal Fluid CSF Examination - Final Fluid Description - Final CSF Culture - Final No growth after 3 days. 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 Renan azul STR when medically clear, bed at [facility] unit In my clinical judgment, the patient requires continued inpatient hospitalization for the following reasons: BP control, placement Quality Stroke Does the patient have a stroke diagnosis?: No VTE Prior VTE?: No VTE Risk Level:: Medical - moderate - high VTE Device Contraindication: Treatment Not Indicated VTE Drug Contraindication: N/A - Med Ordered
[2023-03-01 10:13] LABS: Hematocrit 36.6 % (37.0-47.0); Hemoglobin 11.5 g/dl (12.0-16.0); Mean Corpuscular HGB Conc 31.4 g/dl (31.0-35.0); Mean Corpuscular Hemoglobin 26.1 pg (27.0-33.0); Mean Corpuscular Volume 83.2 fL (80.0-98.0); Mean Platelet Volume 12.6 fL (9.4-12.3); Platelet Count 258 X10*3/uL (160-400); Red Cell Distribution Width 15.6 % (11.0-16.0); White Blood Count 8.5 X10*3/uL (4.8-10.8)
[2023-03-01 10:18] LABS: Anion Gap 13 (12-20); Blood Urea Nitrogen 12 mg/dL (9-16); Calcium 9.1 mg/dL (8.4-10.2); Carbon Dioxide 24 mmol/L (22-29); Chloride 105 mmol/L (96-108); Creatinine Clr Calc Pharmacy 58.7; Estimated Glomerular Filt Rate > 60; Glucose Random 274 mg/dL (60-115); Potassium 3.8 mmol/L (3.3-5.1); Sodium 138 mmol/L (135-145)
[2023-03-01 11:18] LABS: Glucose, Whole Blood 203 mg/dL (60-115)
[2023-03-01 12:00] VITALS: BP 106/58; PULSE 83; RESP 18; TEMP 36.3; O2SAT 98
[2023-03-01 14:50] VITALS: BP 137/70; PULSE 86; RESP 18; TEMP 36.6; O2SAT 98
[2023-03-01 16:07] LABS: Glucose, Whole Blood 202 mg/dL (60-115)
[2023-03-01] MEDS: Ascorbic Acid 500 MG TABLET PO (17:00)
[2023-03-01] MEDS: Acetaminophen 325 MG TABLET 650 MG PO (17:01)
--- NOTE | 2023-03-01 19:22 | MHC.CLN ---
F/U PPN COMPLETED 02/28. DIET=REGULAR, GROUND. INTAKE X 3 DAYS 25-100%. ADDING ENSURE BID TO INCREASE NUTRITIONAL INTAKE. PROVIDES 700 KCALS, 40 G PROTEIN. FOLLOW FOR INTAKE.
[2023-03-01] MEDS: Enoxaparin Sodium 40 MG/0.4 ML SYRINGE SUBCUT (19:57)
[2023-03-01] MEDS: Atorvastatin Calcium 80 MG TABLET PO (19:57)
[2023-03-01 19:58] VITALS: BP 163/70; PULSE 90; RESP 14; TEMP 36.1; O2SAT 96
[2023-03-01 20:06] LABS: Glucose, Whole Blood 171 mg/dL (60-115)
[2023-03-01 23:43] VITALS: BP 131/58; PULSE 83; RESP 18; TEMP 36.5; O2SAT 94
[2023-03-02 03:36] VITALS: BP 141/67; PULSE 89; RESP 18; TEMP 36.2; O2SAT 94
[2023-03-02 07:01] LABS: Alanine Aminotransferase 29 U/L (0-31); Albumin Level 3.2 g/dL (3.5-5.0); Alkaline Phosphatase 99 U/L (39-117); Anion Gap 12 (12-20); Aspartate Amino Transferase 24 U/L (5-31); Bilirubin Total 0.4 mg/dL (0.0-1.0); Blood Urea Nitrogen 12 mg/dL (9-16); Calcium 9.1 mg/dL (8.4-10.2); Carbon Dioxide 27 mmol/L (22-29); Chloride 105 mmol/L (96-108); Estimated Glomerular Filt Rate > 60; Glucose Random 189 mg/dL (60-115); Magnesium 1.9 mg/dL (1.6-2.6); Phosphorus 3.1 mg/dL (2.7-4.5); Sodium 140 mmol/L (135-145)
[2023-03-02 07:35] LABS: Glucose, Whole Blood 192 mg/dL (60-115)
[2023-03-02 08:00] VITALS: BP 141/67; PULSE 88; RESP 17; TEMP 36.2; O2SAT 97
[2023-03-02] MEDS: Cholecalciferol (Vitamin D3) 25 MCG TABLET PO (09:08)
[2023-03-02] MEDS: Ferrous Sulfate 324 MG TABLET.DR PO (09:08)
[2023-03-02] MEDS: Insulin Lispro 100 UNIT/ML 3 ML VIAL SUBCUT ×3 (09:08→17:04)
[2023-03-02] MEDS: Lidocaine 4 % Patch ADH..PATCH 1 PATCH TRANSDERMA (09:08)
[2023-03-02] MEDS: lisinopriL 40 MG TABLET PO (09:08)
[2023-03-02] MEDS: carvediloL 12.5 MG TABLET PO ×2 (09:08→20:45)
[2023-03-02] MEDS: amLODIPine Besylate 10 MG TABLET PO (09:09)
[2023-03-02] MEDS: 0.9 % Sodium Chloride Flush 3 ML SYRINGE IVFLUSH ×3 (09:09→20:45)
[2023-03-02] MEDS: Escitalopram Oxalate 20 MG TABLET PO (09:09)
[2023-03-02] MEDS: hydrALAZINE HCl 10 MG TABLET 20 MG PO ×3 (09:09→20:45)
[2023-03-02 11:30] LABS: Glucose, Whole Blood 191 mg/dL (60-115)
[2023-03-02 12:00] VITALS: BP 138/65; PULSE 75; RESP 18; TEMP 36.1; O2SAT 94
--- NOTE | 2023-03-02 13:49 | HO.PM.IMPN ---
Subjective Subjective Date of Service: 03/02/23 Interval History: seen and examined this morning follow up for failure to thrive patient awake and able to take medications, speaking in full sentences and eating on her own Physical Exam Vital Signs: Vital Signs: Last Vital Signs Temp 97.0 F 03/02/23 12:00 Pulse 75 03/02/23 12:00 Resp 18 03/02/23 12:00 BP 138/65 03/02/23 12:00 Pulse Ox 94 03/02/23 12:00 O2 Del Method Room Air 03/02/23 12:00 BMI result Body Mass Index 29.9 Appearing in no acute distress lung sounds are clear to auscultation heart regular rate rhythm, clear S1, S2 positive bowel sounds, abdomen is soft, nontender neuro patient is alert x3, no focal deficits Objective Data Active Medications Acetaminophen (Acetaminophen 325 Mg Tablet) 650 mg PO Q6H PRN PRN Reason: Pain, Mild (Pain Scale 1-3) Last Admin: 03/01/23 17:01 Dose: 650 mg Documented By: COTEMA Amlodipine Besylate (Amlodipine Besylate 10 Mg Tablet) 10 mg PO DAILY [facility]; Protocol Last Admin: 03/02/23 09:09 Dose: 10 mg Documented By: COTEMA Ascorbic Acid (Ascorbic Acid 500 Mg Tablet) 500 mg PO Q48H [facility] Last Admin: 03/01/23 17:00 Dose: 500 mg Documented By: COTEMA Aspirin (Aspirin Enteric Coated 81 Mg Tablet.) 81 mg PO DAILY [facility] Last Admin: 03/02/23 09:43 Dose: Not Given Documented By: COTEMA Non-Admin Reason: cannot crush Atorvastatin Calcium (Atorvastatin Calcium 80 Mg Tablet) 80 mg PO BEDTIME [facility] Last Admin: 03/01/23 19:57 Dose: 80 mg Documented By: OZORALB Benzonatate (Benzonatate 100 Mg Capsule) 100 mg PO TID PRN PRN Reason: Cough Carvedilol (Carvedilol 12.5 Mg Tablet) 12.5 mg PO BID [facility]; Protocol Last Admin: 03/02/23 09:08 Dose: 12.5 mg Documented By: COTEMA Dextrose (Dextrose 50 % 25 Gm/50 Ml Syringe) 25 gm IVPUSH Q15M PRN; Protocol PRN Reason: per Hypoglycemia Standing Ord. Docusate Sodium (Docusate Sodium 100 Mg Capsule) 100 mg PO DAILY PRN PRN Reason: Constipation Enoxaparin Sodium (Enoxaparin Sodium 40 Mg/0.4 Ml Syringe) 40 mg SUBCUT Q24H [facility] Last Admin: 03/01/23 19:57 Dose: 40 mg Documented By: OZORALB Escitalopram Oxalate (Escitalopram Oxalate 20 Mg Tablet) 20 mg PO DAILY [facility] Last Admin: 03/02/23 09:09 Dose: 20 mg Documented By: KAYE Ferrous Sulfate (Ferrous Sulfate 324 Mg Tablet.Dr) 324 mg PO DAILY [facility] Last Admin: 03/02/23 09:08 Dose: 324 mg Documented By: KAYE Glucose (Glucose Gel 15 Gm Gel..Gram.) 15 gm PO Q15M PRN; Protocol PRN Reason: per Hypoglycemia Standing Ord. Hydralazine HCl (Hydralazine Hcl 10 Mg Tablet) 20 mg PO TID [facility]; Protocol Last Admin: 03/02/23 09:09 Dose: 20 mg Documented By: KAYE Insulin Human Lispro (Insulin Lispro 100 Unit/Ml 3 Ml Vial) 0 unit SUBCUT QIDACHS [facility]; Protocol Last Admin: 03/02/23 11:47 Dose: 2 unit Documented By: KAYE Lidocaine (Lidocaine 4 % Patch Adh..Patch) 1 patch TRANSDERMA DAILY [facility] Last Admin: 03/02/23 09:08 Dose: 1 patch Documented By: KAYE Lisinopril (Lisinopril 40 Mg Tablet) 40 mg PO DAILY [facility]; Protocol Last Admin: 03/02/23 09:08 Dose: 40 mg Documented By: KAYE Polyethylene Glycol (Polyethylene Glycol 3350 17 Gm Powd.Pack) 17 gm PO DAILY PRN PRN Reason: constipation Last Admin: 02/15/23 17:10 Dose: 17 gm Documented By: MOHAMER Sodium Chloride (0.9 % Sodium Chloride Flush 3 Ml Syringe) [facility] Last Admin: 03/02/23 09:09 Dose: 3 ml Documented By: KAYE Vitamin D (Cholecalciferol (Vitamin D3) 25 Mcg Tablet) 25 mcg PO DAILY [facility] Last Admin: 03/02/23 09:08 Dose: 25 mcg Documented By: KAYE Labs 03/01/23 09:24 03/02/23 06:20 Labs: Laboratory Results - last 24 hr 03/01/23 03/01/23 03/02/23 15:58 20:01 06:20 Hold Purple Top SEE NOTE Anion Gap 12 Estim Creat Clear Calc 66.0 Estimated GFR > 60 POC Glucose 202 H 171 H Random Glucose 189 H Calcium 9.1 Phosphorus 3.1 Magnesium 1.9 Total Bilirubin 0.4 AST 24 ALT 29 Alkaline Phosphatase 99 Total Protein 6.0 L Albumin 3.2 L 03/02/23 03/02/23 07:26 11:25 Hold Purple Top Anion Gap Estim Creat Clear Calc Estimated GFR POC Glucose 192 H 191 H Random Glucose Calcium Phosphorus Magnesium Total Bilirubin AST ALT Alkaline Phosphatase Total Protein Albumin Microbiology Microbiology Results: Microbiology 02/25/23 13:10 Fungal Identification - Preliminary Spine No growth to date. 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 Renan azul STR when medically clear, bed at [facility] care unit, waiting on [facility] dementia exclusion In my clinical judgment, the patient requires continued inpatient hospitalization for the following reasons: BP control, placement Quality Stroke Does the patient have a stroke diagnosis?: No VTE Prior VTE?: No VTE Risk Level:: Medical - moderate - high VTE Device Contraindication: Treatment Not Indicated VTE Drug Contraindication: N/A - Med Ordered
--- NOTE | 2023-03-02 14:45 | P.CNPS_ITS ---
History of Present Illness Date of Service: 03/02/2023 Chief Complaint: Hypoglecemia, UTI, FTT Reason for Consult: f/u Requesting physician: Kamla Guardado Discussed with referring provider: Yes Sources of Information: patient interviewed, chart reviewed and crisis/core team assessment reviewed HPI Narrative: Interim Hx: pt more verbal over the weekend and today. She reports feeling tired. Still does not provide much detail as to how she is doing. No SI/HI. No s/s of VH/AH. No s/s of delusions. Diagnostics Vital Signs (24Hr): Vital Signs - 24 hr 03/01/23 14:50 03/01/23 19:58 03/01/23 23:43 Temperature 97.9 F 97 F 97.7 F Pulse Rate 86 90 83 Respiratory Rate 18 14 18 Blood Pressure 137/70 163/70 H 131/58 L Pulse Oximetry 98 96 94 Oxygen Delivery Method Room Air Room Air Room Air 03/02/23 03:36 03/02/23 08:00 03/02/23 12:00 Temperature 97.2 F 97.2 F 97.0 F Pulse Rate 89 88 75 Respiratory Rate 18 17 18 Blood Pressure 141/67 H 141/67 H 138/65 Pulse Oximetry 94 97 94 Oxygen Delivery Method Room Air Room Air Room Air BMI result Body Mass Index 29.9 Labs 03/01/23 09:24 03/02/23 06:20 Labs: Laboratory Results - last 48 hr 02/28/23 02/28/23 03/01/23 16:23 20:37 05:24 WBC RBC Hgb Hct MCV MCH MCHC RDW Plt Count MPV Absolute Nucleated RBC Nucleated RBC % (auto) Hold Purple Top SEE NOTE Sodium 140 Potassium 4.0 Chloride 106 Carbon Dioxide 24 Anion Gap 14 BUN 12 Creatinine 0.62 Estim Creat Clear Calc 68.1 Estimated GFR > 60 POC Glucose 300 H 237 H Random Glucose 170 H Calcium 9.1 Phosphorus 2.7 Magnesium 1.9 Total Bilirubin 0.3 AST 19 ALT 26 Alkaline Phosphatase 99 Total Protein 6.0 L Albumin 3.2 L 03/01/23 03/01/23 03/01/23 06:57 09:24 11:10 WBC 8.5 RBC 4.40 Hgb 11.5 L Hct 36.6 L MCV 83.2 MCH 26.1 L MCHC 31.4 RDW 15.6 Plt Count 258 MPV 12.6 H Absolute Nucleated RBC 0.000 Nucleated RBC % (auto) 0.0 Hold Purple Top Sodium 138 Potassium 3.8 Chloride 105 Carbon Dioxide 24 Anion Gap 13 BUN 12 Creatinine 0.72 Estim Creat Clear Calc 58.7 Estimated GFR > 60 POC Glucose 168 H 203 H Random Glucose 274 H Calcium 9.1 Phosphorus Magnesium Total Bilirubin AST ALT Alkaline Phosphatase Total Protein Albumin 03/01/23 03/01/23 03/02/23 15:58 20:01 06:20 WBC RBC Hgb Hct MCV MCH MCHC RDW Plt Count MPV Absolute Nucleated RBC Nucleated RBC % (auto) Hold Purple Top SEE NOTE Sodium 140 Potassium 4.0 Chloride 105 Carbon Dioxide 27 Anion Gap 12 BUN 12 Creatinine 0.64 Estim Creat Clear Calc 66.0 Estimated GFR > 60 POC Glucose 202 H 171 H Random Glucose 189 H Calcium 9.1 Phosphorus 3.1 Magnesium 1.9 Total Bilirubin 0.4 AST 24 ALT 29 Alkaline Phosphatase 99 Total Protein 6.0 L Albumin 3.2 L 03/02/23 03/02/23 07:26 11:25 WBC RBC Hgb Hct MCV MCH MCHC RDW Plt Count MPV Absolute Nucleated RBC Nucleated RBC % (auto) Hold Purple Top Sodium Potassium Chloride Carbon Dioxide Anion Gap BUN Creatinine Estim Creat Clear Calc Estimated GFR POC Glucose 192 H 191 H Random Glucose Calcium Phosphorus Magnesium Total Bilirubin AST ALT Alkaline Phosphatase Total Protein Albumin Imaging Radiology Impressions: ITS Impressions Head CT 02/08/23 14:33 IMPRESSION: Normal CT scan of the head. Chest X-Ray 02/08/23 14:35 IMPRESSION: Unremarkable chest examination. Head CT 02/16/23 16:57 IMPRESSION: 1. Unchanged small hypodensity in the mid to right shreya. Recommend further characterization with an MRI of the brain. 2. Moderate chronic microangiopathy and generalized cerebral volume loss. Brain MRI 02/17/23 15:17 IMPRESSION: 1. There are no acute bleeds or territorial infarcts. No masses are demonstrated. 2. There are chronic microvascular ischemic changes and there is diffuse volume loss. There appear to be sequelae of a lacunar infarct in the right ventral shreya, corresponding to findings on the CT scan. Lumbar Puncture Fluoroscopy 02/25/23 13:30 IMPRESSION: Successful Fluoroscopic lumbar puncture This procedure was performed by Parish Quintero PA-C and supervised by Dr. Brian. Mental Status Exam Mental Status Exam Narrative: Pt presents as alert, more talkative but still with some degree of delayed response. She describes mood as okay. No SI/HI. No overt VH/AH. no overt delusional content noted or reported. Insight/judgment: impaired x 2 Medications Medications Current Medications Acetaminophen (Acetaminophen 325 Mg Tablet) 650 mg PO Q6H PRN PRN Reason: Pain, Mild (Pain Scale 1-3) Last Admin: 03/01/23 17:01 Dose: 650 mg Amlodipine Besylate (Amlodipine Besylate 10 Mg Tablet) 10 mg PO DAILY [facility]; Protocol Last Admin: 03/02/23 09:09 Dose: 10 mg Ascorbic Acid (Ascorbic Acid 500 Mg Tablet) 500 mg PO Q48H [facility] Last Admin: 03/01/23 17:00 Dose: 500 mg Aspirin (Aspirin Enteric Coated 81 Mg Tablet.) 81 mg PO DAILY [facility] Last Admin: 03/02/23 09:43 Dose: Not Given Atorvastatin Calcium (Atorvastatin Calcium 80 Mg Tablet) 80 mg PO BEDTIME [facility] Last Admin: 03/01/23 19:57 Dose: 80 mg Benzonatate (Benzonatate 100 Mg Capsule) 100 mg PO TID PRN PRN Reason: Cough Carvedilol (Carvedilol 12.5 Mg Tablet) 12.5 mg PO BID [facility]; Protocol Last Admin: 03/02/23 09:08 Dose: 12.5 mg Dextrose (Dextrose 50 % 25 Gm/50 Ml Syringe) 25 gm IVPUSH Q15M PRN; Protocol PRN Reason: per Hypoglycemia Standing Ord. Docusate Sodium (Docusate Sodium 100 Mg Capsule) 100 mg PO DAILY PRN PRN Reason: Constipation Enoxaparin Sodium (Enoxaparin Sodium 40 Mg/0.4 Ml Syringe) 40 mg SUBCUT Q24H [facility] Last Admin: 03/01/23 19:57 Dose: 40 mg Escitalopram Oxalate (Escitalopram Oxalate 20 Mg Tablet) 20 mg PO DAILY [facility] Last Admin: 03/02/23 09:09 Dose: 20 mg Ferrous Sulfate (Ferrous Sulfate 324 Mg Tablet.) 324 mg PO DAILY [facility] Last Admin: 03/02/23 09:08 Dose: 324 mg Glucose (Glucose Gel 15 Gm Gel..Gram.) 15 gm PO Q15M PRN; Protocol PRN Reason: per Hypoglycemia Standing Ord. Hydralazine HCl (Hydralazine Hcl 10 Mg Tablet) 20 mg PO TID [facility]; Protocol Last Admin: 03/02/23 09:09 Dose: 20 mg Insulin Human Lispro (Insulin Lispro 100 Unit/Ml 3 Ml Vial) 0 unit SUBCUT QIDACHS [facility]; Protocol Last Admin: 03/02/23 11:47 Dose: 2 unit Lidocaine (Lidocaine 4 % Patch Adh..Patch) 1 patch TRANSDERMA DAILY [facility] Last Admin: 03/02/23 09:08 Dose: 1 patch Lisinopril (Lisinopril 40 Mg Tablet) 40 mg PO DAILY [facility]; Protocol Last Admin: 03/02/23 09:08 Dose: 40 mg Polyethylene Glycol (Polyethylene Glycol 3350 17 Gm Powd.Pack) 17 gm PO DAILY PRN PRN Reason: constipation Last Admin: 02/15/23 17:10 Dose: 17 gm Sodium Chloride (0.9 % Sodium Chloride Flush 3 Ml Syringe) 3 ml IVFLUSH QSHIFT [facility] Last Admin: 03/02/23 09:09 Dose: 3 ml Vitamin D (Cholecalciferol (Vitamin D3) 25 Mcg Tablet) 25 mcg PO DAILY [facility] Last Admin: 03/02/23 09:08 Dose: 25 mcg Allergies Allergies Allergy/AdvReac Type Severity Reaction Status Date / Time No Known Allergies Allergy Verified 02/08/23 13:36 Assessment & Plan Assessment & Plan (1) Major neurocognitive disorder due to another medical condition: Status: Acute Code(s): F02.80 - Dementia in other diseases classified elsewhere, unspecified severity, without behavioral disturbance, psychotic disturbance, mood disturbance, and anxiety Plan Mrs. Sawant presents as more talkative, eating better. No SI/HI. No VH/AH. No delusional content noted or reported. Underlying neurocognitive deficits due to CVA. No need for further intensive psychiatric treatment. Continue lexapro 20mg po daily. Total time managing care of this patient today ____ minutes.
[2023-03-02 15:14] VITALS: BP 146/67; PULSE 80; RESP 17; TEMP 36.6; O2SAT 97
--- NOTE | 2023-03-02 15:31 | MHC.CM.PN ---
PT MEDICALLY READY TO DC HOWEVER SHE WILL NEED A DEMENTIA EXCLUSION FROM [facility] DB LIAISON, ELAINE Ortiz, HAS SUBMITTED NECESSARY DOCUMENTS, HOWEVER IT IS TYPICALLY A 24 TURN AROUND PER HER REPORT. CURRENT PLAN IS FOR PT TO DC TO [facility] DEMENTIA UNIT TOMORROW ONCE [facility] RESPONSE IS RECEIVED
--- NOTE | 2023-03-02 15:38 | MHC.CLN ---
F/U PPN COMPLETED 02/28. DIET=REGULAR, GROUND. USUALLY LEAVES GREATER THAN 50% AT MEALS. ENSURE BID TO INCREASE NUTRITIONAL INTAKE. PROVIDES 700 KCALS, 40 G PROTEIN. FOLLOW FOR INTAKE.
[2023-03-02 16:15] LABS: Glucose, Whole Blood 174 mg/dL (60-115)
[2023-03-02 19:33] VITALS: BP 145/65; PULSE 70; RESP 20; TEMP 36.2; O2SAT 99
[2023-03-02 20:44] LABS: Glucose, Whole Blood 135 mg/dL (60-115)
[2023-03-02] MEDS: Enoxaparin Sodium 40 MG/0.4 ML SYRINGE SUBCUT (20:45)
[2023-03-02] MEDS: Atorvastatin Calcium 80 MG TABLET PO (20:45)
[2023-03-02 21:54] LABS: Lyme IgG CSF Immunoblot NO BANDS DETECTED; Lyme IgM CSF Immunoblot NO BANDS DETECTED
[2023-03-02 23:44] VITALS: BP 140/64; PULSE 81; RESP 16; TEMP 36; O2SAT 96
[2023-03-03 03:41] VITALS: BP 144/67; PULSE 81; RESP 16; TEMP 36.1; O2SAT 95
[2023-03-03 07:05] LABS: Glucose, Whole Blood 164 mg/dL (60-115)
[2023-03-03 07:24] LABS: Alanine Aminotransferase 33 U/L (0-31); Albumin Level 3.3 g/dL (3.5-5.0); Alkaline Phosphatase 106 U/L (39-117); Anion Gap 12 (12-20); Aspartate Amino Transferase 29 U/L (5-31); Bilirubin Total 0.4 mg/dL (0.0-1.0); Blood Urea Nitrogen 14 mg/dL (9-16); Calcium 9.3 mg/dL (8.4-10.2); Carbon Dioxide 28 mmol/L (22-29); Chloride 102 mmol/L (96-108); Creatinine Clr Calc Pharmacy 64.9; Estimated Glomerular Filt Rate > 60; Glucose Random 202 mg/dL (60-115); Magnesium 1.8 mg/dL (1.6-2.6); Phosphorus 3.6 mg/dL (2.7-4.5); Potassium 3.9 mmol/L (3.3-5.1); Sodium 138 mmol/L (135-145); Total Protein 6.3 g/dL (6.5-8.0)
[2023-03-03 07:43] VITALS: BP 153/72; PULSE 85; RESP 17; TEMP 36.1; O2SAT 96
[2023-03-03] MEDS: hydrALAZINE HCl 10 MG TABLET 20 MG PO ×3 (08:53→19:51)
[2023-03-03] MEDS: Insulin Lispro 100 UNIT/ML 3 ML VIAL SUBCUT ×4 (08:53→20:18)
[2023-03-03] MEDS: lisinopriL 40 MG TABLET PO (08:54)
[2023-03-03] MEDS: amLODIPine Besylate 10 MG TABLET PO (08:54)
[2023-03-03] MEDS: 0.9 % Sodium Chloride Flush 3 ML SYRINGE IVFLUSH (08:54)
[2023-03-03] MEDS: Lidocaine 4 % Patch ADH..PATCH 1 PATCH TRANSDERMA (08:54)
[2023-03-03] MEDS: carvediloL 12.5 MG TABLET PO ×2 (08:54→19:51)
[2023-03-03] MEDS: Ferrous Sulfate 324 MG TABLET.DR PO (08:54)
[2023-03-03] MEDS: Cholecalciferol (Vitamin D3) 25 MCG TABLET PO (08:54)
[2023-03-03] MEDS: Escitalopram Oxalate 20 MG TABLET PO (08:54)
--- NOTE | 2023-03-03 09:53 | MHC.CLN ---
F/U DIET=REGULAR, GROUND-APPROPRIATE. INTAKE VARIABLE, WITH MOST MEALS 25-50%. ENSURE BID TO INCREASE NUTRITIONAL INTAKE. PROVIDES 700 KCALS, 40 G PROTEIN. FOLLOW FOR INTAKE.
[2023-03-03 11:03] LABS: Glucose, Whole Blood 348 mg/dL (60-115)
[2023-03-03 11:50] VITALS: BP 135/60; PULSE 83; RESP 17; TEMP 36.1; O2SAT 96
--- NOTE | 2023-03-03 12:02 | PC.NURSE ---
Patient IV access outdated/infiltrated. IV access removed. DR. olson made aware-Okay for IV access to remain out for now.
--- NOTE | 2023-03-03 12:43 | MHC.SL.SWA ---
Risk of Aspiration Due to: Neurological Condition Poor PO Intake Reduced Cognition Dysphasia Diet Status: Recommend UPGRADE to CHOPPED/ADVANCED solids (NDD3). Continue with THIN liquids by cup sip or tsp (NO STRAWS) and pills crushed in puree. Recommend 1-1 supervision during meals. Liquid Consistency and Strategies for Safe Swallow: Liquid Intake Recommendation: Thin Liquid Intake Strategies: Small Sips No Straws Solid Food Consistency: Dietary Recommendations: Chopped/Advanced (NDD3) Additional Modifications to Solid Foods: Avoid mixed consistencies. Alternate liquids and solids. Liquids by controlled cup sip or tsp. Do not attempt if patient is excessively lethargic or not engaged in meal. Patient may benefit from smaller more frequent meals to encourage intake. Discontinue if patient evidences signs of aspiration. Oral Medication Intake: Crushed with Puree Please contact the pharmacy regarding appropriate crushable or liquid drug formulations that are available whenever modified delivery is recommended. Compensatory Strategies and Precautions to be Taken for Safe Swallow: Sitting Upright (90 deg) No Straw Small Bites and Sips Alternate Liquids/Solids Rate of Ingestion Change Supervision While Eating and Drinking for Safe Swallow: Total Supervision (1:1) Foods to Avoid: Mixed consistencies and tough, hard, difficult to chew solids. Add gravy and blend well. Swallowing Recommended Treatments: Compens. Strategy Educat. Recommendation for Speech: Inpatient Speech Therapy Pt seen at lunch w/ trial NDD3 tray. Patient's assisted w/ tray set up, including putting gravy on all solid items. Patient tolerated chopped roast turkey, ground consistency carrot, and mashed potatoes w/ thin liquids via cup. No overt clinical s/s aspiration. Timely mastication and mild oral residue following swallow. Residual cleared w/ subsequent bites/sips/swallows. Patient able to self-feed. Discussed potential upgrade to NDD3 consistency, patient and both interested and agreeable. Patient and informed that Upper Cutter Out Clinican/Clinical Fellow: No Supervisory Statement: I have reviewed and agree with the student/clinical fellow's documentation: N/A Speech Language Pathologist: Jeanine Lopez M.A., CCC-POWDERED SUGAR SUPERVISOR
--- NOTE | 2023-03-03 13:14 | HO.PM.IMPN ---
Subjective Subjective Date of Service: 03/03/23 Interval History: doing well overall no acute issues Review of Systems Denies chest pain Denies shortness of breath Denies nausea vomiting diarrhea Denies fever chills Physical Exam Vital Signs: Vital Signs: Last Vital Signs Temp 97.0 F 03/03/23 11:50 Pulse 83 03/03/23 11:50 Resp 17 03/03/23 11:50 BP 135/60 03/03/23 11:50 Pulse Ox 96 03/03/23 11:50 O2 Del Method Room Air 03/03/23 11:50 BMI result Body Mass Index 29.9 Const: Other: Somnolent. Will not respond to verbal stimuli Resp: Other: Clear to auscultation bilaterally no rales rhonchi or wheezes Cardio: Other: No S4; positive S1-S2; S3 murmurs rubs or gallops GI: Other: Soft nontender nondistended normoactive bowel sounds Extrem: Other: No edema bilat Objective Data Active Medications Acetaminophen (Acetaminophen 325 Mg Tablet) 650 mg PO Q6H PRN PRN Reason: Pain, Mild (Pain Scale 1-3) Last Admin: 03/01/23 17:01 Dose: 650 mg Documented By: KAYE Amlodipine Besylate (Amlodipine Besylate 10 Mg Tablet) 10 mg PO DAILY [facility]; Protocol Last Admin: 03/03/23 08:54 Dose: 10 mg Documented By: KAYE Ascorbic Acid (Ascorbic Acid 500 Mg Tablet) 500 mg PO Q48H [facility] Last Admin: 03/01/23 17:00 Dose: 500 mg Documented By: KAYE Aspirin (Aspirin Enteric Coated 81 Mg Tablet.) 81 mg PO DAILY [facility] Last Admin: 03/03/23 08:49 Dose: Not Given Documented By: KAYE Non-Admin Reason: cannot crush Atorvastatin Calcium (Atorvastatin Calcium 80 Mg Tablet) 80 mg PO BEDTIME [facility] Last Admin: 03/02/23 20:45 Dose: 80 mg Documented By: LISAQC Benzonatate (Benzonatate 100 Mg Capsule) 100 mg PO TID PRN PRN Reason: Cough Carvedilol (Carvedilol 12.5 Mg Tablet) 12.5 mg PO BID [facility]; Protocol Last Admin: 03/03/23 08:54 Dose: 12.5 mg Documented By: HO.COTEMA Dextrose (Dextrose 50 % 25 Gm/50 Ml Syringe) 25 gm IVPUSH Q15M PRN; Protocol PRN Reason: per Hypoglycemia Standing Ord. Docusate Sodium (Docusate Sodium 100 Mg Capsule) 100 mg PO DAILY PRN PRN Reason: Constipation Enoxaparin Sodium (Enoxaparin Sodium 40 Mg/0.4 Ml Syringe) 40 mg SUBCUT Q24H [facility] Last Admin: 03/02/23 20:45 Dose: 40 mg Documented By: JUAN Escitalopram Oxalate (Escitalopram Oxalate 20 Mg Tablet) 20 mg PO DAILY [facility] Last Admin: 03/03/23 08:54 Dose: 20 mg Documented By: COTEMA Ferrous Sulfate (Ferrous Sulfate 324 Mg Tablet.Dr) 324 mg PO DAILY [facility] Last Admin: 03/03/23 08:54 Dose: 324 mg Documented By: COTEMA Glucose (Glucose Gel 15 Gm Gel..Gram.) 15 gm PO Q15M PRN; Protocol PRN Reason: per Hypoglycemia Standing Ord. Hydralazine HCl (Hydralazine Hcl 10 Mg Tablet) 20 mg PO TID [facility]; Protocol Last Admin: 03/03/23 08:53 Dose: 20 mg Documented By: SHANNANEMA Insulin Human Lispro (Insulin Lispro 100 Unit/Ml 3 Ml Vial) 0 unit SUBCUT QIDACHS [facility]; Protocol Last Admin: 03/03/23 11:27 Dose: 8 unit Documented By: SHANNANEMA Lidocaine (Lidocaine 4 % Patch Adh..Patch) 1 patch TRANSDERMA DAILY [facility] Last Admin: 03/03/23 08:54 Dose: 1 patch Documented By: COTEMA Lisinopril (Lisinopril 40 Mg Tablet) 40 mg PO DAILY [facility]; Protocol Last Admin: 03/03/23 08:54 Dose: 40 mg Documented By: COTEMA Polyethylene Glycol (Polyethylene Glycol 3350 17 Gm Powd.Pack) 17 gm PO DAILY PRN PRN Reason: constipation Last Admin: 02/15/23 17:10 Dose: 17 gm Documented By: MOHAMER Sodium Chloride (0.9 % Sodium Chloride Flush 3 Ml Syringe) 3 ml IVFLUSH QSHIFT [facility] Last Admin: 03/03/23 08:54 Dose: 3 ml Documented By: COTEMA Vitamin D (Cholecalciferol (Vitamin D3) 25 Mcg Tablet) 25 mcg PO DAILY [facility] Last Admin: 12/27/23 08:54 Dose: 25 mcg Documented By: KAYE Labs 03/01/23 09:24 03/03/23 06:26 Labs: Laboratory Results - last 24 hr 02/25/23 03/02/23 03/02/23 13:10 16:08 20:28 Anion Gap Estim Creat Clear Calc Estimated GFR POC Glucose 174 H 135 H Random Glucose Calcium Phosphorus Magnesium Total Bilirubin AST ALT Alkaline Phosphatase Total Protein Albumin CSF Lyme IgG (Immblot) NO BANDS DETECTED CSF Lyme IgG Bands Det TNP CSF Lyme IgM (Immblot) NO BANDS DETECTED CSF Lyme IgM Bands Det TNP 03/03/23 03/03/23 03/03/23 06:26 06:59 10:49 Anion Gap 12 Estim Creat Clear Calc 64.9 Estimated GFR > 60 POC Glucose 164 H 348 H Random Glucose 202 H Calcium 9.3 Phosphorus 3.6 Magnesium 1.8 Total Bilirubin 0.4 AST 29 ALT 33 H Alkaline Phosphatase 106 Total Protein 6.3 L Albumin 3.3 L CSF Lyme IgG (Immblot) CSF Lyme IgG Bands Det CSF Lyme IgM (Immblot) CSF Lyme IgM Bands Det Assessment and Plan (1) Major neurocognitive disorder due to another medical condition: Status: Acute (2) Adult failure to thrive: Status: Acute (3) Acute UTI: Status: Acute Plan 77yo F with HTN, HLD, DM2 who was found wandering the streets in her undergarments, brought in on [address] for failure to thrive/inability fo care for self. 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 Seen by Psychiatry; no acute interventions recommended - continue current therapies - await placement 2.UTI [E coli/Strep veridians] Completed 7d of ceftriaxone; mentation now back to baseline. No dysuric symptoms - no further treatment indicated 3.DM2 Now tolerating diet; much more awake and interactive. - add back metformin -lispro correctional scale -adjust as indicated 4.HTN - acceptable control on current therapy - adjust as indicated LMWH Full code dispo STR when medically clear, bed at [facility] care unit, waiting on [facility] dementia exclusion he following reasons: BP control, placement Quality Stroke Does the patient have a stroke diagnosis?: No VTE Prior VTE?: No VTE Risk Level:: Medical - moderate - high VTE Device Contraindication: Treatment Not Indicated VTE Drug Contraindication: N/A - Med Ordered
[2023-03-03] MEDS: Ascorbic Acid 500 MG TABLET PO (14:58)
[2023-03-03 15:07] VITALS: BP 132/63; PULSE 92; RESP 18; TEMP 36.6; O2SAT 96
--- NOTE | 2023-03-03 15:59 | MHC.CM.PN ---
JENNIFER submitted additional documentation to [facility]. A request for the Careteam note stating patient does not qualify inpatient [facility]. The only Care team note was written on 02/08/23. That note was sent to JENNIFER via [employer]. Status of referral communicated to MD. RODRIGUEZ via BLS.
[2023-03-03 16:19] LABS: Glucose, Whole Blood 271 mg/dL (60-115)
[2023-03-03] MEDS: metFORMIN HCl 500 MG TABLET PO (17:06)
[2023-03-03 19:05] VITALS: BP 145/67; PULSE 99; RESP 18; TEMP 36.3; O2SAT 97
[2023-03-03] MEDS: Enoxaparin Sodium 40 MG/0.4 ML SYRINGE SUBCUT (19:50)
[2023-03-03] MEDS: Atorvastatin Calcium 80 MG TABLET PO (19:51)
[2023-03-03 20:10] LABS: Glucose, Whole Blood 220 mg/dL (60-115)
[2023-03-03 23:48] VITALS: BP 130/60; PULSE 96; RESP 18; TEMP 36.4; O2SAT 95
[2023-03-04 03:24] VITALS: BP 145/67; PULSE 93; RESP 16; TEMP 36.4; O2SAT 94
[2023-03-04 05:46] LABS: Alanine Aminotransferase 27 U/L (0-31); Albumin Level 3.2 g/dL (3.5-5.0); Alkaline Phosphatase 99 U/L (39-117); Anion Gap 13 (12-20); Aspartate Amino Transferase 17 U/L (5-31); Bilirubin Total 0.3 mg/dL (0.0-1.0); Blood Urea Nitrogen 16 mg/dL (9-16); Carbon Dioxide 23 mmol/L (22-29); Chloride 102 mmol/L (96-108); Creatinine Clr Calc Pharmacy 59.5; Estimated Glomerular Filt Rate > 60; Glucose Random 212 mg/dL (60-115); Sodium 134 mmol/L (135-145)
[2023-03-04 07:24] LABS: Glucose, Whole Blood 181 mg/dL (60-115)
[2023-03-04 07:27] VITALS: BP 134/60; PULSE 83; RESP 17; TEMP 36.1; O2SAT 92
[2023-03-04] MEDS: carvediloL 12.5 MG TABLET PO (08:23)
[2023-03-04] MEDS: metFORMIN HCl 500 MG TABLET PO ×2 (08:23→16:19)
[2023-03-04] MEDS: lisinopriL 40 MG TABLET PO (08:23)
[2023-03-04] MEDS: Insulin Lispro 100 UNIT/ML 3 ML VIAL SUBCUT ×2 (08:23→12:07)
[2023-03-04] MEDS: Cholecalciferol (Vitamin D3) 25 MCG TABLET PO (08:23)
[2023-03-04] MEDS: amLODIPine Besylate 10 MG TABLET PO (08:23)
[2023-03-04] MEDS: Ferrous Sulfate 324 MG TABLET.DR PO (08:23)
[2023-03-04] MEDS: Escitalopram Oxalate 20 MG TABLET PO (08:23)
[2023-03-04] MEDS: hydrALAZINE HCl 10 MG TABLET 20 MG PO ×2 (08:23→16:19)
[2023-03-04] MEDS: Lidocaine 4 % Patch ADH..PATCH 1 PATCH TRANSDERMA (08:24)
[2023-03-04 11:24] LABS: Glucose, Whole Blood 250 mg/dL (60-115)
[2023-03-04 11:26] VITALS: BP 131/62; PULSE 71; RESP 17; TEMP 37.1; O2SAT 97
--- NOTE | 2023-03-04 11:57 | PC.NURSE ---
Brien to d/c evelyn FREN[facility]
--- NOTE | 2023-03-04 13:55 | MHC.SL.SWA ---
Speech Pathologist Impression: Risk of Aspiration Due to: Neurological Condition Poor PO Intake Reduced Cognition Dysphasia Diet Status: Recommend UPGRADE to CHOPPED/ADVANCED solids (NDD3). Continue with THIN liquids by cup sip or tsp (NO STRAWS) and pills crushed in puree. Recommend 1-1 supervision during meals. Liquid Consistency and Strategies for Safe Swallow: Liquid Intake Recommendation: Thin Liquid Intake Strategies: Small Sips No Straws Solid Food Consistency: Dietary Recommendations: Chopped/Advanced (NDD3) Additional Modifications to Solid Foods: Avoid mixed consistencies. Alternate liquids and solids. Liquids by controlled cup sip or tsp. Do not attempt if patient is excessively lethargic or not engaged in meal. Patient may benefit from smaller more frequent meals to encourage intake. Discontinue if patient evidences signs of aspiration. Oral Medication Intake: Crushed with Puree Please contact the pharmacy regarding appropriate crushable or liquid drug formulations that are available whenever modified delivery is recommended. Compensatory Strategies and Precautions to be Taken for Safe Swallow: Sitting Upright (90 deg) No Straw Small Bites and Sips Alternate Liquids/Solids Rate of Ingestion Change Supervision While Eating and Drinking for Safe Swallow: Total Supervision (1:1) Foods to Avoid: Mixed consistencies and tough, hard, difficult to chew solids. Add gravy and blend well. Swallowing Recommended Treatments: Compens. Strategy Educat. Recommendation for Speech: Inpatient Speech Therapy Comment: Patient seen at lunch with feeding patient. Patient yesterday upgraded to Chopped/Advanced. At onset reported that patient wasn't interested/refusing food. Patient seated in chair beside bed, appeared to be sleeping but then open eyes when DIRECTOR OF NURSES REGISTRY addressed her directly and said she was interested in having some food. was encouraged to try soup with patient, which was a squash bisque, with patient commenting that she liked it, and producing a timely oral phase and swallow. encouraged to give patient the chicken salad on tray, with patient producing a slow rotational chew, mildly prolonged oral phase, timely swallow, some mild residual in mouth which patient then chewed and swallowed. noted to be very tentative with patient, providing patient with only a few bites, then moving to other items on tray (e.g. closed up chicken salad, moved to coffee) and always inquiring if patient was done/wanted more. was encouraged to keep offering food consistently, rather than frequently stopping and questioning. Patient appears to tolerate more advanced texture well. DIRECTOR OF NURSES REGISTRY will continue to follow. Frequency/Duration: Date Range for Service Req: Timeline to reassess: Hardware Sales Assistant Clinican/Clinical Fellow: No Supervisory Statement: I have reviewed and agree with the student/clinical fellow's documentation: N/A Speech Language Pathologist: Nicole Grajeda M.A., CCC-DIRECTOR OF NURSES REGISTRY
--- NOTE | 2023-03-04 14:46 | MHC.CM.PN ---
IMM 03/04/23 delivered to the patient's /hcp (invoked). An Factory Manager was used to deliver Medicare rights. Spouse verbalized understanding of Medicare rights. [facility] Memory care unit bed has been offered. The insurance has given authorization. Dementia exclusion is pending [facility] approval. Additional documentation was requested. The Care[facility] assessment 02/10/23 was located this am. The document was sent to [facility] via [employer]. Info has been resubmitted to [facility], per [facility] liason. A clinical update has been sent to the facility this afternoon. [facility] memory care unit via BLS. [facility] approval is pending.
[2023-03-04 15:44] VITALS: BP 114/59; PULSE 76; RESP 17; TEMP 36.7; O2SAT 93
--- NOTE | 2023-03-04 16:18 | P.PNIM_ITS ---
Subjective Subjective Date of Service: 03/04/23 Interval History: seen and examined this morning follow up for FTT awake and took meds, and then fell asleep in chair. unable to obtain ROS Physical Exam 2 Vital Signs: Vital Signs: Last Vital Signs Temp 98.0 F 03/04/23 15:44 Pulse 76 03/04/23 15:44 Resp 17 03/04/23 15:44 BP 114/59 L 03/04/23 15:44 Pulse Ox 93 03/04/23 15:44 O2 Del Method Room Air 03/04/23 15:44 BMI result Body Mass Index 29.9 Const: Other: sleeping, appears comfortable Resp: Effort & Inspection: normal respiratory effort, no respiratory distress and no use of accessory muscles Cardio: Rate: regular rate GI: Inspection: No distended Palpation (GI): Soft to palpation Extrem: General: Yes no pedal edema Objective Data Active Medications Acetaminophen (Acetaminophen 325 Mg Tablet) 650 mg PO Q6H PRN PRN Reason: Pain, Mild (Pain Scale 1-3) Last Admin: 03/01/23 17:01 Dose: 650 mg Documented By: KAYE Amlodipine Besylate (Amlodipine Besylate 10 Mg Tablet) 10 mg PO DAILY [facility]; Protocol Last Admin: 03/04/23 08:23 Dose: 10 mg Documented By: YOLANDA Ascorbic Acid (Ascorbic Acid 500 Mg Tablet) 500 mg PO Q48H [facility] Last Admin: 03/03/23 14:58 Dose: 500 mg Documented By: KAYE Aspirin (Aspirin Enteric Coated 81 Mg Tablet.) 81 mg PO DAILY [facility] Last Admin: 03/04/23 08:17 Dose: Not Given Documented By: YOLANDA Non-Admin Reason: cannot crush Atorvastatin Calcium (Atorvastatin Calcium 80 Mg Tablet) 80 mg PO BEDTIME [facility] Last Admin: 03/03/23 19:51 Dose: 80 mg Documented By: JUAN Benzonatate (Benzonatate 100 Mg Capsule) 100 mg PO TID PRN PRN Reason: Cough Carvedilol (Carvedilol 12.5 Mg Tablet) 12.5 mg PO BID [facility]; Protocol Last Admin: 03/04/23 08:23 Dose: 12.5 mg Documented By: YOLANDA Dextrose (Dextrose 50 % 25 Gm/50 Ml Syringe) 25 gm IVPUSH Q15M PRN; Protocol PRN Reason: per Hypoglycemia Standing Ord. Docusate Sodium (Docusate Sodium 100 Mg Capsule) 100 mg PO DAILY PRN PRN Reason: Constipation Enoxaparin Sodium (Enoxaparin Sodium 40 Mg/0.4 Ml Syringe) 40 mg SUBCUT Q24H [facility] Last Admin: 03/03/23 19:50 Dose: 40 mg Documented By: JUAN Escitalopram Oxalate (Escitalopram Oxalate 20 Mg Tablet) 20 mg PO DAILY [facility] Last Admin: 03/04/23 08:23 Dose: 20 mg Documented By: YOLANDA Ferrous Sulfate (Ferrous Sulfate 324 Mg Tablet.Dr) 324 mg PO DAILY [facility] Last Admin: 03/04/23 08:23 Dose: 324 mg Documented By: YOLANDA Glucose (Glucose Gel 15 Gm Gel..Gram.) 15 gm PO Q15M PRN; Protocol PRN Reason: per Hypoglycemia Standing Ord. Hydralazine HCl (Hydralazine Hcl 10 Mg Tablet) 20 mg PO TID [facility]; Protocol Last Admin: 03/04/23 08:23 Dose: 20 mg Documented By: YOLANDA Insulin Human Lispro (Insulin Lispro 100 Unit/Ml 3 Ml Vial) 0 unit SUBCUT QIDACHS [facility]; Protocol Last Admin: 03/04/23 12:07 Dose: 4 unit Documented By: YOLANDA Lidocaine (Lidocaine 4 % Patch Adh..Patch) 1 patch TRANSDERMA DAILY [facility] Last Admin: 03/04/23 08:24 Dose: 1 patch Documented By: YOLANDA Lisinopril (Lisinopril 40 Mg Tablet) 40 mg PO DAILY [facility]; Protocol Last Admin: 03/04/23 08:23 Dose: 40 mg Documented By: YOLANDA Metformin HCl (Metformin Hcl 500 Mg Tablet) 500 mg PO BIDWM [facility] Last Admin: 03/04/23 08:23 Dose: 500 mg Documented By: YOLANDA Polyethylene Glycol (Polyethylene Glycol 3350 17 Gm Powd.Pack) 17 gm PO DAILY PRN PRN Reason: constipation Last Admin: 02/15/23 17:10 Dose: 17 gm Documented By: МАРИЯ Sodium Chloride (0.9 % Sodium Chloride Flush 3 Ml Syringe) 3 ml IVFLUSH QSHIFT [facility] Last Admin: 03/04/23 07:03 Dose: Not Given Documented By: YOLANDA Non-Admin Reason: No Access Vitamin D (Cholecalciferol (Vitamin D3) 25 Mcg Tablet) 25 mcg PO DAILY [facility] Last Admin: 03/04/23 08:23 Dose: 25 mcg Documented By: YOLANDA Labs 03/01/23 09:24 03/04/23 05:15 Labs: Laboratory Results - last 24 hr 03/03/23 03/03/23 03/04/23 16:12 19:59 05:15 Anion Gap 13 Estim Creat Clear Calc 59.5 Estimated GFR > 60 POC Glucose 271 H 220 H Random Glucose 212 H Calcium 9.0 Total Bilirubin 0.3 AST 17 ALT 27 Alkaline Phosphatase 99 Total Protein 6.0 L Albumin 3.2 L 03/04/23 03/04/23 07:11 11:11 Anion Gap Estim Creat Clear Calc Estimated GFR POC Glucose 181 H 250 H Random Glucose Calcium Total Bilirubin AST ALT Alkaline Phosphatase Total Protein Albumin Assessment and Plan (1) Major neurocognitive disorder due to another medical condition: Status: Acute Plan 77yo F with HTN, HLD, DM2 who was found wandering the streets in her undergarments, brought in on [address] for failure to thrive/inability fo care for self. 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 ashleigh TORRES when medically clear, bed at [facility] unit, waiting on [facility] dementia exclusion In my clinical judgment, the patient requires continued inpatient hospitalization for the following reasons: BP control, placement Quality Stroke Does the patient have a stroke diagnosis?: No VTE Prior VTE?: No VTE Risk Level:: Medical - moderate - high VTE Device Contraindication: Treatment Not Indicated VTE Drug Contraindication: N/A - Med Ordered
[2023-03-04 16:44] LABS: Glucose, Whole Blood 200 mg/dL (60-115)
[2023-03-04 19:52] VITALS: BP 117/58; PULSE 82; RESP 17; TEMP 36.1; O2SAT 94
[2023-03-04] MEDS: Enoxaparin Sodium 40 MG/0.4 ML SYRINGE SUBCUT (20:23)
[2023-03-04 21:01] LABS: Glucose, Whole Blood 147 mg/dL (60-115)
[2023-03-04 23:35] VITALS: BP 122/59; PULSE 93; RESP 18; TEMP 36.1; O2SAT 98
[2023-03-05] VITALS (7 sets, daily range): BP systolic 113–128; BP diastolic 52–70; PULSE 67–84; RESP 16–18; TEMP 36–36.9; O2SAT 93–98
[2023-03-05 07:05] LABS: Alanine Aminotransferase 30 U/L (0-31); Albumin Level 3.4 g/dL (3.5-5.0); Alkaline Phosphatase 105 U/L (39-117); Anion Gap 13 (12-20); Aspartate Amino Transferase 25 U/L (5-31); Bilirubin Total 0.3 mg/dL (0.0-1.0); Blood Urea Nitrogen 17 mg/dL (9-16); Calcium 9.4 mg/dL (8.4-10.2); Carbon Dioxide 25 mmol/L (22-29); Chloride 104 mmol/L (96-108); Creatinine Clr Calc Pharmacy 61.2; Estimated Glomerular Filt Rate > 60; Glucose Random 186 mg/dL (60-115); Sodium 138 mmol/L (135-145); Total Protein 6.6 g/dL (6.5-8.0)
[2023-03-05 07:38] LABS: Glucose, Whole Blood 181 mg/dL (60-115)
[2023-03-05] MEDS: Lidocaine 4 % Patch ADH..PATCH 1 PATCH TRANSDERMA (08:15)
[2023-03-05] MEDS: hydrALAZINE HCl 10 MG TABLET 20 MG PO ×3 (08:16→20:05)
[2023-03-05] MEDS: Escitalopram Oxalate 20 MG TABLET PO (08:16)
[2023-03-05] MEDS: carvediloL 12.5 MG TABLET PO ×2 (08:16→20:05)
[2023-03-05] MEDS: Insulin Lispro 100 UNIT/ML 3 ML VIAL SUBCUT (08:16)
[2023-03-05] MEDS: metFORMIN HCl 500 MG TABLET PO ×2 (08:17→16:08)
[2023-03-05] MEDS: lisinopriL 40 MG TABLET PO (08:17)
[2023-03-05] MEDS: Aspirin Enteric Coated 81 MG TABLET.DR PO (08:17)
[2023-03-05] MEDS: Ferrous Sulfate 324 MG TABLET.DR PO (08:17)
[2023-03-05] MEDS: Cholecalciferol (Vitamin D3) 25 MCG TABLET PO (08:17)
[2023-03-05] MEDS: amLODIPine Besylate 10 MG TABLET PO (08:17)
[2023-03-05] MEDS: Acetaminophen 325 MG TABLET 650 MG PO ×2 (09:44→20:04)
--- NOTE | 2023-03-05 10:51 | MHC.SLORD ---
Speech Language Pathology Order Status: Attempted to see pt for PO trials this morning. Pt took small amount of food, did not chew, and spit out. Discontinued trials as pt was falling back asleep, not following commands, not appropriate for feeding at this time. Pt must be awake, alert, and engaging in meal- Otherwise tray to be held. TICKER MAINTAINER will continue to follow.
[2023-03-05 11:37] LABS: Glucose, Whole Blood 142 mg/dL (60-115)
--- NOTE | 2023-03-05 12:28 | MHC.CM.PN ---
Addendum entered by Pau Foss 03/05/23 13:56: Notification received from [facility]. Patient will not be accepted until after the Holiday weekend. Original Note: IMM 03/04/23 Per [facility] Mario [facility] has not approved admission to the Memory care unit. [facility] informed the SNF to seek approval for Convalescent care.
--- NOTE | 2023-03-05 14:57 | MHC.CLN ---
F/U PO INTAKE VARIABLE RANGING FROM 0-100% DIET RX: CHOPPED-APPROPRIATE PILE DRIVING SETTER FOLLOWING FOR DIET CONSISTENCY NOTED PT LETHARGIC DURING MEALS AND UNABLE TO PARTICIPATE AT TIMES PT RECEIVING ENSURE BID PROVIDES 700KCALS, 40G PROTEIN WITH 100% ACCEPTANCE MONITOR PO INTAKE AND ENCOURAGE SUPPLEMENTS
--- NOTE | 2023-03-05 15:01 | HO.PM.IMPN ---
Subjective Subjective Date of Service: 03/05/23 Interval History: seen and examined this morning follow up for FTT open eyes when hearing name, resting in bed, appears comfortable no overnight events Review of Systems Review of Systems: Yes all other systems are reviewed and are negative Constitutional Constitutional: Denies chills and Denies fever(s) Cardiovascular Cardiovascular: Denies chest pain, Denies palpitations and Denies dyspnea Respiratory Respiratory: Denies cough and Denies dyspnea Endocrine Endocrine: Denies palpitations Physical Exam Vital Signs: Vital Signs: Last Vital Signs Temp 97.0 F 03/05/23 11:47 Pulse 67 03/05/23 11:47 Resp 18 03/05/23 11:47 BP 128/57 L 03/05/23 11:47 Pulse Ox 93 03/05/23 11:47 O2 Del Method Room Air 03/05/23 11:47 BMI result Body Mass Index 29.9 Const: General: cooperative, comfortable, no acute distress, alert and awake Nutritional Appearance: overweight Resp: Effort & Inspection: normal respiratory effort, able to speak in complete sentences, no respiratory distress and no use of accessory muscles Cardio: Rate: regular rate GI: Other: appears non-tender Inspection: No distended Palpation (GI): Soft to palpation and nontender Extrem: General: Yes no pedal edema Objective Data Active Medications Acetaminophen (Acetaminophen 325 Mg Tablet) 650 mg PO Q6H PRN PRN Reason: Pain, Mild (Pain Scale 1-3) Last Admin: 03/05/23 09:44 Dose: 650 mg Documented By: SHAYLEE Amlodipine Besylate (Amlodipine Besylate 10 Mg Tablet) 10 mg PO DAILY [facility]; Protocol Last Admin: 03/05/23 08:17 Dose: 10 mg Documented By: SHAYLEE Ascorbic Acid (Ascorbic Acid 500 Mg Tablet) 500 mg PO Q48H [facility] Last Admin: 03/03/23 14:58 Dose: 500 mg Documented By: COTEMA Aspirin (Aspirin Enteric Coated 81 Mg Tablet.) 81 mg PO DAILY [facility] Last Admin: 03/05/23 08:17 Dose: 81 mg Documented By: SHAYLEE Atorvastatin Calcium (Atorvastatin Calcium 80 Mg Tablet) 80 mg PO BEDTIME [facility] Last Admin: 03/04/23 20:29 Dose: Not Given Documented By: JIM Non-Admin Reason: Patient Refused Benzonatate (Benzonatate 100 Mg Capsule) 100 mg PO TID PRN PRN Reason: Cough Carvedilol (Carvedilol 12.5 Mg Tablet) 12.5 mg PO BID [facility]; Protocol Last Admin: 03/05/23 08:16 Dose: 12.5 mg Documented By: SHAYLEE Dextrose (Dextrose 50 % 25 Gm/50 Ml Syringe) 25 gm IVPUSH Q15M PRN; Protocol PRN Reason: per Hypoglycemia Standing Ord. Docusate Sodium (Docusate Sodium 100 Mg Capsule) 100 mg PO DAILY PRN PRN Reason: Constipation Enoxaparin Sodium (Enoxaparin Sodium 40 Mg/0.4 Ml Syringe) 40 mg SUBCUT Q24H [facility] Last Admin: 03/04/23 20:23 Dose: 40 mg Documented By: IJM Escitalopram Oxalate (Escitalopram Oxalate 20 Mg Tablet) 20 mg PO DAILY [facility] Last Admin: 03/05/23 08:16 Dose: 20 mg Documented By: SHAYLEE Ferrous Sulfate (Ferrous Sulfate 324 Mg Tablet.Dr) 324 mg PO DAILY [facility] Last Admin: 03/05/23 08:17 Dose: 324 mg Documented By: SHAYLEE Glucose (Glucose Gel 15 Gm Gel..Gram.) 15 gm PO Q15M PRN; Protocol PRN Reason: per Hypoglycemia Standing Ord. Hydralazine HCl (Hydralazine Hcl 10 Mg Tablet) 20 mg PO TID [facility]; Protocol Last Admin: 03/05/23 08:16 Dose: 20 mg Documented By: SHAYLEE Insulin Human Lispro (Insulin Lispro 100 Unit/Ml 3 Ml Vial) 0 unit SUBCUT QIDACHS [facility]; Protocol Last Admin: 03/05/23 11:40 Dose: Not Given Documented By: SHAYLEE Non-Admin Reason: No Insulin Coverage Lidocaine (Lidocaine 4 % Patch Adh..Patch) 1 patch TRANSDERMA DAILY [facility] Last Admin: 03/05/23 08:15 Dose: 1 patch Documented By: SHAYLEE Lisinopril (Lisinopril 40 Mg Tablet) 40 mg PO DAILY [facility]; Protocol Last Admin: 03/05/23 08:17 Dose: 40 mg Documented By: SHAYLEE Metformin HCl (Metformin Hcl 500 Mg Tablet) 500 mg PO BIDWM [facility] Last Admin: 03/05/23 08:17 Dose: 500 mg Documented By: SHAYLEE Polyethylene Glycol (Polyethylene Glycol 3350 17 Gm Powd.Pack) 17 gm PO DAILY PRN PRN Reason: constipation Last Admin: 02/15/23 17:10 Dose: 17 gm Documented By: МАРИЯ Sodium Chloride (0.9 % Sodium Chloride Flush 3 Ml Syringe) 3 ml IVFLUSH QSHIFT [facility] Last Admin: 03/05/23 08:15 Dose: Not Given Documented By: SHAYLEE Non-Admin Reason: No Access Vitamin D (Cholecalciferol (Vitamin D3) 25 Mcg Tablet) 25 mcg PO DAILY [facility] Last Admin: 03/05/23 08:17 Dose: 25 mcg Documented By: SHAYLEE Labs 03/01/23 09:24 03/05/23 06:27 Labs: Laboratory Results - last 24 hr 03/04/23 03/04/23 03/05/23 16:40 20:48 06:27 Hold Purple Top SEE NOTE Anion Gap 13 Estim Creat Clear Calc 61.2 Estimated GFR > 60 POC Glucose 200 H 147 H Random Glucose 186 H Calcium 9.4 Total Bilirubin 0.3 AST 25 ALT 30 Alkaline Phosphatase 105 Total Protein 6.6 Albumin 3.4 L 03/05/23 03/05/23 07:22 11:20 Hold Purple Top Anion Gap Estim Creat Clear Calc Estimated GFR POC Glucose 181 H 142 H Random Glucose Calcium Total Bilirubin AST ALT Alkaline Phosphatase Total Protein Albumin Microbiology Microbiology Results: Microbiology 02/25/23 13:10 Direct Acid Fast Bacilli Smear - Final Spine Assessment and Plan (1) Major neurocognitive disorder due to another medical condition: Status: Acute Plan 77yo F with HTN, HLD, DM2 who was found wandering the streets in her undergarments, brought in on [address] for failure to thrive/inability fo care for self. 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 ashleigh azul STR, waiting on [facility] dementia exclusion In my clinical judgment, the patient requires continued inpatient hospitalization for the following reasons: placement Quality Stroke Does the patient have a stroke diagnosis?: No VTE Prior VTE?: No VTE Risk Level:: Medical - moderate - high VTE Device Contraindication: Treatment Not Indicated VTE Drug Contraindication: N/A - Med Ordered
[2023-03-05] MEDS: Ascorbic Acid 500 MG TABLET PO (16:08)
[2023-03-05 16:27] LABS: Glucose, Whole Blood 150 mg/dL (60-115)
[2023-03-05 19:44] LABS: Glucose, Whole Blood 103 mg/dL (60-115)
[2023-03-05] MEDS: Enoxaparin Sodium 40 MG/0.4 ML SYRINGE SUBCUT (19:59)
[2023-03-05] MEDS: Atorvastatin Calcium 80 MG TABLET PO (20:04)
[2023-03-06 04:00] VITALS: BP 132/62; PULSE 75; RESP 16; TEMP 36; O2SAT 97
[2023-03-06 07:30] VITALS: BP 143/72; PULSE 82; RESP 18; TEMP 36.8; O2SAT 98
[2023-03-06 07:44] LABS: Glucose, Whole Blood 141 mg/dL (60-115)
[2023-03-06] MEDS: Aspirin Enteric Coated 81 MG TABLET.DR PO (09:08)
[2023-03-06] MEDS: metFORMIN HCl 500 MG TABLET PO ×2 (09:08→17:16)
[2023-03-06] MEDS: carvediloL 12.5 MG TABLET PO ×2 (09:08→20:03)
[2023-03-06] MEDS: hydrALAZINE HCl 10 MG TABLET 20 MG PO ×3 (09:08→20:02)
[2023-03-06] MEDS: Lidocaine 4 % Patch ADH..PATCH 1 PATCH TRANSDERMA (09:08)
[2023-03-06] MEDS: lisinopriL 40 MG TABLET PO (09:08)
[2023-03-06] MEDS: Cholecalciferol (Vitamin D3) 25 MCG TABLET PO (09:08)
[2023-03-06] MEDS: Ferrous Sulfate 324 MG TABLET.DR PO (09:09)
[2023-03-06] MEDS: Escitalopram Oxalate 20 MG TABLET PO (09:09)
[2023-03-06] MEDS: amLODIPine Besylate 10 MG TABLET PO (09:09)
[2023-03-06 11:14] LABS: Glucose, Whole Blood 261 mg/dL (60-115)
[2023-03-06] MEDS: Insulin Lispro 100 UNIT/ML 3 ML VIAL SUBCUT (11:38)
[2023-03-06 15:39] VITALS: BP 127/61; PULSE 76; RESP 18; TEMP 36.7; O2SAT 96
[2023-03-06 16:26] LABS: Glucose, Whole Blood 140 mg/dL (60-115)
--- NOTE | 2023-03-06 17:23 | P.PNIM_ITS ---
Subjective Subjective Date of Service: 03/06/23 Interval History: seen and examined this morning follow up for failure to thrive History obtained with the assistance of a diplomatic interpreter/translator Patient awake alert sitting up in bed reports she is feeling well, no specific complaints Review of Systems Review of Systems: Yes all other systems are reviewed and are negative Cardiovascular Cardiovascular: Denies chest pain Gastrointestinal Gastrointestinal: Denies abdominal pain Physical Exam 2 Vital Signs: Vital Signs: Last Vital Signs Temp 98.1 F 03/06/23 15:39 Pulse 76 03/06/23 15:39 Resp 18 03/06/23 15:39 BP 127/61 03/06/23 15:39 Pulse Ox 96 03/06/23 15:39 O2 Del Method Room Air 03/06/23 15:39 BMI result Body Mass Index 29.9 Const: General: cooperative, comfortable, no acute distress, alert and awake Nutritional Appearance: average body habitus Orientation/consciousness: o riented to person and oriented to place Resp: Effort & Inspection: normal respiratory effort, able to speak in complete sentences, no respiratory distress and no use of accessory muscles Cardio: Rate: regular rate GI: Inspection: No distended Palpation (GI): Soft to palpation and nontender Neuro: General: oriented to person, oriented to place and moves all extremities Extrem: General: Yes no pedal edema Objective Data Active Medications Acetaminophen (Acetaminophen 325 Mg Tablet) 650 mg PO Q6H PRN PRN Reason: Pain, Mild (Pain Scale 1-3) Last Admin: 03/05/23 20:04 Dose: 650 mg Documented By: BEATRIZ Amlodipine Besylate (Amlodipine Besylate 10 Mg Tablet) 10 mg PO DAILY [facility]; Protocol Last Admin: 03/06/23 09:09 Dose: 10 mg Documented By: SHAYLEE Ascorbic Acid (Ascorbic Acid 500 Mg Tablet) 500 mg PO Q48H [facility] Last Admin: 03/05/23 16:08 Dose: 500 mg Documented By: SHAYLEE Aspirin (Aspirin Enteric Coated 81 Mg Tablet.) 81 mg PO DAILY [facility] Last Admin: 03/06/23 09:08 Dose: 81 mg Documented By: SHAYLEE Atorvastatin Calcium (Atorvastatin Calcium 80 Mg Tablet) 80 mg PO BEDTIME [facility] Last Admin: 03/05/23 20:04 Dose: 80 mg Documented By: BEATRIZ Benzonatate (Benzonatate 100 Mg Capsule) 100 mg PO TID PRN PRN Reason: Cough Carvedilol (Carvedilol 12.5 Mg Tablet) 12.5 mg PO BID [facility]; Protocol Last Admin: 03/06/23 09:08 Dose: 12.5 mg Documented By: SHAYLEE Dextrose (Dextrose 50 % 25 Gm/50 Ml Syringe) 25 gm IVPUSH Q15M PRN; Protocol PRN Reason: per Hypoglycemia Standing Ord. Docusate Sodium (Docusate Sodium 100 Mg Capsule) 100 mg PO DAILY PRN PRN Reason: Constipation Enoxaparin Sodium (Enoxaparin Sodium 40 Mg/0.4 Ml Syringe) 40 mg SUBCUT Q24H [facility] Last Admin: 03/05/23 19:59 Dose: 40 mg Documented By: BEATRIZ Escitalopram Oxalate (Escitalopram Oxalate 20 Mg Tablet) 20 mg PO DAILY [facility] Last Admin: 03/06/23 09:09 Dose: 20 mg Documented By: SHAYLEE Ferrous Sulfate (Ferrous Sulfate 324 Mg Tablet.Dr) 324 mg PO DAILY [facility] Last Admin: 03/06/23 09:09 Dose: 324 mg Documented By: SHAYLEE Glucose (Glucose Gel 15 Gm Gel..Gram.) 15 gm PO Q15M PRN; Protocol PRN Reason: per Hypoglycemia Standing Ord. Hydralazine HCl (Hydralazine Hcl 10 Mg Tablet) 20 mg PO TID [facility]; Protocol Last Admin: 03/06/23 15:53 Dose: 20 mg Documented By: SHAYLEE Insulin Human Lispro (Insulin Lispro 100 Unit/Ml 3 Ml Vial) 0 unit SUBCUT QIDACHS [facility]; Protocol Last Admin: 03/06/23 16:32 Dose: Not Given Documented By: SHAYLEE Non-Admin Reason: No Insulin Coverage Lidocaine (Lidocaine 4 % Patch Adh..Patch) 1 patch TRANSDERMA DAILY [facility] Last Admin: 03/06/23 09:08 Dose: 1 patch Documented By: SHAYLEE Lisinopril (Lisinopril 40 Mg Tablet) 40 mg PO DAILY [facility]; Protocol Last Admin: 03/06/23 09:08 Dose: 40 mg Documented By: SHAYLEE Metformin HCl (Metformin Hcl 500 Mg Tablet) 500 mg PO BIDWM [facility] Last Admin: 03/06/23 17:16 Dose: 500 mg Documented By: SHAYLEE Polyethylene Glycol (Polyethylene Glycol 3350 17 Gm Powd.Pack) 17 gm PO DAILY PRN PRN Reason: constipation Last Admin: 02/15/23 17:10 Dose: 17 gm Documented By: МАРИЯ Sodium Chloride (0.9 % Sodium Chloride Flush 3 Ml Syringe) 3 ml IVFLUSH QSHIFT [facility] Last Admin: 03/06/23 14:54 Dose: Not Given Documented By: SHAYLEE Non-Admin Reason: No Access Vitamin D (Cholecalciferol (Vitamin D3) 25 Mcg Tablet) 25 mcg PO DAILY [facility] Last Admin: 03/06/23 09:08 Dose: 25 mcg Documented By: SHAYLEE Labs 03/01/23 09:24 03/05/23 06:27 Labs: Laboratory Results - last 24 hr 03/05/23 03/06/23 03/06/23 19:28 07:33 11:06 POC Glucose 103 141 H 261 H 03/06/23 16:18 POC Glucose 140 H Microbiology Microbiology Results: Microbiology 02/25/23 13:10 Direct Acid Fast Bacilli Smear - Final Spine Assessment and Plan (1) Major neurocognitive disorder due to another medical condition: Status: Acute Plan 77yo F with HTN, HLD, DM2 who was found wandering the streets in her undergarments, brought in on [address] for failure to thrive/inability fo care for self. 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 Marcos azul STR, waiting on [facility] dementia exclusion In my clinical judgment, the patient requires continued inpatient hospitalization for the following reasons: placement Quality Stroke Does the patient have a stroke diagnosis?: No VTE Prior VTE?: No VTE Risk Level:: Medical - moderate - high VTE Device Contraindication: Treatment Not Indicated VTE Drug Contraindication: N/A - Med Ordered
[2023-03-06 18:05] LABS: Oligoclonal Banding Absent (Absent)
[2023-03-06] MEDS: Enoxaparin Sodium 40 MG/0.4 ML SYRINGE SUBCUT (19:56)
[2023-03-06 20:00] VITALS: BP 122/58; PULSE 76; RESP 16; TEMP 36.1; O2SAT 96
[2023-03-06] MEDS: Atorvastatin Calcium 80 MG TABLET PO (20:03)
[2023-03-06] MEDS: Acetaminophen 325 MG TABLET 650 MG PO (20:03)
[2023-03-06 20:32] LABS: Glucose, Whole Blood 140 mg/dL (60-115)
[2023-03-07 03:59] VITALS: BP 132/62; PULSE 77; RESP 18; TEMP 36.2; O2SAT 97
[2023-03-07 07:29] LABS: Glucose, Whole Blood 166 mg/dL (60-115)
[2023-03-07 08:00] VITALS: BP 135/63; PULSE 78; RESP 16; TEMP 36.6; O2SAT 99
[2023-03-07] MEDS: carvediloL 12.5 MG TABLET PO ×2 (09:37→19:51)
[2023-03-07] MEDS: amLODIPine Besylate 10 MG TABLET PO (09:37)
[2023-03-07] MEDS: Lidocaine 4 % Patch ADH..PATCH 1 PATCH TRANSDERMA (09:37)
[2023-03-07] MEDS: metFORMIN HCl 500 MG TABLET PO ×2 (09:37→17:02)
[2023-03-07] MEDS: Escitalopram Oxalate 20 MG TABLET PO (09:37)
[2023-03-07] MEDS: Aspirin Enteric Coated 81 MG TABLET.DR PO (09:37)
[2023-03-07] MEDS: Insulin Lispro 100 UNIT/ML 3 ML VIAL SUBCUT ×3 (09:37→21:13)
[2023-03-07] MEDS: Cholecalciferol (Vitamin D3) 25 MCG TABLET PO (09:37)
[2023-03-07] MEDS: hydrALAZINE HCl 10 MG TABLET 20 MG PO ×3 (09:38→19:52)
[2023-03-07] MEDS: lisinopriL 40 MG TABLET PO (09:38)
[2023-03-07] MEDS: Ferrous Sulfate 324 MG TABLET.DR PO (09:38)
[2023-03-07 11:30] LABS: Glucose, Whole Blood 359 mg/dL (60-115)
--- NOTE | 2023-03-07 14:50 | HO.PM.IMPN ---
Subjective Subjective Date of Service: 03/07/23 Interval History: seen and examined this morning follow up for failure to thrive, dementia no overnight events history obtained with assistance of metal tile lather awake, alert, but requesting to sleep Review of Systems Review of Systems: Yes all other systems are reviewed and are negative Constitutional Constitutional: Reports chills Cardiovascular Cardiovascular: Denies chest pain Gastrointestinal Gastrointestinal: Denies abdominal pain Physical Exam Vital Signs: Vital Signs: Last Vital Signs Temp 97.9 F 03/07/23 08:00 Pulse 78 03/07/23 08:00 Resp 16 03/07/23 08:00 BP 135/63 03/07/23 08:00 Pulse Ox 99 03/07/23 08:00 O2 Del Method Room Air 03/07/23 08:00 BMI result Body Mass Index 29.9 Const: General: comfortable and no acute distress Nutritional Appearance: average body habitus Orientation/consciousness: oriented to person and oriented to place Resp: Effort & Inspection: normal respiratory effort, able to speak in complete sentences, no respiratory distress and no use of accessory muscles Cardio: Rate: regular rate GI: Inspection: No distended Palpation (GI): Soft to palpation and nontender Neuro: General: oriented to person, oriented to place and moves all extremities Extrem: General: Yes no pedal edema Objective Data Active Medications Acetaminophen (Acetaminophen 325 Mg Tablet) 650 mg PO Q6H PRN PRN Reason: Pain, Mild (Pain Scale 1-3) Last Admin: 03/06/23 20:03 Dose: 650 mg Documented By: BEATRIZ Amlodipine Besylate (Amlodipine Besylate 10 Mg Tablet) 10 mg PO DAILY [facility]; Protocol Last Admin: 03/07/23 09:37 Dose: 10 mg Documented By: SHAYLEE Ascorbic Acid (Ascorbic Acid 500 Mg Tablet) 500 mg PO Q48H [facility] Last Admin: 03/05/23 16:08 Dose: 500 mg Documented By: SHAYLEE Aspirin (Aspirin Enteric Coated 81 Mg Tablet.) 81 mg PO DAILY [facility] Last Admin: 03/07/23 09:37 Dose: 81 mg Documented By: SHAYLEE Atorvastatin Calcium (Atorvastatin Calcium 80 Mg Tablet) 80 mg PO BEDTIME [facility] Last Admin: 03/06/23 20:03 Dose: 80 mg Documented By: BEATRIZ Benzonatate (Benzonatate 100 Mg Capsule) 100 mg PO TID PRN PRN Reason: Cough Carvedilol (Carvedilol 12.5 Mg Tablet) 12.5 mg PO BID [facility]; Protocol Last Admin: 03/07/23 09:37 Dose: 12.5 mg Documented By: SHAYLEE Dextrose (Dextrose 50 % 25 Gm/50 Ml Syringe) 25 gm IVPUSH Q15M PRN; Protocol PRN Reason: per Hypoglycemia Standing Ord. Docusate Sodium (Docusate Sodium 100 Mg Capsule) 100 mg PO DAILY PRN PRN Reason: Constipation Enoxaparin Sodium (Enoxaparin Sodium 40 Mg/0.4 Ml Syringe) 40 mg SUBCUT Q24H [facility] Last Admin: 03/06/23 19:56 Dose: 40 mg Documented By: BEATRIZ Escitalopram Oxalate (Escitalopram Oxalate 20 Mg Tablet) 20 mg PO DAILY [facility] Last Admin: 03/07/23 09:37 Dose: 20 mg Documented By: SHAYLEE Ferrous Sulfate (Ferrous Sulfate 324 Mg Tablet.Dr) 324 mg PO DAILY [facility] Last Admin: 03/07/23 09:38 Dose: 324 mg Documented By: SHAYLEE Glucose (Glucose Gel 15 Gm Gel..Gram.) 15 gm PO Q15M PRN; Protocol PRN Reason: per Hypoglycemia Standing Ord. Hydralazine HCl (Hydralazine Hcl 10 Mg Tablet) 20 mg PO TID [facility]; Protocol Last Admin: 03/07/23 09:38 Dose: 20 mg Documented By: SHAYLEE Insulin Human Lispro (Insulin Lispro 100 Unit/Ml 3 Ml Vial) 0 unit SUBCUT QIDACHS [facility]; Protocol Last Admin: 03/07/23 12:10 Dose: 10 unit Documented By: SHAYLEE Lidocaine (Lidocaine 4 % Patch Adh..Patch) 1 patch TRANSDERMA DAILY [facility] Last Admin: 03/07/23 09:37 Dose: 1 patch Documented By: SHAYLEE Lisinopril (Lisinopril 40 Mg Tablet) 40 mg PO DAILY [facility]; Protocol Last Admin: 03/07/23 09:38 Dose: 40 mg Documented By: SHAYLEE Metformin HCl (Metformin Hcl 500 Mg Tablet) 500 mg PO BIDWM [facility] Last Admin: 03/07/23 09:37 Dose: 500 mg Documented By: SHAYLEE Polyethylene Glycol (Polyethylene Glycol 3350 17 Gm Powd.Pack) 17 gm PO DAILY PRN PRN Reason: constipation Last Admin: 02/15/23 17:10 Dose: 17 gm Documented By: МАРИЯ Sodium Chloride (0.9 % Sodium Chloride Flush 3 Ml Syringe) 3 ml IVFLUSH QSHIFT [facility] Last Admin: 03/07/23 09:37 Dose: Not Given Documented By: SHAYLEE Non-Admin Reason: No Access Vitamin D (Cholecalciferol (Vitamin D3) 25 Mcg Tablet) 25 mcg PO DAILY [facility] Last Admin: 03/07/23 09:37 Dose: 25 mcg Documented By: SHAYLEE Labs 03/01/23 09:24 03/05/23 06:27 Labs: Laboratory Results - last 24 hr 02/25/23 03/06/23 03/06/23 13:10 16:18 20:23 POC Glucose 140 H 140 H CSF Oligoclonal Bands Absent 03/07/23 03/07/23 07:25 11:18 POC Glucose 166 H 359 H* CSF Oligoclonal Bands Assessment and Plan (1) Major neurocognitive disorder due to another medical condition: Status: Acute Plan 77yo F with HTN, HLD, DM2 who was found wandering the streets in her undergarments, brought in on [address] for failure to thrive/inability fo care for self. 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 Marcos azul STR, waiting on [facility] dementia exclusion In my clinical judgment, the patient requires continued inpatient hospitalization for the following reasons: placement Quality Stroke Does the patient have a stroke diagnosis?: No VTE Prior VTE?: No VTE Risk Level:: Medical - moderate - high VTE Device Contraindication: Treatment Not Indicated VTE Drug Contraindication: N/A - Med Ordered
[2023-03-07 15:41] VITALS: BP 111/54; PULSE 75; RESP 16; TEMP 36.8; O2SAT 95
[2023-03-07] MEDS: Ascorbic Acid 500 MG TABLET PO (15:53)
[2023-03-07 16:34] LABS: Glucose, Whole Blood 82 mg/dL (60-115)
[2023-03-07] MEDS: Atorvastatin Calcium 80 MG TABLET PO (19:51)
[2023-03-07] MEDS: Enoxaparin Sodium 40 MG/0.4 ML SYRINGE SUBCUT (19:51)
[2023-03-07 19:56] VITALS: BP 133/76; PULSE 76; RESP 20; TEMP 36.2; O2SAT 97
[2023-03-07 20:57] LABS: Glucose, Whole Blood 164 mg/dL (60-115)
[2023-03-08 03:36] VITALS: BP 134/63; PULSE 93; RESP 17; TEMP 36.1; O2SAT 94
[2023-03-08 05:46] LABS: Hematocrit 36.1 % (37.0-47.0); Hemoglobin 11.9 g/dl (12.0-16.0); Mean Corpuscular Hemoglobin 27.2 pg (27.0-33.0); Mean Corpuscular Volume 82.6 fL (80.0-98.0); Mean Platelet Volume 11.2 fL (9.4-12.3); Platelet Count 389 X10*3/uL (160-400); Red Blood Count 4.37 X10*6/uL (4.20-5.50); Red Cell Distribution Width 15.2 % (11.0-16.0); White Blood Count 7.1 X10*3/uL (4.8-10.8)
[2023-03-08 05:59] LABS: Anion Gap 13 (12-20); Blood Urea Nitrogen 20 mg/dL (9-16); Calcium 9.3 mg/dL (8.4-10.2); Carbon Dioxide 23 mmol/L (22-29); Chloride 106 mmol/L (96-108); Creatinine Clr Calc Pharmacy 52.1; Estimated Glomerular Filt Rate > 60; Glucose Random 245 mg/dL (60-115); Potassium 4.2 mmol/L (3.3-5.1); Sodium 138 mmol/L (135-145)
[2023-03-08 07:48] VITALS: BP 130/60; PULSE 82; RESP 16; TEMP 36.4; O2SAT 95
[2023-03-08 07:58] LABS: Glucose, Whole Blood 194 mg/dL (60-115)
[2023-03-08] MEDS: Escitalopram Oxalate 20 MG TABLET PO (09:23)
[2023-03-08] MEDS: Ferrous Sulfate 324 MG TABLET.DR PO (09:23)
[2023-03-08] MEDS: carvediloL 12.5 MG TABLET PO ×2 (09:23→21:15)
[2023-03-08] MEDS: metFORMIN HCl 500 MG TABLET PO ×2 (09:23→16:52)
[2023-03-08] MEDS: hydrALAZINE HCl 10 MG TABLET 20 MG PO ×3 (09:23→21:15)
[2023-03-08] MEDS: lisinopriL 40 MG TABLET PO (09:23)
[2023-03-08] MEDS: Cholecalciferol (Vitamin D3) 25 MCG TABLET PO (09:23)
[2023-03-08] MEDS: amLODIPine Besylate 10 MG TABLET PO (09:23)
[2023-03-08] MEDS: Insulin Lispro 100 UNIT/ML 3 ML VIAL SUBCUT ×3 (09:24→20:32)
[2023-03-08] MEDS: Lidocaine 4 % Patch ADH..PATCH 1 PATCH TRANSDERMA (09:29)
--- NOTE | 2023-03-08 11:25 | HO.PM.IMPN ---
Subjective Subjective Date of Service: 03/08/23 Interval History: f/u metabolic encephalopathy, dementia and awaiting placement, no overnight issues Physical Exam Vital Signs: Vital Signs: Last Vital Signs Temp 97.5 F 03/08/23 07:48 Pulse 82 03/08/23 07:48 Resp 16 03/08/23 07:48 BP 130/60 03/08/23 07:48 Pulse Ox 95 03/08/23 07:48 O2 Del Method Room Air 03/08/23 07:48 BMI result Body Mass Index 29.9 Const: Other: General: AO to self, place, no acute distress Resp: CTA bilateral CVS: S1,S2,RRR GI: +BS, NT, no distention Skin: No rash Neuro: motor grossly intact Psych: appropriate affect Objective Data Active Medications Acetaminophen (Acetaminophen 325 Mg Tablet) 650 mg PO Q6H PRN PRN Reason: Pain, Mild (Pain Scale 1-3) Last Admin: 03/06/23 20:03 Dose: 650 mg Documented By: BEATRIZ Amlodipine Besylate (Amlodipine Besylate 10 Mg Tablet) 10 mg PO DAILY [facility]; Protocol Last Admin: 03/08/23 09:23 Dose: 10 mg Documented By: YOLANDA Ascorbic Acid (Ascorbic Acid 500 Mg Tablet) 500 mg PO Q48H [facility] Last Admin: 03/07/23 15:53 Dose: 500 mg Documented By: SHAYLEE Aspirin (Aspirin Enteric Coated 81 Mg Tablet.) 81 mg PO DAILY [facility] Last Admin: 03/08/23 09:29 Dose: Not Given Documented By: YOLANDA Non-Admin Reason: not crushable Atorvastatin Calcium (Atorvastatin Calcium 80 Mg Tablet) 80 mg PO BEDTIME [facility] Last Admin: 03/07/23 19:51 Dose: 80 mg Documented By: MINERVA Benzonatate (Benzonatate 100 Mg Capsule) 100 mg PO TID PRN PRN Reason: Cough Carvedilol (Carvedilol 12.5 Mg Tablet) 12.5 mg PO BID [facility]; Protocol Last Admin: 03/08/23 09:23 Dose: 12.5 mg Documented By: YOLANDA Dextrose (Dextrose 50 % 25 Gm/50 Ml Syringe) 25 gm IVPUSH Q15M PRN; Protocol PRN Reason: per Hypoglycemia Standing Ord. Docusate Sodium (Docusate Sodium 100 Mg Capsule) 100 mg PO DAILY PRN PRN Reason: Constipation Enoxaparin Sodium (Enoxaparin Sodium 40 Mg/0.4 Ml Syringe) 40 mg SUBCUT Q24H [facility] Last Admin: 03/07/23 19:51 Dose: 40 mg Documented By: MINERVA Escitalopram Oxalate (Escitalopram Oxalate 20 Mg Tablet) 20 mg PO DAILY [facility] Last Admin: 03/08/23 09:23 Dose: 20 mg Documented By: YOLANDA Ferrous Sulfate (Ferrous Sulfate 324 Mg Tablet.Dr) 324 mg PO DAILY [facility] Last Admin: 03/08/23 09:23 Dose: 324 mg Documented By: YOLANDA Glucose (Glucose Gel 15 Gm Gel..Gram.) 15 gm PO Q15M PRN; Protocol PRN Reason: per Hypoglycemia Standing Ord. Hydralazine HCl (Hydralazine Hcl 10 Mg Tablet) 20 mg PO TID [facility]; Protocol Last Admin: 03/08/23 09:23 Dose: 20 mg Documented By: YOLANDA Insulin Human Lispro (Insulin Lispro 100 Unit/Ml 3 Ml Vial) 0 unit SUBCUT QIDACHS [facility]; Protocol Last Admin: 03/08/23 09:24 Dose: 2 unit Documented By: YOLANDA Lidocaine (Lidocaine 4 % Patch Adh..Patch) 1 patch TRANSDERMA DAILY [facility] Last Admin: 03/08/23 09:29 Dose: 1 patch Documented By: YOLANDA Lisinopril (Lisinopril 40 Mg Tablet) 40 mg PO DAILY [facility]; Protocol Last Admin: 03/08/23 09:23 Dose: 40 mg Documented By: YOLANDA Metformin HCl (Metformin Hcl 500 Mg Tablet) 500 mg PO BIDWM [facility] Last Admin: 03/08/23 09:23 Dose: 500 mg Documented By: YOLANDA Polyethylene Glycol (Polyethylene Glycol 3350 17 Gm Powd.Pack) 17 gm PO DAILY PRN PRN Reason: constipation Last Admin: 02/15/23 17:10 Dose: 17 gm Documented By: МАРИЯ Sodium Chloride (0.9 % Sodium Chloride Flush 3 Ml Syringe) 3 ml IVFLUSH QSHIFT [facility] Last Admin: 03/08/23 07:06 Dose: Not Given Documented By: YOLANDA Non-Admin Reason: No Access Vitamin D (Cholecalciferol (Vitamin D3) 25 Mcg Tablet) 25 mcg PO DAILY [facility] Last Admin: 03/08/23 09:23 Dose: 25 mcg Documented By: YOLANDA Labs 03/08/23 05:32 03/08/23 05:32 Labs: Laboratory Results - last 24 hr 03/07/23 03/07/23 03/07/23 11:18 16:29 20:49 MCV MCH MCHC RDW Plt Count MPV Absolute Nucleated RBC Nucleated RBC % (auto) Anion Gap Estim Creat Clear Calc Estimated GFR POC Glucose 359 H* 82 164 H Random Glucose Calcium 03/08/23 03/08/23 05:32 07:54 MCV 82.6 MCH 27.2 MCHC 33.0 RDW 15.2 Plt Count 389 D MPV 11.2 Absolute Nucleated RBC 0.000 Nucleated RBC % (auto) 0.0 Anion Gap 13 Estim Creat Clear Calc 52.1 Estimated GFR > 60 POC Glucose 194 H Random Glucose 245 H Calcium 9.3 Assessment and Plan (1) Major neurocognitive disorder due to another medical condition: Status: Acute Plan 77yo F with HTN, HLD, DM2 who was found wandering the streets in her undergarments, brought in on [address] for failure to thrive/inability fo care for self. 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, LP with no infectious process TSH, B12, folate wnl, homocysteine level normal, repeat ua neg, no fever or leukocytosis s/p PPN Now awake, alert, conversive, OOB to chair eating on her own UTI [E coli/Strep veridians] completed 7d of ceftriaxone DM2 sliding scale metformin resumed s/p PPN HTN better control continue current meds carvedilol, lisinopril, amlodipine hydralazine added for better control HLD statin mood disorder escitalopram insomnia melatonin VTE ppx lovenox dispo STR, waiting on [facility] dementia exclusion Need for inpt: placement, unsafe at home Quality Stroke Does the patient have a stroke diagnosis?: No VTE Prior VTE?: No VTE Risk Level:: Medical - moderate - high VTE Device Contraindication: Treatment Not Indicated VTE Drug Contraindication: N/A - Med Ordered
[2023-03-08 12:02] LABS: Glucose, Whole Blood 171 mg/dL (60-115)
--- NOTE | 2023-03-08 13:54 | MHC.SL.DTX ---
Dysphagia Diet modifications: Last documented Solid diet consistencies: Chopped/Advanced (NDD3) Last documented Liquid consistency: Thin Last documented Medication Administration: Changes made to current diet?: Yes: UPGRADE solids Liquid Consistency and Strategies: Liquid Intake Recommendation: Thin Compensatory Strategies for Safe Swallow: Small Sips No Straws Compensatory Strategies for Safe Swallow(b): Sitting Upright (90 deg) No Straw Small Bites and Sips Alternate Liquids/Solids Rate of Ingestion Change Solid Food Consistency: Dietary Recommendations: Chopped/Advanced (NDD3) Additional Modifications to Solids: Avoid mixed consistencies. Alternate liquids and solids. Liquids by controlled cup sip or tsp. Do not attempt if patient is excessively lethargic or not engaged in meal. Patient may benefit from smaller more frequent meals to encourage intake. Discontinue if patient evidences signs of aspiration. Oral Medication Intake: Crushed with Puree Strategies and Precautions to be Taken for Safe Swallow: Sitting Upright (90 deg) No Straw Small Bites and Sips Alternate Liquids/Solids Rate of Ingestion Change Supervision While Eating and/Drinking: Total Supervision (1:1) Foods to Avoid: Mixed consistencies and tough, hard, difficult to chew solids. Add gravy and blend well. Swallowing Recommended Treatments: Compens. Strategy Educat. Level of Impact on: Daily activities: Interpersonal interactions: Education: Employment: Community: Prognosis for Improvement: Recommendation for Speech: Inpatient Speech Therapy Comment: Recommend CHOPPED/ADVANCED solids (NDD3). Continue with THIN liquids by cup sip or tsp (NO STRAWS) and pills crushed in puree. Recommend 1-1 supervision during meals. Recommend continued dysphagia tx at next level of care to monitor toleration of diet and upgrade if warranted. Frequency/Duration: Date Range for Service Req: Timeline to reassess: Additional Comments: Treatment: Pt resting in bed, alone in the room on arrival. She initially states that she is thirsty and hungry. She trials x2 sips of Thin Liquids via straw with no overt s/s of aspiration. He is provided an Advanced Solid, however refused to eat it. She is given alternative Puree Solids to trial, but again refuses. No reports of difficulty with current diet in the EMR. No further TOWNSHIP CLERK intervention required as the Pt is stable with her current recommendations and not participating in therapeutic activities. Assessment: Human Resources Vice President Clinican/Clinical Fellow: No Supervisory Statement: I have reviewed and agree with the student/clinical fellow's documentation: N/A Speech Language Pathologist: Mario Sparks M.A., CCC-TOWNSHIP CLERK
--- NOTE | 2023-03-08 15:30 | MHC.CLN ---
F/U PO INTAKE VARIABLE RANGING FROM 0-100%. MOST MEALS 25-50%. DIET RX: CHOPPED-APPROPRIATE REGISTERED PHARMACY TECHNICIAN FOLLOWING FOR DIET CONSISTENCY. RECEIVES ENSURE BID TO PROMOTE NUTRITIONAL INTAKE. PROVIDES 700KCALS, 40G PROTEIN WITH 100% ACCEPTANCE. SKIN WITH STAGE I TO RIGHT BUTTOCK. MONITOR PO INTAKE AND ENCOURAGE SUPPLEMENTS ABLE.
[2023-03-08 15:57] VITALS: BP 120/56; PULSE 84; RESP 16; TEMP 36.5; O2SAT 91
[2023-03-08 16:09] LABS: Glucose, Whole Blood 184 mg/dL (60-115)
[2023-03-08 19:28] VITALS: BP 140/65; PULSE 85; RESP 18; TEMP 36.3; O2SAT 99
[2023-03-08 20:13] LABS: Glucose, Whole Blood 182 mg/dL (60-115)
[2023-03-08] MEDS: Enoxaparin Sodium 40 MG/0.4 ML SYRINGE SUBCUT (20:31)
[2023-03-08] MEDS: Atorvastatin Calcium 80 MG TABLET PO (21:15)
[2023-03-09 04:00] VITALS: BP 121/63; PULSE 77; RESP 18; TEMP 36.3; O2SAT 97
[2023-03-09 08:00] VITALS: BP 122/58; PULSE 74; RESP 18; TEMP 35.9; O2SAT 98
[2023-03-09 08:30] LABS: Glucose, Whole Blood 156 mg/dL (60-115)
[2023-03-09] MEDS: hydrALAZINE HCl 10 MG TABLET 20 MG PO ×3 (08:48→21:32)
[2023-03-09] MEDS: metFORMIN HCl 500 MG TABLET PO ×2 (08:48→16:48)
[2023-03-09] MEDS: carvediloL 12.5 MG TABLET PO ×2 (08:49→21:32)
[2023-03-09] MEDS: lisinopriL 40 MG TABLET PO (08:49)
[2023-03-09] MEDS: Cholecalciferol (Vitamin D3) 25 MCG TABLET PO (08:49)
[2023-03-09] MEDS: Aspirin Enteric Coated 81 MG TABLET.DR PO (08:49)
[2023-03-09] MEDS: amLODIPine Besylate 10 MG TABLET PO (08:49)
[2023-03-09] MEDS: Escitalopram Oxalate 20 MG TABLET PO (08:49)
[2023-03-09] MEDS: Ferrous Sulfate 324 MG TABLET.DR PO (08:49)
[2023-03-09] MEDS: Insulin Lispro 100 UNIT/ML 3 ML VIAL SUBCUT ×2 (08:54→12:03)
[2023-03-09] MEDS: Lidocaine 4 % Patch ADH..PATCH 1 PATCH TRANSDERMA (08:54)
--- NOTE | 2023-03-09 10:15 | P.PNIM_ITS ---
Subjective Subjective Date of Service: 03/09/23 Interval History: f/u metabolic encephalopathy, dementia and awaiting placement, no overnight issues Physical Exam 2 Vital Signs: Vital Signs: Last Vital Signs Temp 96.7 F L 03/09/23 08:00 Pulse 74 03/09/23 08:00 Resp 18 03/09/23 08:00 BP 122/58 L 03/09/23 08:00 Pulse Ox 98 03/09/23 08:00 O2 Del Method Room Air 03/09/23 08:00 BMI result Body Mass Index 29.9 Const: Other: General: AO to self, place, no acute distress Resp: CTA bilateral CVS: S1,S2,RRR GI: +BS, NT, no distention Skin: No rash Neuro: motor grossly intact Psych: appropriate affect Objective Data Active Medications Acetaminophen (Acetaminophen 325 Mg Tablet) 650 mg PO Q6H PRN PRN Reason: Pain, Mild (Pain Scale 1-3) Last Admin: 03/06/23 20:03 Dose: 650 mg Documented By: BEATRIZ Amlodipine Besylate (Amlodipine Besylate 10 Mg Tablet) 10 mg PO DAILY [facility]; Protocol Last Admin: 03/09/23 08:49 Dose: 10 mg Documented By: KAILA Ascorbic Acid (Ascorbic Acid 500 Mg Tablet) 500 mg PO Q48H [facility] Last Admin: 03/07/23 15:53 Dose: 500 mg Documented By: SHAYLEE Aspirin (Aspirin Enteric Coated 81 Mg Tablet.) 81 mg PO DAILY [facility] Last Admin: 03/09/23 08:49 Dose: 81 mg Documented By: KAILA Atorvastatin Calcium (Atorvastatin Calcium 80 Mg Tablet) 80 mg PO BEDTIME [facility] Last Admin: 03/08/23 21:15 Dose: 80 mg Documented By: MINERVA Benzonatate (Benzonatate 100 Mg Capsule) 100 mg PO TID PRN PRN Reason: Cough Carvedilol (Carvedilol 12.5 Mg Tablet) 12.5 mg PO BID [facility]; Protocol Last Admin: 03/09/23 08:49 Dose: 12.5 mg Documented By: KAILA Dextrose (Dextrose 50 % 25 Gm/50 Ml Syringe) 25 gm IVPUSH Q15M PRN; Protocol PRN Reason: per Hypoglycemia Standing Ord. Docusate Sodium (Docusate Sodium 100 Mg Capsule) 100 mg PO DAILY PRN PRN Reason: Constipation Enoxaparin Sodium (Enoxaparin Sodium 40 Mg/0.4 Ml Syringe) 40 mg SUBCUT Q24H [facility] Last Admin: 03/08/23 20:31 Dose: 40 mg Documented By: MINERVA Escitalopram Oxalate (Escitalopram Oxalate 20 Mg Tablet) 20 mg PO DAILY [facility] Last Admin: 03/09/23 08:49 Dose: 20 mg Documented By: KAILA Ferrous Sulfate (Ferrous Sulfate 324 Mg Tablet.Dr) 324 mg PO DAILY [facility] Last Admin: 03/09/23 08:49 Dose: 324 mg Documented By: KAILA Glucose (Glucose Gel 15 Gm Gel..Gram.) 15 gm PO Q15M PRN; Protocol PRN Reason: per Hypoglycemia Standing Ord. Hydralazine HCl (Hydralazine Hcl 10 Mg Tablet) 20 mg PO TID [facility]; Protocol Last Admin: 03/09/23 08:48 Dose: 20 mg Documented By: KAILA Insulin Human Lispro (Insulin Lispro 100 Unit/Ml 3 Ml Vial) 0 unit SUBCUT QIDACHS [facility]; Protocol Last Admin: 03/09/23 08:54 Dose: 2 unit Documented By: KAILA Lidocaine (Lidocaine 4 % Patch Adh..Patch) 1 patch TRANSDERMA DAILY [facility] Last Admin: 03/09/23 08:54 Dose: 1 patch Documented By: KAILA Lisinopril (Lisinopril 40 Mg Tablet) 40 mg PO DAILY [facility]; Protocol Last Admin: 03/09/23 08:49 Dose: 40 mg Documented By: KAILA Metformin HCl (Metformin Hcl 500 Mg Tablet) 500 mg PO BIDWM [facility] Last Admin: 03/09/23 08:48 Dose: 500 mg Documented By: KAILA Polyethylene Glycol (Polyethylene Glycol 3350 17 Gm Powd.Pack) 17 gm PO DAILY PRN PRN Reason: constipation Last Admin: 02/15/23 17:10 Dose: 17 gm Documented By: WOJCIECHAMER Sodium Chloride (0.9 % Sodium Chloride Flush 3 Ml Syringe) 3 ml IVFLUSH QSHIFT [facility] Last Admin: 03/09/23 08:48 Dose: Not Given Documented By: KAILA Non-Admin Reason: No Access Vitamin D (Cholecalciferol (Vitamin D3) 25 Mcg Tablet) 25 mcg PO DAILY [facility] Last Admin: 03/09/23 08:49 Dose: 25 mcg Documented By: KAILA Labs 03/08/23 05:32 03/08/23 05:32 Labs: Laboratory Results - last 24 hr 03/08/23 03/08/23 03/08/23 11:52 16:03 20:04 POC Glucose 171 H 184 H 182 H 03/09/23 08:23 POC Glucose 156 H Microbiology Microbiology Results: Microbiology 02/25/23 13:10 Fungal Identification - Preliminary Spine No growth after 1 week. 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, LP with no infectious process TSH, B12, folate wnl, homocysteine level normal, repeat ua neg, no fever or leukocytosis s/p PPN Now awake, alert, conversive, OOB to chair eating on her own UTI [E coli/Strep veridians] completed 7d of ceftriaxone DM2 sliding scale metformin resumed s/p PPN HTN better control continue current meds carvedilol, lisinopril, amlodipine hydralazine added for better control HLD statin mood disorder escitalopram insomnia melatonin VTE ppx lovenox dispo STR, waiting on [facility] dementia exclusion Need for inpt: placement, unsafe at home, ready for dc when bed available Quality Stroke Does the patient have a stroke diagnosis?: No VTE Prior VTE?: No VTE Risk Level:: Medical - moderate - high VTE Device Contraindication: Treatment Not Indicated VTE Drug Contraindication: N/A - Med Ordered
[2023-03-09 11:08] LABS: Glucose, Whole Blood 206 mg/dL (60-115)
--- NOTE | 2023-03-09 14:59 | MHC.CM.PN ---
CM CONTINUES TO AWAIT [facility] DET[facility]MINATION [facility] . [facility] REQUESTING [facility]URSING NOTES X 48 HOURS FOR [facility] TO REVIEW HOWEVER NURSES ONLY CHART BY EXCEPTION AND NO NOTES ARE AVAILABLE DUE TO THIS. CM WILL CONTINUE TO FOLLOW.
[2023-03-09 15:09] VITALS: BP 113/56; PULSE 70; RESP 18; TEMP 36.2; O2SAT 99
[2023-03-09] MEDS: Ascorbic Acid 500 MG TABLET PO (15:09)
[2023-03-09 16:18] LABS: Glucose, Whole Blood 101 mg/dL (60-115)
[2023-03-09 19:26] VITALS: BP 121/58; PULSE 80; RESP 17; TEMP 36.1; O2SAT 96
[2023-03-09 20:19] LABS: Glucose, Whole Blood 148 mg/dL (60-115)
[2023-03-09] MEDS: Enoxaparin Sodium 40 MG/0.4 ML SYRINGE SUBCUT (21:29)
[2023-03-09] MEDS: Atorvastatin Calcium 80 MG TABLET PO (21:32)
[2023-03-10 03:13] VITALS: BP 129/54; PULSE 80; RESP 18; TEMP 36.4; O2SAT 95
[2023-03-10 07:12] VITALS: BP 131/61; PULSE 75; RESP 18; TEMP 36.1; O2SAT 97
[2023-03-10 07:36] LABS: Glucose, Whole Blood 125 mg/dL (60-115)
[2023-03-10] MEDS: Lidocaine 4 % Patch ADH..PATCH 1 PATCH TRANSDERMA (09:14)
[2023-03-10] MEDS: Cholecalciferol (Vitamin D3) 25 MCG TABLET PO (09:17)
[2023-03-10] MEDS: metFORMIN HCl 500 MG TABLET PO ×2 (09:17→16:18)
[2023-03-10] MEDS: amLODIPine Besylate 10 MG TABLET PO (09:17)
[2023-03-10] MEDS: carvediloL 12.5 MG TABLET PO ×2 (09:18→20:58)
[2023-03-10] MEDS: lisinopriL 40 MG TABLET PO (09:18)
[2023-03-10] MEDS: Ferrous Sulfate 324 MG TABLET.DR PO (09:18)
[2023-03-10] MEDS: Escitalopram Oxalate 20 MG TABLET PO (09:18)
[2023-03-10] MEDS: Aspirin Enteric Coated 81 MG TABLET.DR PO (09:18)
[2023-03-10 09:35] LABS: Albumin 3.1 g/dL (3.6-5.1); IgG 852 mg/dL (600-1540)
--- NOTE | 2023-03-10 11:18 | PM.DS ---
DS: Providers Provider Date of Service: 03/11/23 Date of admission: 02/12/23 18:44 Primary care physician: Radha Matias MD Consults: 02/08/23 13:38 Consult to Care Team Stat Comment: Reason for consultation: section 12, unable to care forself 02/08/23 18:42 Consult to Psychiatry Stat Consulting Provider: Psych Covering Reason for consultation: agitation at home, not caring for self, UTI 02/10/23 09:17 Consult to Case Management Routine Comment: 02/16/23 08:47 Consult to Neurology Routine Consulting Provider: [facility] Reason for consultation: Encephalopathy 02/23/23 12:16 Consult to Neurology Routine Consulting Provider: [facility] Reason for consultation: continued encephalopathy, delirium DS: Diagnosis Discharge Diagnosis (1) Major neurocognitive disorder due to another medical condition: Status: Acute DS: Summary Hospital Course Hospital Course: Admission HPI Chief Complaint: Hypoglycemia, UTI, FTT Pt is a 77-year-old female with a PMH significant for?HTN, HLD, and insulin-dependent type 2 diabetes who originally presented to the ED 4 days prior on 02/08/2023 after being found wandering the streets in her undergarments. She was brought in on a Section 12 for failure to thrive/unable to care for herself. Pt apparently lives with her at home. Workup in the ED found pt to have a UTI for which she was started on ceftin. Care team was consulted, who noted patient was evaluated by [facility] in the community with recommendations for [facility] psych bed search d/t concerns about her ability to continue caring for herself at home. She was placed in physician observation until earlier today when her blood sugar was found to be below 60 and the pt was more somnolent. Was given IV D50, insulin was halved, and her semaglutide was held. Due to increasing requirements of care for UTI, hypoglycemia, and failure to thrive pt will be admitted to the hospital. Labs today notable for mild leukocytosis of 11.6, POC 53 at 07:20, and BUN 24, otherwise unremarkable. Hospital course: The patient initially presented with confusion, hypoglycemia and found to have UTI. Her hospital course has been manifested by waxing and waning in mentation. She has had extensive work up including basic metabolic work up, ammonia, TSH, B12, TSH all unremarkable. She has completed 7 days treatment for UTI and is afebrile and presents no symptoms of UTI. She was evaluated by the neurologist and EEG negative, MRI and CT brain with generalized atrophy and chronic microvacsular changes and sequelae of lacunar infarct in right shreya, no organic basis for herconfusion, and neurology further recommended Sertraline but is instead on citaloprm. Lumbar puncture was done to rule out occult infectious process. Check TSH. B12, Folate, Homocysteine levels, all unremarkable. Patient was also evaluated by Psych with no clear evidence of Psychiatric explaination of her mental status changes. Over the course of time, patient's mental status has now improved and presently alert, oriented, cooperative yet is deconditioned and therefore rehab is recommended. UTI [E coli/Strep veridians] completed 7d of ceftriaxone DM2--on outpatient basis was on lantus, Semaglutide, and Metformin. She presented with Hypoglycemia. Blood suagars have been acceptably controlled with Metformin and SSI, will resume Metformin at home dose of 1000 mg and continue to hold Lantus and Semaglutide. HTN better control continue current meds carvedilol, lisinopril, amlodipine and Hydralazine hydralazine added for better control HLD statin mood disorder escitalopram insomnia melatonin Dispo: to STR for less than 30 days, patient had prolonged hospitalization in part due to placement availability Time Attestation Discharge coordination time: Greater than 30 minutes Quality: Safe Use of Opioids Does Pt have an Active Cancer Diagnosis on the Problem List?: No Quality: Stroke Does the patient have a stroke diagnosis?: No Physical Exam Vital Signs: Vital Signs: Selected Entries 03/11/23 07:29 Temperature 97.4 F Pulse Rate 83 Respiratory Rate 18 Blood Pressure 145/68 H Pulse Oximetry 96 Oxygen Delivery Me thod Room Air Const: Other: General: AO to self, place, no acute distress Resp: CTA bilateral CVS: S1,S2,RRR GI: +BS, NT, no distention Skin: No rash Neuro: motor grossly intact Psych: appropriate affect DS: Data Data Completed and Pending Completed studies during hospitalization [Text1]: Pending at discharge 02/24/23 07:33 Cytology [PTH] Routine Labs on day of discharge: Laboratory Results - last 24 hr 02/25/23 03/09/23 03/09/23 13:10 16:09 20:11 POC Glucose 101 148 H Albumin (Send Out) 3.1 L CSF IgG Synthesis Rate TNP CSF Immunofixation TNP CSF Oligoclonal Bands Absent IgG Index 852 03/10/23 07:18 POC Glucose 125 H Albumin (Send Out) CSF IgG Synthesis Rate CSF Immunofixation CSF Oligoclonal Bands IgG Index Preliminary micro results at discharge 02/25/23 13:10 Fungal Identification - Preliminary Spine No growth after 1 week. Discharge Plan Discharge Anticipated Discharge Date/Time: 03/11/23 08:52 Patient Disposition: Xfer SNF Discharge Diagnosis: metabolic encephalopathy, uti, adult Failure to thrive Referrals: [facility] [Outside] - 1 Week (TRANSFER FOR SHORT TERM REHAB) Radha Matias MD [Primary Care Provider] - 1 Week Discharge Medications: New carvedilol 12.5 mg Tablet 12.5 mg PO BID Qty: 60 0RF Protocol: Hold for SBP/HR < HOLD for SBP < : 90 HOLD for HR < : 60 insulin lispro [Admelog U-100 Insulin lispro] 100 unit/mL Solution See Protocol subcut QIDACHS Qty: 10 0RF Protocol: Insulin Correction Scale Less than or equal to 110 ---- Give (units): 0 111 to 150 Give (units): 0 151 to 200 Give (units): 2 201 to 250 Give (units): 4 251 to 300 Give (units): 6 301 to 350 Give (units): 8 Greater than 350 Give (units): 10 Call MD if Blood Glucose > : 350 hydralazine 10 mg Tablet 20 mg PO TID Qty: 90 0RF Protocol: Hold for SBP< HOLD for SBP < : 90 Continued aspirin 81 mg tablet,delayed release (DR/EC) 81 mg PO DAILY ascorbic acid (vitamin C) [Vitamin C] 500 mg tablet 500 mg PO Q48H amlodipine 10 mg tablet 10 mg PO DAILY metformin 1,000 mg tablet 1,000 mg PO BID ferrous sulfate 325 mg (65 mg iron) tablet,delayed release (DR/EC) 325 mg PO DAILY lisinopril 40 mg tablet 40 mg PO DAILY escitalopram oxalate 20 mg tablet 20 mg PO DAILY rosuvastatin 20 mg tablet 20 mg PO BEDTIME melatonin 3 mg tablet 3 mg PO BEDTIME lidocaine 5 % adhesive patch,medicated 1 patch topical DAILY Rx Instructions: REMOVE AFTER 12 HOURS polyethylene glycol 3350 [Gavilax] 17 gram/dose powder 17 g PO DAILY PRN (Reason: constipation) Rx Instructions: HOLD FOR LOOSE STOOLS cholecalciferol (vitamin D3) 25 mcg (1,000 unit) tablet 25 mcg PO DAILY Discontinued carvedilol 6.25 mg tablet 6.25 mg PO BID gabapentin 100 mg capsule 100 mg PO DAILY nitrofurantoin monohyd/m-cryst 100 mg capsule 1 cap PO BID Rx Instructions: MAINTENANCE MEDICATION insulin glargine [Lantus Solostar U-100 Insulin] 100 unit/mL (3 mL) insulin pen 36 unit subcut Q12H Rybelsus 14 mg tablet 14 mg PO DAILY Discharge Orders: Discharge Order (Routine); Ordered 03/10/23 Ordered By: Trevin Rosenberg Diet: Advance to usual diet Activity on Discharge: As tolerated Stand Alone Forms: Patient Portal Discharge page Care Plan Goals: full recovery from adult failure to thrive, metabolic encephalopathy from uti and prolonged hospitalization causing deconditioning Health Concerns: metabolic encephalopathy, UTI, deconditioning, adult failure to thrive. Plan of Treatment: To short-term rehab for less than 30 days to regain functional level the following changes have been made to her medications: Carvedilol dose has been increased to 12.5 mg twice a day previously 6.25 mg twice daily. Gabapentin has been discontinued on not given at all during this hospitalization. Nitrofurantoin has been discontinue. Insulin Lantus has not been continued during this hospitalization, instead you were given Metformin 500 mg , but will be changed back to home dose 1000 mg twice daily in addition to sliding scale insulin which also is been prescribed at this time. Assessment: See above
[2023-03-10] MEDS: Insulin Lispro 100 UNIT/ML 3 ML VIAL SUBCUT ×2 (12:07→16:57)
[2023-03-10 15:17] VITALS: BP 132/60; PULSE 81; RESP 18; TEMP 36.7; O2SAT 95
--- NOTE | 2023-03-10 16:24 | MHC.CM.PN ---
PATIENT AND FAMILY MEMBER (IN ROOM) AWARE OF PLAN FOR DC Wednesday03/11/23
--- NOTE | 2023-03-10 17:26 | HO.PM.IMPN ---
Subjective Subjective Date of Service: 03/10/23 Interval History: doing well, no new issue Physical Exam Vital Signs: Vital Signs: Last Vital Signs Temp 98.0 F 03/10/23 15:17 Pulse 81 03/10/23 15:17 Resp 18 03/10/23 15:17 BP 132/60 03/10/23 15:17 Pulse Ox 95 03/10/23 15:17 O2 Del Method Room Air 03/10/23 15:17 BMI result Body Mass Index 29.9 Const: Other: General: AO to self, place, no acute distress Resp: CTA bilateral CVS: S1,S2,RRR GI: +BS, NT, no distention Skin: No rash Neuro: motor grossly intact Psych: appropriate affect Objective Data Active Medications Acetaminophen (Acetaminophen 325 Mg Tablet) 650 mg PO Q6H PRN PRN Reason: Pain, Mild (Pain Scale 1-3) Last Admin: 03/06/23 20:03 Dose: 650 mg Documented By: BEATRIZ Amlodipine Besylate (Amlodipine Besylate 10 Mg Tablet) 10 mg PO DAILY [facility]; Protocol Last Admin: 03/10/23 09:17 Dose: 10 mg Documented By: KAILA Ascorbic Acid (Ascorbic Acid 500 Mg Tablet) 500 mg PO Q48H [facility] Last Admin: 03/09/23 15:09 Dose: 500 mg Documented By: KAILA Aspirin (Aspirin Enteric Coated 81 Mg Tablet.) 81 mg PO DAILY [facility] Last Admin: 03/10/23 09:18 Dose: 81 mg Documented By: KAILA Atorvastatin Calcium (Atorvastatin Calcium 80 Mg Tablet) 80 mg PO BEDTIME [facility] Last Admin: 03/09/23 21:32 Dose: 80 mg Documented By: VERO Benzonatate (Benzonatate 100 Mg Capsule) 100 mg PO TID PRN PRN Reason: Cough Carvedilol (Carvedilol 12.5 Mg Tablet) 12.5 mg PO BID [facility]; Protocol Last Admin: 03/10/23 09:18 Dose: 12.5 mg Documented By: KAILA Dextrose (Dextrose 50 % 25 Gm/50 Ml Syringe) 25 gm IVPUSH Q15M PRN; Protocol PRN Reason: per Hypoglycemia Standing Ord. Docusate Sodium (Docusate Sodium 100 Mg Capsule) 100 mg PO DAILY PRN PRN Reason: Constipation Enoxaparin Sodium (Enoxaparin Sodium 40 Mg/0.4 Ml Syringe) 40 mg SUBCUT Q24H [facility] Last Admin: 03/09/23 21:29 Dose: 40 mg Documented By: VERO Escitalopram Oxalate (Escitalopram Oxalate 20 Mg Tablet) 20 mg PO DAILY [facility] Last Admin: 03/10/23 09:18 Dose: 20 mg Documented By: KAILA Ferrous Sulfate (Ferrous Sulfate 324 Mg Tablet.Dr) 324 mg PO DAILY [facility] Last Admin: 03/10/23 09:18 Dose: 324 mg Documented By: KAILA Glucose (Glucose Gel 15 Gm Gel..Gram.) 15 gm PO Q15M PRN; Protocol PRN Reason: per Hypoglycemia Standing Ord. Hydralazine HCl (Hydralazine Hcl 10 Mg Tablet) 20 mg PO TID [facility]; Protocol Last Admin: 03/10/23 16:18 Dose: 20 mg Documented By: KAILA Insulin Human Lispro (Insulin Lispro 100 Unit/Ml 3 Ml Vial) 0 unit SUBCUT QIDACHS [facility]; Protocol Last Admin: 03/10/23 16:57 Dose: 2 unit Documented By: KAILA Lidocaine (Lidocaine 4 % Patch Adh..Patch) 1 patch TRANSDERMA DAILY [facility] Last Admin: 03/10/23 09:14 Dose: 1 patch Documented By: KAILA Lisinopril (Lisinopril 40 Mg Tablet) 40 mg PO DAILY [facility]; Protocol Last Admin: 03/10/23 09:18 Dose: 40 mg Documented By: KAILA Metformin HCl (Metformin Hcl 500 Mg Tablet) 500 mg PO BIDWM [facility] Last Admin: 03/10/23 16:18 Dose: 500 mg Documented By: KAILA Polyethylene Glycol (Polyethylene Glycol 3350 17 Gm Powd.Pack) 17 gm PO DAILY PRN PRN Reason: constipation Last Admin: 02/15/23 17:10 Dose: 17 gm Documented By: МАРИЯ Sodium Chloride (0.9 % Sodium Chloride Flush 3 Ml Syringe) 3 ml IVFLUSH QSHIFT [facility] Last Admin: 03/10/23 13:52 Dose: Not Given Documented By: KAILA Non-Admin Reason: No Access Vitamin D (Cholecalciferol (Vitamin D3) 25 Mcg Tablet) 25 mcg PO DAILY [facility] Last Admin: 03/10/23 09:17 Dose: 25 mcg Documented By: KAILA Labs 03/08/23 05:32 03/08/23 05:32 Labs: Laboratory Results - last 24 hr 02/25/23 03/09/23 03/10/23 13:10 20:11 07:18 POC Glucose 148 H 125 H Albumin (Send Out) 3.1 L CSF IgG Synthesis Rate TNP IgG Index 852 03/10/23 03/10/23 11:30 16:26 POC Glucose 257 H 197 H Albumin (Send Out) CSF IgG Synthesis Rate IgG Index Assessment and Plan (1) Major neurocognitive disorder due to another medical condition: Status: Acute (2) Hypoglycemia: Status: Acute Plan 77yo F with HTN, HLD, DM2 who was found wandering the streets in her undergarments, brought in on Section 12 for failure to thrive/inability fo care for self. 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, LP with no infectious process TSH, B12, folate wnl, homocysteine level normal, repeat ua neg, no fever or leukocytosis s/p PPN Now awake, alert, conversive, OOB to chair eating on her own UTI [E coli/Strep veridians] completed 7d of ceftriaxone DM2 sliding scale metformin resumed s/p PPN HTN better control continue current meds carvedilol, lisinopril, amlodipine hydralazine added for better control HLD statin mood disorder escitalopram insomnia melatonin VTE ppx lovenox dispo STR, waiting on [facility]H dementia exclusion Need for inpt:awaiting placement dc tomorrow Quality Stroke Does the patient have a stroke diagnosis?: No VTE Prior VTE?: No VTE Risk Level:: Medical - moderate - high VTE Device Contraindication: Treatment Not Indicated VTE Drug Contraindication: N/A - Med Ordered
[2023-03-10 19:21] VITALS: BP 125/60; PULSE 86; RESP 16; TEMP 36.7; O2SAT 96
[2023-03-10] MEDS: Enoxaparin Sodium 40 MG/0.4 ML SYRINGE SUBCUT (20:57)
[2023-03-10] MEDS: Atorvastatin Calcium 80 MG TABLET PO (20:57)
[2023-03-11 03:42] VITALS: BP 125/59; PULSE 93; RESP 18; TEMP 37; O2SAT 95
[2023-03-11 07:29] VITALS: BP 145/68; PULSE 83; RESP 18; TEMP 36.3; O2SAT 96
[2023-03-11] MEDS: Insulin Lispro 100 UNIT/ML 3 ML VIAL SUBCUT (08:37)
[2023-03-11] MEDS: metFORMIN HCl 500 MG TABLET PO (08:37)
[2023-03-11] MEDS: amLODIPine Besylate 10 MG TABLET PO (08:37)
[2023-03-11] MEDS: 0.9 % Sodium Chloride Flush 3 ML SYRINGE IVFLUSH (08:38)
[2023-03-11] MEDS: Escitalopram Oxalate 20 MG TABLET PO (08:38)
[2023-03-11] MEDS: lisinopriL 40 MG TABLET PO (08:38)
[2023-03-11] MEDS: Aspirin Enteric Coated 81 MG TABLET.DR PO (08:38)
[2023-03-11] MEDS: Ferrous Sulfate 324 MG TABLET.DR PO (08:38)
[2023-03-11] MEDS: carvediloL 12.5 MG TABLET PO (08:38)
[2023-03-11] MEDS: Cholecalciferol (Vitamin D3) 25 MCG TABLET PO (08:38)
[2023-03-11] MEDS: Lidocaine 4 % Patch ADH..PATCH 1 PATCH TRANSDERMA (08:39)
--- NOTE | 2023-03-11 09:20 | MHC.CM.PN ---
Addendum entered by Keerthi Giang 03/11/23 11:31: ADDRESS AND PHONE NUMBER OF [facility] PROVIDED TO Original Note: PT WILL DC TO [facility] TODAY VIA [employer] [facility] TRANSPORT AVAILABLE IS 1130 HOURS PER NOTE, PT AND FAMILY WERE MADE AWARE OF MORNING DISCHARGE YESTERDAY BUT COVERING CM
--- NOTE | 2023-03-11 10:58 | MHC.CLN ---
F/U PO INTAKE CONTINUES VARIABLE RANGING FROM 25-100% DIET RX: CHOPPED-APPROPRIATE RECEIVES ENSURE BID TO PROMOTE NUTRITIONAL INTAKE PROVIDES 700KCALS, 40G PROTEIN WITH 100% ACCEPTANCE MONITOR PO INTAKE AND ENCOURAGE SUPPLEMENTS ABLE PT PENDING D/C TO [facility] TODAY PER CM
[2023-03-11 16:58] LABS: VDRL Qualitative CSF Nonreactive (Nonreactive)
== END 2023-03-11 11:58 | disposition skilled nursing facility (03) | DRG 637 ==
LOC: HO.ED 02-12 17:58 → HO.EDOVER 02-12 18:54 → HO.S3 02-12 20:59
PROVIDERS: Family Medicine; Hospitalist; Internal Medicine; Nurse Practitioner Acute Care; Physician Assistant; Physician Assistant Medical; Physician Assistant Surgical; Social Worker; Admitting Provider Student in an Organized Health Care Education/Training Program; Emergency Provider Emergency Medicine; PCP Internal Medicine; Visit Provider Internal Medicine
PROC: 009U3ZZ Drainage of Spinal Canal, Percutaneous Approach (ICD-10-PCS; CPT 62270; principal; 2023-02-25 11:30)
DX: E11.649 Type 2 diabetes mellitus with hypoglycemia without coma (principal); G92.8 Other toxic encephalopathy; N39.0 Urinary tract infection, site not specified; F05 Delirium due to known physiological condition; R62.7 Adult failure to thrive; B96.20 Unspecified Escherichia coli [E. coli] as the cause of diseases classified elsewhere; B95.4 Other streptococcus as the cause of diseases classified elsewhere; F39 Unspecified mood [affective] disorder; F32.A Depression, unspecified; F03.90 Unspecified dementia, unspecified severity, without behavioral disturbance, psychotic disturbance, mood disturbance, and anxiety; I69.898 Other sequelae of other cerebrovascular disease; G47.00 Insomnia, unspecified; Z68.29 Body mass index [BMI] 29.0-29.9, adult; Z74.1 Need for assistance with personal care; Z20.822 Contact with and (suspected) exposure to COVID-19; Z91.83 Wandering in diseases classified elsewhere; Z79.4 Long term (current) use of insulin; Z79.82 Long term (current) use of aspirin; Z79.84 Long term (current) use of oral hypoglycemic drugs; Z79.899 Other long term (current) drug therapy
CPT/HCPCS: 36415; 62328; 70450; 70551; 71045; 80048; 80053; 80076; 80143; 80179; 80307; 81001; 82042; 82140; 82550; 82565; 82607; 82746; 82803; 82945; 82947; 83090; 83735; 83873; 83916; 84100; 84157; 84166; 84443; 84478; 84484; 85025; 85027; 85610; 86335; 86592; 86617; 87015; 87070; 87086; 87088; 87102; 87116; 87186; 87205; 87206; 87483; 87497; 87635; 88108; 89051; 92526; 92610; 93005; 95816; 97162; 97530; 99285; J0360; J0696; J1650; J2060; J2270; J7120; S9485

== ENCOUNTER → 2023-02-08 13:38 | Outpatient (BNV) | payer MEDICARE, SELFPAY | PROVIDERS: Emergency Provider Emergency Medicine; Visit Provider Internal Medicine | DX: R94.31 Abnormal electrocardiogram [ECG] [EKG] (principal) | CPT/HCPCS: 93010 ==

== ENCOUNTER 2023-02-12 18:44 | Outpatient (BNV) | payer OTHER, SELFPAY | END 2023-02-18 01:58 | PROVIDERS: Admitting Provider Student in an Organized Health Care Education/Training Program; Emergency Provider Emergency Medicine; PCP Internal Medicine; Visit Provider Internal Medicine Cardiovascular Disease | DX: R94.31 Abnormal electrocardiogram [ECG] [EKG] (principal) | CPT/HCPCS: 93010 ==

== ENCOUNTER 2023-02-12 18:44 | Outpatient (BNV) | payer OTHER, SELFPAY | END 2023-02-25 11:30 | PROVIDERS: Admitting Provider Student in an Organized Health Care Education/Training Program; Emergency Provider Emergency Medicine; PCP Internal Medicine; Visit Provider Radiology Diagnostic Radiology | DX: G93.40 Encephalopathy, unspecified (principal) | CPT/HCPCS: 62328 ==

== ENCOUNTER → 2023-02-12 18:44 | Outpatient (BNV) | payer MEDICARE, SELFPAY | PROVIDERS: Admitting Provider Student in an Organized Health Care Education/Training Program; Emergency Provider Emergency Medicine; PCP Internal Medicine; Visit Provider Student in an Organized Health Care Education/Training Program | DX: E11.9 Type 2 diabetes mellitus without complications (principal); F02.80 Dementia in other diseases classified elsewhere, unspecified severity, without behavioral disturbance, psychotic disturbance, mood disturbance, and anxiety | CPT/HCPCS: 99223; 99232; 99233; 99239 ==

== ENCOUNTER → 2023-02-12 18:44 | Outpatient (BNV) | payer OTHER, SELFPAY | PROVIDERS: Admitting Provider Student in an Organized Health Care Education/Training Program; Emergency Provider Emergency Medicine; PCP Internal Medicine; Visit Provider Social Worker | DX: F03.90 Unspecified dementia, unspecified severity, without behavioral disturbance, psychotic disturbance, mood disturbance, and anxiety (principal) | CPT/HCPCS: 99231; 99232 ==